=== PATIENT | female | born 1945 | race Caucasian/White ===

== ENCOUNTER 2023-02-21 14:56 | Inpatient (IN) | payer SELFPAY ==
--- NOTE | ~2023-02-21 | US_ITS ---
EXAMINATION: US RETROPERITONEAL LIMITED (RENAL ONLY) CLINICAL INFORMATION: TETO. Rule out obstruction/hydronephrosis. COMPARISON: CT abdomen and pelvis without contrast 02/21/2023. TECHNIQUE: Real-time imaging of the kidneys. FINDINGS: RIGHT KIDNEY: 12.1 x 5.8 x 5.6 cm (SAG x AP x TRV). The kidney is normal in size, contour and echogenicity. Renal cortical thickness is normal. No renal calculi or hydronephrosis. Small cyst in the mid pole measuring 5 mm. No imaging follow-up recommended. LEFT KIDNEY: Not seen. Left kidney appears atrophic on CT January 2023. US/US renal BI IMPRESSION: Normal-appearing right kidney. No hydronephrosis. Left kidney not seen. Left kidney appears atrophic on January [address]
--- NOTE | ~2023-02-21 | CT_ITS ---
EXAMINATION: CT ABDOMEN AND PELVIS WITHOUT CONTRAST CLINICAL INFORMATION: Vaginal bleeding with pelvic tumor COMPARISON: CT abdomen pelvis without contrast 02/21/2023 TECHNIQUE: Multidetector volumetric imaging was performed from the superior aspect of the liver through the pubic symphysis. Sagittal and coronal reformatted images were obtained on the technologist's workstation. This CT examination was performed using dose optimization techniques as appropriate, variously including the following: *Automated exposure control *Adjustment of mA and/or kV according to patient size (this includes techniques or standardized protocols for targeted exams where dose is matched to indication/reason for exam; i.e. extremities or head) *Use of iterative reconstruction technique DLP: 1325 mGy-cm FINDINGS: LUNG BASES: Enlarged right anterior and left anterior preparacardiac lymph nodes are seen which have increased in size since the prior study. There are bilateral new pleural effusions and basilar atelectasis. No suspicious lung masses are seen. LIVER, GALLBLADDER, AND BILIARY TREE: The liver is normal in size, shape, and attenuation. No focal hepatic lesion or biliary ductal dilatation is present. The gallbladder is unremarkable with no evidence of radiopaque gallstones, gallbladder wall thickening, or obvious pericholecystic inflammatory changes. PANCREAS: Unremarkable. SPLEEN: Unremarkable. ADRENAL GLANDS: Unremarkable. KIDNEYS AND URETERS: The kidneys are normal in size, shape, and attenuation. No hydronephrosis, hydroureter, or calculi seen. No perinephric stranding. BLADDER: Ferreira catheter is in the bladder which is GASTROINTESTINAL TRACT: No evidence of bowel obstruction. ABDOMINAL WALL: Periumbilical hernia seen. Fluid is present within this along with some soft tissue density which may represent omental carcinomatosis. Because of lack of IV contrast, it is difficult to ascertain if a loop of small bowel is within this hernia. There certainly no evidence of bowel obstruction. LYMPH NODES: See discussion above regarding paracardiac nodes. Retroperitoneal lymphadenopathy is seen which appears slightly worse than prior. For example, a para-aortic lymph node now measures 3.8 x 3.4 cm in maximal transverse dimension (2:49) whereas previously this measured 3.1 x 2.4 cm (8:51) VASCULAR: Unremarkable. PELVIC VISCERA: Large volume ascites is present which has increased when compared to the prior study. Again seen is a large lobular uterine pelvic mass with largest component measuring 17.6 x 16.7 cm in maximal transverse dimension (2:74) with equivalent measurements at the time of the prior study of 15.3 x 16.2 cm (8:78). OSSEOUS STRUCTURES: Unremarkable. CT/CT abdomen pelvis wo IV con IMPRESSION: 1. Large uterine pelvic mass has increased in size. 2. Retroperitoneal lymphadenopathy has increased in size. 3. Large volume ascites has increased. 4. New bilateral pleural effusions. 5. Other incidental findings as described above. Fleischner guidelines were followed.
--- NOTE | ~2023-02-21 | CT_ITS ---
EXAMINATION: CT HEAD WITHOUT CONTRAST CLINICAL INFORMATION: Headache status-post fall; question hemorrhage. COMPARISON: None available. TECHNIQUE: Contiguous axial imaging was performed from the skull base to vertex without intravenous administration of contrast. Multiplanar reformatted images are submitted. This CT examination was performed using dose optimization techniques as appropriate, variously including the following: *Automated exposure control *Adjustment of mA and/or kV according to patient size (this includes techniques or standardized protocols for targeted exams where dose is matched to indication/reason for exam; i.e. extremities or head) *Use of iterative reconstruction technique DLP: 2236 mGy-cm (head and cervical spine) FINDINGS: There is no acute intracranial hemorrhage or evidence of territorial infarction. No abnormal mass effect or midline shift is seen. Cardona to white matter differentiation is well preserved. There is mild patchy low attenuation change in the periventricular white matter spaces. The ventricles are normal in size. No extra-axial fluid collections are identified. The calvarium and scalp soft tissues are normal. The middle ear cavity and mastoid air cells are clear. The visualized paranasal sinuses are clear. CT/CT cervical spine wo IV con IMPRESSION: 1. No acute intracranial pathology. 2. There is mild patchy low attenuation change in the periventricular white matter spaces, commonly associated with chronic microangiopathy. EXAMINATION: CT CERVICAL SPINE WITHOUT CONTRAST CLINICAL INFORMATION: Neck pain status-post fall. COMPARISON: None available. TECHNIQUE: Contiguous axial imaging was performed through the cervical spine without intravenous administration of contrast. Multiplanar reformatted images are submitted. This CT examination was performed using dose optimization techniques as appropriate, variously including the following: *Automated exposure control *Adjustment of mA and/or kV according to patient size (this includes techniques or standardized protocols for targeted exams where dose is matched to indication/reason for exam; i.e. extremities or head) *Use of iterative reconstruction technique DLP: As above FINDINGS: Imaging is somewhat limited by motion artifact. Vertebral body heights are normal. There is reversal of the normal curvature. At C3-C4, there is a 2 mm retrolisthesis. At C7-T1, there is anterior disc space narrowing, with vacuum disc phenomenon. At T2-T3, there is moderate disc space narrowing. No acute fracture or spondylolisthesis is seen. There is multi-level cervical and upper thoracic spondylosis. The posterior elements are intact. There is multi-level cervical facet arthropathy. There is no prevertebral soft tissue swelling. The dens is intact. There is degenerative change of the atlantoaxial joint. The bilateral lung apices are clear. IMPRESSION: There is multi-level cervical and upper thoracic degenerative disc disease, spondylosis and facet arthropathy. No acute traumatic finding is noted. Fleischner guidelines were followed.
--- NOTE | ~2023-02-21 | US_ITS ---
EXAMINATION: US PELVIS CLINICAL INFORMATION: Uterine mass seen on CT. COMPARISON: CT scan of the abdomen and pelvis performed on 02/21/2023. TECHNIQUE: Ultrasound of the pelvis is performed using both transabdominal and transvaginal transducers along with Doppler. Transvaginal imaging is performed due to inadequate visualization transabdominally. Positive findings The uterus and ovaries are suboptimally visualized secondary to bowel gas and ascites. If clinically indicated, further evaluation with contrast-enhanced pelvic MRI is recommended.
--- NOTE | ~2023-02-21 | XR_ITS ---
EXAMINATION: XR CHEST CLINICAL INFORMATION: Hypoxia COMPARISON: 04/07/2023, 02/21/2023 TECHNIQUE: Frontal view of the chest was obtained. FINDINGS: Heart size within normal limits. The ascending aorta/right hilum is more dominant than on previous studies. Left base atelectasis, mild left hemidiaphragmatic elevation and costophrenic angle blunting again seen. Small opacity right base. Degenerative changes. XR/XR chest 1V IMPRESSION: Interval prominence region of the ascending aorta. If there is clinical concern for aortic pathology, CT would be advised. Possible developing right base pneumonia.
--- NOTE | ~2023-02-21 | US_ITS ---
Paracentesis INDICATIONS: Ascites After informed and written consent was obtained an official timeout was performed immediately prior to the procedure. PROCEDURE: Initial ultrasound surveillance demonstrates ascites throughout the abdomen. Under ultrasound guidance a micropuncture needle was placed in the left lower quadrant after the skin was prepped and draped in usual fashion. 1% Xylocaine was used for local anesthetic. 5 L a slightly cloudy fluid was drained. US/US paracentesis abd w/image IMPRESSION: Paracentesis with 5 L of fluid drained
--- NOTE | ~2023-02-21 | XR_ITS ---
EXAMINATION: XR CHEST CLINICAL INFORMATION: Chest pain. COMPARISON: None available. TECHNIQUE: Frontal view of the chest was obtained. FINDINGS: The lungs are clear. The heart and mediastinal structures are unremarkable. Mild to moderate degenerative changes are seen in the thoracic spine. Mild to moderate right shoulder degenerative changes as well. XR/XR chest 1V IMPRESSION: No acute cardiopulmonary process.
--- NOTE | ~2023-02-21 | US_ITS ---
EXAMINATION: US VENOUS ULTRASOUND WITH DOPPLER LOWER EXTREMITY, BILATERAL CLINICAL INFORMATION: Swelling. COMPARISON: None available. TECHNIQUE: Ultrasound of the deep veins is performed from the hip to the calf with compression sonography and color and pulse Doppler assessment. Spectral analysis with color-flow imaging is performed. FINDINGS: RIGHT: There is normal venous compression and respiratory variation and augmented flow. The visualized common femoral vein, superficial femoral vein, profunda femoral vein and popliteal vein shows no evidence of deep venous thrombosis. The calf veins were not well seen due to overlying subcutaneous thickening. There is no significant popliteal fossa cyst. LEFT: There is normal venous compression and respiratory variation and augmented flow. The visualized common femoral vein, superficial femoral vein, profunda femoral vein, and popliteal vein shows no evidence of deep venous thrombosis. The calf veins were not well seen due to overlying subcutaneous thickening. There is no significant popliteal fossa cyst. US/US venous duplex LE BI IMPRESSION: No DVT demonstrated in the bilateral lower extremities with the caveat of suboptimal evaluation of the calf veins as above. If the patient's symptoms persist, followup ultrasound in 5 days 7 days might be of value to exclude proximal propagation from a non-visualized calf vein
--- NOTE | ~2023-02-21 | US_ITS ---
EXAMINATION: US ABDOMEN LIMITED CLINICAL INFORMATION: Ascites check. COMPARISON: CT abdomen and pelvis without contrast 02/21/2023. TECHNIQUE: Real-time imaging of the 4 quadrants. FINDINGS: There is a large amount of ascites. US/US abdomen limited IMPRESSION: Large amount of ascites.
--- NOTE | ~2023-02-21 | XR_ITS ---
EXAMINATION: XR CHEST CLINICAL INFORMATION: Shortness of breath. COMPARISON: 02/21/2023 TECHNIQUE: Frontal view of the chest was obtained. FINDINGS: The lung volumes are low. The cardiomediastinal silhouette is stable. There is left lower lung field increased markings. There is no focal lung consolidation or pleural effusion. The bony structures and soft tissues are unremarkable. XR/XR chest 1V IMPRESSION: 1. Low lung volumes limits evaluation. 2. Left lower lung field increased markings possibly atelectasis/scarring. 3. No focal consolidation or pleural effusion.
--- NOTE | ~2023-02-21 | CT_ITS ---
EXAMINATION: CT CHEST WITHOUT CONTRAST CLINICAL INFORMATION: Pneumonia. COMPARISON: Chest x-ray 04/11/2023. TECHNIQUE: Multidetector volumetric CT imaging of the chest was done. Axial MIP volume rendering provided. Sagittal and coronal reformatted images were obtained. This CT examination was performed using dose optimization techniques as appropriate, variously including the following: *Automated exposure control *Adjustment of mA and/or kV according to patient size (this includes techniques or standardized protocols for targeted exams where dose is matched to indication/reason for exam; i.e. extremities or head) *Use of iterative reconstruction technique DLP: 378 mGy-cm FINDINGS: DIRECT MARKETING MANAGER: Patient is rotated to the left with mild cardiomegaly and air bronchogram left lower lobe. LUNGS: The lungs are well-expanded with 2 mm calcified nodule right lung apex image 75/6. No additional lung lung nodules seen. There is moderate left lower lobe consolidation with small left pleural effusion. There is minimal right pleural effusion. MEDIASTINUM: Heart size is enlarged. The abdominal aorta measures 4.5 x 4.0 cm. The pulmonary artery is normal caliber. No abnormal size mediastinal or hilar lymphadenopathy seen. There is no pericardial effusion. No abnormal size CORONARY ARTERY CALCIFICATION: None visualized on this study. PLEURA: There is small left and tiny right pleural effusion. AXILLA: No lymphadenopathy. UPPER ABDOMEN: There is a hypodense lesion versus a dilated intrahepatic IVC. Also visualized is a right hepatic lobe hypodensity segment 7 axial image 48/3. There is diffuse ascites. OSSEOUS STRUCTURES: No aggressive lytic or sclerotic process seen. There is mild ventral spondylosis mid dorsal spine. CT/CT chest wo IV con IMPRESSION: 1. Left lower lobe consolidation with small left pleural effusion. 2. There is tiny right pleural effusion. 3. There is a hypodense lesion versus a dilated intrahepatic IVC. Also visualized is a second lesion in the right hepatic lobe. Recommend CT correlation without and with contrast. Fleischner guidelines were followed.
--- NOTE | ~2023-02-21 | CT_ITS ---
EXAMINATION: CT ABDOMEN AND PELVIS WITHOUT CONTRAST CLINICAL INFORMATION: Lower abdominal pain; frequent falls. COMPARISON: None available. TECHNIQUE: Multidetector volumetric imaging was performed from the superior aspect of the liver through the pubic symphysis. Sagittal and coronal reformatted images were obtained on the technologist's workstation. This CT examination was performed using dose optimization techniques as appropriate, variously including the following: *Automated exposure control *Adjustment of mA and/or kV according to patient size (this includes techniques or standardized protocols for targeted exams where dose is matched to indication/reason for exam; i.e. extremities or head) *Use of iterative reconstruction technique DLP: 2236 mGy-cm FINDINGS: LUNG BASES: There is bibasilar linear scar/subsegmental atelectasis, left greater than right. There is cardiomegaly. LIVER, GALLBLADDER, AND BILIARY TREE: The liver is normal in size, shape, and attenuation. No focal hepatic lesion or biliary ductal dilatation is present. The gallbladder is unremarkable with no evidence of radiopaque gallstones, gallbladder wall thickening, or obvious pericholecystic inflammatory changes. PANCREAS: Unremarkable. SPLEEN: Unremarkable. ADRENAL GLANDS: Unremarkable. KIDNEYS AND URETERS: The right kidney is normal in size, shape, and attenuation. There is marked left renal atrophy. There are 3 low Hounsfield value left renal cortical cysts. There are small probable vascular calcifications within the atrophic left kidney. No hydronephrosis, hydroureter, or definite calculi seen. No perinephric stranding. BLADDER: Unremarkable. GASTROINTESTINAL TRACT: The small and large bowel are unremarkable. The appendix is poorly identified. ABDOMINAL WALL: There is a diastases rectus. There is a fat and fluid containing umbilical hernia defect. This contains small calcifications. The hernia neck measures 1.3 cm, and the hernia sac measures 6.2 x 3.7 x 6.4 cm (8:88 and 12:48). There is marked anasarca. LYMPH NODES: There are multiple enlarged abdominal and pelvic lymph nodes. In particular, 1.9 x 1.5 cm and 3.8 x 2.7 cm dominant gastrohepatic lymph nodes are seen (8:28 and 36). Within the rightward mesentery (8:49), a 2.4 x 1.7 cm lymph node is seen. In the left para-aortic region (8:51), a 3.1 x 2.4 cm lymph node is seen. Within the right common iliac chain (8:67 and 73), 2.4 x 1.8 cm and 1.6 x 1.3 cm lymph nodes are seen. In the right external iliac chain (8:85), a 1.2 x 1.2 cm lymph node is seen. In the left iliac chain (8:76), a 1.7 x 1.3 cm lymph node is seen. A 2.0 x 1.3 cm right pararectal lymph node is seen. VASCULAR: There is mild aortoiliac atherosclerotic calcification. No abdominal aortic aneurysm is seen. PELVIC VISCERA: The uterus is massively enlarged, measuring 16.5 x 19.0 x 18.6 cm (8:77 and 12:69). Uterine attenuation is heterogeneous. There are several peripheral eggshell calcifications noted within the uterus, possibly related to fibroid disease. The margins are relatively smooth. The ovaries are not identified with certainty. OSSEOUS STRUCTURES: There is multi-level marked thoracolumbar spondylosis. There is marked degenerative disc disease extending from L2-L3 through L5-S1, with vacuum disc phenomenon. There is multi-level lumbar facet arthropathy. There is severe degenerative change of the hips. No acute or aggressive osseous abnormality is seen. FREE FLUID: There is marked [address]/CT abdomen pelvis wo IV con IMPRESSION: 1. A significantly enlarged uterus is seen, with dimensions as above. There are peripheral eggshell calcifications within the uterus, raising the possibility of massive fibroid replacement. The possibility of uterine tumor, including leiomyosarcoma, is not excluded. Recommend further characterization with dedicated pelvic ultrasound. 2. There are numerous markedly enlarged abdominal and pelvic lymph nodes, as detailed above. These are nonspecific, and further work-up is indicated, together with continued attention on imaging follow-up. 3. There is marked ascites, and marked anasarca is noted. Consider diagnostic and therapeutic paracentesis, with cytology evaluation. 4. There is left renal atrophy. Benign-appearing left renal cysts are noted, which require no imaging follow-up. 5. There is a fat- and fluid-containing umbilical hernia defect. 6. There are multi-level marked degenerative changes of the thoracolumbar spine and hips. No aggressive osseous lesion is seen. 7. There is cardiomegaly. Fleischner guidelines were followed.
--- NOTE | ~2023-02-21 | US_ITS ---
EXAMINATION: Ultrasound-guided paracentesis CLINICAL INFORMATION: Ascites COMPARISON: Previous CT of the abdomen and pelvis 02/21/2023 TECHNIQUE: Procedure and risks and benefits including bleeding infection and low blood pressure were discussed with the patient and informed consent was obtained. The left lower quadrant was prepped and draped in usual sterile fashion. The skin and soft tissues were anesthetized with 1% lidocaine plain. Using ultrasound guidance and a 5 Danish one stick system, access to the ascitic fluid was obtained. 8.3 L of serosanguineous/slightly bloody fluid was removed. Diagnostic specimen was sent. FINDINGS: There is a large amount of ascites. This appears slightly complex with mobile internal echoes. US/US paracentesis abd w/image IMPRESSION: Ultrasound-guided paracentesis.
[2023-02-21 15:06] VITALS: BP 114/70; PULSE 82; O2SAT 97
[2023-02-21 15:11] VITALS: BP 101/47; PULSE 101; RESP 18; TEMP 36.7; O2SAT 97; BMI 31.7
--- NOTE | 2023-02-21 15:26 | ECG_ITS ---
Test Reason : SOB Blood Pressure : / mmHG Vent. Rate : 068 BPM Atrial Rate : 068 BPM P-R Int : 220 ms QRS Dur : 084 ms QT Int : 402 ms P-R-T Axes : -86 001 012 degrees QTc Int : 427 ms Normal sinus rhythm with Premature atrial complexes Abnormal ECG No previous ECGs available Referred By: Tuyet Nassar Electronically Signed By:CHRISTIE POTTS MD
--- NOTE | 2023-02-21 15:30 | ED.GENADULT ---
HPI - General Adult General Chief complaint: General Medical Stated complaint: SEC 12, FAILURE TO THRIVE PER EMS Time Seen by Provider: 02/21/23 15:06 History of Present Illness HPI narrative: Patient is a 77-year-old female she denies any significant past medical history. However she has been having frequent falls. Came to the hospital after being [place] [address] [employer]. Leads noted patient has been frequently falling multiple times a day in forgetful been self-administering oxycodone cannot ambulate and is covered in urine. Sent in for evaluation. Related Data Home Medications Medication Instructions Recorded Confirmed oxycodone 5 mg tablet 10 mg PO BID PRN pain 02/21/23 02/21/23 Allergies Allergy/AdvReac Type Severity Reaction Status Date / Time No Known Allergies Allergy Verified 02/21/23 15:25 Review of Systems Review of Systems: No fever no chills no chest pain. Positive contusions to head. No loss of consciousness. Patient has no complaints. Yes all other systems are reviewed and are negative PMFSH Past Medical History Attestation statement: The following information was validated with the patient. Social History Social History Alcohol intake: never Smoked in Last 30 Days: No Use of substances other than those prescribed or required for medical reasons: No Advance Directives: No Advance Directives Information Provided: Yes Physical Exam ED Vital Signs: Vital Signs - 24 hr 02/21/23 15:11 02/21/23 17:31 Temperature 98.1 F 97.6 F Pulse Rate 101 H 77 Respiratory Rate 18 20 Blood Pressure 101/47 L 94/62 Pulse Oximetry 97 96 Oxygen Delivery Method Room Air Room Air BMI result Body Mass Index 31.7 Appearance: Alert. Oriented X3. No acute distress. Significant contusion to the left frontal area appears to have different stages of healing. Eyes: Pupils equal, round and reactive to light. ENT: Pharynx normal. Neck: Normal inspection. Neck supple. No lymph nodes noted. No crepitus CVS: Normal heart rate and rhythm. Pulses normal. Normal S1 and S2 Respiratory: No respiratory distress. Breath sounds normal. No Wheezing. No rales Abdomen: Soft and nontender. No rigidity. No distention. good BS x4 Skin: Skin warm and dry. Normal skin color. Normal skin turgor. Extremities: No lower extremity edema. Neurovascular intact to all extremities. No Lacerations. No Rash Neuro: Oriented X 3. No motor deficit. No sensory deficit. Moving all extermities. No slurred speech Medications Administered Discontinued Medications Generic Name Dose Route Start Last Admin Trade Name Yousuf PRN Reason Stop Dose Admin Sodium Chloride 500 mls @ 999 mls/hr 02/21/23 15:30 02/21/23 17:33 Ns IV 02/21/23 16:00 Infused .Q31M NAYA Infusion Ceftriaxone Sodium 1 gm/ 50 mls @ 100 mls/hr 02/21/23 18:18 02/21/23 19:42 Sodium Chloride IV 02/21/23 18:47 Infused ONCE ONE Infusion Sodium Chloride 1,000 mls @ 999 mls/hr 02/21/23 18:30 02/21/23 18:56 Ns IV 02/21/23 19:30 999 mls/hr .Q1H1M NAYA Administration Medical Decision Making Medical Decision Making [facility] Narrative: Patient's urine came back positive for infection. Lactate was 1. Patient's white count was 20. Accounting for some of patient's weakness and may be forgetfulness. CT scan of the head was grossly negative for any evidence of bleeding. CT scan of the abdomen pelvis showed a mass. Will need further workup. U tox was negative. Patient's electrolytes shows an elevated BUN and creatinine 34 and 1.43. Will give hydration. Patient's alcohol is less than 10 no evidence for alcohol to be the cause of patient's change in mental status. Patient's case discussed with the hospitalist team. To be admitted. Differential Diagnosis Differential Diagnoses: The differential diagnosis associated with the presentation includes Urinary tract infection, electrolyte disturbance, hypoglycemia, intracranial bleed Consult Healthcare Provider Management of the patient was discussed with: Hospitalist Lab Data [facility] Lab Attestation statement: I reviewed the patient's lab results. 02/21/23 16:34 02/21/23 16:34 Labs: Lab Results 02/21/23 02/21/23 02/21/23 Range/Units 16:34 16:34 16:34 WBC 20.2 H (4.8-10.8) X10*3/uL RBC 3.77 L (4.20-5.50) X10*6/uL Hgb 10.0 L (12.0-16.0) g/dl Hct 32.8 L (37.0-47.0) % MCV 87.0 (80.0-98.0) fL MCH 26.5 L (27.0-33.0) pg MCHC 30.5 L (31.0-35.0) g/dl RDW 13.4 (11.0-16.0) % Plt Count 310 (160-400) X10*3/uL MPV 10.8 (9.4-12.3) fL Immature Gran % (Auto) 0.5 H (0.0-0.4) % Neut % (Auto) 92.2 H (45-73) % Lymph % (Auto) 3.4 L (20-40) % [place] % (Auto) 3.3 (2-11) % Eos % (Auto) 0.4 (0-4) % Baso % (Auto) 0.2 (0-2) % Lymph # (Auto) 0.7 L (1.2-4.9) X10*3/uL [place] # (Auto) 0.7 (0.1-1.2) X10*3/uL Eos # (Auto) 0.1 (0.0-0.4) X10*3/uL Baso # (Auto) 0.0 (0.0-0.2) X10*3/uL Abs Immat Gran (auto) 0.10 H (0.00-0.03) X10*3/uL Absolute Neuts (auto) 18.6 H (2.0-8.3) x10*3/uL Absolute Nucleated RBC 0.000 (0.0-0.012) X10*3/uL Nucleated RBC % (auto) 0.0 (0.0-0.2) /100WBC Smear Tech's Comments VERIFIED PT 13.9 H (11.1-13.3) SEC INR 1.1 (0.9-1.1) Sodium 139 (135-145) mmol/L Potassium 4.1 (3.3-5.1) mmol/L Chloride 107 (96-108) mmol/L Carbon Dioxide 20 L (22-29) mmol/L Anion Gap 16 (12-20) BUN 32 H (9-16) mg/dL Creatinine 1.42 H (0.5-1.4) mg/dL Estim Creat Clear Calc 45.8 Estimated GFR 36 Random Glucose 112 (60-115) mg/dL Lactic Acid (0.5-2.0) mmol/L Calcium 8.9 (8.4-10.2) mg/dL Total Bilirubin 0.4 (0.0-1.0) mg/dL Direct Bilirubin 0.2 (0.0-0.5) mg/dL AST 11 (5-31) U/L ALT 7 (0-31) U/L Alkaline Phosphatase 98 (39-117) U/L Total Creatine Kinase (26-140) U/L Total Protein 5.7 L (6.5-8.0) g/dL Albumin 2.6 L (3.5-5.0) g/dL Urine Color Urine Appearance Urine pH (5.0-9.0) Ur Specific [place] (1.005-1.025) Urine Protein (Neg-Trace) mg/dL Urine Glucose (UA) (Negative) mg/dL Urine Ketones (Negative) mg/dL Urine Blood (Negative) Urine Nitrite (Negative) Ur Leukocyte Esterase (Negative) Urine RBC (0-2) /HPF Urine WBC (0-5) /HPF Ur Squamous Epith Cells (0-2) /HPF Urine Bacteria (None Seen) Hyaline Casts (0-2) /LPF Urine Opiates Screen (Not Detect) Urine Fentanyl Screen (Not Detect) Ur Barbiturates Screen (Not Detect) Ur Phencyclidine Scrn (Not Detect) Ur Amphetamines Screen (Not Detect) U Benzodiazepines Scrn (Not Detect) Urine Cocaine Screen (Not Detect) U Marijuana (THC) Screen (Not Detect) Ethyl Alcohol < 10 mg/dL 02/21/23 02/21/23 02/21/23 Range/Units 16:34 16:34 16:34 WBC (4.8-10.8) X10*3/uL RBC (4.20-5.50) X10*6/uL Hgb (12.0-16.0) g/dl Hct (37.0-47.0) % MCV (80.0-98.0) fL MCH (27.0-33.0) pg MCHC (31.0-35.0) g/dl RDW (11.0-16.0) % Plt Count (160-400) X10*3/uL MPV (9.4-12.3) fL Immature Gran % (Auto) (0.0-0.4) % Neut % (Auto) (45-73) % Lymph % (Auto) (20-40) % [place] % (Auto) (2-11) % Eos % (Auto) (0-4) % Baso % (Auto) (0-2) % Lymph # (Auto) (1.2-4.9) X10*3/uL [place] # (Auto) (0.1-1.2) X10*3/uL Eos # (Auto) (0.0-0.4) X10*3/uL Baso # (Auto) (0.0-0.2) X10*3/uL Abs Immat Gran (auto) (0.00-0.03) X10*3/uL Absolute Neuts (auto) (2.0-8.3) x10*3/uL Absolute Nucleated RBC (0.0-0.012) X10*3/uL Nucleated RBC % (auto) (0.0-0.2) /100WBC Smear Tech's Comments PT (11.1-13.3) SEC INR (0.9-1.1) Sodium (135-145) mmol/L Potassium (3.3-5.1) mmol/L Chloride (96-108) mmol/L Carbon Dioxide (22-29) mmol/L Anion Gap (12-20) BUN (9-16) mg/dL Creatinine (0.5-1.4) mg/dL Estim Creat Clear Calc Estimated GFR Random Glucose (60-115) mg/dL Lactic Acid (0.5-2.0) mmol/L Calcium (8.4-10.2) mg/dL Total Bilirubin (0.0-1.0) mg/dL Direct Bilirubin (0.0-0.5) mg/dL AST (5-31) U/L ALT (0-31) U/L Alkaline Phosphatase (39-117) U/L Total Creatine Kinase 57 (26-140) U/L Total Protein (6.5-8.0) g/dL Albumin (3.5-5.0) g/dL Urine Color Dark Yellow Urine Appearance Cloudy Urine pH 5.5 (5.0-9.0) Ur Specific [place] 1.025 (1.005-1.025) Urine Protein 30 (1+) H (Neg-Trace) mg/dL Urine Glucose (UA) Negative (Negative) mg/dL Urine Ketones Trace (Negative) mg/dL Urine Blood Large (3+) H (Negative) Urine Nitrite Negative (Negative) Ur Leukocyte Esterase Moderate (2+) H (Negative) Urine RBC >20 H (0-2) /HPF Urine WBC >50 H (0-5) /HPF Ur Squamous Epith Cells 6-10 (0-2) /HPF Urine Bacteria 1+ (None Seen) Hyaline Casts 3-5 (0-2) /LPF Urine Opiates Screen POSITIVE H (Not Detect) Urine Fentanyl Screen Not Detected (Not Detect) Ur Barbiturates Screen Not Detected (Not Detect) Ur Phencyclidine Scrn Not Detected (Not Detect) Ur Amphetamines Screen Not Detected (Not Detect) U Benzodiazepines Scrn Not Detected (Not Detect) Urine Cocaine Screen Not Detected (Not Detect) U Marijuana (THC) Screen Not Detected (Not Detect) Ethyl Alcohol mg/dL 02/21/23 Range/Units 18:39 WBC (4.8-10.8) X10*3/uL RBC (4.20-5.50) X10*6/uL Hgb (12.0-16.0) g/dl Hct (37.0-47.0) % MCV (80.0-98.0) fL MCH (27.0-33.0) pg MCHC (31.0-35.0) g/dl RDW (11.0-16.0) % Plt Count (160-400) X10*3/uL MPV (9.4-12.3) fL Immature Gran % (Auto) (0.0-0.4) % Neut % (Auto) (45-73) % Lymph % (Auto) (20-40) % [place] % (Auto) (2-11) % Eos % (Auto) (0-4) % Baso % (Auto) (0-2) % Lymph # (Auto) (1.2-4.9) X10*3/uL [place] # (Auto) (0.1-1.2) X10*3/uL Eos # (Auto) (0.0-0.4) X10*3/uL Baso # (Auto) (0.0-0.2) X10*3/uL Abs Immat Gran (auto) (0.00-0.03) X10*3/uL Absolute Neuts (auto) (2.0-8.3) x10*3/uL Absolute Nucleated RBC (0.0-0.012) X10*3/uL Nucleated RBC % (auto) (0.0-0.2) /100WBC Smear Tech's Comments PT (11.1-13.3) SEC INR (0.9-1.1) Sodium (135-145) mmol/L Potassium (3.3-5.1) mmol/L Chloride (96-108) mmol/L Carbon Dioxide (22-29) mmol/L Anion Gap (12-20) BUN (9-16) mg/dL Creatinine (0.5-1.4) mg/dL Estim Creat Clear Calc Estimated GFR Random Glucose (60-115) mg/dL Lactic Acid 1.0 (0.5-2.0) mmol/L Calcium (8.4-10.2) mg/dL Total Bilirubin (0.0-1.0) mg/dL Direct Bilirubin (0.0-0.5) mg/dL AST (5-31) U/L ALT (0-31) U/L Alkaline Phosphatase (39-117) U/L Total Creatine Kinase (26-140) U/L Total Protein (6.5-8.0) g/dL Albumin (3.5-5.0) g/dL Urine Color Urine Appearance Urine pH (5.0-9.0) Ur Specific [place] (1.005-1.025) Urine Protein (Neg-Trace) mg/dL Urine Glucose (UA) (Negative) mg/dL Urine Ketones (Negative) mg/dL Urine Blood (Negative) Urine Nitrite (Negative) Ur Leukocyte Esterase (Negative) Urine RBC (0-2) /HPF Urine WBC (0-5) /HPF Ur Squamous Epith Cells (0-2) /HPF Urine Bacteria (None Seen) Hyaline Casts (0-2) /LPF Urine Opiates Screen (Not Detect) Urine Fentanyl Screen (Not Detect) Ur Barbiturates Screen (Not Detect) Ur Phencyclidine Scrn (Not Detect) Ur Amphetamines Screen (Not Detect) U Benzodiazepines Scrn (Not Detect) Urine Cocaine Screen (Not Detect) U Marijuana (THC) Screen (Not Detect) Ethyl Alcohol mg/dL Independent Interpretation I performed an independent interpretation of an: EKG and CT Scan Interpretation: Atrial arrhythmia heart rate is 70 MO QRS QTC normal CT head negative for any acute evidence of Radiology Impression Discussion of test interpretation with radiology: I have reviewed the radiologist's reading. Independent Historian Clinical information obtained from an independent historian. History obtained from or confirmed by: EMS Social Determinants Patient?s care significantly limited by Social Determinants of Health including: Inadequate housing Discharge Plan Discharge Clinical Impression: Urinary tract infection Patient Disposition: Admitted As Inpatient
--- OUTSIDE RECORDS SUMMARY | 2023-02-21 15:31 | XMS_ITS | Continuity of Care Document ---
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 Name Role Phone Marcia NATION, Nichole Primary Care Phys[id number] Date(s): 07/01/20 - 07/08/20 [facility] [address] [place] [phone] Encounter Diagnosis Mild nonproliferative diabetic retinopathy of both eyes(Discharge Diagnosis) - 07/01/20 Type 2 diabetes with nephropathy(Discharge Diagnosis) - 07/01/20 Microalbuminuria(Discharge Diagnosis) - 07/01/20 Morbid obesity(Discharge Diagnosis) - 07/01/20 Chronic kidney disease (CKD), stage III (moderate)(Discharge Diagnosis) - 07/01/20 HTN (hypertension)(Discharge Diagnosis) - 07/01/20 Low back pain(Discharge Diagnosis) - 07/01/20 Depression, major(Discharge Diagnosis) - 07/01/20 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(Discharge Diagnosis) - 07/01/20 Dyslipidemia(Discharge Diagnosis) - 07/01/20 Postmenopausal bleeding(Discharge Diagnosis) - 07/01/20 Attending Physician: Marcia NATION Nichole Allergies, Adverse Reactions, Alerts Substance Reaction Severity Status codeine Active aspirin nausea/vomitting Active Immunizations Given and Recorded Vaccine Date Status Refusal Reason tetanus/diphtheria/pertussis, acel(Tdap) 1 05/13/16 Given tetanus/diphtheria/pertussis, acel(Tdap) 05/13/16 Given influenza virus vaccine, inactivated 06/05/13 Give n influenza virus vaccine, inactivated 06/08/07 Give n Pneumococcal Poly (PPV23) (oldterm) 06/08/07 Given 1Result Comment: [email or web address] Medications Ascensia Microlet lancets Ascensia Microlet lancets, See Instructions, # 100 each, Refills 2, Tot. Refills 2, Maintenance, eat blood sugar daily, 10/11/10 16:40:55 Start Date: 10/11/10 Status: Ordered atorvastatin 40 mg oral tablet 1 tablet = 40 mg, By Mouth, Daily, # 90 tablet, 1 Refills, Soft Stop, 06/30/20 12:54:00 EST, [facility]/pharmacy #[id number], 181, cm, 03/11/19 15:15:00 EDT, Height Start Date: 06/30/20 Status: Ordered Giselle Ascensia Autodisc Test Strips See Instructions, # 50 each, Refills 5, Tot. Refills 5, Maintenance, Ascensia Breexe unique 10 testdisc testr blood sugars daily, 10/11/10 16:12:28 Start Date: 10/11/10 Status: Ordered felodipine 5 mg oral tablet, extended release 1 tablet, By Mouth, Daily, # 90 tablet, 2 Refills, Maintenance, 06/30/20 16:18:00 EST, [facility]/pharmacy#1972, 181, cm, 03/11/19 15:15:00 EDT, Height Start Date: 06/30/20 Status: Ordered glipiZIDE 5 mg oral tablet 2.5 mg, 0.5, tablet, By Mouth, Daily, # 45 tablet, Refills 0, Tot. Refills 0, Maintenance, 07/06/2011:14:00 EST, Route to Pharmacy Electronically, [facility]/pharmacy #[id number], 181, cm, 07/01/20 11:38:00 EST,Height Start Date: 07/06/20 Stop Date: 04/02/21 Status: Ordered lisinopril 40 mg oral tablet 1 tablet = 40 mg, By Mouth, Daily, # 30 tablet, 2 Refills, Maintenance, 06/27/20 9:42:00 EST, [facility]/pharmacy #1972, 181, cm, 03/11/19 15:15:00 EDT, Height Start Date: 06/27/20 Status: Ordered nystatin topical 407149 u/gm powder 1 application, Topically, 3 times a day, # 60 Gm, 11 Refills, Maintenance, 03/11/19 15:36:28 EDT, Powder, 1 application Topically 3 times a day Start Date: 03/11/19 Status: Ordered omeprazole 20 mg oral enteric coated capsule 1 capsule = 20 mg, By Mouth, Daily, before a meal, # 30 capsule, 1 Refills, Maintenance, 12/22/16 12:09:57, EC Capsule Start Date: 12/22/16 Status: Ordered oxyCODONE 10 mg oral tablet 1 tablet = 10 mg, By Mouth, Every 6 hours, PRN as needed for pain, TO BE FILLED 06/15/20 DX M19.09 M17.10 M54.5, # 112 tablet, 0 Refills, Maintenance, 06/12/20 13:28:00 EST, Tablet, [facility]pharmacy #[id number], TO BE FILLED 06/15/20; Partial fill upon patient... Start Date: 06/12/20 Status: Ordered ROLLATOR ROLLATOR, See Instructions, # 1 each, Refills 0, Tot. Refills 0, Maintenance, WIDE BODY HEAVY DUTY,SEATED, HAND BRAKES, DX-degenerative joint disease of shoulder, knee oa, low back pain length of need lifetime, 11/08/16 13:23:23, Compound Start Date: 11/08/16 Status: Ordered Senna Plus 50 mg-8.6 mg oral tablet 2 tablet, By Mouth, Daily at bedtime, # 180 tablet, 3 Refills, Maintenance, 10/07/19 9:37:00 EDT, Tablet, [facility], 2 tablet By Mouth Daily at bedtime, 181, cm, 03/11/19 15:15:00 EDT, Height Start Date: 10/07/19 Status: Ordered triamcinolone 0.5% topical cream 1 application, Topically, 2 times a day, apply a thin film to affected area, # 60 Gm, 0 Refills, Maintenance, 07/01/20 11:59:00 EST, Cream, [facility], 1 application Topically 2 times a day,Instr:apply a thin film; to affected area, 181, cm,... Start Date: 07/01/20 Status: Ordered venlafaxine 150 mg oral capsule, extended release 2 capsules, By Mouth, Daily, # 180 capsule, Refills 0, Tot. Refills 0, Soft Stop, 06/01/20 10:41:00EST, Route to Pharmacy Electronically, [id number], Easy open lid., 181, cm, 03/11/19 15:15:00 EDT, Height Start Date: 06/01/20 Status: Ordered Problem List Condition Effective Dates Status Health Status Inform ant Attention deficit disorder(Confirmed) 12/16/05 Active Chronic kidney disease (CKD) , stage III (moderate)(Confirmed) Active 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(Confirmed) Active Mild nonproliferative diabet ic retinopathy of both eyes(Confirmed) 2017 Active Dyslipidemia(Confirmed) Active HTN (hypertension)(Confirmed) Active Kidney stone(Confirmed) Active Knee joint pain(Confirmed) Active 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(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) Active Low back pain(Confirmed) Active Depression, major(Confirmed) Active Microalbuminuria(Confirmed) Active Morbid obesity(Confirmed) Active Non-toxic multinodular goiter(Confirmed) 12/16/08 Active OA - Osteoarthritis of knee(Confirmed) Active Type 2 diabetes with nephropathy(Confirmed) Active Diagnosis Diagnosis Type Effective Dates Health Status Clinical Service Informant Mild nonproliferative diabetic retinopathy of both eyes Discharge Diagnosis 07/01/20 Chronic kidney disease (CKD), stage III (moderate) Discharge Diagnosis 07/01/20 Microalbuminuria Discharge Diagnosis 07/01/20 Morbid obesity Discharge Diagnosis 07/01/20 Type 2 diabetes with nephropathy Discharge Diagnosis 07/01/20 HTN (hypertension) Discharge Diagnosis 07/01/20 Low back pain Discharge Diagnosis 07/01/20 Depression, major Discharge Diagnosis 07/01/20 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
--- OUTSIDE RECORDS SUMMARY | 2023-02-21 15:31 | XMS_ITS | Continuity of Care Document ---
Author Name Unknown Organization [facility] Adult Address [address] [place] [address]- Care Team Providers Care Hospice Plan Administrator Name Role Phone Nichole Kennedy MD Primary Care Physician [place] [facility] [id number] Date(s): 01/22/21 - 01/29/21 [facility] Adult [address] [place] [id number]- Encounter Diagnosis Well adult exam(Discharge Diagnosis) - 01/22/21 Type 2 diabetes with nephropathy(Discharge Diagnosis) - 01/22/21 Mild nonproliferative diabetic retinopathy of both eyes(Discharge Diagnosis) - 01/22/21 Microalbuminuria(Discharge Diagnosis) - 01/22/21 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(Discharge Diagnosis) - 01/22/21 OA - Osteoarthritis of knee(Discharge Diagnosis) - 01/22/21 HTN (hypertension)(Discharge Diagnosis) - 01/22/21 Dyslipidemia(Discharge Diagnosis) - 01/22/21 Depression, major(Discharge Diagnosis) - 01/22/21 Epigastric pain(Discharge Diagnosis) - 01/22/21 Attending Physician: Nichole Kennedy MD Allergies, Adverse Reactions, Alerts Substance Reaction Severity [...] 1 Refills, Soft Stop, 06/30/20 12:54:00 EST, [facility]/pharmacy #1972, 181, cm, 03/11/19 15:15:00 EDT, Height Start Date: 06/30/20 Status: Ordered Giselle BUX Autodisc Test Strips See Instructions, # 50 each, Refills 5, Tot. Refills 5, Maintenance, [facility] unique 10 testdisc testr blood sugars daily, 10/11/10 16:12:28 Start Date: 10/11/10 Status: Ordered felodipine 5 mg oral tablet, extended release 1 tablet, By Mouth, Daily, # 30 tablet, 0 Refills, Maintenance, 01/27/21 9:23:00 EDT, [facility]/pharmacy #1972, 181, cm, 01/22/21 16:27:00 EDT, Height Start Date: 01/27/21 Status: Ordered glipiZIDE 5 mg oral tablet 2.5 mg, 0.5, tablet, By Mouth, Daily, # 45 tablet, Refills 1, Tot. Refills 1, Maintenance, 12/16/2115:23:00 EDT, Route to Pharmacy Electronically, [facility]/pharmacy #1972, 181, cm, 11/30/20 9:02:00 EDT, Height Start Date: 12/15/20 Status: Ordered lisinopril 40 mg oral tablet 1 tablet = 40 mg, By Mouth, Daily, # 30 tablet, 0 Refills, Maintenance, 01/27/21 9:22:00 EDT, [facility]/pharmacy #1972, 181, cm, 01/22/21 16:27:00 EDT, Height Start Date: 01/27/21 Status: Ordered nystatin topical 724879 u/gm powder 1 application, Topically, 3 times a day, # 60 Gm, 11 Refills, Maintenance, 03/11/19 15:36:28 EDT, Powder, 1 application Topically 3 times a day Start Date: 03/11/19 Status: Ordered omeprazole 20 mg oral enteric coated capsule 1 capsule = 20 mg, By Mouth, Daily, # 30 capsule, 0 Refills, Maintenance, 01/22/21 16:35:00 EDT, ECCapsule, [facility], Partial fill upon patient request if the prescription is for a schedule II opioid drug., 181, cm, 01/22/21 16:27:00 EDT, H... Start Date: 01/22/21 Status: Ordered oxyCODONE 10 mg oral tablet 1 tablet = 10 mg, By Mouth, Every 6 hours, PRN as needed for pain, PT OVERDUE FOR URINE DRUG SCREENAND LAB WORK DX M19.09 M17.10 M54.5, # 112 tablet, 0 Refills, Maintenance, 01/29/21 14:49:00 EDT, Tablet, [facility], TO BE FILLED 11/02/20; Par... Start Date: 01/29/21 Stop Date: 02/26/21 Status: Ordered ROLLATOR ROLLATOR, See Instructions, # 1 each, Refills 0, Tot. Refills 0, Maintenance, WIDE BODY HEAVY DUTY,SEATED, HAND BRAKES, DX-degenerative joint disease of shoulder, knee oa, low back pain length of need lifetime, 11/08/16 13:23:23, Compound Start Date: 11/08/16 Status: Ordered Senna Plus 50 mg-8.6 mg oral tablet 2 tablet, By Mouth, Daily at bedtime, # 60 tablet, 0 Refills, Maintenance, 01/27/21 9:24:00 EDT, Tablet, [facility], 2 tablet By Mouth Daily at bedtime, 181, cm, 01/22/21 16:27:00 EDT, Height Start Date: 01/27/21 Status: Ordered triamcinolone 0.5% topical cream 1 application, Topically, 2 times a day, apply a thin film to affected area, # 60 Gm, 2 Refills, Maintenance, 07/29/20 8:44:00 EST, Cream, [facility], 1 application Topically 2 times a day,Instr:apply a thin film; to affected area, 181, cm, 1... Start Date: 07/29/20 Status: Ordered venlafaxine 150 mg oral capsule, extended release 2 capsule, By Mouth, Daily, # 180 capsule, 1 Refills, Maintenance, 01/26/21 12:45:00 EDT, [facility], 181, cm, 01/22/21 16:27:00 EDT, Height Start Date: 01/26/21 Status: Ordered Problem List Condition Effective Dates Status Health Status Inform ant Attention deficit disorder(Confirmed) 12/16/05 Active Chronic kidney disease (CKD) , stage III (moderate)(Confirmed) Active 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(Confirmed) Active Mild nonproliferative diabet ic retinopathy of both eyes(Confirmed) 2017 Active Dyslipidemia(Confirmed) Active HTN (hypertension)(Confirmed) Active Kidney stone(Confirmed) Active Knee joint pain(Confirmed) Active 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(Confirmed) Active Low back pain(Confirmed) Active Depression, major(Confirmed) Active Microalbuminuria(Confirmed) Active Morbid obesity(Confirmed) Active Non-toxic multinodular goiter(Confirmed) 12/16/08 Active OA - Osteoarthritis of knee(Confirmed) Active Type 2 diabetes with nephropathy(Confirmed) Active Diagnosis Diagnosis Type Effective Dates Health Status Clinical Service Informant Well adult exam Discharge Diagnosis 01/22/21 Type 2 diabetes with nephropathy Discharge Diagnosis 01/22/21 Mild nonproliferative diabetic retinopathy of both eyes Discharge Diagnosis 01/22/21 Microalbuminuria Discharge Diagnosis 01/22/21 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 Discharge Diagnosis 01/22/21 OA - Osteoarthritis of knee Discharge Diagnosis 01/22/21 HTN (hypertension) Discharge Diagnosis 01/22/21 Dyslipidemia Discharge Diagnosis 01/22/21 Depression, major Discharge Diagnosis 01/22/21 Epigastric pain Discharge Diagnosis 01/22/21 Vital Signs Most recent to oldest [Reference Range]: 1 2 Height 181.00 cm (01/22/21 4:27 PM) 181.00 cm (01/22/21 3:22 PM) Weight 135.45 kg (01/22/21 3:22 PM) Oxygen Saturation [94-100 %] 94 % (01/22/21 3:22 PM) Pulse Rate [55-90 bpm] 48 bpm *L* (01/22/21 3:22 PM) Body Mass Index [18.5-24.99] 41.34 *>HHI* (01/22/21 3:22 PM) Blood Pressure [90-138/55-84 mm Hg] 134/ 68mm Hg (01/22/21 4:27 PM) Weight Obtained Via Standing scale (01/22/21 3:22 PM) Social History Social History Type Response Smoking Status Former smoker entered on: 02/28/18 Sex
--- OUTSIDE RECORDS SUMMARY | 2023-02-21 15:31 | XMS_ITS | Continuity of Care Document ---
Author Name Unknown Organization [facility] Adult Address [address] [place] [address]- Care Team Providers Care Rod Puller And Coiler Name Role Phone Marcai NATION, Nichole Primary Care Physician Encounter [facility] [place] Date(s): 02/20/20 - 03/21/20 [facility] Adult [address] [place] [address]- [facility] Allergies, Adverse Reactions, Alerts Substance Reaction Severity [...] # 90 tablet, 1 Refills, Soft Stop, 11/27/19 10:42:00 EDT, [facility], 181, cm, 03/11/19 15:15:00 EDT, Height Start Date: 11/27/19 Status: Ordered Giselle [employer] Aut[employer] Test Strips See Instructions, # 50 each, Refills 5, Tot. Refills 5, Maintenance, [facility] unique 10 testdisc testr blood sugars daily, 10/11/10 16:12:28 Start Date: 10/11/10 Status: Ordered felodipine 5 mg oral tablet, extended release 1 tablet, By Mouth, Daily, # 90 tablet, 0 Refills, Maintenance, 12/24/19 10:49:00 EDT, [facility]/pharmacy#1972, 181, cm, 03/11/19 15:15:00 EDT, Height Start Date: 12/24/19 Status: Ordered glipiZIDE 5 mg oral tablet 2.5 mg, 0.5, tablet, By Mouth, Daily, # 45 tablet, Refills 2, Tot. Refills 2, Maintenance, 11/26/2009:59:00 EDT, Route to Pharmacy Electronically, [facility]/pharmacy #1972, 181, cm, 03/11/19 15:15:00 EDT,Height Start Date: 11/27/19 Stop Date: 08/23/20 Status: Ordered hydrochlorothiazide 12.5 mg oral capsule 1 capsule = 12.5 mg, By Mouth, Daily, # 30 capsule, 5 Refills, Maintenance, 06/19/15 11:30:19, 1 capsule By Mouth Daily,x30 days Start Date: 06/19/15 Stop Date: 12/16/15 Status: Ordered lisinopril 40 mg oral tablet 1 tablet = 40 mg, By Mouth, Daily, # 30 tablet, 1 Refills, Maintenance, 03/06/20 16:06:00 EDT, [facility]/pharmacy #1972, 181, cm, 03/11/19 15:15:00 EDT, Height Start Date: 03/06/20 Status: Ordered MiraLax oral powder for reconstitution = 17 Gm, By Mouth, Daily, dissolve in water before taking, # 255 Gm, 1 Refills, Maintenance, 09/29/15 16:15:36, REC Powder, 17 Gm By Mouth Daily,Instr:dissolve in water before taking Start Date: 09/29/15 Status: Ordered nystatin topical 276626 u/gm powder 1 application, Topically, 3 times [...] 6 hours, PRN as needed for pain, DX M19.09 M17.10 M54.5, # 112 tablet, 0 Refills, Maintenance, 11/29/19 9:06:00 EDT, Tablet, [facility], Partial fill upon patient request; DX M19.09 M17.10 M54.5, 11/29/19, 181... Start Date: 11/29/19 Status: Ordered oxyCODONE 10 mg oral tablet 1 tablet = 10 mg, By Mouth, Every 6 hours, PRN as needed for pain, DX M19.09 M17.10 M54.5, # 112 tablet, 0 Refills, Maintenance, 03/19/20 15:31:00 EDT, Tablet, [facility], Partial fill upon patient request; DX M19.09 M17.10 M54.5 DO, 181, cm,... Start Date: 03/19/20 Status: Ordered ROLLATOR ROLLATOR, See Instructions, # [...] area, # 60 Gm, 0 Refills, Maintenance, 12/24/19 13:17:00 EDT, Cream, [facility], 1 application Topically 2 times a day,Instr:apply a thin film; to affected area, 181, cm,... Start Date: 12/24/19 Status: Ordered venlafaxine 150 mg oral capsule, extended release 2 capsules, By Mouth, Daily, # 180 capsule, Refills 2, Tot. Refills 2, Soft Stop, 08/27/19 8:46:00 EST, Route to Pharmacy Electronically, [facility]/pharmacy #1972, Easy open lid., 181, cm, 03/11/19 15:15:00 EDT, Height Start Date: 08/27/19 Status: Ordered Problem List Condition Effective Dates Status Health Status Inform ant Attention deficit disorder(Confirmed) 12/16/05 Active Chronic kidney disease (CKD) , stage III (moderate)(Confirmed) Active 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(Confirmed) Active Mild nonproliferative diabet ic retinopathy of both eyes(Confirmed) 2017 Active Controlled diabetes mellitus type 2 with complications(Confirmed) Active Dyslipidemia(Confirmed) Active HTN (hypertension)(Confirmed) Active Kidney stone(Confirmed) Active Knee joint pain(Confirmed) Active shelter 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
--- OUTSIDE RECORDS SUMMARY | 2023-02-21 15:31 | XMS_ITS | Continuity of Care Document ---
Author Name Unknown Organization [facility] Adult Address [address] [place] [address]- Care Team Providers Care Milled Rice Broker Name Role Phone Marcia NATION, Nichole Primary Care Physician Encounter [facility] [place] Date(s): 07/09/20 - 08/08/20 [facility] Adult [address] [place] [address]- Allergies, Adverse Reactions, Alerts Substance Reaction Severity [...] 1 Refills, Soft Stop, 06/30/20 12:54:00 EST, [facility], 181, cm, 03/11/19 15:15:00 EDT, [...] tablet, 2 Refills, Maintenance, 06/30/20 16:18:00 EST, [facility]/pharmacy#1972, 181, cm, 03/11/19 15:15:00 EDT, Height Start Date: 06/30/20 Status: Ordered glipiZIDE 5 mg oral tablet 2.5 mg, 0.5, tablet, By Mouth, Daily, # 45 tablet, Refills 0, Tot. Refills 0, Maintenance, 07/06/2011:14:00 EST, Route to Pharmacy Electronically, [facility]/pharmacy #1972, 181, cm, 07/01/20 11:38:00 EST,Height Start Date: 07/06/20 Stop Date: 04/02/21 Status: Ordered lisinopril 40 mg oral tablet 1 tablet = 40 mg, By Mouth, Daily, # 30 tablet, 2 Refills, Maintenance, 06/27/20 9:42:00 EST, [facility]/pharmacy #1972, 181, cm, 03/11/19 15:15:00 EDT, Height Start Date: 06/27/20 Status: Ordered nystatin topical 127423 u/gm powder 1 application, Topically, 3 times [...] as needed for pain, TO BE FILLED 07/13/20 DX M19.09 M17.10 M54.5, # 112 tablet, 0 Refills, Maintenance, 07/10/20 11:59:00 EST, Tablet, [facility]/pharmacy #1972, TO BE FILLED 07/13/20; Partial fill upon patient... Start Date: 07/10/20 Status: Ordered ROLLATOR ROLLATOR, See Instructions, # [...] 3 Refills, Maintenance, 10/07/19 9:37:00 EDT, Tablet, [facility]/pharmacy #1972, 2 tablet By Mouth Daily at bedtime, 181, cm, 03/11/19 15:15:00 EDT, Height Start Date: 10/07/19 Status: Ordered triamcinolone 0.5% topical cream 1 application, Topically, 2 times a day, apply a thin film to affected area, # 60 Gm, 2 Refills, Maintenance, 07/29/20 8:44:00 EST, Cream, [facility]/pharmacy #1972, 1 application Topically 2 times a day,Instr:apply a thin film; to affected area, 181, cm, 1... Start Date: 07/29/20 Status: Ordered venlafaxine 150 mg oral capsule, extended release 2 capsules, By Mouth, Daily, # 180 capsule, Refills 0, Tot. Refills 0, Soft Stop, 06/01/20 10:41:00EST, Route to Pharmacy Electronically, [facility]/pharmacy #1972, Easy open lid., 181, cm, 03/11/19 15:15:00 EDT, Height Start Date: 06/01/20 Status: Ordered Problem List Condition Effective Dates Status Health Status Inform ant Attention deficit disorder(Confirmed) 12/16/05 Active Chronic kidney disease (CKD) , stage III (moderate)(Confirmed) Active 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(Confirmed) Active Mild nonproliferative diabet ic retinopathy of both eyes(Confirmed) 2018 Active Dyslipidemia(Confirmed) Active HTN (hypertension)(Confirmed) Active Kidney stone(Confirmed) Active Knee joint pain(Confirmed) Active 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
--- OUTSIDE RECORDS SUMMARY | 2023-02-21 15:32 | XMS_ITS | Continuity of Care Document ---
Author Name Unknown Organization [facility] Adult Address [address] [place] [address]- Care Team Providers Care Electronic Security Specialist Name Role Phone Kadie Kennedy MDlis Primary Care Phys[id number] Date[facility]s): 10/[facility]/20 - 10[facility]12/20 [facility] [address] [place] [address]- Encounter Diagnosis Chronic kidney disease (CKD), stage III (moderate)(Discharge Diagnosis) - 10/05/20 Mild nonproliferative diabetic retinopathy of both eyes(Discharge Diagnosis) - 10/05/20 Microalbuminuria(Discharge Diagnosis) - 10/05/20 Rash(Discharge Diagnosis) - 10/05/20 Urinary incontinence in female(Discharge Diagnosis) - 10/05/20 Low back pain(Discharge Diagnosis) - 10/05/20 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 Refills 5, Maintenance, [facility] unique 10 testdisc testr blood sugars daily, 10/11/10 16:12:28 Start Date: 10/11/10 Status: Ordered felodipine 5 mg oral tablet, extended release 1 tablet, By Mouth, Daily, # 90 tablet, 2 Refills, Maintenance, 06/30/20 16:18:00 EST, [facility], cm, 03/11/19 15:15:00 EDT, Height Start Date: 06/30/20 Status: Ordered glipiZIDE 5 mg oral tablet 2.5 mg, 0.5, tablet, By Mouth, Daily, # 45 tablet, Refills 0, Tot. Refills 0, Maintenance, 09/22/2111:42:00 EST, [facility]ically[facility], 181, cm, 07/01/20 11:38:00 EST,Height Start Date: 09/22/20 Status: Ordered lisinopril 40 mg oral tablet 1 tablet = 40 mg, By Mouth, Daily, # 30 tablet, 2 Refills, Maintenance, 09/28/20 14:53:00 EST, [facility], 181, cm, 07/01/20 11:38:00 EST, Height Start Date: 09/28/20 Status: Ordered nystatin topical 407879 u/gm powder 1 application, Topically, 3 times a day, # 60 Gm, 11 Refills, Maintenance, 03/11/19 15:36:28 EDT, Powder, 1 application Topically 3 times a day Start Date: 03/11/19 Status: Ordered oxyCODONE 10 mg oral tablet 1 tablet = 10 mg, By Mouth, Every 6 hours, PRN as needed for pain, DX M19.09 M17.10 M54.5, # 112 tablet, 0 Refills, Maintenance, 10/05/20 12:28:00 EST, Tablet, [facility], Partial fill upon patient request; DX M19.09 M17.10 M54.5 DO, 181, cm,... Start Date: 10/05/20 Status: Ordered ROLLATOR ROLLATOR, See Instructions, # [...] By Mouth, Daily, # 180 capsule, Refills 1, Tot. Refills 1, Soft Stop, 08/26/20 12:08:00EST, Route to Pharmacy Electronically, [facility], Easy open lid., 181, cm, 07/01/20 11:38:00 EST, Height Start Date: 08/26/20 Status: Ordered Problem List Condition Effective Dates Status Health Status Inform ant Attention deficit disorder(Confirmed) 12/16/05 Active Chronic kidney disease (CKD) , stage III (moderate)(Confirmed) Active 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(Confirmed) Active Mild nonproliferative diabet ic retinopathy of both eyes(Confirmed) 2018 Active Dyslipidemia(Confirmed) Active HTN (hypertension)(Confirmed) Active Kidney stone(Confirmed) Active Knee joint pain(Confirmed) Active 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) Active Low back pain(Confirmed) Active Depression, major(Confirmed) Active Microalbuminuria(Confirmed) Active Morbid obesity(Confirmed) Active Non-toxic multinodular goiter(Confirmed) 12/16/08 Active OA - Osteoarthritis of knee(Confirmed) Active Type 2 diabetes with nephropathy(Confirmed) Active Diagnosis Diagnosis Type Effective Dates Health Status Clinical Service Informant Chronic kidney disease (CKD), stage III (moderate) Discharge Diagnosis 10/05/20 Mild nonproliferative diabetic retinopathy of both eyes Discharge Diagnosis 10/05/20 Microalbuminuria Discharge Diagnosis 10/05/20 Rash Discharge Diagnosis 10/05/20 Urinary incontinence in female Discharge Diagnosis 10/05/20 Low back pain Discharge Diagnosis 10/05/20 halfway current use of opiate analgesic Discharge Diagnosis 10/05/20 Vital Signs Most recent to oldest [Reference Range]: 1 Height 181.00 cm (10/05/20 11:17 AM) Weight 140.9 kg (10/05/20 11:17 AM) Body Mass Index [18.5-24.99] 43.01 *>HHI* (10/05/20 11:17 AM) Weight Obtained Via Patient/family state d (10/05/20 11:17 AM) Social History Social History Type Response Smoking Status Former smoker entered on: 02/28/18 Sex
--- OUTSIDE RECORDS SUMMARY | 2023-02-21 15:32 | XMS_ITS | Continuity of Care Document ---
Author Name Unknown Organization [facility] Adult Address [address] [place] [address]- Care Team Providers Care Mine Engineer Name Role Phone Marcia NATION, Nichole Primary Care Physician [place] [facility] [place] 02[place]14/21 [facility] Adult [address] [place] [address]- Allergies, Adverse Reactions, Alerts Substance Reaction Severity [...] tablet, 0 Refills, Maintenance, 01/27/21 9:23:00 EDT, [facility]/pharmacy #1972, 181, cm, 01/22/21 16:27:00 EDT, Height Start Date: 01/27/21 Status: Ordered glipiZIDE 5 mg oral tablet 2.5 mg, 0.5, tablet, By Mouth, Daily, # 45 tablet, Refills 1, Tot. Refills 1, Maintenance, 12/16/2115:23:00 EDT, Route to Pharmacy Electronically, [facility]/pharmacy #1972, 181, cm, 11/30/20 9:02:00 EDT, Height Start Date: 12/15/20 Status: Ordered lisinopril 40 mg oral tablet 1 tablet = 40 mg, By Mouth, Daily, # 30 tablet, 0 Refills, Maintenance, 01/27/21 9:22:00 EDT, [facility]/pharmacy #1972, 181, cm, 01/22/21 16:27:00 EDT, Height Start Date: 01/27/21 Status: Ordered nystatin topical 934201 u/gm powder 1 application, Topically, 3 times a day, # 60 Gm, 11 Refills, Maintenance, 03/11/19 15:36:28 EDT, Powder, 1 application Topically 3 times a day Start Date: 03/11/19 Status: Ordered omeprazole 20 mg oral enteric coated capsule 1 capsule = 20 mg, By Mouth, Daily, # 30 capsule, 0 Refills, Maintenance, 01/22/21 16:35:00 EDT, ECCapsule, [facility]/pharmacy #1972, Partial fill upon patient request if [...] 0 Refills, Maintenance, 01/29/21 14:49:00 EDT, Tablet, [facility]/pharmacy #1972, TO BE FILLED 11/02/20; Par... 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
--- OUTSIDE RECORDS SUMMARY | 2023-02-21 15:32 | XMS_ITS | Continuity of Care Document ---
Author Name Unknown Organization [facility] Address [address] [place] [address]- Care Team Providers Care Cook Fish And Chips Name Role Phone Marcia NATION, Nichole Primary Care Physician Encounter [facility] [place] Date(s): 03/06/20 - 04/05/20 [facility] [address] [place] [address]- [facility] Allergies, Adverse Reactions, Alerts Substance Reaction Severity [...] tablet, 0 Refills, Maintenance, 12/24/19 10:49:00 EDT, [facility]/pharmacy#1972, 181, cm, 03/11/19 15:15:00 EDT, Height Start Date: 12/24/19 Status: Ordered glipiZIDE 5 mg oral tablet 2.5 mg, 0.5, tablet, By Mouth, Daily, # 45 tablet, Refills 2, Tot. Refills 2, Maintenance, 11/26/2009:59:00 EDT, Route to Pharmacy Electronically, [facility]/pharmacy #1972, 181, cm, 03/11/19 15:15:00 EDT,Height Start Date: 11/27/19 Stop Date: 08/23/20 Status: Ordered hydrochlorothiazide 12.5 mg oral capsule 1 capsule = 12.5 mg, By Mouth, Daily, # 30 capsule, 5 Refills, Maintenance, 06/19/15 11:30:19, 1 capsule By Mouth Daily,x30 days Start Date: 06/19/15 Stop Date: 12/16/15 Status: Ordered Keflex monohydrate 500 mg oral capsule 1 capsule = 500 mg, By Mouth, 4 times a day, for 7 days, # 28 capsule, 0 Refills, Acute 04/10/20 15:18:00 EDT, 04/03/20 15:18:00 EDT, Capsule, [facility]/pharmacy #1972, 181, cm, 03/11/19 15:15:00 EDT, Height Start Date: 04/03/20 Stop Date: 04/10/20 Status: Ordered lisinopril 40 mg oral tablet 1 tablet = 40 mg, By Mouth, Daily, # 30 tablet, 1 Refills, Maintenance, 03/06/20 16:06:00 EDT, [facility]/pharmacy #1972, 181, cm, 03/11/19 15:15:00 EDT, Height Start Date: 03/06/20 Status: Ordered MiraLax oral powder for reconstitution = 17 Gm, By Mouth, Daily, dissolve in water before taking, # 255 Gm, 1 Refills, Maintenance, 09/29/15 16:15:36, REC Powder, 17 Gm By Mouth Daily,Instr:dissolve in water before taking Start Date: 09/29/15 Status: Ordered nystatin topical 028113 u/gm powder 1 application, Topically, 3 times [...] 0 Refills, Maintenance, 12/24/19 13:17:00 EDT, Cream, [facility]/pharmacy #1972, 1 application Topically 2 times a day,Instr:apply a thin film; to affected area, 181, cm,... Start Date: 12/24/19 Status: Ordered venlafaxine 150 mg oral capsule, extended release 2 capsules, By Mouth, Daily, # 180 capsule, Refills 2, Tot. 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
--- OUTSIDE RECORDS SUMMARY | 2023-02-21 15:32 | XMS_ITS | Continuity of Care Document ---
Author Name Unknown Organization [facility] Adult Address [address] [place] [address]- Care Team Providers Care Architectural Inspector Name Role Phone Nichole Kennedy MD Primary Care Physician [id number] Date(s): 10/30/19 - 11/06/19 [facility] Adult [address] [place] [address]- [facility] Encounter Diagnosis Low back pain(Discharge Diagnosis) - 10/30/19 shelter current use of opiate analgesic(Discharge Diagnosis) - 10/30/19 OA - Osteoarthritis of knee(Discharge Diagnosis) - 10/30/19 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(Discharge Diagnosis) - 10/30/19 Attending Physician: Nichole Kennedy MD Allergies, Adverse [...] mg, By Mouth, Daily, # 90 tablet, 0 Refills, Soft Stop, 09/06/19 14:19:00 EST, [facility]1972, 181, cm, 03/11/19 15:15:00 EDT, Height Start Date: 09/06/19 Status: Ordered Giselle Asc[employer]Mix Autodisc Test Strips See Instructions, # 50 each, Refills 5, Tot. Refills 5, Maintenance, [facility] unique 10 testdisc testr blood sugars daily, 10/11/10 16:12:28 Start Date: 10/11/10 Status: Ordered felodipine 5 mg oral tablet, extended release 1 tablet, By Mouth, Daily, # 30 tablet, 5 Refills, Maintenance, 07/10/19 13:59:02 EST, 181, cm, 03/11/19 15:15:17 EDT, Height Start Date: 07/10/19 Status: Ordered glipiZIDE 5 mg oral tablet 2.5 mg, 0.5, tablet, By Mouth, Daily, # 45 tablet, Refills 1, Tot. Refills 1, Maintenance, 07/12/1915:30:05 EST, Route to Pharmacy Electronically, [facility]/pharmacy #1972, 181, cm, 03/11/19 15:15:17 EDT,Height Start Date: 07/12/19 Stop Date: 01/08/20 Status: Ordered hydrochlorothiazide 12.5 mg oral capsule 1 capsule = 12.5 mg, By Mouth, Daily, # 30 capsule, 5 Refills, Maintenance, 06/19/15 11:30:19, 1 capsule By Mouth Daily,x30 days Start Date: 06/19/15 Stop Date: 12/16/15 Status: Ordered lisinopril 40 mg oral tablet 1 tablet = 40 mg, By Mouth, Daily, # 90 tablet, 1 Refills, Maintenance, 09/10/19 8:53:00 EST, [facility]/pharmacy #1972, 181, cm, 03/11/19 15:15:00 EDT, Height Start Date: 09/10/19 Stop Date: 11/09/19 Status: Ordered MiraLax oral powder for reconstitution = 17 Gm, By Mouth, Daily, dissolve in water before taking, # 255 Gm, 1 Refills, Maintenance, 09/29/15 16:15:36, REC Powder, 17 Gm By Mouth Daily,Instr:dissolve in water before taking Start Date: 09/29/15 Status: Ordered nystatin topical 597559 u/gm powder 1 application, Topically, 3 times [...] 6 hours, PRN as needed for pain, # 112 tablet, 0 Refills, Maintenance, 11/01/19 9:34:00 EDT, Tablet, [facility]/pharmacy #1972, Partial fill upon patient request;, 181, cm,03/11/19 15:15:00 EDT, Height Start Date: 11/01/19 Status: Ordered ROLLATOR ROLLATOR, See Instructions, # [...] EDT, Height Start Date: 10/07/19 Status: Ordered venlafaxine 150 mg oral capsule, extended release 2 capsules, By Mouth, Daily, # 180 capsule, Refills 2, Tot. 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(Confirmed) Active Low back pain(Confirmed) Active Depression, major(Confirmed) Active Microalbuminuria(Confirmed) Active Morbid obesity(Confirmed) Active Non-toxic multinodular goiter(Confirmed) 12/16/08 Active OA - Osteoarthritis of knee(Confirmed) Active Diagnosis Diagnosis Type Effective Dates Health Status Clinical Service Informant Low back pain Discharge Diagnosis 10/30/19 shelter current use of opiate analgesic Discharge Diagnosis 10/30/19 OA - Osteoarthritis of knee Discharge Diagnosis 10/30/19 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 Discharge Diagnosis 10/30/19 Social History Social History Type Response Smoking Status Former smoker entered on: 02/28/18 Sex
--- OUTSIDE RECORDS SUMMARY | 2023-02-21 15:32 | XMS_ITS | Continuity of Care Document ---
Author Name Unknown Organization [facility] Adult Address [address] [place] [address]- Care Team Providers Care Colorer Machine Name Role Phone Marcia NATION, Nichole Primary Care Physician Encounter [facility] [place] Date(s): 01/26/21 - 02/25/21 [facility] [address] [place] [address]- Allergies, Adverse Reactions, Alerts Substance Reaction Severity [...] Ordered atorvastatin 40 mg oral tablet 1 tablet, By Mouth, Daily, # 90 tablet, 1 Refills, Maintenance, 02/22/21 19:46:00 EDT, [id number], 181, cm, 01/22/21 16:27:00 EDT, Height Start Date: 02/22/21 Status: Ordered Giselle [employer] Autodisc Test Strips See Instructions, # 50 each, Refills 5, Tot. Refills 5, Maintenance, [facility] unique 10 testdisc testr blood sugars daily, 10/11/10 16:12:28 Start Date: 10/11/10 Status: Ordered felodipine 5 mg oral tablet, extended release 1 tablet, By Mouth, Daily, # 30 tablet, 0 Refills, Maintenance, 01/27/21 9:23:00 EDT, [facility]/pharmacy #1972, 181, cm, 01/22/21 16:27:00 EDT, Height Start Date: 01/27/21 Status: Ordered glipiZIDE 5 mg oral tablet 2.5 mg, 0.5, tablet, By Mouth, Daily, # 45 tablet, Refills 1, Tot. Refills 1, Maintenance, 12/16/2115:23:00 EDT, Route to Pharmacy Electronically, [facility]/pharmacy #1972, 181, cm, 11/30/20 9:02:00 EDT, Height Start Date: 12/15/20 Status: Ordered lisinopril 40 mg oral tablet 1 tablet = 40 mg, By Mouth, Daily, # 30 tablet, 0 Refills, Maintenance, 01/27/21 9:22:00 EDT, [facility]/pharmacy #1972, 181, cm, 01/22/21 16:27:00 EDT, Height Start Date: 01/27/21 Status: Ordered nystatin topical 896911 u/gm powder 1 application, Topically, 3 times a day, # 60 Gm, 11 Refills, Maintenance, 03/11/19 15:36:28 EDT, Powder, 1 application Topically 3 times a day Start Date: 03/11/19 Status: Ordered omeprazole 20 mg oral enteric coated capsule 1 capsule, By Mouth, Daily, # 30 capsule, 2 Refills, Maintenance, 02/20/21 10:56:00 EDT, [id number], 181, cm, 01/22/21 16:27:00 EDT, Height Start Date: 02/20/21 Status: Ordered oxyCODONE 10 mg oral tablet 1 tablet = 10 mg, By Mouth, Every 6 hours, PRN as needed for pain, PT OVERDUE FOR URINE DRUG SCREENAND LAB WORK DX M19.09 M17.10 M54.5, # 112 tablet, 0 Refills, Maintenance, 01/29/21 14:49:00 EDT, Tablet, [facility]/pharmacy #1972, TO BE FILLED 11/02/20; Par... 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
--- OUTSIDE RECORDS SUMMARY | 2023-02-21 15:32 | XMS_ITS | Continuity of Care Document ---
Author Name Unknown Organization [facility] Adult Address [address] [place] [address]- Care Team Providers Care Hinging Machine Operator Name Role Phone Not on Staff, PCP Primary Care Physician Unavail able [place] [facility] [place] Date(s): 06/29/22 - 07/29/22 [facility] [address] [place], [place] [address] Allergies, Adverse Reactions, Alerts Substance Reaction Severity [...] Refills, Maintenance, 02/22/21 19:46:00 EDT, [id number], 181, cm, 01/22/21 16:27:00 EDT, Height Start [...] tablet, 0 Refills, Maintenance, 01/27/21 9:23:00 EDT, [facility]/pharmacy #1972, 181, cm, 01/22/21 16:27:00 EDT, Height Start Date: 01/27/21 Status: Ordered glipiZIDE 5 mg oral tablet 2.5 mg, 0.5, tablet, By Mouth, Daily, # 45 tablet, Refills 1, Tot. Refills 1, Maintenance, 12/16/2115:23:00 EDT, Route to Pharmacy Electronically, [facility]/pharmacy #1972, 181, cm, 11/30/20 9:02:00 EDT, Height Start Date: 12/15/20 Status: Ordered lisinopril 40 mg oral tablet 1 tablet = 40 mg, By Mouth, Daily, # 30 tablet, 0 Refills, Maintenance, 01/27/21 9:22:00 EDT, [facility]/pharmacy #1972, 181, cm, 01/22/21 16:27:00 EDT, Height Start Date: 01/27/21 Status: Ordered nystatin topical 570419 u/gm powder 1 application, Topically, 3 times a day, # 60 Gm, 11 Refills, Maintenance, 03/11/19 15:36:28 EDT, Powder, 1 application Topically 3 times a day Start Date: 03/11/19 Status: Ordered omeprazole 20 mg oral enteric coated capsule 1 capsule, By Mouth, Daily, # 30 capsule, 2 Refills, Maintenance, 02/20/21 10:56:00 EDT, [facility] ST[facility], 181, cm, 01/22/21 16:27:00 EDT, Height Start Date: 02/20/21 Status: Ordered oxyCODONE 10 mg oral tablet 1 tablet = 10 mg, By Mouth, Every 6 hours, PRN as needed for pain, PT OVERDUE FOR URINE DRUG SCREENAND LAB WORK DX M19.09 M17.10 M54.5, # 112 tablet, 0 Refills, Maintenance, 01/29/21 14:49:00 EDT, Tablet, [facility]/pharmacy #1972, TO BE FILLED 11/02/20; Par... [...] 0 Refills, Maintenance, 01/27/21 9:24:00 EDT, Tablet, [facility]/pharmacy #1972, 2 tablet By Mouth Daily at [...] Date: 01/26/21 Status: Ordered Problem List Condition Confirmation Course Effective Dates Status H ealth Status Informant Attention deficit disorder Confirmed 12/16/05 Active Chronic kidney disease (CKD), stage III (moderate) Confirmed Active 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 Confirmed Active Mild nonproliferative diabetic retinopathy of both eyes Confirmed 2018 Active Dyslipidemia Confirmed Active HTN (hypertension) Confirmed Active Kidney stone Confirmed Active Knee joint pain Confirmed Active skilled nursing current use of opiate analgesic Confirmed Active Low back pain Confirmed Active Depression, major Confirmed Active Microalbuminuria Confirmed Active Morbid obesity Confirmed Active Non-toxic multinodular goiter Confirmed 12/16/08 Active OA - Osteoarthritis of knee Confirmed Active Type 2 diabetes with nephropathy Confirmed Active Social History Social History Type Response Smoking Status Former smoker entered on: 02/28/18 Sex Patient Care team information Care Team Personnel Name: India Hancock RN Position: [facility] AMB Nurse Member Role: Primary Care Nurse Name: Renee Cabrera RN Position: [facility] SN RN Member Role: Primary Care Nurse Name: Not on Staff, PCP Position: [facility] Physician (General Medicine) Member Role: PCP Name: Clary Moore RN Position: [facility] RN Member Role: Primary Care Nurse Care Team Related Persons Name: KAMILLA VILLARREAL Address: [place] [address] Name: NONE, PT STATES
--- OUTSIDE RECORDS SUMMARY | 2023-02-21 15:32 | XMS_ITS | Continuity of Care Document ---
Author Name Unknown Organization [facility] Address [address] [place] [address]- Care Team Providers Care Institutional Custodian Name Role Phone Marcia NATION, Nichole Primary Care Physician [place] [facility] [place]19[place] 04/18/20 [facility] [address] [place] [address]- [facility] Allergies, Adverse Reactions, Alerts Substance Reaction Severity [...] Daily, # 90 tablet, 0 Refills, Maintenance, 04/10/20 12:03:00 EDT, [facility]/pharmacy#1972, 181, cm, 03/11/19 15:15:00 EDT, Height Start Date: 04/10/20 Status: Ordered glipiZIDE 5 mg oral tablet 2.5 mg, 0.5, tablet, By Mouth, Daily, # 45 tablet, Refills 2, Tot. Refills 2, Maintenance, 11/26/2009:59:00 EDT, Route to Pharmacy Electronically, [facility]/pharmacy #1972, 181, cm, 03/11/19 15:15:00 EDT,Height Start [...] tablet, 1 Refills, Maintenance, 03/06/20 16:06:00 EDT, [facility]/pharmacy #1972, 181, cm, 03/11/19 15:15:00 EDT, Height Start Date: 03/06/20 Status: Ordered MiraLax oral powder for reconstitution = 17 Gm, By Mouth, Daily, dissolve in water before taking, # 255 Gm, 1 Refills, Maintenance, 09/29/15 16:15:36, REC Powder, 17 Gm By Mouth Daily,Instr:dissolve in water before taking Start Date: 09/29/15 Status: Ordered nystatin topical 215323 u/gm powder 1 application, Topically, 3 times [...] M54.5, # 112 tablet, 0 Refills, Maintenance, 04/17/20 12:44:00 EDT, Tablet, [facility]/pharmacy #1972, Partial fill upon patient request; DX M19.09 M17.10 M54.5 DO, 181, cm,... 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
--- OUTSIDE RECORDS SUMMARY | 2023-02-21 15:32 | XMS_ITS | Continuity of Care Document ---
Author Name Unknown Organization [facility] Address [address] [place] [address]- Care Team Providers Care Salon/Spa Manager Name Role Phone Marcia NATION, Nichole Primary Care Physician Encounter [facility] [place] Date(s): 01/22/21 - 02/21/21 [facility] [address] [place] [address]- Attending Physician: Admtr, Ar8 Allergies, Adverse Reactions, Alerts Substance Reaction Severity [...] tablet, 0 Refills, Maintenance, 01/27/21 9:23:00 EDT, [facility]/pharmacy #1972, 181, cm, 01/22/21 16:27:00 EDT, Height Start Date: 01/27/21 Status: Ordered glipiZIDE 5 mg oral tablet 2.5 mg, 0.5, tablet, By Mouth, Daily, # 45 tablet, Refills 1, Tot. Refills 1, Maintenance, 12/16/2115:23:00 EDT, Route to Pharmacy Electronically, [facility]/pharmacy #1972, 181, cm, 11/30/20 9:02:00 EDT, Height Start Date: 12/15/20 Status: Ordered lisinopril 40 mg oral tablet 1 tablet = 40 mg, By Mouth, Daily, # 30 tablet, 0 Refills, Maintenance, 01/27/21 9:22:00 EDT, [facility]/pharmacy #1972, 181, cm, 01/22/21 16:27:00 EDT, Height Start Date: 01/27/21 Status: Ordered nystatin topical 487350 u/gm powder 1 application, Topically, 3 times a day, # 60 Gm, 11 Refills, Maintenance, 03/11/19 15:36:28 EDT, Powder, 1 application Topically 3 times a day Start Date: 03/11/19 Status: Ordered omeprazole 20 mg oral enteric coated capsule 1 capsule, By Mouth, Daily, # 30 capsule, 2 Refills, Maintenance, 02/20/21 10:56:00 EDT, [id number], 181, cm, 01/22/21 16:27:00 EDT, Height Start Date: 02/20/21 Status: Ordered oxyCODONE 10 mg oral tablet 1 tablet = 10 mg, By Mouth, Every 6 hours, PRN as needed for pain, PT OVERDUE FOR URINE DRUG SCREENAND LAB WORK DX M19.09 M17.10 M54.5, # 112 tablet, 0 Refills, Maintenance, 01/29/21 14:49:00 EDT, Tablet, [facility]/pharmacy #1972, TO BE FILLED 11/02/20; Par... 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
--- OUTSIDE RECORDS SUMMARY | 2023-02-21 15:32 | XMS_ITS | Continuity of Care Document ---
Author Name Unknown Organization [facility] Adult Address [address] [place] [address]- Care Team Providers Care Animal Caretaker Name Role Phone Marcia NATION, Nichole Primary Care Physician [place] [facility] [place](s): 01/20/21 - 02/19/21 [facility] [address] [place] [address]- Allergies, Adverse Reactions, Alerts Substance Reaction Severity [...] tablet, 0 Refills, Maintenance, 01/27/21 9:23:00 EDT, [facility]/pharmacy #1972, 181, cm, 01/22/21 16:27:00 EDT, Height Start Date: 01/27/21 Status: Ordered glipiZIDE 5 mg oral tablet 2.5 mg, 0.5, tablet, By Mouth, Daily, # 45 tablet, Refills 1, Tot. Refills 1, Maintenance, 12/16/2115:23:00 EDT, Route to Pharmacy Electronically, [facility]/pharmacy #1972, 181, cm, 11/30/20 9:02:00 EDT, Height Start Date: 12/15/20 Status: Ordered lisinopril 40 mg oral tablet 1 tablet = 40 mg, By Mouth, Daily, # 30 tablet, 0 Refills, Maintenance, 01/27/21 9:22:00 EDT, [facility]/pharmacy #1972, 181, cm, 01/22/21 16:27:00 EDT, Height Start Date: 01/27/21 Status: Ordered nystatin topical 037439 u/gm powder 1 application, Topically, 3 times a day, # 60 Gm, 11 Refills, Maintenance, 03/11/19 15:36:28 EDT, Powder, 1 application Topically 3 times a day Start Date: 03/11/19 Status: Ordered omeprazole 20 mg oral enteric coated capsule 1 capsule = 20 mg, By Mouth, Daily, # 30 capsule, 0 Refills, Maintenance, 01/22/21 16:35:00 EDT, ECCapsule, [facility]/pharmacy #1972, Partial fill upon patient request if [...] 0 Refills, Maintenance, 01/29/21 14:49:00 EDT, Tablet, [facility]/pharmacy #1972, TO BE FILLED 11/02/20; Par... 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
--- OUTSIDE RECORDS SUMMARY | 2023-02-21 15:32 | XMS_ITS | Continuity of Care Document ---
Author Name Unknown Organization [facility] Adult Address [address] [place] [address]- Care Team Providers Care Firer Watertender Name Role Phone Marcia NATION, Nichole Primary Care Physician Encounter [facility] Date(s): 03/05/20 - 04/04/20 [facility] Adult [address] [place] [address]- [facility] Allergies, Adverse Reactions, Alerts Substance Reaction [...] tablet, 0 Refills, Maintenance, 12/24/19 10:49:00 EDT, [facility]/pharmacy#1972, 181, cm, 03/11/19 15:15:00 EDT, Height Start Date: 12/24/19 Status: Ordered glipiZIDE 5 mg oral tablet 2.5 mg, 0.5, tablet, By Mouth, Daily, # 45 tablet, Refills 2, Tot. Refills 2, Maintenance, 11/26/2009:59:00 EDT, Route to Pharmacy Electronically, [facility]/pharmacy #1972, 181, cm, 03/11/19 15:15:00 [...] 04/10/20 15:18:00 EDT, 04/03/20 15:18:00 EDT, Capsule, [facility]/pharmacy #1972, 181, cm, 03/11/19 15:15:00 EDT, Height Start Date: 04/03/20 Stop Date: 04/10/20 Status: Ordered lisinopril 40 mg oral tablet 1 tablet = 40 mg, By Mouth, Daily, # 30 tablet, 1 Refills, Maintenance, 03/06/20 16:06:00 EDT, [facility]/pharmacy #1972, 181, cm, 03/11/19 15:15:00 EDT, Height Start Date: 03/06/20 Status: Ordered MiraLax oral powder for reconstitution = 17 Gm, By Mouth, Daily, dissolve in water before taking, # 255 Gm, 1 Refills, Maintenance, 09/29/15 16:15:36, REC Powder, 17 Gm By Mouth Daily,Instr:dissolve in water before taking Start Date: 09/29/15 Status: Ordered nystatin topical 877460 u/gm powder 1 application, Topically, 3 times [...] 0 Refills, Maintenance, 12/24/19 13:17:00 EDT, Cream, [facility]/pharmacy #1972, 1 application Topically 2 times a day,Instr:apply a thin film; to affected area, 181, cm,... Start Date: 12/24/19 Status: Ordered venlafaxine 150 mg oral capsule, extended release 2 capsules, By Mouth, Daily, # 180 capsule, Refills 2, Tot. Refills 2, Soft Stop, 08/27/19 8:46:00 EST, Route to Pharmacy Electronically, [facility]/pharmacy #1972, Easy open lid., 181, [...] Kidney stone(Confirmed) Active Knee joint pain(Confirmed) Active half-way 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
--- OUTSIDE RECORDS SUMMARY | 2023-02-21 15:32 | XMS_ITS | Continuity of Care Document ---
Author Name Unknown Organization [facility] Adult Address [address] [place] [address]- Care Team Providers Care Cna Hospice Name Role Phone Marcia NATION, Nichole Primary Care Physician Encounter [facility] [place] Date(s): 11/30/20 - 12/30/20 [facility] Adult [address] [place] [address]- Allergies, Adverse Reactions, Alerts Substance Reaction Severity [...] tablet, 2 Refills, Maintenance, 06/30/20 16:18:00 EST, [facility]/pharmacy#1972, 181, cm, 03/11/19 15:15:00 EDT, Height Start Date: 06/30/20 Status: Ordered glipiZIDE 5 mg oral tablet 2.5 mg, 0.5, tablet, By Mouth, Daily, # 45 tablet, Refills 1, Tot. Refills 1, Maintenance, 12/16/2115:23:00 EDT, Route to Pharmacy Electronically, [facility]/pharmacy #1972, 181, cm, 11/30/20 9:02:00 EDT, Height Start Date: 12/15/20 Status: Ordered lisinopril 40 mg oral tablet 1 tablet = 40 mg, By Mouth, Daily, # 30 tablet, 2 Refills, Maintenance, 09/28/20 14:53:00 EST, [facility]/pharmacy #1972, 181, cm, 07/01/20 11:38:00 EST, Height Start Date: 09/28/20 Status: Ordered nystatin topical 864677 u/gm powder 1 application, Topically, 3 times a day, # 60 Gm, 11 Refills, Maintenance, 03/11/19 15:36:28 EDT, Powder, 1 application Topically 3 times a day Start Date: 03/11/19 Status: Ordered ROLLATOR ROLLATOR, See Instructions, # [...] 3 Refills, Maintenance, 10/07/19 9:37:00 EDT, Tablet, [facility]/pharmacy #1972, 2 tablet By Mouth Daily at bedtime, 181, cm, 03/11/19 15:15:00 EDT, Height Start Date: 10/07/19 Status: Ordered triamcinolone 0.5% topical cream 1 application, Topically, 2 times a day, apply a thin film to affected area, # 60 Gm, 2 Refills, Maintenance, 07/29/20 8:44:00 EST, Cream, [facility]/pharmacy #1972, 1 application Topically 2 times a day,Instr:apply a thin film; to affected area, 181, cm, 1... Start Date: 07/29/20 Status: Ordered venlafaxine 150 mg oral capsule, extended release 2 capsules, By Mouth, Daily, # 180 capsule, Refills 1, Tot. 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
--- OUTSIDE RECORDS SUMMARY | 2023-02-21 15:32 | XMS_ITS | Continuity of Care Document ---
Author Name Unknown Organization [facility] Adult Address [address] [place] [address]- Care Team Providers Care Motor Grader Operator Name Role Phone Marcia NATION, Nichole Primary Care Physician Encounter [facility] Date(s): 07/06/20 - 08/05/20 [facility] Adult [address] [place] [address]- Allergies, Adverse Reactions, Alerts Substance Reaction Severity [...] tablet, 2 Refills, Maintenance, 06/30/20 16:18:00 EST, [facility]/pharmacy#1972, 181, cm, 03/11/19 15:15:00 EDT, Height Start Date: 06/30/20 Status: Ordered glipiZIDE 5 mg oral tablet 2.5 mg, 0.5, tablet, By Mouth, Daily, # 45 tablet, Refills 0, Tot. Refills 0, Maintenance, 07/06/2011:14:00 EST, Route to Pharmacy Electronically, [facility]/pharmacy #1972, 181, cm, 07/01/20 11:38:00 EST,Height Start Date: 07/06/20 Stop Date: 04/02/21 Status: Ordered lisinopril 40 mg oral tablet 1 tablet = 40 mg, By Mouth, Daily, # 30 tablet, 2 Refills, Maintenance, 06/27/20 9:42:00 EST, [facility]/pharmacy #1972, 181, cm, 03/11/19 15:15:00 EDT, Height Start Date: 06/27/20 Status: Ordered nystatin topical 265343 u/gm powder 1 application, Topically, 3 times [...] 0 Refills, Maintenance, 07/10/20 11:59:00 EST, Tablet, [facility]/pharmacy #1972, TO BE FILLED 07/13/20; Partial fill [...] 3 Refills, Maintenance, 10/07/19 9:37:00 EDT, Tablet, [facility]/pharmacy #1972, [...] Kidney stone(Confirmed) Active Knee joint pain(Confirmed) Active 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
--- OUTSIDE RECORDS SUMMARY | 2023-02-21 15:32 | XMS_ITS | Continuity of Care Document ---
Author Name Unknown Organization [facility] Adult Address [address] [place] [address]- Care Team Providers Care Manager Lean Name Role Phone Marcia NATION, Nichole Primary Care Physician Encounter [facility] Date(s): 11/30/20 - 12/30/20 [facility] Adult [address] [place] [address]- Attending Physician: Admtr, Ar8 Allergies, Adverse Reactions, [...] tablet, 2 Refills, Maintenance, 06/30/20 16:18:00 EST, [facility]/pharmacy#1972, 181, cm, 03/11/19 15:15:00 EDT, Height Start Date: 06/30/20 Status: Ordered glipiZIDE 5 mg oral tablet 2.5 mg, 0.5, tablet, By Mouth, Daily, # 45 tablet, Refills 1, Tot. Refills 1, Maintenance, 12/16/2115:23:00 EDT, Route to Pharmacy Electronically, [facility]/pharmacy #1972, 181, cm, 11/30/20 9:02:00 EDT, Height Start Date: 12/15/20 Status: Ordered lisinopril 40 mg oral tablet 1 tablet = 40 mg, By Mouth, Daily, # 30 tablet, 2 Refills, Maintenance, 09/28/20 14:53:00 EST, [facility]/pharmacy #1972, 181, cm, 07/01/20 11:38:00 EST, Height Start Date: 09/28/20 Status: Ordered nystatin topical 324334 u/gm powder 1 application, Topically, 3 times [...] 3 Refills, Maintenance, 10/07/19 9:37:00 EDT, Tablet, [facility]/pharmacy #1972, 2 tablet By Mouth Daily at bedtime, 181, cm, 03/11/19 15:15:00 EDT, Height Start Date: 10/07/19 Status: Ordered triamcinolone 0.5% topical cream 1 application, Topically, 2 times a day, apply a thin film to affected area, # 60 Gm, 2 Refills, Maintenance, 07/29/20 8:44:00 EST, Cream, [facility]/pharmacy #1972, 1 application Topically 2 times a day,Instr:apply a thin film; to affected area, 181, cm, 1... Start Date: 07/29/20 Status: Ordered venlafaxine 150 mg oral capsule, extended release 2 capsules, By Mouth, Daily, # 180 capsule, Refills 1, Tot. 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
--- OUTSIDE RECORDS SUMMARY | 2023-02-21 15:32 | XMS_ITS | Continuity of Care Document ---
Author Name Unknown Organization [facility] Adult Address [address] [place] [address]- Care Team Providers Care Aligner Barrel And Receiver Name Role Phone Marcia NATION, Nichole Primary Care Physician En[place] [facility] [place] Date(s): 10/30/19 - 11/09/19 [facility] Adult [address] [place] [address]- [facility] Attending Physician: Admtr, Ar8 Allergies, Adverse Reactions, [...] Height Start Date: 09/06/19 Status: Ordered Giselle [facility] Autodisc Test Strips [...] Maintenance, 07/12/1915:30:05 EST, Route to Pharmacy Electronically, [facility]/pharmacy #1972, 181, cm, 03/11/19 15:15:17 EDT,Height [...] tablet, 1 Refills, Maintenance, 09/10/19 8:53:00 EST, [facility]/pharmacy #1972, 181, cm, 03/11/19 15:15:00 EDT, Height Start Date: 09/10/19 Stop Date: 11/09/19 Status: Ordered MiraLax oral powder for reconstitution = 17 Gm, By Mouth, Daily, dissolve in water before taking, # 255 Gm, 1 Refills, Maintenance, 09/29/15 16:15:36, REC Powder, 17 Gm By Mouth Daily,Instr:dissolve in water before taking Start Date: 09/29/15 Status: Ordered nystatin topical 030679 u/gm powder 1 application, Topically, 3 times [...] 0 Refills, Maintenance, 11/01/19 9:34:00 EDT, Tablet, [facility]/pharmacy #1972, Partial fill upon patient request;, [...] 08/27/19 8:46:00 EST, Route to Pharmacy Electronically, [facility]/pharmacy #1972, Easy open lid., 181, cm, [...] Kidney stone(Confirmed) Active Knee joint pain(Confirmed) Active residential 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
--- OUTSIDE RECORDS SUMMARY | 2023-02-21 15:32 | XMS_ITS | Continuity of Care Document ---
Author Name Unknown Organization [facility] Adult Address [address] [place] [address]- Care Team Providers Care Field Director Name Role Phone Marcia NATION, Nichole Primary Care Physician En[place] [facility] Date(s): 04/10/20 - 05/10/[address] [facility] Adult [address] [place] [address]- [facility] Allergies, Adverse Reactions, Alerts Substance Reaction Severity [...] tablet, 0 Refills, Maintenance, 04/10/20 12:03:00 EDT, [facility]/pharmacy#1972, 181, cm, 03/11/19 15:15:00 EDT, Height Start Date: 04/10/20 Status: Ordered glipiZIDE 5 mg oral tablet 2.5 mg, 0.5, tablet, By Mouth, Daily, # 45 tablet, Refills 2, Tot. Refills 2, Maintenance, 11/26/2009:59:00 EDT, Route to Pharmacy Electronically, [facility]/pharmacy #1972, 181, cm, 03/11/19 15:15:00 EDT,Height [...] tablet, 1 Refills, Maintenance, 03/06/20 16:06:00 EDT, [facility]/pharmacy #1972, 181, cm, 03/11/19 15:15:00 EDT, Height Start Date: 03/06/20 Status: Ordered MiraLax oral powder for reconstitution = 17 Gm, By Mouth, Daily, dissolve in water before taking, # 255 Gm, 1 Refills, Maintenance, 09/29/15 16:15:36, REC Powder, 17 Gm By Mouth Daily,Instr:dissolve in water before taking Start Date: 09/29/15 Status: Ordered nystatin topical 532441 u/gm powder 1 application, Topically, 3 times [...] 0 Refills, Maintenance, 04/17/20 12:44:00 EDT, Tablet, [facility], Partial fill upon [...] area, # 60 Gm, 0 Refills, Maintenance, 05/04/20 14:10:00 EDT, Cream, [facility], 1 application Topically 2 times a day,Instr:apply a thin film; to affected area, 181, cm,... 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
--- OUTSIDE RECORDS SUMMARY | 2023-02-21 15:32 | XMS_ITS | Continuity of Care Document ---
Author Name Unknown Organization [facility] Adult Address [address] [place] [address]- Care Team Providers Care New Car Inspector Name Role Phone Marcia NATION, Nichole Primary Care Physician Encounter [facility] [place] Date(s): 11/18/20 - 12/18/20 [facility] Adult [address] [place] [address]- Allergies, Adverse Reactions, Alerts Substance Reaction Severity [...] tablet, 2 Refills, Maintenance, 06/30/20 16:18:00 EST, [facility]/pharmacy#1972, 181, cm, 03/11/19 15:15:00 EDT, Height Start Date: 06/30/20 Status: Ordered glipiZIDE 5 mg oral tablet 2.5 mg, 0.5, tablet, By Mouth, Daily, # 45 tablet, Refills 1, Tot. Refills 1, Maintenance, 12/16/2115:23:00 EDT, Route to Pharmacy Electronically, [facility]/pharmacy #1972, 181, cm, 11/30/20 9:02:00 EDT, Height Start Date: 12/15/20 Status: Ordered lisinopril 40 mg oral tablet 1 tablet = 40 mg, By Mouth, Daily, # 30 tablet, 2 Refills, Maintenance, 09/28/20 14:53:00 EST, [facility]/pharmacy #1972, 181, cm, 07/01/20 11:38:00 EST, Height Start Date: 09/28/20 Status: Ordered morphine 15 mg oral tablet, immediate release 1 tablet = 15 mg, By Mouth, Every 6 hours, PRN as needed for pain, for 4 week(s), Dx: M17.10, M19.09, M54.5, # 112 tablet, 0 Refills, Acute 12/28/20 13:56:00 EDT, 11/30/20 13:56:00 EDT, Tablet, [facility]/pharmacy #[id number], Partial fill upon patient request if... 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
--- OUTSIDE RECORDS SUMMARY | 2023-02-21 15:32 | XMS_ITS | Continuity of Care Document ---
Author Name Unknown Organization [facility] Adult Address [address] [place] [address]- Care Team Providers Care Hand Engraver Name Role Phone Marcia NATION, Nichole Primary Care Physician Encounter [facility] [place] Date(s): 05/04/20 - 06/03/20 [facility] Adult [address] [place] [address]- [facility] Allergies, Adverse Reactions, Alerts Substance Reaction Severity [...] # 90 tablet, 0 Refills, Soft Stop, 06/01/20 10:41:00 EST, [facility], 181, cm, 03/11/19 15:15:00 EDT, Height Start Date: 06/01/20 Status: Ordered Giselle [facility] Autodisc Test Strips See Instructions, # 50 each, Refills 5, Tot. Refills 5, Maintenance, [facility] unique 10 testdisc testr blood sugars daily, 10/11/10 16:12:28 Start Date: 10/11/10 Status: Ordered felodipine 5 mg oral tablet, extended release 1 tablet, By Mouth, Daily, # 90 tablet, 0 Refills, Maintenance, 04/10/20 12:03:00 EDT, [facility]/pharmacy#1972, 181, cm, 03/11/19 15:15:00 EDT, Height Start Date: 04/10/20 Status: Ordered glipiZIDE 5 mg oral tablet 2.5 mg, 0.5, tablet, By Mouth, Daily, # 45 tablet, Refills 2, Tot. Refills 2, Maintenance, 11/26/2009:59:00 EDT, Route to Pharmacy Electronically, [facility]/pharmacy #1972, 181, cm, 03/11/19 15:15:00 [...] Daily, # 30 tablet, 1 Refills, Maintenance, 05/27/20 10:44:00 EDT, [facility]/pharmacy #1972, 181, cm, 03/11/19 15:15:00 EDT, Height Start Date: 05/27/20 Status: Ordered MiraLax oral powder for reconstitution = 17 Gm, By Mouth, Daily, dissolve in water before taking, # 255 Gm, 1 Refills, Maintenance, 09/29/15 16:15:36, REC Powder, 17 Gm By Mouth Daily,Instr:dissolve in water before taking Start Date: 09/29/15 Status: Ordered nystatin topical 297684 u/gm powder 1 application, Topically, 3 times [...] M54.5, # 112 tablet, 0 Refills, Maintenance, 05/15/20 10:20:00 EDT, Tablet, [facility], Partial fill upon patient request; DX M19.09 M17.10 M54.5 DO, 05/15/20,... 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
--- OUTSIDE RECORDS SUMMARY | 2023-02-21 15:32 | XMS_ITS | Continuity of Care Document ---
Author Name Unknown Organization [facility] Adult Address [address] [place] [address]- Care Team Providers Care Radial Drill Press Set Up Operator Name Role Phone Marcia NATION, Nichole Primary Care Physician Encounter [facility] [place] Date(s): 06/11/20 - 07/11/20 [facility] Adult [address] [place] [address]- Allergies, Adverse Reactions, Alerts Substance Reaction Severity [...] tablet, 2 Refills, Maintenance, 06/30/20 16:18:00 EST, [facility]/pharmacy#1972, 181, cm, 03/11/19 15:15:00 EDT, Height Start Date: 06/30/20 Status: Ordered glipiZIDE 5 mg oral tablet 2.5 mg, 0.5, tablet, By Mouth, Daily, # 45 tablet, Refills 0, Tot. Refills 0, Maintenance, 07/06/2011:14:00 EST, Route to Pharmacy Electronically, [facility]/pharmacy #1972, 181, cm, 07/01/20 11:38:00 EST,Height Start Date: 07/06/20 Stop Date: 04/02/21 Status: Ordered lisinopril 40 mg oral tablet 1 tablet = 40 mg, By Mouth, Daily, # 30 tablet, 2 Refills, Maintenance, 06/27/20 9:42:00 EST, [facility]/pharmacy #1972, 181, cm, 03/11/19 15:15:00 EDT, Height Start Date: 06/27/20 Status: Ordered nystatin topical 076549 u/gm powder 1 application, Topically, 3 times [...] 0 Refills, Maintenance, 07/10/20 11:59:00 EST, Tablet, [facility]/pharmacy #1972, TO BE FILLED 07/13/20; Partial fill [...] 3 Refills, Maintenance, 10/07/19 9:37:00 EDT, Tablet, [facility]/pharmacy #1972, 2 tablet By Mouth Daily at bedtime, 181, cm, 03/11/19 15:15:00 EDT, Height Start Date: 10/07/19 Status: Ordered triamcinolone 0.5% topical cream 1 application, Topically, 2 times a day, apply a thin film to affected area, # 60 Gm, 0 Refills, Maintenance, 07/01/20 11:59:00 EST, Cream, [facility]/pharmacy #1972, 1 application Topically 2 times a [...] Kidney stone(Confirmed) Active Knee joint pain(Confirmed) Active 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
--- OUTSIDE RECORDS SUMMARY | 2023-02-21 15:32 | XMS_ITS | Continuity of Care Document ---
Author Name Unknown Organization [facility] Adult Address [address] [place] [address]- Care Team Providers Care Cyber Security Engineer Name Role Phone Marcia NATION, Nichole Primary Care Physician Encounter [facility] Date(s): 01/27/21 - 02/26/21 [facility] Adult [address] [place] [address]- Allergies, Adverse Reactions, Alerts Substance Reaction Severity [...] Refills, Maintenance, 02/22/21 19:46:00 EDT, [id number], 181, cm, 01/22/21 16:27:00 EDT, Height Start [...] Refills, Maintenance, 01/27/21 9:23:00 EDT, [facility]/pharmacy #1972, 181, cm, 01/22/21 16:27:00 EDT, Height Start Date: 01/27/21 Status: Ordered glipiZIDE 5 mg oral tablet 2.5 mg, 0.5, tablet, By Mouth, Daily, # 45 tablet, Refills 1, Tot. Refills 1, Maintenance, 12/16/2115:23:00 EDT, Route to Pharmacy Electronically, [facility]/pharmacy #1972, 181, cm, 11/30/20 9:02:00 EDT, Height Start Date: 12/15/20 Status: Ordered lisinopril 40 mg oral tablet 1 tablet = 40 mg, By Mouth, Daily, # 30 tablet, 0 Refills, Maintenance, 01/27/21 9:22:00 EDT, [facility]/pharmacy #1972, 181, cm, 01/22/21 16:27:00 EDT, Height Start Date: 01/27/21 Status: Ordered nystatin topical 258461 u/gm powder 1 application, Topically, 3 times a day, # 60 Gm, 11 Refills, Maintenance, 03/11/19 15:36:28 EDT, Powder, 1 application Topically 3 times a day Start Date: 03/11/19 Status: Ordered omeprazole 20 mg oral enteric coated capsule 1 capsule, By Mouth, Daily, # 30 capsule, 2 Refills, Maintenance, 02/20/21 10:56:00 EDT, [facility] 212[facility], 181, cm, 01/22/21 16:27:00 EDT, Height Start Date: 02/20/21 Status: Ordered oxyCODONE 10 mg oral tablet 1 tablet = 10 mg, By Mouth, Every 6 hours, PRN as needed for pain, PT OVERDUE FOR URINE DRUG SCREENAND LAB WORK DX M19.09 M17.10 M54.5, # 112 tablet, 0 Refills, Maintenance, 01/29/21 14:49:00 EDT, Tablet, [facility]/pharmacy #1972, TO BE FILLED 11/02/20; Par... 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
--- OUTSIDE RECORDS SUMMARY | 2023-02-21 15:32 | XMS_ITS | Continuity of Care Document ---
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 Refills 5, Maintenance, [employer] [facility] unique 10 testdisc testr blood sugars daily, 10/11/10 16:12:28 Start Date: 10/11/10 Status: Ordered felodipine 5 mg oral tablet, extended release 1 tablet, By Mouth, Daily, # 90 tablet, 2 Refills, Maintenance, 06/30/20 16:18:00 EST, [facility]/pharmacy#1972, 181, cm, 03/11/19 15:15:00 EDT, Height Start Date: 06/30/20 Status: Ordered glipiZIDE 5 mg oral tablet 2.5 mg, 0.5, tablet, By Mouth, Daily, NO FURTHER REFILLS. OVERDUE FOR LABWORK, # 15 tablet, Refills0, Tot. Refills 0, Maintenance, 11/18/20 10:43:00 EDT, [facility] to [facility], [facility], NO FURTHER REFILLS. OVERDUE FOR LABWORK, 1... Start Date: 11/18/20 Status: Ordered lisinopril 40 mg oral tablet [...] 12/28/20 13:56:00 EDT, 11/30/20 13:56:00 EDT, Tablet, [facility]/pharmacy #[id number], Partial fill upon patient request if... 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
--- OUTSIDE RECORDS SUMMARY | 2023-02-21 15:32 | XMS_ITS | Continuity of Care Document ---
Author Name Unknown Organization [facility] Adult Address [address] [place] [address]- Care Team Providers Care Betting Agency Manager Name Role Phone Marcia NATION, Nichole Primary Care Physician Encounter [facility] Date(s): 04/02/20 - 05/02/20 [facility] Adult [address] [place] [address]- [facility] Allergies, Adverse Reactions, Alerts Substance [...] tablet, 0 Refills, Maintenance, 04/10/20 12:03:00 EDT, [facility]/pharmacy#1972, 181, [...] Start Date: 09/29/15 Status: Ordered nystatin topical 115506 u/gm powder 1 application, Topically, 3 times [...] stone(Confirmed) Active Knee joint pain(Confirmed) Active 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
--- OUTSIDE RECORDS SUMMARY | 2023-02-21 15:32 | XMS_ITS | Continuity of Care Document ---
Author Name Unknown Organization [facility] Adult Address [address] [place] [address]- Care Team Providers Care Dock Clerk Name Role Phone Marcia NATION, Nichole Primary Care Physician Encounter [facility] Date(s): 01/26/21 - 02/25/21 [facility] Adult [address] [place] [address]- Allergies, Adverse Reactions, Alerts Substance Reaction Severity [...] Refills, Maintenance, 02/22/21 19:46:00 EDT, [facility], 181, cm, 01/22/21 16:27:00 EDT, Height Start [...] 0 Refills, Maintenance, 01/27/21 9:23:00 EDT, [facility]/pharmacy #1972, 181, cm, 01/22/21 16:27:00 EDT, Height Start Date: 01/27/21 Status: Ordered glipiZIDE 5 mg oral tablet 2.5 mg, 0.5, tablet, By Mouth, Daily, # 45 tablet, Refills 1, Tot. Refills 1, Maintenance, 12/16/2115:23:00 EDT, Route to Pharmacy Electronically, [facility]/pharmacy #1972, 181, cm, 11/30/20 9:02:00 EDT, Height Start Date: 12/15/20 Status: Ordered lisinopril 40 mg oral tablet 1 tablet = 40 mg, By Mouth, Daily, # 30 tablet, 0 Refills, Maintenance, 01/27/21 9:22:00 EDT, [facility]/pharmacy #1972, 181, cm, 01/22/21 16:27:00 EDT, Height Start Date: 01/27/21 Status: Ordered nystatin topical 874213 u/gm powder 1 application, Topically, 3 times a day, # 60 Gm, 11 Refills, Maintenance, 03/11/19 15:36:28 EDT, Powder, 1 application Topically 3 times a day Start Date: 03/11/19 Status: Ordered omeprazole 20 mg oral enteric coated capsule 1 capsule, By Mouth, Daily, # 30 capsule, 2 Refills, Maintenance, 02/20/21 10:56:00 EDT, [facility], 181, cm, 01/22/21 16:27:00 EDT, Height Start Date: 02/20/21 Status: Ordered oxyCODONE 10 mg oral tablet 1 tablet = 10 mg, By Mouth, Every 6 hours, PRN as needed for pain, PT OVERDUE FOR URINE DRUG SCREENAND LAB WORK DX M19.09 M17.10 M54.5, # 112 tablet, 0 Refills, Maintenance, 01/29/21 14:49:00 EDT, Tablet, [facility]/pharmacy #1972, TO BE FILLED 11/02/20; Par... 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
--- OUTSIDE RECORDS SUMMARY | 2023-02-21 15:32 | XMS_ITS | Continuity of Care Document ---
Author Name Unknown Organization [facility] Adult Address [address] [place] [address]- Care Team Providers Care Malt House Loader Name Role Phone Marcia NATION, Nichole Primary Care Physician Encounter [facility] Date(s): 12/31/20 - 01/30/21 [facility] Adult [address] [place] [address]- Allergies, Adverse Reactions, Alerts Substance Reaction Severity [...] 0 Refills, Maintenance, 01/27/21 9:23:00 EDT, [facility]/pharmacy #1972, 181, cm, 01/22/21 16:27:00 EDT, Height Start Date: 01/27/21 Status: Ordered glipiZIDE 5 mg oral tablet 2.5 mg, 0.5, tablet, By Mouth, Daily, # 45 tablet, Refills 1, Tot. Refills 1, Maintenance, 12/16/2115:23:00 EDT, Route to Pharmacy Electronically, [facility]/pharmacy #1972, 181, cm, 11/30/20 9:02:00 EDT, Height Start Date: 12/15/20 Status: Ordered lisinopril 40 mg oral tablet 1 tablet = 40 mg, By Mouth, Daily, # 30 tablet, 0 Refills, Maintenance, 01/27/21 9:22:00 EDT, [facility]/pharmacy #1972, 181, cm, 01/22/21 16:27:00 EDT, Height Start Date: 01/27/21 Status: Ordered nystatin topical 702021 u/gm powder 1 application, Topically, 3 times a day, # 60 Gm, 11 Refills, Maintenance, 03/11/19 15:36:28 EDT, Powder, 1 application Topically 3 times a day Start Date: 03/11/19 Status: Ordered omeprazole 20 mg oral enteric coated capsule 1 capsule = 20 mg, By Mouth, Daily, # 30 capsule, 0 Refills, Maintenance, 01/22/21 16:35:00 EDT, ECCapsule, [facility]/pharmacy #1972, Partial fill upon patient request if [...] Refills, Maintenance, 01/29/21 14:49:00 EDT, Tablet, [facility]/pharmacy #1972, TO BE FILLED 11/02/20; Par... Start [...]
--- OUTSIDE RECORDS SUMMARY | 2023-02-21 15:32 | XMS_ITS | Continuity of Care Document ---
Author Name Unknown Organization [facility] Adult Address [address] [place] [address]- Care Team Providers Care Power System Dispatcher Name Role Phone Marcia NATION, Nichole Primary Care Physician Encounter [facility] Date(s): 03/12/20 - 04/11/20 [facility] Adult [address] [place] [address]- [facility] Allergies, Adverse Reactions, Alerts Substance Reaction Severity [...] tablet, 0 Refills, Maintenance, 04/10/20 12:03:00 EDT, [facility]/pharmacy#1972, 181, cm, 03/11/19 15:15:00 EDT, Height Start Date: 04/10/20 Status: Ordered glipiZIDE 5 mg oral tablet 2.5 mg, 0.5, tablet, By Mouth, Daily, # 45 tablet, Refills 2, Tot. Refills 2, Maintenance, 11/26/2009:59:00 EDT, Route to Pharmacy Electronically, [facility]/pharmacy #1972, 181, cm, 03/11/19 15:15:00 EDT,Height Start [...] tablet, 1 Refills, Maintenance, 03/06/20 16:06:00 EDT, [facility]/pharmacy #1972, 181, cm, 03/11/19 15:15:00 EDT, Height Start Date: 03/06/20 Status: Ordered MiraLax oral powder for reconstitution = 17 Gm, By Mouth, Daily, dissolve in water before taking, # 255 Gm, 1 Refills, Maintenance, 09/29/15 16:15:36, REC Powder, 17 Gm By Mouth Daily,Instr:dissolve in water before taking Start Date: 09/29/15 Status: Ordered nystatin topical 376905 u/gm powder 1 application, Topically, 3 times [...] 08/27/19 8:46:00 EST, Route to Pharmacy Electronically, [facility]/pharmacy #1972, Easy open lid., 181, cm, 03/11/19 [...] stone(Confirmed) Active Knee joint pain(Confirmed) 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
--- OUTSIDE RECORDS SUMMARY | 2023-02-21 15:32 | XMS_ITS | Continuity of Care Document ---
Author Name Unknown Organization [facility] Adult Address [address] [place] [address]- Care Team Providers Care Builder Beam Name Role Phone Marcia NATION, Nichole Primary Care Physician Encounter [facility] Date(s): 12/10/20 - 01/09/21 [facility] Adult [address] [place] [address]- Allergies, Adverse Reactions, Alerts Substance Reaction Severity [...] 2 Refills, Maintenance, 06/30/20 16:18:00 EST, [facility]/pharmacy#1972, 181, cm, 03/11/19 15:15:00 EDT, Height Start Date: 06/30/20 Status: Ordered glipiZIDE 5 mg oral tablet 2.5 mg, 0.5, tablet, By Mouth, Daily, # 45 tablet, Refills 1, Tot. Refills 1, Maintenance, 12/16/2115:23:00 EDT, Route to Pharmacy Electronically, [facility]/pharmacy #1972, 181, cm, 11/30/20 9:02:00 EDT, Height Start Date: 12/15/20 Status: Ordered lisinopril 40 mg oral tablet 1 tablet = 40 mg, By Mouth, Daily, # 30 tablet, 2 Refills, Maintenance, 12/31/20 11:59:00 EDT, [facility]/pharmacy #1972, 181, cm, 11/30/20 9:02:00 EDT, Height Start Date: 12/31/20 Status: Ordered nystatin topical 754122 u/gm powder 1 application, Topically, 3 times [...] M54.5, # 112 tablet, 0 Refills, Maintenance, 01/01/21 13:28:00 EDT, Tablet, [facility], TO [facility] 11/02/20; Par... Start Date: 01/01/21 Stop Date: 01/29/21 Status: Ordered ROLLATOR ROLLATOR, See Instructions, # [...]
--- OUTSIDE RECORDS SUMMARY | 2023-02-21 15:32 | XMS_ITS | Continuity of Care Document ---
Author Name Unknown Organization [facility] Adult Address [address] [place] [address]- Care Team Providers Care Paper Bundler Name Role Phone Marcia NATION, Nichole Primary Care Physician Encounter [facility] Date(s): 12/15/20 - 01/14/21 [facility] Adult [address] [place] [address]- Allergies, Adverse Reactions, Alerts Substance Reaction Severity [...] tablet, 2 Refills, Maintenance, 06/30/20 16:18:00 EST, [facility]/pharmacy#1972, 181, cm, 03/11/19 15:15:00 EDT, Height Start Date: 06/30/20 Status: Ordered glipiZIDE 5 mg oral tablet 2.5 mg, 0.5, tablet, By Mouth, Daily, # 45 tablet, Refills 1, Tot. 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
--- OUTSIDE RECORDS SUMMARY | 2023-02-21 15:32 | XMS_ITS | Continuity of Care Document ---
Author Name Unknown Organization [facility] Adult Address [address] [place] [address]- Care Team Providers Care Brake Adjuster Name Role Phone Not on Staff, PCP Primary Care Physician Unavail able Encounter [facility] Date(s): 02/18/21 - 03/20/21 [facility] Adult [address] [place], [place] [address] Allergies, Adverse Reactions, Alerts Substance Reaction Severity [...] Refills, Maintenance, 02/22/21 19:46:00 EDT, [facility], 181, cm, 01/22/21 16:27:00 EDT, Height Start [...] tablet, 0 Refills, Maintenance, 01/27/21 9:23:00 EDT, [facility]/pharmacy #1972, 181, cm, 01/22/21 16:27:00 EDT, Height Start Date: 01/27/21 Status: Ordered glipiZIDE 5 mg oral tablet 2.5 mg, 0.5, tablet, By Mouth, Daily, # 45 tablet, Refills 1, Tot. Refills 1, Maintenance, 12/16/2115:23:00 EDT, Route to Pharmacy Electronically, [facility]/pharmacy #1972, 181, cm, 11/30/20 9:02:00 EDT, Height Start Date: 12/15/20 Status: Ordered lisinopril 40 mg oral tablet 1 tablet = 40 mg, By Mouth, Daily, # 30 tablet, 0 Refills, Maintenance, 01/27/21 9:22:00 EDT, [facility]/pharmacy #1972, 181, cm, 01/22/21 16:27:00 EDT, Height Start Date: 01/27/21 Status: Ordered nystatin topical 790794 u/gm powder 1 application, Topically, 3 times a day, # 60 Gm, 11 Refills, Maintenance, 03/11/19 15:36:28 EDT, Powder, 1 application Topically 3 times a day Start Date: 03/11/19 Status: Ordered omeprazole 20 mg oral enteric coated capsule 1 capsule, By Mouth, Daily, # 30 capsule, 2 Refills, Maintenance, 02/20/21 10:56:00 EDT, [facility] ST[facility] 537[facility], 181, cm, 01/22/21 16:27:00 EDT, Height Start Date: 02/20/21 Status: Ordered oxyCODONE 10 mg oral tablet 1 tablet = 10 mg, By Mouth, Every 6 hours, PRN as needed for pain, PT OVERDUE FOR URINE DRUG SCREENAND LAB WORK DX M19.09 M17.10 M54.5, # 112 tablet, 0 Refills, Maintenance, 01/29/21 14:49:00 EDT, Tablet, [facility]/pharmacy #1972, TO BE FILLED 11/02/20; [...] 0 Refills, Maintenance, 01/27/21 9:24:00 EDT, Tablet, [facility]/pharmacy #1972, 2 tablet By Mouth Daily at bedtime, 181, cm, 01/22/21 16:27:00 EDT, Height Start Date: 01/27/21 Status: Ordered triamcinolone 0.5% topical cream 1 application, Topically, 2 times a day, apply a thin film to affected area, # 60 Gm, 2 Refills, Maintenance, 07/29/20 8:44:00 EST, Cream, [facility]/pharmacy #1972, 1 application Topically 2 times a [...] Kidney stone(Confirmed) Active Knee joint pain(Confirmed) Active [facility] current use of opi ate analgesic(Confirmed) Active Low back pain(Confirmed) Active Depression, major(Confirmed) Active Microalbuminuria(Confirmed) Active Morbid obesity(Confirmed) Active Non-toxic multinodular goiter(Confirmed) 12/16/08 Active OA - Osteoarthritis of knee(Confirmed) Active Type 2 diabetes with nephropathy(Confirmed) Active Social History Social History Type Response Smoking Status Former smoker entered on: 02/28/18 Sex
--- OUTSIDE RECORDS SUMMARY | 2023-02-21 15:32 | XMS_ITS | Continuity of Care Document ---
Author Name Unknown Organization [facility] Adult Address [address] [place] [address]- Care Team Providers Care Sludge Mill Operator Name Role Phone Marcia NATION, Nichole Primary Care Physician Encounter [facility] Date(s): 04/15/20 - 05/15/20 [facility] Adult [address] [place] [address]- [facility] Allergies, Adverse Reactions, Alerts Substance [...] tablet, 0 Refills, Maintenance, 04/10/20 12:03:00 EDT, [facility]/pharmacy#1972, 181, cm, 03/11/19 15:15:00 EDT, Height Start Date: 04/10/20 Status: Ordered glipiZIDE 5 mg oral tablet 2.5 mg, 0.5, tablet, By Mouth, Daily, # 45 tablet, Refills 2, Tot. Refills 2, Maintenance, 11/26/2009:59:00 EDT, Route to Pharmacy Electronically, [facility]/pharmacy #1972, 181, cm, 03/11/19 15:15:00 [...] tablet, 1 Refills, Maintenance, 03/06/20 16:06:00 EDT, [facility]/pharmacy #1972, 181, cm, 03/11/19 15:15:00 EDT, Height Start Date: 03/06/20 Status: Ordered MiraLax oral powder for reconstitution = 17 Gm, By Mouth, Daily, dissolve in water before taking, # 255 Gm, 1 Refills, Maintenance, 09/29/15 16:15:36, REC Powder, 17 Gm By Mouth Daily,Instr:dissolve in water before taking Start Date: 09/29/15 Status: Ordered nystatin topical 518434 u/gm powder 1 application, Topically, 3 times [...] Kidney stone(Confirmed) Active Knee joint pain(Confirmed) 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
--- OUTSIDE RECORDS SUMMARY | 2023-02-21 15:32 | XMS_ITS | Continuity of Care Document ---
Author Name Unknown Organization [facility] Adult Address [address] [place] [address]- Care Team Providers Care Coil Placer Name Role Phone Marcia NATION, Nichole Primary Care Physician Encounter [facility] Date(s): 08/10/20 - 09/09/20 [facility] Adult [address] [place] [address]- Allergies, Adverse Reactions, Alerts Substance Reaction Severity [...] tablet, 2 Refills, Maintenance, 06/30/20 16:18:00 EST, [facility]/pharmacy#1972, 181, cm, 03/11/19 15:15:00 EDT, Height Start Date: 06/30/20 Status: Ordered glipiZIDE 5 mg oral tablet 2.5 mg, 0.5, tablet, By Mouth, Daily, # 45 tablet, Refills 0, Tot. Refills 0, Maintenance, 07/06/2011:14:00 EST, Route to Pharmacy Electronically, [facility]/pharmacy #1972, 181, cm, 07/01/20 11:38:00 EST,Height Start Date: 07/06/20 Stop Date: 04/02/21 Status: Ordered lisinopril 40 mg oral tablet 1 tablet = 40 mg, By Mouth, Daily, # 30 tablet, 2 Refills, Maintenance, 06/27/20 9:42:00 EST, [facility]/pharmacy #1972, 181, cm, 03/11/19 15:15:00 EDT, Height Start Date: 06/27/20 Status: Ordered nystatin topical 154418 u/gm powder 1 application, Topically, 3 times [...] M54.5, # 112 tablet, 0 Refills, Maintenance, 09/07/20 11:15:00 EST, Tablet, [facility]/pharmacy #1972, Partial fill upon patient request; DX M19.09 M17.10 M54.5 DO, 181, cm,... Start Date: 09/07/20 Status: Ordered ROLLATOR ROLLATOR, See Instructions, # [...] 3 Refills, Maintenance, 10/07/19 9:37:00 EDT, Tablet, [facility]/pharmacy #1972, 2 tablet By Mouth Daily at [...] Kidney stone(Confirmed) Active Knee joint pain(Confirmed) Active [facility] current use of opi ate analgesic(Confirmed) Active Low back pain(Confirmed) Active Depression, major(Confirmed) Active Microalbuminuria(Confirmed) Active Morbid obesity(Confirmed) Active Non-toxic multinodular goiter(Confirmed) 12/16/08 Active OA - Osteoarthritis of knee(Confirmed) Active Type 2 diabetes with nephropathy(Confirmed) Active Social History Social History Type Response Smoking Status Former smoker entered on: 02/28/18 Sex
--- OUTSIDE RECORDS SUMMARY | 2023-02-21 15:32 | XMS_ITS | Continuity of Care Document ---
Author Name Unknown Organization [facility] Adult Address [address] [place] [address]- Care Team Providers Care Branch Service Associate Name Role Phone Marcia NATION, Nichole Primary Care Physician [place] [facility] [place]21 [facility] Adult [address] [place] [address]- Allergies, Adverse Reactions, Alerts Substance Reaction Severity [...] tablet, 2 Refills, Maintenance, 06/30/20 16:18:00 EST, [facility]/pharmacy#1972, 181, cm, 03/11/19 15:15:00 EDT, Height Start Date: 06/30/20 Status: Ordered glipiZIDE 5 mg oral tablet 2.5 mg, 0.5, tablet, By Mouth, Daily, # 45 tablet, Refills 1, Tot. 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
--- OUTSIDE RECORDS SUMMARY | 2023-02-21 15:33 | XMS_ITS | Continuity of Care Document ---
Author Name Unknown Organization [facility] Adult Address [address] [place] [address]- Care Team Providers Care Pediatric Physician Assistant Name Role Phone Not on Staff, PCP Primary Care Physician Unavail able [place]counter [facility] [place](s): 06/22/21 - 07/22/21 [facility] Adult [address], [place] [address] Allergies, Adverse Reactions, Alerts Substance Reaction Severity [...] Refills, Maintenance, 02/22/21 19:46:00 EDT, [id number], 181, cm, 01/22/21 16:27:00 EDT, Height Start [...] tablet, 0 Refills, Maintenance, 01/27/21 9:23:00 EDT, [facility]/pharmacy #[id number], 181, cm, 01/22/21 16:27:00 EDT, Height Start Date: 01/27/21 Status: Ordered glipiZIDE 5 mg oral tablet 2.5 mg, 0.5, tablet, By Mouth, Daily, # 45 tablet, Refills 1, Tot. Refills 1, Maintenance, 12/16/2115:23:00 EDT, Route to Pharmacy Electronically, [facility]/pharmacy #1972, 181, cm, 11/30/20 9:02:00 EDT, Height Start Date: 12/15/20 Status: Ordered lisinopril 40 mg oral tablet 1 tablet = 40 mg, By Mouth, Daily, # 30 tablet, 0 Refills, Maintenance, 01/27/21 9:22:00 EDT, [facility]/pharmacy #1972, 181, cm, 01/22/21 16:27:00 EDT, Height Start Date: 01/27/21 Status: Ordered nystatin topical [id number] u/gm powder 1 application, Topically, 3 times a day, # 60 Gm, 11 Refills, Maintenance, 03/11/19 15:36:28 EDT, Powder, 1 application Topically 3 times a day Start Date: 03/11/19 Status: Ordered omeprazole 20 mg oral enteric coated capsule 1 capsule, By Mouth, Daily, # 30 capsule, 2 Refills, Maintenance, 02/20/21 10:56:00 EDT, [id number], 181, cm, 01/22/21 16:27:00 EDT, Height Start Date: 02/20/21 Status: Ordered oxyCODONE 10 mg oral tablet 1 tablet = 10 mg, By Mouth, Every 6 hours, PRN as needed for pain, PT OVERDUE FOR URINE DRUG SCREENAND LAB WORK DX M19.09 M17.10 M54.5, # 112 tablet, 0 Refills, Maintenance, 01/29/21 14:49:00 EDT, Tablet, [facility]/pharmacy #1972, TO BE FILLED 11/02/20; Par... 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
--- NOTE | 2023-02-21 15:46 | PC.NURSE ---
Pt adamently refuses IV placement, lab draw, and CT scan. Dr Nassar made aware.
--- NOTE | 2023-02-21 15:52 | MHC.EDTECH ---
Patient refusing labs and EKG. RN/MD aware.
[2023-02-21] MEDS: 0.9 % Sodium Chloride 500 ML 999 ML IV (16:37)
[2023-02-21 17:13] LABS: Basophils Percent Auto 0.2 % (0-2); Eosinophils Absolute Auto 0.1 X10*3/uL (0.0-0.4); Eosinophils Percent Auto 0.4 % (0-4); Hematocrit 32.8 % (37.0-47.0); Imm Gran Pct Auto 0.5 % (0.0-0.4); Lymphocytes Absolute Auto 0.7 X10*3/uL (1.2-4.9); Lymphocytes Percent Auto 3.4 % (20-40); MANUAL DIFF FLAG SCAN; Mean Corpuscular HGB Conc 30.5 g/dl (31.0-35.0); Mean Corpuscular Hemoglobin 26.5 pg (27.0-33.0); Mean Platelet Volume 10.8 fL (9.4-12.3); Monocytes Absolute Auto 0.7 X10*3/uL (0.1-1.2); Monocytes Percent Auto 3.3 % (2-11); Neutrophils Absolute Auto 18.6 x10*3/uL (2.0-8.3); Neutrophils Percent Auto 92.2 % (45-73); Platelet Count 310 X10*3/uL (160-400); Red Blood Count 3.77 X10*6/uL (4.20-5.50); Red Cell Distribution Width 13.4 % (11.0-16.0); SCAN SMEAR FLAG 1; White Blood Count 20.2 X10*3/uL (4.8-10.8)
[2023-02-21 17:14] LABS: Appearance Urine Cloudy; Color Urine Dark Yellow; Glucose Urine UA Negative (Negative); Leukocyte Esterase Urine Moderate (2+) (Negative); Nitrite Urine Negative (Negative); PH 5.5 (5.0-9.0); Specific Gravity - Urine 1.025 (1.005-1.025); UMIC TRIGGER UACC YES; Urine Blood Large (3+) (Negative); Urine Ketones Trace mg/dL (Negative); Urine Protein 30 (1+) mg/dL (Neg-Trace)
[2023-02-21 17:19] LABS: INTERNATIONAL NORM RATIO 1.1 (0.9-1.1); Prothrombin Time 13.9 SEC (11.1-13.3)
[2023-02-21 17:20] LABS: Alanine Aminotransferase 7 U/L (0-31); Albumin Level 2.6 g/dL (3.5-5.0); Alkaline Phosphatase 98 U/L (39-117); Anion Gap 16 (12-20); Aspartate Amino Transferase 11 U/L (5-31); Bacteria Urine 1+ (None Seen); Bilirubin Direct 0.2 mg/dL (0.0-0.5); Bilirubin Total 0.4 mg/dL (0.0-1.0); Blood Urea Nitrogen 32 mg/dL (9-16); Calcium 8.9 mg/dL (8.4-10.2); Carbon Dioxide 20 mmol/L (22-29); Chloride 107 mmol/L (96-108); Creatinine Clr Calc Pharmacy 45.8; Estimated Glomerular Filt Rate 36; Ethanol < 10 mg/dL; Glucose Random 112 mg/dL (60-115); Potassium 4.1 mmol/L (3.3-5.1); RBC Urine >20 /HPF (0-2); Sodium 139 mmol/L (135-145); Total Protein 5.7 g/dL (6.5-8.0); UACC Culture Trigger YES; WBC Urine >50 /HPF (0-5)
[2023-02-21 17:31] VITALS: BP 94/62; PULSE 77; RESP 20; TEMP 36.4; O2SAT 96
[2023-02-21 17:35] LABS: Amphetamine Screen Urine Not Detected (Not Detect); Barbiturates, Urine Not Detected (Not Detect); Benzodiazepines Screen Urine Not Detected (Not Detect); Cannabinoid Screen Urine Not Detected (Not Detect); Cocaine Screen Urine Not Detected (Not Detect); Fentanyl, urine Not Detected (Not Detect); Opiate Screen Urine POSITIVE (Not Detect); Phencyclidine Screen Urine Not Detected (Not Detect)
[2023-02-21 18:06] LABS: SLIDE REVIEW VERIFIED
[2023-02-21] MEDS: cefTRIAXone sodium 1 GM in 0.9 % Sodium Chloride 50 ML IV (18:52)
[2023-02-21] MEDS: 0.9 % Sodium Chloride 1,000 ML 999 ML IV ×2 (18:56→21:14)
--- NOTE | 2023-02-21 20:50 | PHA.MEDREC ---
Pharmacy Consult ? Medication Reconciliation Pharmacy has completed the medication reconciliation. Patient would not wake up. Patient has not picked up any medications from [facility] since September,. Per PDMP, patient was picking up oxycodone regular until September. Script is for 5 mg prn therefore I left on clai, history. Patient filled metoprolol succ ER 50 mg on 10/28 x 30 and mag oxide 400 mg x 5day on 10/27. Call [facility] to confirm. Darling García, RishiD
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
--- NOTE | 2023-02-21 22:26 | MHC.EDTECH ---
Assisted patient on to bed alvarez, upon cleaning patient I noticed a few bed sores on her buttocks area. Blaze Barrera is aware SG
--- NOTE | 2023-02-21 22:50 | PM.IMHP ---
History of Present Illness Date of Service: 02/21/23 Chief Complaint: Confusion This is a 77-year-old female who is fairly well and healthy other than having chronic back pain comes into the hospital with complaints of confusion. Patient is now alert oriented x3, she is able to give full history with significant detail. Patient apparently had called Fire Department more than 10 times for assistance, finally the fire department told her that she is confused, and will need to come into the hospital for evaluation they brought her against her will. She is agreeable to stay and receive medical care. She also stated that her neighbor told her that she had called her about 8 times at night the night prior. Patient is also had increased urgency, frequency, as well as incontinence which is new for her. Patient states that for the past 1 month she has lost 30 lb unintentionally. She has also had vaginal spotting for 6 months where she has used tempons for protection but did not want it evaluated. Patient has also noticed lower extremity edema that has been going on for the past 2 weeks. But chronically in her right ankle. She reports low oral intake for the past few days and has not been eating or drinking enough. She denies any chest pain, no shortness of breath, no abdominal pain nausea or vomiting, no diarrhea or constipation, no numbness weakness or tingling. on arrival to the ED patient hemodynamically stable with no significant abnormal vitals except for heart rate of 101, Labs are significant for WBC count of 20.2, hemoglobin of 10, hematocrit 32.8 with no previous for comparison, creatinine of 1.42, BUN of 32, BNP of 90, troponin of 62, UA positive for leukocyte Estrace, WBC, bacteria, urine drug screen negative Head and neck CT show mild level cervical and upper thoracic degenerative disc disease, no other acute traumatic findings, while head CT showed no acute intracranial pathology, and chronic microangiopathy Chest x-ray shows no acute cardiopulmonary process, abdominal pelvic CT shows Abdomen pelvic CT showed a significantly enlarged uterus, raising possibility of massive fibroid replacement with a possibility of urine tumor cannot be excluded, numerous markedly enlarged abdominal pelvic lymph nodes, ascites with anasarca, renal atrophy, Patient will be admitted for further management Review of Systems Review of Systems: Yes all other systems are reviewed and are negative [facility] Medical History (Updated 02/22/23 @ 06:42 by Sheila Shirley MD) Chronic back pain Surgical History (Updated 02/22/23 @ 06:42 by Sheila Shirley MD) History of bilateral knee replacement Social History Alcohol intake: never Smoked in Last 30 Days: No Use of substances other than those prescribed or required for medical reasons: No Advance Directives: No Advance Directives Information Provided: Yes Meds Allergies Allergy/AdvReac Type Severity Reaction Status Date / Time No Known Allergies Allergy Verified 02/21/23 15:25 Active Medications: Current Medications Furosemide (Furosemide 40 Mg/4 Ml Vial) 40 mg IVPUSH DAILY NAYA; Protocol Heparin Sodium (Porcine) (Heparin Sodium,Porcine 5,000 Unit/Ml Vial) 5,000 unit SUBCUT Q12H NAYA Ceftriaxone Sodium 1 gm/ (Sodium Chloride) 50 mls @ 100 mls/hr IV Q24H NAYA Lactated Ringer's (Lr) 1,000 mls @ 100 mls/hr IVCONT .Q10H NAYA Sodium Chloride (0.9 % Sodium Chloride Flush 3 Ml Syringe) 3 ml IVFLUSH QSHIFT NAYA Home Medications Medication Instructions Recorded Confirmed Last Taken Type oxycodone 5 mg tablet 10 mg PO BID PRN pain 02/21/23 02/21/23 Unknown History Physical Exam Vital Signs and Narrative: Vital Signs: Last Vital Signs Temp 97.6 F 02/21/23 17:31 Pulse 77 02/21/23 17:31 Resp 20 02/21/23 17:31 BP 94/62 02/21/23 17:31 Pulse Ox 96 02/21/23 17:31 O2 Del Method Room Air 02/21/23 17:31 BMI result Body Mass Index 31.7 Const: General: cooperative and no acute distress Orientation/consciousness: patient oriented x3 Eyes: General: appearance normal, both eyes and all related structures Pupils: Equal, round and reactive pupils present Resp: Effort & Inspection: normal respiratory effort Auscultation: clear to auscultation bilaterally Cardio: Rate: regular rate Rhythm: regular rhythm GI: Other: Obese abdomen, 3+ distended, Palpation (GI): Soft to palpation Auscultation: normal bowel sounds Skin: General skin exam: no rashes or lesions noted Neuro: General: patient oriented x3 Cranial nerves: Yes Equal, round and reactive pupils present Cognition (Neuro): normal cognition Extrem: Other: 3+ pedal edema Results Labs 02/21/23 16:34 02/21/23 16:34 Labs: Laboratory Results - last 24 hr 02/21/23 02/21/23 02/21/23 16:34 16:34 16:34 MCV 87.0 MCH 26.5 L MCHC 30.5 L RDW 13.4 Plt Count 310 MPV 10.8 Immature Gran % (Auto) 0.5 H Neut % (Auto) 92.2 H Lymph % (Auto) 3.4 L Flagler % (Auto) 3.3 Eos % (Auto) 0.4 Baso % (Auto) 0.2 Lymph # (Auto) 0.7 L [place] # (Auto) 0.7 Eos # (Auto) 0.1 Baso # (Auto) 0.0 Abs Immat Gran (auto) 0.10 H Absolute Neuts (auto) 18.6 H Absolute Nucleated RBC 0.000 Nucleated RBC % (auto) 0.0 Smear Tech's Comments VERIFIED PT 13.9 H INR 1.1 Anion Gap 16 Estim Creat Clear Calc 45.8 Estimated GFR 36 Random Glucose 112 Lactic Acid Calcium 8.9 Total Bilirubin 0.4 Direct Bilirubin 0.2 AST 11 ALT 7 Alkaline Phosphatase 98 Total Creatine Kinase Total Protein 5.7 L Albumin 2.6 L Urine Color Urine Appearance Urine pH Ur Specific [place] Urine Protein Urine Glucose (UA) Urine Ketones Urine Blood Urine Nitrite Ur Leukocyte Esterase Urine RBC Urine WBC Ur Squamous Epith Cells Urine Bacteria Hyaline Casts Urine Opiates Screen Urine Fentanyl Screen Ur Barbiturates Screen Ur Phencyclidine Scrn Ur Amphetamines Screen U Benzodiazepines Scrn Urine Cocaine Screen U Marijuana (THC) Screen Ethyl Alcohol < 10 02/21/23 02/21/23 02/21/23 16:34 16:34 16:34 MCV MCH MCHC RDW Plt Count MPV Immature Gran % (Auto) Neut % (Auto) Lymph % (Auto) [place] % (Auto) Eos % (Auto) Baso % (Auto) Lymph # (Auto) [place] # (Auto) Eos # (Auto) Baso # (Auto) Abs Immat Gran (auto) Absolute Neuts (auto) Absolute Nucleated RBC Nucleated RBC % (auto) Smear Tech's Comments PT INR Anion Gap Estim Creat Clear Calc Estimated GFR Random Glucose Lactic Acid Calcium Total Bilirubin Direct Bilirubin AST ALT Alkaline Phosphatase Total Creatine Kinase 57 Total Protein Albumin Urine Color Dark Yellow Urine Appearance Cloudy Urine pH 5.5 Ur Specific [place] 1.025 Urine Protein 30 (1+) H Urine Glucose (UA) Negative Urine Ketones Trace Urine Blood Large (3+) H Urine Nitrite Negative Ur Leukocyte Esterase Moderate (2+) H Urine RBC >20 H Urine WBC >50 H Ur Squamous Epith Cells 6-10 Urine Bacteria 1+ Hyaline Casts 3-5 Urine Opiates Screen POSITIVE H Urine Fentanyl Screen Not Detected Ur Barbiturates Screen Not Detected Ur Phencyclidine Scrn Not Detected Ur Amphetamines Screen Not Detected U Benzodiazepines Scrn Not Detected Urine Cocaine Screen Not Detected U Marijuana (THC) Screen Not Detected Ethyl Alcohol 02/21/23 18:39 MCV MCH MCHC RDW Plt Count MPV Immature Gran % (Auto) Neut % (Auto) Lymph % (Auto) [place] % (Auto) Eos % (Auto) Baso % (Auto) Lymph # (Auto) [place] # (Auto) Eos # (Auto) Baso # (Auto) Abs Immat Gran (auto) Absolute Neuts (auto) Absolute Nucleated RBC Nucleated RBC % (auto) Smear Tech's Comments PT INR Anion Gap Estim Creat Clear Calc Estimated GFR Random Glucose Lactic Acid 1.0 Calcium Total Bilirubin Direct Bilirubin AST ALT Alkaline Phosphatase Total Creatine Kinase Total Protein Albumin Urine Color Urine Appearance Urine pH Ur Specific [place] Urine Protein Urine Glucose (UA) Urine Ketones Urine Blood Urine Nitrite Ur Leukocyte Esterase Urine RBC Urine WBC Ur Squamous Epith Cells Urine Bacteria Hyaline Casts Urine Opiates Screen Urine Fentanyl Screen Ur Barbiturates Screen Ur Phencyclidine Scrn Ur Amphetamines Screen U Benzodiazepines Scrn Urine Cocaine Screen U Marijuana (THC) Screen Ethyl Alcohol Imaging Radiologist's Impressions: Impressions Chest X-Ray 02/21/23 15:43 IMPRESSION: No acute cardiopulmonary process. Abdomen/Pelvis CT 02/21/23 19:19 IMPRESSION: 1. A significantly enlarged uterus is seen, with dimensions as above. There are peripheral eggshell calcifications within the uterus, raising the possibility of massive fibroid replacement. The possibility of uterine tumor, including leiomyosarcoma, is not excluded. Recommend further characterization with dedicated pelvic ultrasound. 2. There are numerous markedly enlarged abdominal and pelvic lymph nodes, as detailed above. These are nonspecific, and further work-up is indicated, together with continued attention on imaging follow-up. 3. There is marked ascites, and marked anasarca is noted. Consider diagnostic and therapeutic paracentesis, with cytology evaluation. 4. There is left renal atrophy. Benign-appearing left renal cysts are noted, which require no imaging follow-up. 5. There is a fat- and fluid-containing umbilical hernia defect. 6. There are multi-level marked degenerative changes of the thoracolumbar spine and hips. No aggressive osseous lesion is seen. 7. There is cardiomegaly. Fleischner guidelines were followed. Cervical Spine CT 02/21/23 19:19 IMPRESSION: 1. No acute intracranial pathology. 2. There is mild patchy low attenuation change in the periventricular white matter spaces, commonly associated with chronic microangiopathy. EXAMINATION: CT CERVICAL SPINE WITHOUT CONTRAST CLINICAL INFORMATION: Neck pain status-post fall. COMPARISON: None available. TECHNIQUE: Contiguous axial imaging was performed through the cervical spine without intravenous administration of contrast. Multiplanar reformatted images are submitted. This CT examination was performed using dose optimization techniques as appropriate, variously including the following: *Automated exposure control *Adjustment of mA and/or kV according to patient size (this includes techniques or standardized protocols for targeted exams where dose is matched to indication/reason for exam; i.e. extremities or head) *Use of iterative reconstruction technique DLP: As above FINDINGS: Imaging is somewhat limited by motion artifact. Vertebral body heights are normal. There is reversal of the normal curvature. At C3-C4, there is a 2 mm retrolisthesis. At C7-T1, there is anterior disc space narrowing, with vacuum disc phenomenon. At T2-T3, there is moderate disc space narrowing. No acute fracture or spondylolisthesis is seen. There is multi-level cervical and upper thoracic spondylosis. The posterior elements are intact. There is multi-level cervical facet arthropathy. There is no prevertebral soft tissue swelling. The dens is intact. There is degenerative change of the atlantoaxial joint. The bilateral lung apices are clear. IMPRESSION: There is multi-level cervical and upper thoracic degenerative disc disease, spondylosis and facet arthropathy. No acute traumatic finding is noted. Fleischner guidelines were followed. Head CT 02/21/23 19:19 IMPRESSION: 1. No acute intracranial pathology. 2. There is mild patchy low attenuation change in the periventricular white matter spaces, commonly associated with chronic microangiopathy. EXAMINATION: CT CERVICAL SPINE WITHOUT CONTRAST CLINICAL INFORMATION: Neck pain status-post fall. COMPARISON: None available. TECHNIQUE: Contiguous axial imaging was performed through the cervical spine without intravenous administration of contrast. Multiplanar reformatted images are submitted. This CT examination was performed using dose optimization techniques as appropriate, variously including the following: *Automated exposure control *Adjustment of mA and/or kV according to patient size (this includes techniques or standardized protocols for targeted exams where dose is matched to indication/reason for exam; i.e. extremities or head) *Use of iterative reconstruction technique DLP: As above FINDINGS: Imaging is somewhat limited by motion artifact. Vertebral body heights are normal. There is reversal of the normal curvature. At C3-C4, there is a 2 mm retrolisthesis. At C7-T1, there is anterior disc space narrowing, with vacuum disc phenomenon. At T2-T3, there is moderate disc space narrowing. No acute fracture or spondylolisthesis is seen. There is multi-level cervical and upper thoracic spondylosis. The posterior elements are intact. There is multi-level cervical facet arthropathy. There is no prevertebral soft tissue swelling. The dens is intact. There is degenerative change of the atlantoaxial joint. The bilateral lung apices are clear. IMPRESSION: There is multi-level cervical and upper thoracic degenerative disc disease, spondylosis and facet arthropathy. No acute traumatic finding is noted. Fleischner guidelines were followed. Assessment and Plan (1) Weight loss: Status: Acute (2) Lower extremity edema: Status: Acute (3) Hypoalbuminemia: Status: Acute (4) Ascites: Status: Acute (5) Uterine mass: Status: Acute (6) TETO (acute kidney injury): Status: Acute (7) Urinary tract infection: Status: Acute Plan This is a 77-year-old female with past medical history of chronic back pain comes into the hospital with reported confusion found to have multiple complications # acute UTI - with encephalopathy that has now resolved - will treat with IV antibiotics - follow cultures # TETO - secondary to dehydration - IV fluid - follow BMP # ascites/lower extremity edema, hypoalbuminemia - unclear etiology, with no history of liver cirrhosis - BNP negative - x-ray of the lungs negative for any ascites in the lungs, making cardiac etiology less likely - possibly malignant - will obtain therapeutic as well as diagnostic paracentesis # uterine mass - with history of vaginal bleed - concerning for malignancy - will obtain transvaginal and pelvic ultrasound, consult Ob Gyne based on results - H&H stable # chronic pain - continue oxycodone DVT prophylaxis: Heparin subQ Given patient's need for further evaluation of the above-mentioned reasons, as well as need for IV fluids and IV antibiotics patient require minimum 2 night inpatient hospital stay for further management and monitoring Time Spent With Patient Time: Total time managing care of this patient today ____ minutes. Quality Stroke Does the patient have a stroke diagnosis?: No VTE Prior VTE?: No VTE Risk Level:: Medical - moderate - high VTE Device Contraindication: Treatment Not Indicated VTE Drug Contraindication: N/A - Med Ordered
[2023-02-21 23:13] LABS: Troponin-I High Sensitivity 62.6 ng/L (<3.5-17.0)
[2023-02-22] VITALS (7 sets, daily range): BP systolic 95–111; BP diastolic 49–62; PULSE 63–88; RESP 15–20; TEMP 35.8–36.6; O2SAT 93–98
[2023-02-22] MEDS: Heparin Sodium,Porcine 5,000 UNIT/ML VIAL 5000 UNIT SUBCUT ×3 (00:29→23:05)
[2023-02-22] MEDS: 0.9 % Sodium Chloride Flush 3 ML SYRINGE IVFLUSH ×4 (00:30→23:05)
[2023-02-22] MEDS: Furosemide 40 MG/4 ML VIAL IVPUSH (00:30)
[2023-02-22] MEDS: Lactated Ringers 1,000 ML 100 ML IVCONT (00:30)
[2023-02-22 00:42] LABS: B Type Natriuretic Peptide 90 pg/mL (<100)
--- NOTE | 2023-02-22 03:42 | PC.NURSE ---
patient in bed with eyes closed patient showing no distress at this time patient vitals are stable patient was placed on a purwick patient will continue to be monitored for safety
--- NOTE | 2023-02-22 04:51 | PC.NURSE ---
patient in bed with eyes open patient showing no distress at this time patient vitals are stable patient will continue to be monitored for safety
[2023-02-22 04:52] LABS: Basophils Percent Auto 0.2 % (0-2); Eosinophils Absolute Auto 0.2 X10*3/uL (0.0-0.4); Eosinophils Percent Auto 0.8 % (0-4); Hematocrit 30.7 % (37.0-47.0); Hemoglobin 9.4 g/dl (12.0-16.0); Imm Gran Abs Auto 0.09 X10*3/uL (0.00-0.03); Imm Gran Pct Auto 0.5 % (0.0-0.4); Lymphocytes Absolute Auto 0.7 X10*3/uL (1.2-4.9); Lymphocytes Percent Auto 3.7 % (20-40); MANUAL DIFF FLAG SCAN; Mean Corpuscular HGB Conc 30.6 g/dl (31.0-35.0); Mean Corpuscular Hemoglobin 26.6 pg (27.0-33.0); Mean Corpuscular Volume 86.7 fL (80.0-98.0); Mean Platelet Volume 10.4 fL (9.4-12.3); Monocytes Absolute Auto 0.6 X10*3/uL (0.1-1.2); Monocytes Percent Auto 3.2 % (2-11); Neutrophils Absolute Auto 17.4 x10*3/uL (2.0-8.3); Neutrophils Percent Auto 91.6 % (45-73); Platelet Count 269 X10*3/uL (160-400); Red Blood Count 3.54 X10*6/uL (4.20-5.50); Red Cell Distribution Width 13.5 % (11.0-16.0); SCAN SMEAR FLAG 1; White Blood Count 18.9 X10*3/uL (4.8-10.8)
[2023-02-22 04:58] LABS: SLIDE REVIEW VERIFIED
[2023-02-22 05:18] LABS: Anion Gap 12 (12-20); Blood Urea Nitrogen 30 mg/dL (9-16); Calcium 8.3 mg/dL (8.4-10.2); Carbon Dioxide 21 mmol/L (22-29); Chloride 111 mmol/L (96-108); Creatinine Clr Calc Pharmacy 45.2; Estimated Glomerular Filt Rate 35; Glucose Random 144 mg/dL (60-115); Potassium 3.8 mmol/L (3.3-5.1); Sodium 140 mmol/L (135-145)
--- NOTE | 2023-02-22 07:56 | PC.NURSE ---
rn to rn report given to fiorella. pt aware of plan of care for tranfer to [facility].
--- NOTE | 2023-02-22 08:12 | PC.NURSE ---
pt threw out her clothing because it was very soiled and states that she did not want to carry it with her upstairs to her room.
[2023-02-22 10:23] LABS: Troponin-I High Sensitivity 46.8 ng/L (<3.5-17.0)
--- NOTE | 2023-02-22 10:39 | HO.PM.IMPN ---
Subjective Subjective Date of Service: 02/22/23 Physical Exam Vital Signs: Vital Signs: Last Vital Signs Temp 97.1 F 02/22/23 08:00 Pulse 88 02/22/23 08:00 Resp 20 02/22/23 08:00 BP 95/49 L 02/22/23 08:00 Pulse Ox 93 02/22/23 08:00 O2 Del Method Room Air 02/22/23 08:00 BMI result Body Mass Index 31.7 Objective Data Active Medications Acetaminophen (Acetaminophen 325 Mg Tablet) 650 mg PO Q6H PRN PRN Reason: Pain, Mild (Pain Scale 1-3) Docusate Sodium (Docusate Sodium 100 Mg Capsule) 100 mg PO DAILY PRN PRN Reason: Constipation Furosemide (Furosemide 40 Mg/4 Ml Vial) 40 mg IVPUSH DAILY [facility]; Protocol Last Admin: 02/22/23 09:31 Dose: Not Given Documented By: MECHELLE Non-Admin Reason: LOW BLOOD PRESSURE; OK TO HOLD PER PRIMARY CARE PEDIATRICIAN Heparin Sodium (Porcine) (Heparin Sodium,Porcine 5,000 Unit/Ml Vial) 5,000 unit SUBCUT Q12H [facility] Last Admin: 02/22/23 10:18 Dose: 5,000 unit Documented By: MECHELLE Ceftriaxone Sodium 1 gm/ (Sodium Chloride) 50 mls @ 100 mls/hr IV Q24H [facility] Lactated Ringer's (Lr) 1,000 mls @ 100 mls/hr IVCONT .Q10H [facility] Last Infusion: 02/22/23 10:23 Dose: 0 mls/hr Documented By: MECHELLE Ondansetron HCl (Ondansetron Hcl 4 Mg/2 Ml Vial) 4 mg IVPUSH Q8H PRN PRN Reason: Nausea and Vomiting Oxycodone HCl (Oxycodone Hcl Immed Release 5 Mg Tablet) 10 mg PO BID PRN PRN Reason: Pain, Severe (Pain Scale 7-10) Sodium Chloride (0.9 % Sodium Chloride Flush 3 Ml Syringe) 3 ml IVFLUSH QSHIFT [facility] Last Admin: 02/22/23 10:17 Dose: 3 ml Documented By: MECHELLE Labs 02/22/23 04:43 02/22/23 04:43 Labs: Laboratory Results - last 24 hr 02/21/23 02/21/23 02/21/23 16:34 16:34 16:34 MCV 87.0 MCH 26.5 L MCHC 30.5 L RDW 13.4 Plt Count 310 MPV 10.8 Immature Gran % (Auto) 0.5 H Neut % (Auto) 92.2 H Lymph % (Auto) 3.4 L [place] % (Auto) 3.3 Eos % (Auto) 0.4 Baso % (Auto) 0.2 Lymph # (Auto) 0.7 L [place] # (Auto) 0.7 Eos # (Auto) 0.1 Baso # (Auto) 0.0 Abs Immat Gran (auto) 0.10 H Absolute Neuts (auto) 18.6 H Absolute Nucleated RBC 0.000 Nucleated RBC % (auto) 0.0 Smear Tech's Comments VERIFIED PT 13.9 H INR 1.1 Anion Gap 16 Estim Creat Clear Calc 45.8 Estimated GFR 36 Random Glucose 112 Lactic Acid Calcium 8.9 Total Bilirubin 0.4 Direct Bilirubin 0.2 AST 11 ALT 7 Alkaline Phosphatase 98 Total Creatine Kinase B-Natriuretic Peptide Total Protein 5.7 L Albumin 2.6 L Urine Color Urine Appearance Urine pH Ur Specific Mercedes Urine Protein Urine Glucose (UA) Urine Ketones Urine Blood Urine Nitrite Ur Leukocyte Esterase Urine RBC Urine WBC Ur Squamous Epith Cells Urine Bacteria Hyaline Casts Urine Opiates Screen Urine Fentanyl Screen Ur Barbiturates Screen Ur Phencyclidine Scrn Ur Amphetamines Screen U Benzodiazepines Scrn Urine Cocaine Screen U Marijuana (THC) Screen Ethyl Alcohol < 10 02/21/23 02/21/23 02/21/23 16:34 16:34 16:34 MCV MCH MCHC RDW Plt Count MPV Immature Gran % (Auto) Neut % (Auto) Lymph % (Auto) [place] % (Auto) Eos % (Auto) Baso % (Auto) Lymph # (Auto) [place] # (Auto) Eos # (Auto) Baso # (Auto) Abs Immat Gran (auto) Absolute Neuts (auto) Absolute Nucleated RBC Nucleated RBC % (auto) Smear Tech's Comments PT INR Anion Gap Estim Creat Clear Calc Estimated GFR Random Glucose Lactic Acid Calcium Total Bilirubin Direct Bilirubin AST ALT Alkaline Phosphatase Total Creatine Kinase 57 B-Natriuretic Peptide Total Protein Albumin Urine Color Dark Yellow Urine Appearance Cloudy Urine pH 5.5 Ur Specific Mercedes 1.025 Urine Protein 30 (1+) H Urine Glucose (UA) Negative Urine Ketones Trace Urine Blood Large (3+) H Urine Nitrite Negative Ur Leukocyte Esterase Moderate (2+) H Urine RBC >20 H Urine WBC >50 H Ur Squamous Epith Cells 6-10 Urine Bacteria 1+ Hyaline Casts 3-5 Urine Opiates Screen POSITIVE H Urine Fentanyl Screen Not Detected Ur Barbiturates Screen Not Detected Ur Phencyclidine Scrn Not Detected Ur Amphetamines Screen Not Detected U Benzodiazepines Scrn Not Detected Urine Cocaine Screen Not Detected U Marijuana (THC) Screen Not Detected Ethyl Alcohol 02/21/23 02/21/23 02/22/23 18:39 22:37 00:10 MCV MCH MCHC RDW Plt Count MPV Immature Gran % (Auto) Neut % (Auto) Lymph % (Auto) [place] % (Auto) Eos % (Auto) Baso % (Auto) Lymph # (Auto) [place] # (Auto) Eos # (Auto) Baso # (Auto) Abs Immat Gran (auto) Absolute Neuts (auto) Absolute Nucleated RBC Nucleated RBC % (auto) Smear Tech's Comments PT INR Anion Gap Estim Creat Clear Calc Estimated GFR Random Glucose Lactic Acid 1.0 Calcium Total Bilirubin Direct Bilirubin AST ALT Alkaline Phosphatase Total Creatine Kinase B-Natriuretic Peptide Cancelled 90 Total Protein Albumin Urine Color Urine Appearance Urine pH Ur Specific Mercedes Urine Protein Urine Glucose (UA) Urine Ketones Urine Blood Urine Nitrite Ur Leukocyte Esterase Urine RBC Urine WBC Ur Squamous Epith Cells Urine Bacteria Hyaline Casts Urine Opiates Screen Urine Fentanyl Screen Ur Barbiturates Screen Ur Phencyclidine Scrn Ur Amphetamines Screen U Benzodiazepines Scrn Urine Cocaine Screen U Marijuana (THC) Screen Ethyl Alcohol 02/22/23 02/22/23 04:43 04:43 MCV 86.7 MCH 26.6 L MCHC 30.6 L RDW 13.5 Plt Count 269 MPV 10.4 Immature Gran % (Auto) 0.5 H Neut % (Auto) 91.6 H Lymph % (Auto) 3.7 L [place] % (Auto) 3.2 Eos % (Auto) 0.8 Baso % (Auto) 0.2 Lymph # (Auto) 0.7 L [place] # (Auto) 0.6 Eos # (Auto) 0.2 Baso # (Auto) 0.0 Abs Immat Gran (auto) 0.09 H Absolute Neuts (auto) 17.4 H Absolute Nucleated RBC 0.000 Nucleated RBC % (auto) 0.0 Smear Tech's Comments VERIFIED PT INR Anion Gap 12 Estim Creat Clear Calc 45.2 Estimated GFR 35 Random Glucose 144 H Lactic Acid Calcium 8.3 L D Total Bilirubin Direct Bilirubin AST ALT Alkaline Phosphatase Total Creatine Kinase B-Natriuretic Peptide Total Protein Albumin Urine Color Urine Appearance Urine pH Ur Specific Mercedes Urine Protein Urine Glucose (UA) Urine Ketones Urine Blood Urine Nitrite Ur Leukocyte Esterase Urine RBC Urine WBC Ur Squamous Epith Cells Urine Bacteria Hyaline Casts Urine Opiates Screen Urine Fentanyl Screen Ur Barbiturates Screen Ur Phencyclidine Scrn Ur Amphetamines Screen U Benzodiazepines Scrn Urine Cocaine Screen U Marijuana (THC) Screen Ethyl Alcohol Microbiology Microbiology Results: Microbiology 02/21/23 16:34 Urine Culture - Preliminary Urine clean catch - Urine cheung top Culture too young to evaluate. Assessment and Plan (1) Lower extremity edema: Status: Acute Plan This is a 77-year-old female with past medical history of chronic back pain comes into the hospital with reported confusion found to have multiple complications Acute metabolic encephalopathy secondary to UTI Continue Rocephin Follow final urine cultures Still with some degree of encephalopathic the although alert and oriented to person and place Somewhat argumentative and suspicious Psychiatric consultation for capacity TETO secondary to dehydration IV fluid follow BMP Ascites/lower extremity edema unclear etiology, with no history of liver cirrhosis BNP negative x-ray of the lungs negative for any ascites in the lungs, making cardiac etiology less likely will obtain therapeutic as well as diagnostic paracentesis concerning for uterine vs ovarian malignancy Will need full gynecological evaluation and likely biopsy patient agrees, will wait for psychiatric evaluation for capacity before consult 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 Heparin subQ Attending Dr. Alvarez Continue hospitalization for treatment of urinary tract infection requiring IV antibiotics and further workup as per cake decorator for uterine mass Time Spent With Patient Time: Total time managing care of this patient today ____ minutes. Quality Stroke Does the patient have a stroke diagnosis?: No VTE Prior VTE?: No VTE Risk Level:: Medical - moderate - high VTE Device Contraindication: Treatment Not Indicated VTE Drug Contraindication: N/A - Med Ordered
--- NOTE | 2023-02-22 11:50 | MHC.CM.PN ---
EMR reviewed and per MD rounds, pt is not medically cleared for D/C and is awaiting a psych consult to determine capacity. This CM received a phone call from Erik from [facility] ([phone]: [phone]), update provided to Erik. CM will continue to follow.
--- NOTE | 2023-02-22 15:23 | HO.RADPN ---
RADIOLOGY Narrative Narrative: LLQ paracentesis using 5 fr catheter. Serosanguinous/slightly bloody fluid removed. Diagnostic specimen sent.
[2023-02-22] MEDS: Lidocaine HCl 1 % MPF 5 ML VIAL SUBCUT (16:11)
[2023-02-22 16:38] LABS: MN% 63.6 %; PMN% 36.4 %; RBC Peritoneal Fluid 0.043 X10*6/uL; WBC Peritoneal Fluid 1.004 X10*3/uL
[2023-02-22] MEDS: cefTRIAXone sodium 1 GM in 0.9 % Sodium Chloride 50 ML IV (16:59)
--- NOTE | 2023-02-22 17:08 | P.CNPS_ITS ---
History of Present Illness Date of Service: 02/22/2023 Chief Complaint: TETO, UTI Reason for Consult: capacity Requesting physician: Ijeoma Bishop Sources of Information: patient interviewed, chart reviewed and crisis/core team assessment reviewed HPI Narrative: Mrs. Reed is a 77 year-old woman who was brought via EMS section by police after pt found covered in urine and confused. It appears neighbors called police but pt also reported she had called fire department. In the ED, pt found to have elevated WBC, UTI (started on antibiotic), and ascites, uterus mass concerning for malignancy. Pt reported vaginal spotting for several weeks but not following up with providers. Pt noted to be irritable this morning, suspicious and capacity to understand medical condition was questionable. Therefore, capacity assessment ordered. Pt seen in her room. Pt reports she was not well. She reports she was confused and feels she is more clear today. She reports she is aware she has multiple infections and is aware that she was started on antibiotic. She reports she was told uterus was enlarge and that she is undergoing further medical work up. She reports she knows she is in [facility]. She is oriented to month stating she knows is January,. She knows she was transferred to the medical floor last night but not sure how long she was waiting in the ED (she came evening before). She reports she has a HCP. She is not sure where the paper is but knows friend she would assigned as HCP. Pt reports that if she has life threatening condition she would not like to prolong life is quality of life is not better. She reports she would like assistance with making decision whether or not she is safe to live along in the community. Pt with insight into steps necessary to move into [facility] including selling her house. [facility] Medical History (Updated 02/22/23 @ 19:21 by Colette Junior) Chronic back pain Surgical History History of bilateral knee replacement Diagnostics Vital Signs (24Hr): Vital Signs - 24 hr 02/21/23 17:31 02/22/23 00:18 02/22/23 06:18 Temperature 97.6 F 97.9 F 98 F Pulse Rate 77 74 63 Respiratory Rate 20 15 15 Blood Pressure 94/62 106/58 L 111/54 L Pulse Oximetry 96 93 96 Oxygen Delivery Method Room Air Room Air Room Air 02/22/23 08:00 02/22/23 10:57 02/22/23 16:21 Temperature 97.1 F 96.9 F 96.4 F L Pulse Rate 88 63 71 Respiratory Rate 20 20 20 Blood Pressure 95/49 L 108/61 103/55 L Pulse Oximetry 93 95 98 Oxygen Delivery Method Room Air Room Air Room Air BMI result Body Mass Index 31.7 Labs 02/22/23 04:43 02/22/23 04:43 Labs: Laboratory Results - last 48 hr 02/21/23 02/21/23 02/21/23 16:34 16:34 16:34 WBC 20.2 H RBC 3.77 L Hgb 10.0 L Hct 32.8 L MCV 87.0 MCH 26.5 L MCHC 30.5 L RDW 13.4 Plt Count 310 MPV 10.8 Immature Gran % (Auto) 0.5 H Neut % (Auto) 92.2 H Lymph % (Auto) 3.4 L [place] % (Auto) 3.3 Eos % (Auto) 0.4 Baso % (Auto) 0.2 Lymph # (Auto) 0.7 L [place] # (Auto) 0.7 Eos # (Auto) 0.1 Baso # (Auto) 0.0 Abs Immat Gran (auto) 0.10 H Absolute Neuts (auto) 18.6 H Absolute Nucleated RBC 0.000 Nucleated RBC % (auto) 0.0 Smear Tech's Comments VERIFIED PT 13.9 H INR 1.1 Sodium 139 Potassium 4.1 Chloride 107 Carbon Dioxide 20 L Anion Gap 16 BUN 32 H Creatinine 1.42 H Estim Creat Clear Calc 45.8 Estimated GFR 36 Random Glucose 112 Lactic Acid Calcium 8.9 Total Bilirubin 0.4 Direct Bilirubin 0.2 AST 11 ALT 7 Alkaline Phosphatase 98 Total Creatine Kinase Troponin I High Sens B-Natriuretic Peptide Total Protein 5.7 L Albumin 2.6 L Urine Color Urine Appearance Urine pH Ur Specific [place] Urine Protein Urine Glucose (UA) Urine Ketones Urine Blood Urine Nitrite Ur Leukocyte Esterase Urine RBC Urine WBC Ur Squamous Epith Cells Urine Bacteria Hyaline Casts Urine Opiates Screen Urine Fentanyl Screen Ur Barbiturates Screen Ur Phencyclidine Scrn Ur Amphetamines Screen U Benzodiazepines Scrn Urine Cocaine Screen U Marijuana (THC) Screen Ethyl Alcohol < 10 02/21/23 02/21/23 02/21/23 16:34 16:34 16:34 WBC RBC Hgb Hct MCV MCH MCHC RDW Plt Count MPV Immature Gran % (Auto) Neut % (Auto) Lymph % (Auto) [place] % (Auto) Eos % (Auto) Baso % (Auto) Lymph # (Auto) [place] # (Auto) Eos # (Auto) Baso # (Auto) Abs Immat Gran (auto) Absolute Neuts (auto) Absolute Nucleated RBC Nucleated RBC % (auto) Smear Tech's Comments PT INR Sodium Potassium Chloride Carbon Dioxide Anion Gap BUN Creatinine Estim Creat Clear Calc Estimated GFR Random Glucose Lactic Acid Calcium Total Bilirubin Direct Bilirubin AST ALT Alkaline Phosphatase Total Creatine Kinase 57 Troponin I High Sens B-Natriuretic Peptide Total Protein Albumin Urine Color Dark Yellow Urine Appearance Cloudy Urine pH 5.5 Ur Specific [place] 1.025 Urine Protein 30 (1+) H Urine Glucose (UA) Negative Urine Ketones Trace Urine Blood Large (3+) H Urine Nitrite Negative Ur Leukocyte Esterase Moderate (2+) H Urine RBC >20 H Urine WBC >50 H Ur Squamous Epith Cells 6-10 Urine Bacteria 1+ Hyaline Casts 3-5 Urine Opiates Screen POSITIVE H Urine Fentanyl Screen Not Detected Ur Barbiturates Screen Not Detected Ur Phencyclidine Scrn Not Detected Ur Amphetamines Screen Not Detected U Benzodiazepines Scrn Not Detected Urine Cocaine Screen Not Detected U Marijuana (THC) Screen Not Detected Ethyl Alcohol 02/21/23 02/21/23 02/21/23 18:39 22:37 22:37 WBC RBC Hgb Hct MCV MCH MCHC RDW Plt Count MPV Immature Gran % (Auto) Neut % (Auto) Lymph % (Auto) [place] % (Auto) Eos % (Auto) Baso % (Auto) Lymph # (Auto) [place] # (Auto) Eos # (Auto) Baso # (Auto) Abs Immat Gran (auto) Absolute Neuts (auto) Absolute Nucleated RBC Nucleated RBC % (auto) Smear Tech's Comments PT INR Sodium Potassium Chloride Carbon Dioxide Anion Gap BUN Creatinine Estim Creat Clear Calc Estimated GFR Random Glucose Lactic Acid 1.0 Calcium Total Bilirubin Direct Bilirubin AST ALT Alkaline Phosphatase Total Creatine Kinase Troponin I High Sens 62.6 H* B-Natriuretic Peptide Cancelled Total Protein Albumin Urine Color Urine Appearance Urine pH Ur Specific [place] Urine Protein Urine Glucose (UA) Urine Ketones Urine Blood Urine Nitrite Ur Leukocyte Esterase Urine RBC Urine WBC Ur Squamous Epith Cells Urine Bacteria Hyaline Casts Urine Opiates Screen Urine Fentanyl Screen Ur Barbiturates Screen Ur Phencyclidine Scrn Ur Amphetamines Screen U Benzodiazepines Scrn Urine Cocaine Screen U Marijuana (THC) Screen Ethyl Alcohol 02/22/23 02/22/23 02/22/23 00:10 04:43 04:43 WBC 18.9 H RBC 3.54 L Hgb 9.4 L Hct 30.7 L MCV 86.7 MCH 26.6 L MCHC 30.6 L RDW 13.5 Plt Count 269 MPV 10.4 Immature Gran % (Auto) 0.5 H Neut % (Auto) 91.6 H Lymph % (Auto) 3.7 L [place] % (Auto) 3.2 Eos % (Auto) 0.8 Baso % (Auto) 0.2 Lymph # (Auto) 0.7 L [place] # (Auto) 0.6 Eos # (Auto) 0.2 Baso # (Auto) 0.0 Abs Immat Gran (auto) 0.09 H Absolute Neuts (auto) 17.4 H Absolute Nucleated RBC 0.000 Nucleated RBC % (auto) 0.0 Smear Tech's Comments VERIFIED PT INR Sodium 140 Potassium 3.8 Chloride 111 H Carbon Dioxide 21 L Anion Gap 12 BUN 30 H Creatinine 1.44 H Estim Creat Clear Calc 45.2 Estimated GFR 35 Random Glucose 144 H Lactic Acid Calcium 8.3 L D Total Bilirubin Direct Bilirubin AST ALT Alkaline Phosphatase Total Creatine Kinase Troponin I High Sens B-Natriuretic Peptide 90 Total Protein Albumin Urine Color Urine Appearance Urine pH Ur Specific [place] Urine Protein Urine Glucose (UA) Urine Ketones Urine Blood Urine Nitrite Ur Leukocyte Esterase Urine RBC Urine WBC Ur Squamous Epith Cells Urine Bacteria Hyaline Casts Urine Opiates Screen Urine Fentanyl Screen Ur Barbiturates Screen Ur Phencyclidine Scrn Ur Amphetamines Screen U Benzodiazepines Scrn Urine Cocaine Screen U Marijuana (THC) Screen Ethyl Alcohol 02/22/23 09:19 WBC RBC Hgb Hct MCV MCH MCHC RDW Plt Count MPV Immature Gran % (Auto) Neut % (Auto) Lymph % (Auto) [place] % (Auto) Eos % (Auto) Baso % (Auto) Lymph # (Auto) [place] # (Auto) Eos # (Auto) Baso # (Auto) Abs Immat Gran (auto) Absolute Neuts (auto) Absolute Nucleated RBC Nucleated RBC % (auto) Smear Tech's Comments PT INR Sodium Potassium Chloride Carbon Dioxide Anion Gap BUN Creatinine Estim Creat Clear Calc Estimated GFR Random Glucose Lactic Acid Calcium Total Bilirubin Direct Bilirubin AST ALT Alkaline Phosphatase Total Creatine Kinase Troponin I High Sens 46.8 H B-Natriuretic Peptide Total Protein Albumin Urine Color Urine Appearance Urine pH Ur Specific [place] Urine Protein Urine Glucose (UA) Urine Ketones Urine Blood Urine Nitrite Ur Leukocyte Esterase Urine RBC Urine WBC Ur Squamous Epith Cells Urine Bacteria Hyaline Casts Urine Opiates Screen Urine Fentanyl Screen Ur Barbiturates Screen Ur Phencyclidine Scrn Ur Amphetamines Screen U Benzodiazepines Scrn Urine Cocaine Screen U Marijuana (THC) Screen Ethyl Alcohol Imaging Radiology Impressions: ITS Impressions Chest X-Ray 02/21/23 15:43 IMPRESSION: No acute cardiopulmonary process. Abdomen/Pelvis CT 02/21/23 19:19 IMPRESSION: 1. A significantly enlarged uterus is seen, with dimensions as above. There are peripheral eggshell calcifications within the uterus, raising the possibility of massive fibroid replacement. The possibility of uterine tumor, including leiomyosarcoma, is not excluded. Recommend further characterization with dedicated pelvic ultrasound. 2. There are numerous markedly enlarged abdominal and pelvic lymph nodes, as detailed above. These are nonspecific, and further work-up is indicated, together with continued attention on imaging follow-up. 3. There is marked ascites, and marked anasarca is noted. Consider diagnostic and therapeutic paracentesis, with cytology evaluation. 4. There is left renal atrophy. Benign-appearing left renal cysts are noted, which require no imaging follow-up. 5. There is a fat- and fluid-containing umbilical hernia defect. 6. There are multi-level marked degenerative changes of the thoracolumbar spine and hips. No aggressive osseous lesion is seen. 7. There is cardiomegaly. Fleischner guidelines were followed. Cervical Spine CT 02/21/23 19:19 IMPRESSION: 1. No acute intracranial pathology. 2. There is mild patchy low attenuation change in the periventricular white matter spaces, commonly associated with chronic microangiopathy. EXAMINATION: CT CERVICAL SPINE WITHOUT CONTRAST CLINICAL INFORMATION: Neck pain status-post fall. COMPARISON: None available. TECHNIQUE: Contiguous axial imaging was performed through the cervical spine without intravenous administration of contrast. Multiplanar reformatted images are submitted. This CT examination was performed using dose optimization techniques as appropriate, variously including the following: *Automated exposure control *Adjustment of mA and/or kV according to patient size (this includes techniques or standardized protocols for targeted exams where dose is matched to indication/reason for exam; i.e. extremities or head) *Use of iterative reconstruction technique DLP: As above FINDINGS: Imaging is somewhat limited by motion artifact. Vertebral body heights are normal. There is reversal of the normal curvature. At C3-C4, there is a 2 mm retrolisthesis. At C7-T1, there is anterior disc space narrowing, with vacuum disc phenomenon. At T2-T3, there is moderate disc space narrowing. No acute fracture or spondylolisthesis is seen. There is multi-level cervical and upper thoracic spondylosis. The posterior elements are intact. There is multi-level cervical facet arthropathy. There is no prevertebral soft tissue swelling. The dens is intact. There is degenerative change of the atlantoaxial joint. The bilateral lung apices are clear. IMPRESSION: There is multi-level cervical and upper thoracic degenerative disc disease, spondylosis and facet arthropathy. No acute traumatic finding is noted. Fleischner guidelines were followed. Head CT 02/21/23 19:19 IMPRESSION: 1. No acute intracranial pathology. 2. There is mild patchy low attenuation change in the periventricular white matter spaces, commonly associated with chronic microangiopathy. EXAMINATION: CT CERVICAL SPINE WITHOUT CONTRAST CLINICAL INFORMATION: Neck pain status-post fall. COMPARISON: None available. TECHNIQUE: Contiguous axial imaging was performed through the cervical spine without intravenous administration of contrast. Multiplanar reformatted images are submitted. This CT examination was performed using dose optimization techniques as appropriate, variously including the following: *Automated exposure control *Adjustment of mA and/or kV according to patient size (this includes techniques or standardized protocols for targeted exams where dose is matched to indication/reason for exam; i.e. extremities or head) *Use of iterative reconstruction technique DLP: As above FINDINGS: Imaging is somewhat limited by motion artifact. Vertebral body heights are normal. There is reversal of the normal curvature. At C3-C4, there is a 2 mm retrolisthesis. At C7-T1, there is anterior disc space narrowing, with vacuum disc phenomenon. At T2-T3, there is moderate disc space narrowing. No acute fracture or spondylolisthesis is seen. There is multi-level cervical and upper thoracic spondylosis. The posterior elements are intact. There is multi-level cervical facet arthropathy. There is no prevertebral soft tissue swelling. The dens is intact. There is degenerative change of the atlantoaxial joint. The bilateral lung apices are clear. IMPRESSION: There is multi-level cervical and upper thoracic degenerative disc disease, spondylosis and facet arthropathy. No acute traumatic finding is noted. Fleischner guidelines were followed. Paracentesis Ultrasound 02/22/23 16:00 IMPRESSION: Ultrasound-guided paracentesis. Mental Status Exam Mental Status Exam Narrative: Appearance:wearing hospital gown, fair hygiene, in NAD behavior:cooperative Psychomotor: no agitation or retardation noted Speech:clear, normal rate/rhythm/volume, spontaneous TP: linear TC: no signs of psychosis, awaiting for work up results but states she would rather have quality of life than prolonged life unnecessary. Mood: better, much clear Affect: congruent SI: denies HI: denies VH/AH: none Delusions: no overt delusional content noted or reported Insight/judgment: improving x 2. Memory/cog: alert, oriented x 3. Medications Medications Current Medications Acetaminophen (Acetaminophen 325 Mg Tablet) 650 mg PO Q6H PRN PRN Reason: Pain, Mild (Pain Scale 1-3) Docusate Sodium (Docusate Sodium 100 Mg Capsule) 100 mg PO DAILY PRN PRN Reason: Constipation Furosemide (Furosemide 40 Mg/4 Ml Vial) 40 mg IVPUSH DAILY [facility], [facility]; Protocol Last Admin: 02/22/23 09:31 Dose: Not Given Heparin Sodium (Porcine) (Heparin Sodium,Porcine 5,000 Unit/Ml Vial) 5,000 unit SUBCUT Q12H [facility]1983 Last Admin: 02/22/23 10:18 Dose: 5,000 unit Ceftriaxone Sodium 1 gm/ (Sodium Chloride) 50 mls @ 100 mls/hr IV Q24H NAYA Last Admin: 02/22/23 16:59 Dose: 100 mls/hr Lactated Ringer's (Lr) 1,000 mls @ 100 mls/hr IVCONT .Q10H [facility] Last Admin: 02/22/23 12:06 Dose: Not Given Nystatin (Nystatin Powder 15 Gm Bottle) 1 appl TOPICAL BID [facility], [facility]; Protocol Ondansetron HCl (Ondansetron Hcl 4 Mg/2 Ml Vial) 4 mg IVPUSH Q8H PRN PRN Reason: Nausea and Vomiting Oxycodone HCl (Oxycodone Hcl Immed Release 5 Mg Tablet) 10 mg PO BID PRN PRN Reason: Pain, Severe (Pain Scale 7-10) Sodium Chloride (0.9 % Sodium Chloride Flush 3 Ml Syringe) 3 ml IVFLUSH QSHIFT NAYA Last Admin: 02/22/23 17:00 Dose: 3 ml Allergies Allergies Allergy/AdvReac Type Severity Reaction Status Date / Time No Known Allergies Allergy Verified 02/21/23 15:25 Assessment & Plan Assessment & Plan (1) Delirium due to another medical condition: Status: Acute Code(s): F05 - Delirium due to known physiological condition Plan Ms. Reed is a 77 year-old woman brought on sect 12 due to presenting confused, poor hygiene and frequent falls. Pt found to have UTI, ascites, uterine enlargement- concern for malignancy. Pt presented as confused this morning and irritable and suspicious. Pt seen later in the day and appear more oriented and with fair understanding of what is going on. It does seem that her mentation is improving and most likely delirium clearing. She has some confusion as to how long she has been in the ED, thinks she had been there for 4 days, when she came night before. She has capacity to sign a HCP- shows understanding as to what f orm is and what person assigned will do on her behalf. She has capacity to make medical decisions at this point- improving from day before and even earlier this morning. PLAN 1. Please have case management complete HCP with pt 2. At this point, pt shows capacity to make medical decisions but has been fluctuation as she is more clear. If primary treatment team notes decline in mentation, capacity can be reasessed. Total time managing care of this patient today ____ minutes.
[2023-02-22 17:27] LABS: BF Shift QC OK YES
[2023-02-22 17:33] LABS: Lymphocyte Peritoneal Fl 40 %; Neutrophils Peritoneal Fluid 33 %
[2023-02-22 17:34] LABS: Monocytes Peritoneal Fl 27 %
[2023-02-22 18:07] LABS: LDH Peritoneal Fluid 271 U/L; Total Protein Peritoneal Fluid 3.5 GM/DL
[2023-02-22] MEDS: Nystatin Powder 15 GM BOTTLE 1 APPL TOPICAL (20:29)
[2023-02-22 20:58] LABS: Glucose Random 145 mg/dL (60-115); Lactate Dehydrogenase 196 U/L (122-220); Total Protein 4.8 g/dL (6.5-8.0)
[2023-02-23 04:00] VITALS: BP 111/55; PULSE 61; RESP 16; TEMP 36.4; O2SAT 96
[2023-02-23 06:00] VITALS: BMI 29.8
[2023-02-23 07:15] VITALS: BP 113/67; PULSE 83; RESP 20; TEMP 36.1; O2SAT 95
[2023-02-23 08:47] LABS: Anion Gap 14 (12-20); Blood Urea Nitrogen 24 mg/dL (9-16); Carbon Dioxide 21 mmol/L (22-29); Chloride 108 mmol/L (96-108); Creatinine Clr Calc Pharmacy 63.8; Estimated Glomerular Filt Rate 55; Glucose Random 118 mg/dL (60-115); Potassium 3.6 mmol/L (3.3-5.1); Sodium 139 mmol/L (135-145)
[2023-02-23] MEDS: Furosemide 40 MG/4 ML VIAL IVPUSH (08:48)
[2023-02-23] MEDS: 0.9 % Sodium Chloride Flush 3 ML SYRINGE IVFLUSH ×3 (08:51→23:38)
[2023-02-23] MEDS: Nystatin Powder 15 GM BOTTLE 1 APPL TOPICAL ×2 (08:51→19:24)
[2023-02-23] MEDS: Docusate Sodium 100 MG CAPSULE PO (09:07)
--- NOTE | 2023-02-23 11:02 | MHC.CM.PN ---
CM MET W/PT TO ATTEMPT TO HAVE PT COMPLETE A HCP, PT DOES HAVE A NEIGHBOR MARCIA WHO IT APPEARS MAY ASSIST PT HOWEVER PT WILL NOT GIVE CM MARCIA'S LAST NAME AND DOESS NOT WANT CM TO CONTACT HER. PT DENIES KNOWING IF SHE HAS ANY INSURANCE. PT DENIES HAVING AN ID OR PURSE TO BE BROUGHT IN FROM HOME. WHEN QUESTIONED ABOUT [facility] PT STATES, THAT SOUNDS FAMILIAR AND GAVE CM THE NAME OLGA RUBIO WHO MAY BE INVOLVED W/[facility].
[2023-02-23 11:19] VITALS: BP 117/66; PULSE 77; RESP 20; TEMP 36.3; O2SAT 95
[2023-02-23] MEDS: Heparin Sodium,Porcine 5,000 UNIT/ML VIAL 5000 UNIT SUBCUT ×2 (11:40→23:34)
--- NOTE | 2023-02-23 13:00 | HO.PM.IMPN ---
Subjective Subjective Date of Service: 02/23/23 Interval History: seen and examined this morning follow up for ascites, encephalopathy, uterine mass awake, alert oriented but requires frequent repetition regarding medical issues and plan no specific complaints Review of Systems Review of Systems: Yes all other systems are reviewed and are negative Constitutional Constitutional: Denies chills and Denies fever(s) ENT Ears, Nose, Mouth, and Throat: Denies dizziness Cardiovascular Cardiovascular: Denies chest pain, Denies palpitations and Denies dyspnea Respiratory Respiratory: Denies cough and Denies dyspnea Gastrointestinal Gastrointestinal: Denies abdominal pain, Denies nausea and Denies vomiting Neurologic Neurologic: Reports confusion and Denies dizziness Psychiatric Psychiatric: Reports confusion Endocrine Endocrine: Denies palpitations Physical Exam Vital Signs: Vital Signs: Last Vital Signs Temp 97.4 F 02/23/23 11:19 Pulse 77 02/23/23 11:19 Resp 20 02/23/23 11:19 BP 117/66 02/23/23 11:19 Pulse Ox 95 02/23/23 11:19 O2 Del Method Room Air 02/23/23 11:19 BMI result Body Mass Index 29.8 Const: General: comfortable, no acute distress, alert, awake and confusion Nutritional Appearance: overweight Orientation/consciousness: patient oriented x3 and confusion Resp: Effort & Inspection: normal respiratory effort, able to speak in complete sentences, no respiratory distress and no use of accessory muscles Cardio: Rate: regular rate Heart sounds: S1 normal heart sound present and S2 normal heart sound present GI: Inspection: No distended Palpation (GI): Soft to palpation and nontender Neuro: General: patient oriented x3, moves all extremities, CN's II-XI intact bilaterally and confusion Objective Data Active Medications Acetaminophen (Acetaminophen 325 Mg Tablet) 650 mg PO Q6H PRN PRN Reason: Pain, Mild (Pain Scale 1-3) Docusate Sodium (Docusate Sodium 100 Mg Capsule) 100 mg PO DAILY PRN PRN Reason: Constipation Last Admin: 02/23/23 09:07 Dose: 100 mg Documented By: JAVIER Furosemide (Furosemide 40 Mg/4 Ml Vial) 40 mg IVPUSH DAILY [facility]; Protocol Last Admin: 02/23/23 08:48 Dose: 40 mg Documented By: JAVIER Heparin Sodium (Porcine) (Heparin Sodium,Porcine 5,000 Unit/Ml Vial) 5,000 unit SUBCUT Q12H [facility] Last Admin: 02/23/23 11:40 Dose: 5,000 unit Documented By: JAVIER Ceftriaxone Sodium 1 gm/ (Sodium Chloride) 50 mls @ 100 mls/hr IV Q24H [facility] Last Infusion: 02/22/23 17:34 Dose: 0 mls/hr Documented By: MECHELLE Nystatin (Nystatin Powder 15 Gm Bottle) 1 appl TOPICAL BID [facility]; Protocol Last Admin: 02/23/23 08:51 Dose: 1 appl Documented By: JAVIER Ondansetron HCl (Ondansetron Hcl 4 Mg/2 Ml Vial) 4 mg IVPUSH Q8H PRN PRN Reason: Nausea and Vomiting Oxycodone HCl (Oxycodone Hcl Immed Release 5 Mg Tablet) 10 mg PO BID PRN PRN Reason: Pain, Severe (Pain Scale 7-10) Sodium Chloride (0.9 % Sodium Chloride Flush 3 Ml Syringe) 3 ml IVFLUSH QSHIFT [facility] Last Admin: 02/23/23 08:51 Dose: 3 ml Documented By: JAVIER Labs 02/22/23 04:43 02/23/23 08:12 Labs: Laboratory Results - last 24 hr 02/22/23 02/22/23 02/22/23 15:03 15:03 20:11 Anion Gap Estim Creat Clear Calc Estimated GFR Random Glucose 145 H Calcium Lactate Dehydrogenase 196 Total Protein 4.8 L Peritoneal WBC 1.004 Peritoneal RBC 0.043 Periton Neutrophils 33 Periton Lymphocytes 40 Peritoneal Monocytes 27 Peritoneal Tot Protein 3.5 Peritoneal LDH 271 02/23/23 08:12 Anion Gap 14 Estim Creat Clear Calc 63.8 Estimated GFR 55 Random Glucose 118 H Calcium 8.0 L Lactate Dehydrogenase Total Protein Peritoneal WBC Peritoneal RBC Periton Neutrophils Periton Lymphocytes Peritoneal Monocytes Peritoneal Tot Protein Peritoneal LDH Microbiology Microbiology Results: Microbiology 02/21/23 18:39 Blood Culture - Preliminary Blood - Venous No growth after 24 hours. 02/21/23 16:34 Urine Culture - Final Urine clean catch - Urine cheung top 02/22/23 15:03 Gram Stain - Final Ascites Fluid Routine Culture - Preliminary No growth to date. 02/21/23 18:39 Blood Culture - Preliminary Blood - Venous No growth after 24 hours. Assessment and Plan (1) Uterine mass: Status: Acute (2) Ascites: Status: Acute (3) Urinary tract infection: Status: Acute (4) TETO (acute kidney injury): Status: Acute Plan This is a 77-year-old female with past medical history of chronic back pain comes into the hospital with reported confusion found to have multiple complications encephalopathy unclear etiology, unclear baseline mental status possibly secondary to UTI seen by psych - DOES have capacity to make medical decisions at the time of their evaluation brain CT negative - no acute focal deficits OT consult pending for cognitive eval neurology consult pending Possible UTI urine culture growing 50-100 cfu characteristic of urogential contamination reported urinary symptoms on admission therefore will complete course of antibiotics - continue IV ceftriaxone started 02/22 Blood cultures negative to date TETO on CKD3 resolved with IVF. SCR down from 1.44 to 0.99 secondary to dehydration Ascites no history of liver cirrhosis BNP negative s/p therapeutic and diagnostic paracentesis- + Lights criteria for exudative effusion concerning for uterine vs ovarian malignancy [employer] consult pending uterine mass unintentional 30 lb weight loss concerning for malignancy transvaginal and pelvic ultrasound -subobtimal due to bowel gas and ascites [employer] consult pending as above Low blood pressure readings BP improved hold lasix follow bp closely chronic pain seems to be r/t arthritis based on prescriber oxycodone DVT prophylaxis:? Heparin subQ Attending Dr. Alvarez will attempt to get records from dr. delcid who prescribes her pain medication, doesn't appear to have PCP for insurance at this time. reports all friends and family are . Continue hospitalization for treatment of urinary tract infection requiring IV antibiotics and further workup as per transit vehicle inspector for uterine mass Time Spent With Patient Time: Total time managing care of this patient today ____ minutes. Quality Stroke Does the patient have a stroke diagnosis?: No VTE Prior VTE?: No VTE Risk Level:: Medical - moderate - high VTE Device Contraindication: Treatment Not Indicated VTE Drug Contraindication: N/A - Med Ordered
--- NOTE | 2023-02-23 13:01 | PM.GYNCN ---
[employer] C[employer] - CN: HPI Data of Consult Consult date: 02/23/23 Requesting Physician: NHAN Frias Primary Care Provider: Unknown Physician Consult Narrative Narrative: I was consulted on Trice Reed who is a 77 year old female admitted present the emergency room with confusion.?Patient apparently had called Fire Department more than 10 times for assistance, finally the fire department told her that she is confused, and will need to come into the hospital for evaluation they brought her against her will.? The Patient states that for the past 1 month she has lost 30 lb unintentionally.? She has also had vaginal spotting for 6 months where she has used tempons for protection but did not want it evaluated.? Patient has also noticed lower extremity edema that has been going on for the past 2 weeks.? The patient was diagnosed acute kidney injury, evaluated by psychiatry and thought to be within normal limits. CT scan showed enlarged uterine mass, ascites and multiple lymph nodes. Pelvic ultrasound was done but there was inadequate visualization cc:: CC: NHAN Frias [facility] Past Medical History Medical History Chronic back pain Surgical History Surgical History History of bilateral knee replacement Social History Social History Household Members: None Housing: House Do you presently have visiting nurse or other home services: No Alcohol intake: never Patient Tobacco Use Status: Never used Tobacco Second Hand Smoke Exposure: No Meds Allergies Allergy/AdvReac Type Severity Reaction Status Date / Time No Known Allergies Allergy Verified 02/21/23 15:25 Active Medications: Current Medications Acetaminophen (Acetaminophen 325 Mg Tablet) 650 mg PO Q6H PRN PRN Reason: Pain, Mild (Pain Scale 1-3) Docusate Sodium (Docusate Sodium 100 Mg Capsule) 100 mg PO DAILY PRN PRN Reason: Constipation Last Admin: 02/23/23 09:07 Dose: 100 mg Furosemide (Furosemide 40 Mg/4 Ml Vial) 40 mg IVPUSH DAILY [facility]; Protocol Last Admin: 02/23/23 08:48 Dose: 40 mg Heparin Sodium (Porcine) (Heparin Sodium,Porcine 5,000 Unit/Ml Vial) 5,000 unit SUBCUT Q12H [facility] Last Admin: 02/23/23 11:40 Dose: 5,000 unit Ceftriaxone Sodium 1 gm/ (Sodium Chloride) 50 mls @ 100 mls/hr IV Q24H [facility] Last Infusion: 02/22/23 17:34 Dose: Infused Nystatin (Nystatin Powder 15 Gm Bottle) 1 appl TOPICAL BID [facility]; Protocol Last Admin: 02/23/23 08:51 Dose: 1 appl Ondansetron HCl (Ondansetron Hcl 4 Mg/2 Ml Vial) 4 mg IVPUSH Q8H PRN PRN Reason: Nausea and Vomiting Oxycodone HCl (Oxycodone Hcl Immed Release 5 Mg Tablet) 10 mg PO BID PRN PRN Reason: Pain, Severe (Pain Scale 7-10) Sodium Chloride (0.9 % Sodium Chloride Flush 3 Ml Syringe) 3 ml IVFLUSH QSHIFT [facility] Last Admin: 02/23/23 08:51 Dose: 3 ml Home Medications Medication Instructions Recorded Confirmed Last Taken Type oxycodone 5 mg tablet 10 mg PO BID PRN pain 02/21/23 02/21/23 Unknown History [employer] Physical Exam Vitals Vital signs: Temp Pulse Resp BP Pulse Ox O2 Del Method 97.4 F 77 20 117/66 95 Room Air 02/23/23 11:19 02/23/23 11:19 02/23/23 11:19 02/23/23 11:19 02/23/23 11:19 02/23/23 11:19 BMI result Body Mass Index 29.8 Female Genitalia (Pelvic) Exam: Declined by Patient [employer] C[employer] - Results Labs 02/22/23 04:43 02/23/23 08:12 Labs: BMP 02/23/23 08:12 Sodium 139 Potassium 3.6 Chloride 108 Carbon Dioxide 21 L BUN 24 H Creatinine 0.99 Calcium 8.0 L Urine 02/21/23 Range/Units 16:34 Urine Color Dark Yellow Urine Appearance Cloudy Urine pH 5.5 (5.0-9.0) Ur Specific [place] 1.025 (1.005-1.025) Urine Protein 30 (1+) H (Neg-Trace) mg/dL Urine Glucose (UA) Negative (Negative) mg/dL Imaging CT scan - abdomen: Radiologist's impression: ITS Impressions Chest X-Ray 02/21/23 15:43 IMPRESSION: No acute cardiopulmonary process. Abdomen/Pelvis CT 02/21/23 19:19 IMPRESSION: 1. A significantly enlarged uterus is seen, with dimensions as above. There are peripheral eggshell calcifications within the uterus, raising the possibility of massive fibroid replacement. The possibility of uterine tumor, including leiomyosarcoma, is not excluded. Recommend further characterization with dedicated pelvic ultrasound. 2. There are numerous markedly enlarged abdominal and pelvic lymph nodes, as detailed above. These are nonspecific, and further work-up is indicated, together with continued attention on imaging follow-up. 3. There is marked ascites, and marked anasarca is noted. Consider diagnostic and therapeutic paracentesis, with cytology evaluation. 4. There is left renal atrophy. Benign-appearing left renal cysts are noted, which require no imaging follow-up. 5. There is a fat- and fluid-containing umbilical hernia defect. 6. There are multi-level marked degenerative changes of the thoracolumbar spine and hips. No aggressive osseous lesion is seen. 7. There is cardiomegaly. Fleischner guidelines were followed. Cervical Spine CT 02/21/23 19:19 IMPRESSION: 1. No acute intracranial pathology. 2. There is mild patchy low attenuation change in the periventricular white matter spaces, commonly associated with chronic microangiopathy. EXAMINATION: CT CERVICAL SPINE WITHOUT CONTRAST CLINICAL INFORMATION: Neck pain status-post fall. COMPARISON: None available. TECHNIQUE: Contiguous axial imaging was performed through the cervical spine without intravenous administration of contrast. Multiplanar reformatted images are submitted. This CT examination was performed using dose optimization techniques as appropriate, variously including the following: *Automated exposure control *Adjustment of mA and/or kV according to patient size (this includes techniques or standardized protocols for targeted exams where dose is matched to indication/reason for exam; i.e. extremities or head) *Use of iterative reconstruction technique DLP: As above FINDINGS: Imaging is somewhat limited by motion artifact. Vertebral body heights are normal. There is reversal of the normal curvature. At C3-C4, there is a 2 mm retrolisthesis. At C7-T1, there is anterior disc space narrowing, with vacuum disc phenomenon. At T2-T3, there is moderate disc space narrowing. No acute fracture or spondylolisthesis is seen. There is multi-level cervical and upper thoracic spondylosis. The posterior elements are intact. There is multi-level cervical facet arthropathy. There is no prevertebral soft tissue swelling. The dens is intact. There is degenerative change of the atlantoaxial joint. The bilateral lung apices are clear. IMPRESSION: There is multi-level cervical and upper thoracic degenerative disc disease, spondylosis and facet arthropathy. No acute traumatic finding is noted. Fleischner guidelines were followed. Head CT 02/21/23 19:19 IMPRESSION: 1. No acute intracranial pathology. 2. There is mild patchy low attenuation change in the periventricular white matter spaces, commonly associated with chronic microangiopathy. EXAMINATION: CT CERVICAL SPINE WITHOUT CONTRAST CLINICAL INFORMATION: Neck pain status-post fall. COMPARISON: None available. TECHNIQUE: Contiguous axial imaging was performed through the cervical spine without intravenous administration of contrast. Multiplanar reformatted images are submitted. This CT examination was performed using dose optimization techniques as appropriate, variously including the following: *Automated exposure control *Adjustment of mA and/or kV according to patient size (this includes techniques or standardized protocols for targeted exams where dose is matched to indication/reason for exam; i.e. extremities or head) *Use of iterative reconstruction technique DLP: As above FINDINGS: Imaging is somewhat limited by motion artifact. Vertebral body heights are normal. There is reversal of the normal curvature. At C3-C4, there is a 2 mm retrolisthesis. At C7-T1, there is anterior disc space narrowing, with vacuum disc phenomenon. At T2-T3, there is moderate disc space narrowing. No acute fracture or spondylolisthesis is seen. There is multi-level cervical and upper thoracic spondylosis. The posterior elements are intact. There is multi-level cervical facet arthropathy. There is no prevertebral soft tissue swelling. The dens is intact. There is degenerative change of the atlantoaxial joint. The bilateral lung apices are clear. IMPRESSION: There is multi-level cervical and upper thoracic degenerative disc disease, spondylosis and facet arthropathy. No acute traumatic finding is noted. Fleischner guidelines were followed. Paracentesis Ultrasound 02/22/23 16:00 IMPRESSION: Ultrasound-guided paracentesis. Assessment and Plan (1) Postmenopausal bleeding: Status: Acute Enlarged uterine mass possible leiomyosarcoma Ascites Multiple lymph nodes enlargement Plan Discussed with the patient the differential diagnosis of post menopausal bleeding with enlarged uterine mass and ascites including but not limited to ovarian cancer, leiomyosarcoma, endometrial hyperplasia, cancer, and other causes; co testing done, recommended pelvic exam, co testing and endometrial biopsy as an initial workup. I spent 30 minutes explaining to the patient the possible causes of her clinical scenario and workup needed but the patient declined a pelvic exam Pap smear and an endometrial biopsy. Recommend close outpatient follow-up for an evaluation with a pelvic exam, endometrial biopsy and Pap smear and treat accordingly. Discussed the case with Mitali Orellana NP. Time Spent With Patient Time: Total time managing care of this patient today ____ minutes.
[2023-02-23 14:33] LABS: Estimated Average Glucose 126 mg/dL
[2023-02-23] MEDS: polyethylene glycoL 3350 17 GM POWD.PACK PO (15:14)
[2023-02-23 16:00] VITALS: BP 127/89; PULSE 89; RESP 18; TEMP 37; O2SAT 98
[2023-02-23 16:31] LABS: Glucose, Whole Blood 127 mg/dL (60-115)
--- NOTE | 2023-02-23 16:37 | P.CNNE_ITS ---
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 She apparently called Fire Department multiple times for some reason and then she was told that she was confused bringing her to hospital. She also complained of difficulty urination or urgency of urination and was found to have a uterine mass. When I saw her, she was somewhat anxious and restless and wanted to leave but at the same time did not have full understanding of what was going on. Review of Systems Review of Systems: No seizure-like phenomena or focal weakness. [facility] Past Medical History Medical History Chronic back pain Surgical History Surgical History History of bilateral knee replacement Social History Social History Household Members: None Housing: House Do you presently have visiting nurse or other home services: No Alcohol intake: never Patient Tobacco Use Status: Never used Tobacco Second Hand Smoke Exposure: No Meds Allergies Allergy/AdvReac Type Severity Reaction Status Date / Time No Known Allergies Allergy Verified 02/21/23 15:25 Active Medications: Current Medications Acetaminophen (Acetaminophen 325 Mg Tablet) 650 mg PO Q6H PRN PRN Reason: Pain, Mild (Pain Scale 1-3) Dextrose (Dextrose 50 % 25 Gm/50 Ml Syringe) 25 gm IVPUSH Q15M PRN; Protocol PRN Reason: per Hypoglycemia Standing Ord. Docusate Sodium (Docusate Sodium 100 Mg Capsule) 100 mg PO DAILY [facility] Furosemide (Furosemide 40 Mg/4 Ml Vial) 40 mg IVPUSH DAILY [facility]; Protocol Last Admin: 02/23/23 08:48 Dose: 40 mg Glucose (Glucose Gel 15 Gm Gel..Gram.) 15 gm PO Q15M PRN; Protocol PRN Reason: per Hypoglycemia Standing Ord. Heparin Sodium (Porcine) (Heparin Sodium,Porcine 5,000 Unit/Ml Vial) 5,000 unit SUBCUT Q12H [facility] Last Admin: 02/23/23 11:40 Dose: 5,000 unit Ceftriaxone Sodium 1 gm/ (Sodium Chloride) 50 mls @ 100 mls/hr IV Q24H [facility] Last Infusion: 02/22/23 17:34 Dose: Infused Nystatin (Nystatin Powder 15 Gm Bottle) 1 appl TOPICAL BID [facility]; Protocol Last Admin: 02/23/23 08:51 Dose: 1 appl Ondansetron HCl (Ondansetron Hcl 4 Mg/2 Ml Vial) 4 mg IVPUSH Q8H PRN PRN Reason: Nausea and Vomiting Oxycodone HCl (Oxycodone Hcl Immed Release 5 Mg Tablet) 10 mg PO BID PRN PRN Reason: Pain, Severe (Pain Scale 7-10) Polyethylene Glycol (Polyethylene Glycol 3350 17 Gm Powd.Pack) 17 gm PO DAILY [facility] Last Admin: 02/23/23 15:14 Dose: 17 gm Sodium Chloride (0.9 % Sodium Chloride Flush 3 Ml Syringe) 3 ml IVFLUSH QSHIFT [facility] Last Admin: 02/23/23 08:51 Dose: 3 ml Home Medications Medication Instructions Recorded Confirmed Last Taken Type oxycodone 5 mg tablet 10 mg PO BID PRN pain 02/21/23 02/21/23 Unknown History Physical Exam Vital Signs: Vital Signs: Last Vital Signs Temp 98.6 F 02/23/23 16:00 Pulse 89 02/23/23 16:00 Resp 18 02/23/23 16:00 BP 127/89 02/23/23 16:00 Pulse Ox 98 02/23/23 16:00 O2 Del Method Room Air 02/23/23 16:00 BMI result Body Mass Index 29.8 Neuro: Other: She is alert and awake with normal spontaneity of speech fluency comprehension and affect were comprehension is intact. She is able to risk side along Swapnil Montiel poem for me but was not sure where she was. Face was symmetrical. Visual stoddard are full. There was no obvious abnormal movement. Deep tendon reflexes were trace to absent with flexor plantars. Results Labs 02/22/23 04:43 02/23/23 08:12 Labs: BMP 02/23/23 08:12 Sodium 139 Potassium 3.6 Chloride 108 Carbon Dioxide 21 L BUN 24 H Creatinine 0.99 [address]cium [address] revealed moderately severe cortical frontoparietal atrophy with couple of small calcified meningiomas. Microbiology Microbiology Results: Microbiology 02/21/23 18:39 Blood - Venous Blood Culture - Preliminary No growth after 24 hours. 02/21/23 16:34 Urine clean catch - Urine cheung top Urine Culture - Final 02/22/23 15:03 Ascites Fluid Gram Stain - Final 02/22/23 15:03 Ascites Fluid Routine Culture - Preliminary No growth to date. 02/21/23 18:39 Blood - Venous Blood Culture - Preliminary No growth after 24 hours. 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 She might have developed some infection such as UTI worsening her situation. On top of that, she has a uterine mass with possible metastasis. She is quite uncomfortable staying away from her home. I would recommend social service consultation to see if enough support was available at home, such as a friend or neighbor, in which case she might be able to go back home. It is not clear if she has a defined health proxy. I am not sure if she would fully understand risks and repercussions of her diagnosis including cancer. Please check her vitamin B12 and folate levels. If no other treatable issue was found, I recommend starting her on sertraline 25 mg in the morning and memantine 5 mg twice a day. Time Spent With Patient Time: Total time managing care of this patient today ____ minutes. Procedures Date of Service Date of Service: 02/23/23
[2023-02-23] MEDS: cefTRIAXone sodium 1 GM in 0.9 % Sodium Chloride 50 ML IV (17:47)
[2023-02-23 20:00] VITALS: BP 112/76; PULSE 91; RESP 18; TEMP 36.7; O2SAT 98
[2023-02-23 20:42] LABS: Glucose, Whole Blood 134 mg/dL (60-115)
[2023-02-23 23:26] VITALS: BP 112/52; PULSE 57; RESP 17; TEMP 37; O2SAT 98
[2023-02-23] MEDS: Acetaminophen 325 MG TABLET 650 MG PO (23:38)
[2023-02-23] MEDS: oxyCODONE HCl Immed Release 5 MG TABLET 10 MG PO (23:38)
[2023-02-24 02:50] VITALS: BP 114/59; PULSE 110; RESP 17; TEMP 37.1; O2SAT 94
[2023-02-24 06:00] VITALS: BMI 28.3
[2023-02-24 08:00] VITALS: BP 107/55; PULSE 73; RESP 20; TEMP 36.3; O2SAT 96
[2023-02-24 08:19] LABS: Hematocrit 32.6 % (37.0-47.0); Mean Corpuscular HGB Conc 30.7 g/dl (31.0-35.0); Mean Corpuscular Hemoglobin 26.7 pg (27.0-33.0); Mean Corpuscular Volume 86.9 fL (80.0-98.0); Mean Platelet Volume 10.8 fL (9.4-12.3); Platelet Count 243 X10*3/uL (160-400); Red Blood Count 3.75 X10*6/uL (4.20-5.50); Red Cell Distribution Width 13.4 % (11.0-16.0); White Blood Count 19.8 X10*3/uL (4.8-10.8)
[2023-02-24 08:31] LABS: Glucose, Whole Blood 111 mg/dL (60-115)
[2023-02-24 09:08] LABS: Folate 2.2 ng/mL (> or = 4.0); Vitamin B12 741 pg/mL (200-900)
[2023-02-24 09:15] VITALS: BP 107/55; PULSE 73; O2SAT 96
[2023-02-24] MEDS: 0.9 % Sodium Chloride Flush 3 ML SYRINGE IVFLUSH ×3 (09:23→20:38)
[2023-02-24] MEDS: oxyCODONE HCl Immed Release 5 MG TABLET 10 MG PO (09:23)
[2023-02-24] MEDS: Heparin Sodium,Porcine 5,000 UNIT/ML VIAL 5000 UNIT SUBCUT ×2 (09:24→23:23)
[2023-02-24] MEDS: Docusate Sodium 100 MG CAPSULE PO (09:24)
[2023-02-24] MEDS: Nystatin Powder 15 GM BOTTLE 1 APPL TOPICAL ×2 (09:24→20:38)
[2023-02-24 11:15] LABS: Glucose, Whole Blood 188 mg/dL (60-115)
[2023-02-24 12:01] VITALS: BP 110/66; PULSE 74; RESP 20; TEMP 36.2; O2SAT 95
--- NOTE | 2023-02-24 13:31 | MHC.CLN ---
NUTRITION CONSULT FOR MULTIPLE PRESSURE SORES . SKIN DESCRIBED PEELING SKIN TO BUTTOCK, STAGE II. ARIEL=14. INTAKE APPEARS VERY GOOD, 75-100% DIET=2 GRAM SODIUM WITH ENSURE BID. SUPPLEMENT PROVIDES 700 KCALS, 40 G PROTEIN. SUPPLEMENT APPROPRIATE TO PROMOTE SKIN INTEGRITY. MONITOR FOR SKIN INTEGRITY.
--- NOTE | 2023-02-24 13:38 | PM.PSYCN ---
History of Present Illness Date of Service: 02/24/2023 Chief Complaint: TETO, UTI Requesting physician: Mitali Orellana Discussed with referring provider: Yes Sources of Information: patient interviewed, chart reviewed and crisis/core team assessment reviewed HPI Narrative: Interim Hx: Pt has been assessed by MILIEU MANAGER/OB- pt showed difficulty understanding information given including differential dx and necessary medical work up to reach a dx (including pelvic exam and biopsy), which pt declined without showing understanding of information given. Psychiatry asked to re-evaluate. Pt in bed. She is in NAD. She reports she is confused and would like to go home, if possible. When asked about understanding of findings of medical work up that has been completed, pt unable to provide much information stating she did not know. This automotive service writer reviewed with her presenting symptoms (spotting), CT showing enlarged uterus concerning for malignancy. This automotive service writer discussed with patient information given by MILIEU MANAGER including consent for pelvic exam and biopsy. When asked pt to repeat this information, pt continued to asked that she did not understand why doctors where concern about her uterus, asking this automotive service writer, I came because I felt, right, how do they know there is something wrong with my uterus? Pt becomes someone frustrated which is related to her inability to one retain information and process this information. When asked if she wants to know the diagnosis, pt also unable to answer this questions and again asks, how do they know there is something wrong with me? This automotive service writer repeated the same information for the 3 times, but again pt unable to verbalize understanding of information given. [facility] Medical History Chronic back pain Surgical History History of bilateral knee replacement Diagnostics Vital Signs (24Hr): Vital Signs - 24 hr 02/23/23 16:00 02/23/23 20:00 02/23/23 23:26 Temperature 98.6 F 98.0 F 98.6 F Pulse Rate 89 91 57 Respiratory Rate 18 18 17 Blood Pressure 127/89 112/76 112/52 L Pulse Oximetry 98 98 98 Oxygen Delivery Method Room Air Room Air Room Air 02/24/23 02:50 02/24/23 08:00 02/24/23 09:15 Temperature 98.8 F 97.3 F Pulse Rate 110 H 73 73 Respiratory Rate 17 20 Blood Pressure 114/59 L 107/55 L 107/55 L Pulse Oximetry 94 96 96 Oxygen Delivery Method Room Air Room Air 02/24/23 12:01 Temperature 97.2 F Pulse Rate 74 Respiratory Rate 20 Blood Pressure 110/66 Pulse Oximetry 95 Oxygen Delivery Method Room Air BMI result Body Mass Index 28.3 Labs 02/24/23 08:03 02/23/23 08:12 Labs: Laboratory Results - last 48 hr 02/22/23 02/22/23 02/22/23 15:03 15:03 20:11 WBC RBC Hgb Hct MCV MCH MCHC RDW Plt Count MPV Absolute Nucleated RBC Nucleated RBC % (auto) Sodium Potassium Chloride Carbon Dioxide Anion Gap BUN Creatinine Estim Creat Clear Calc Estimated GFR POC Glucose Random Glucose 145 H Estimat Average Glucose Hemoglobin A1c % Calcium Lactate Dehydrogenase 196 Total Protein 4.8 L Vitamin B12 Folate Peritoneal WBC 1.004 Peritoneal RBC 0.043 Periton Neutrophils 33 Periton Lymphocytes 40 Peritoneal Monocytes 27 Peritoneal Tot Protein 3.5 Peritoneal LDH 271 02/23/23 02/23/23 02/23/23 04:43 08:12 16:25 WBC RBC Hgb Hct MCV MCH MCHC RDW Plt Count MPV Absolute Nucleated RBC Nucleated RBC % (auto) Sodium 139 Potassium 3.6 Chloride 108 Carbon Dioxide 21 L Anion Gap 14 BUN 24 H Creatinine 0.99 Estim Creat Clear Calc 63.8 Estimated GFR 55 POC Glucose 127 H Random Glucose 118 H Estimat Average Glucose 126 Hemoglobin A1c % 6.0 Calcium 8.0 L Lactate Dehydrogenase Total Protein Vitamin B12 Folate Peritoneal WBC Peritoneal RBC Periton Neutrophils Periton Lymphocytes Peritoneal Monocytes Peritoneal Tot Protein Peritoneal LDH 02/23/23 02/24/23 02/24/23 20:36 08:03 08:03 WBC 19.8 H RBC 3.75 L Hgb 10.0 L Hct 32.6 L MCV 86.9 MCH 26.7 L MCHC 30.7 L RDW 13.4 Plt Count 243 MPV 10.8 Absolute Nucleated RBC 0.000 Nucleated RBC % (auto) 0.0 Sodium Potassium Chloride Carbon Dioxide Anion Gap BUN Creatinine Estim Creat Clear Calc Estimated GFR POC Glucose 134 H Random Glucose Estimat Average Glucose Hemoglobin A1c % Calcium Lactate Dehydrogenase Total Protein Vitamin B12 741 Folate 2.2 L Peritoneal WBC Peritoneal RBC Periton Neutrophils Periton Lymphocytes Peritoneal Monocytes Peritoneal Tot Protein Peritoneal LDH 02/24/23 02/24/23 08:16 10:50 WBC RBC Hgb Hct MCV MCH MCHC RDW Plt Count MPV Absolute Nucleated RBC Nucleated RBC % (auto) Sodium Potassium Chloride Carbon Dioxide Anion Gap BUN Creatinine Estim Creat Clear Calc Estimated GFR POC Glucose 111 188 H Random Glucose Estimat Average Glucose Hemoglobin A1c % Calcium Lactate Dehydrogenase Total Protein Vitamin B12 Folate Peritoneal WBC Peritoneal RBC Periton Neutrophils Periton Lymphocytes Peritoneal Monocytes Peritoneal Tot Protein Peritoneal LDH Imaging Radiology Impressions: ITS Impressions Chest X-Ray 02/21/23 15:43 IMPRESSION: No acute cardiopulmonary process. Abdomen/Pelvis CT 02/21/23 19:19 IMPRESSION: 1. A significantly enlarged uterus is seen, with dimensions as above. There are peripheral eggshell calcifications within the uterus, raising the possibility of massive fibroid replacement. The possibility of uterine tumor, including leiomyosarcoma, is not excluded. Recommend further characterization with dedicated pelvic ultrasound. 2. There are numerous markedly enlarged abdominal and pelvic lymph nodes, as detailed above. These are nonspecific, and further work-up is indicated, together with continued attention on imaging follow-up. 3. There is marked ascites, and marked anasarca is noted. Consider diagnostic and therapeutic paracentesis, with cytology evaluation. 4. There is left renal atrophy. Benign-appearing left renal cysts are noted, which require no imaging follow-up. 5. There is a fat- and fluid-containing umbilical hernia defect. 6. There are multi-level marked degenerative changes of the thoracolumbar spine and hips. No aggressive osseous lesion is seen. 7. There is cardiomegaly. Fleischner guidelines were followed. Cervical Spine CT 02/21/23 19:19 IMPRESSION: 1. No acute intracranial pathology. 2. There is mild patchy low attenuation change in the periventricular white matter spaces, commonly associated with chronic microangiopathy. EXAMINATION: CT CERVICAL SPINE WITHOUT CONTRAST CLINICAL INFORMATION: Neck pain status-post fall. COMPARISON: None available. TECHNIQUE: Contiguous axial imaging was performed through the cervical spine without intravenous administration of contrast. Multiplanar reformatted images are submitted. This CT examination was performed using dose optimization techniques as appropriate, variously including the following: *Automated exposure control *Adjustment of mA and/or kV according to patient size (this includes techniques or standardized protocols for targeted exams where dose is matched to indication/reason for exam; i.e. extremities or head) *Use of iterative reconstruction technique DLP: As above FINDINGS: Imaging is somewhat limited by motion artifact. Vertebral body heights are normal. There is reversal of the normal curvature. At C3-C4, there is a 2 mm retrolisthesis. At C7-T1, there is anterior disc space narrowing, with vacuum disc phenomenon. At T2-T3, there is moderate disc space narrowing. No acute fracture or spondylolisthesis is seen. There is multi-level cervical and upper thoracic spondylosis. The posterior elements are intact. There is multi-level cervical facet arthropathy. There is no prevertebral soft tissue swelling. The dens is intact. There is degenerative change of the atlantoaxial joint. The bilateral lung apices are clear. IMPRESSION: There is multi-level cervical and upper thoracic degenerative disc disease, spondylosis and facet arthropathy. No acute traumatic finding is noted. Fleischner guidelines were followed. Head CT 02/21/23 19:19 IMPRESSION: 1. No acute intracranial pathology. 2. There is mild patchy low attenuation change in the periventricular white matter spaces, commonly associated with chronic microangiopathy. EXAMINATION: CT CERVICAL SPINE WITHOUT CONTRAST CLINICAL INFORMATION: Neck pain status-post fall. COMPARISON: None available. TECHNIQUE: Contiguous axial imaging was performed through the cervical spine without intravenous administration of contrast. Multiplanar reformatted images are submitted. This CT examination was performed using dose optimization techniques as appropriate, variously including the following: *Automated exposure control *Adjustment of mA and/or kV according to patient size (this includes techniques or standardized protocols for targeted exams where dose is matched to indication/reason for exam; i.e. extremities or head) *Use of iterative reconstruction technique DLP: As above FINDINGS: Imaging is somewhat limited by motion artifact. Vertebral body heights are normal. There is reversal of the normal curvature. At C3-C4, there is a 2 mm retrolisthesis. At C7-T1, there is anterior disc space narrowing, with vacuum disc phenomenon. At T2-T3, there is moderate disc space narrowing. No acute fracture or spondylolisthesis is seen. There is multi-level cervical and upper thoracic spondylosis. The posterior elements are intact. There is multi-level cervical facet arthropathy. There is no prevertebral soft tissue swelling. The dens is intact. There is degenerative change of the atlantoaxial joint. The bilateral lung apices are clear. IMPRESSION: There is multi-level cervical and upper thoracic degenerative disc disease, spondylosis and facet arthropathy. No acute traumatic finding is noted. Fleischner guidelines were followed. Paracentesis Ultrasound 02/22/23 16:00 IMPRESSION: Ultrasound-guided paracentesis. Mental Status Exam Mental Status Exam Narrative: Appearance:wearing hospital gown, fair hygiene, in NAD behavior:cooperative Psychomotor: no agitation or retardation noted Speech:clear, normal rate/rhythm/volume, spontaneous TP: linear TC: no signs of psychosis, confused as to why she can't go home Mood: confused Affect: congruent SI: denies HI: denies VH/AH: none Delusions: no overt delusional content noted or reported Insight/judgment: impaired x 2. Memory/cog: alert, oriented x 3. Medications Medications Current Medications Acetaminophen (Acetaminophen 325 Mg Tablet) 650 mg PO Q6H PRN PRN Reason: Pain, Mild (Pain Scale 1-3) Last Admin: 02/23/23 23:38 Dose: 650 mg Dextrose (Dextrose 50 % 25 Gm/50 Ml Syringe) 25 gm IVPUSH Q15M PRN; Protocol PRN Reason: per Hypoglycemia Standing Ord. Docusate Sodium (Docusate Sodium 100 Mg Capsule) 100 mg PO DAILY NAYA Last Admin: 02/24/23 09:24 Dose: 100 mg Folic Acid (Folic Acid 1 Mg/0.2 Ml Syringe) 1 mg IM DAILY [facility]AYA Stop: 02/26/23 09:01 Last Admin: 02/24/23 11:48 Dose: 1 mg Furosemide (Furosemide 40 Mg/4 Ml Vial) 40 mg IVPUSH DAILY NAYA; Protocol Last Admin: 02/23/23 08:48 Dose: 40 mg Glucose (Glucose Gel 15 Gm Gel..Gram.) 15 gm PO Q15M PRN; Protocol PRN Reason: per Hypoglycemia Standing Ord. Heparin Sodium (Porcine) (Heparin Sodium,Porcine 5,000 Unit/Ml Vial) 5,000 unit SUBCUT Q12H NAYA Last Admin: 02/24/23 09:24 Dose: 5,000 unit Ceftriaxone Sodium 1 gm/ (Sodium Chloride) 50 mls @ 100 mls/hr IV Q24H NAYA Last Infusion: 02/23/23 18:18 Dose: Infused Nystatin (Nystatin Powder 15 Gm Bottle) 1 appl TOPICAL BID NAYA; Protocol Last Admin: 02/24/23 09:24 Dose: 1 appl Ondansetron HCl (Ondansetron Hcl 4 Mg/2 Ml Vial) 4 mg IVPUSH Q8H PRN PRN Reason: Nausea and Vomiting Oxycodone HCl (Oxycodone Hcl Immed Release 5 Mg Tablet) 10 mg PO BID PRN PRN Reason: Pain, Severe (Pain Scale 7-10) Last Admin: 02/24/23 09:23 Dose: 10 mg Polyethylene Glycol (Polyethylene Glycol 3350 17 Gm Powd.Pack) 17 gm PO DAILY [facility] Last Admin: 02/24/23 09:41 Dose: Not Given Sodium Chloride (0.9 % Sodium Chloride Flush 3 Ml Syringe) 3 ml IVFLUSH QSHIFT [facility] Last Admin: 02/24/23 09:23 Dose: 3 ml Allergies Allergies Allergy/AdvReac Type Severity Reaction Status Date / Time No Known Allergies Allergy Verified 02/21/23 15:25 Assessment & Plan Assessment & Plan (1) Cognitive impairment: Status: Acute Code(s): R41.89 - Other symptoms and signs involving cognitive functions and awareness Plan Ms. Reed is a 77 year-old woman brought via EMS due to weight loss, vaginal bleeding and falls. Pt found to have enlarged uterus, ascites concerning for malignancy. Few days ago this automotive service writer met with pt to complete capacity assessment, at which point with the information she had been given, she show some understanding of reasons for being in the hospital including that she was being treated for infection with antibiotic and that work up was ongoing to reach a diagnosis. Today, and yesterday when seen by MILIEU MANAGER/OB and by attending, pt does not appear to fully understand information given, and has declined further evaluation including pelvic exam and biopsy without clear rational. Today when this automotive service writer met with pt, pt unable to retain information related to concerning findings suggestive of malignancy and further medical work up to reach a more definitive dx. PLAN 1. With more complex information given to patient, pt does NOT show capacity to make medical decisions. It has also been observe that such impairments are not related to a transient delirium but appears to be related to underlying neurocognitive disorder, mostly as her orientation is fairly intact but not her ability to retain new information,and process more complex information and show understanding of information given. Along with showing appreciation for risks versus benefits of accepting or refusing treatment. Total time managing care of this patient today ____ minutes.
[2023-02-24 13:42] VITALS: BMI 28.3
--- NOTE | 2023-02-24 15:22 | HO.PM.IMPN ---
Subjective Subjective Date of Service: 02/24/23 Interval History: Seen and examined this morning Follow-up for ascites, confusion, possible uterine mass Patient continues to have difficulty understanding current medical issues Review of Systems Review of Systems: Yes all other systems are reviewed and are negative Constitutional Constitutional: Denies chills and Denies fever(s) ENT Ears, Nose, Mouth, and Throat: Denies dizziness Cardiovascular Cardiovascular: Denies chest pain and Denies dyspnea Respiratory Respiratory: Denies dyspnea Gastrointestinal Gastrointestinal: Denies abdominal pain Neurologic Neurologic: Denies dizziness Physical Exam Vital Signs: Vital Signs: Last Vital Signs Temp 97.2 F 02/24/23 12:01 Pulse 74 02/24/23 12:01 Resp 20 02/24/23 12:01 BP 110/66 02/24/23 12:01 Pulse Ox 95 02/24/23 12:01 O2 Del Method Room Air 02/24/23 12:01 BMI result Body Mass Index 28.3 Const: General: cooperative, comfortable, no acute distress, alert and awake Nutritional Appearance: overweight Orientation/consciousness: patient oriented x3 Resp: Effort & Inspection: normal respiratory effort, able to speak in complete sentences, no respiratory distress and no use of accessory muscles Cardio: Rate: regular rate Heart sounds: S1 normal heart sound present and S2 normal heart sound present GI: Inspection: No distended Palpation (GI): Soft to palpation and nontender Neuro: General: patient oriented x3, moves all extremities and CN's II-XI intact bilaterally Objective Data Active Medications Acetaminophen (Acetaminophen 325 Mg Tablet) 650 mg PO Q6H PRN PRN Reason: Pain, Mild (Pain Scale 1-3) Last Admin: 02/23/23 23:38 Dose: 650 mg Documented By: JENNIFER Dextrose (Dextrose 50 % 25 Gm/50 Ml Syringe) 25 gm IVPUSH Q15M PRN; Protocol PRN Reason: per Hypoglycemia Standing Ord. Docusate Sodium (Docusate Sodium 100 Mg Capsule) 100 mg PO DAILY [facility] Last Admin: 02/24/23 09:24 Dose: 100 mg Documented By: JAVIER Folic Acid (Folic Acid 1 Mg/0.2 Ml Syringe) 1 mg IM DAILY [facility] Stop: 02/26/23 09:01 Last Admin: 02/24/23 11:48 Dose: 1 mg Documented By: JAVIER Furosemide (Furosemide 40 Mg/4 Ml Vial) 40 mg IVPUSH DAILY [facility]; Protocol Last Admin: 02/23/23 08:48 Dose: 40 mg Documented By: JAVIER Glucose (Glucose Gel 15 Gm Gel..Gram.) 15 gm PO Q15M PRN; Protocol PRN Reason: per Hypoglycemia Standing Ord. Heparin Sodium (Porcine) (Heparin Sodium,Porcine 5,000 Unit/Ml Vial) 5,000 unit SUBCUT Q12H [facility] Last Admin: 02/24/23 09:24 Dose: 5,000 unit Documented By: JAVIER Ceftriaxone Sodium 1 gm/ (Sodium Chloride) 50 mls @ 100 mls/hr IV Q24H [facility] Last Infusion: 02/23/23 18:18 Dose: 0 mls/hr Documented By: JAVIER Nystatin (Nystatin Powder 15 Gm Bottle) 1 appl TOPICAL BID [facility]; Protocol Last Admin: 02/24/23 09:24 Dose: 1 appl Documented By: JAVIER Ondansetron HCl (Ondansetron Hcl 4 Mg/2 Ml Vial) 4 mg IVPUSH Q8H PRN PRN Reason: Nausea and Vomiting Oxycodone HCl (Oxycodone Hcl Immed Release 5 Mg Tablet) 10 mg PO BID PRN PRN Reason: Pain, Severe (Pain Scale 7-10) Last Admin: 02/24/23 09:23 Dose: 10 mg Documented By: JAVIER Polyethylene Glycol (Polyethylene Glycol 3350 17 Gm Powd.Pack) 17 gm PO DAILY [facility] Last Admin: 02/24/23 09:41 Dose: Not Given Documented By: JAVIER Non-Admin Reason: Patient Refused Sodium Chloride (0.9 % Sodium Chloride Flush 3 Ml Syringe) 3 ml IVFLUSH QSHIFT [facility] Last Admin: 02/24/23 09:23 Dose: 3 ml Documented By: JAVIER Labs 02/24/23 08:03 02/23/23 08:12 Labs: Laboratory Results - last 24 hr 02/23/23 02/23/23 02/24/23 16:25 20:36 08:03 MCV MCH MCHC RDW Plt Count MPV Absolute Nucleated RBC Nucleated RBC % (auto) POC Glucose 127 H 134 H Vitamin B12 741 Folate 2.2 L 02/24/23 02/24/23 02/24/23 08:03 08:16 10:50 MCV 86.9 MCH 26.7 L MCHC 30.7 L RDW 13.4 Plt Count 243 MPV 10.8 Absolute Nucleated RBC 0.000 Nucleated RBC % (auto) 0.0 POC Glucose 111 188 H Vitamin B12 Folate Microbiology Microbiology Results: Microbiology 02/21/23 18:39 Blood Culture - Preliminary Blood - Venous No growth after 48 hours. 02/22/23 15:03 Gram Stain - Final Ascites Fluid Routine Culture - Preliminary No growth to date. Anaerobic Culture - Preliminary No growth to date. 02/21/23 18:39 Blood Culture - Preliminary Blood - Venous No growth after 48 hours. Assessment and Plan (1) Cognitive impairment: Status: Acute (2) Enlarged uterus: Status: Acute (3) Ascites: Status: Acute Plan This is a 77-year-old female with past medical history of chronic back pain comes into the hospital with reported confusion found to have multiple complications probable dementia Confusion initially thought to be encephalopathy but now appears to be likely dementia attempting to obtain co-lateral information but so far all contact info is out of order, doesn't appear to have any family seen by Neurology - probable moderate to severe degenerative dementia, likely Alzheimer's Cognitive eval by OT, scored 14 on [place] Re-evaluation by psych - DOES NOT have capacity to make medical decisions will like require guardianship/placement low thiamine not likely cause of dementia will replace IM, then transition to po Possible UTI urine culture growing 50-100 cfu characteristic of urogential contamination reported urinary symptoms on admission therefore will complete course of antibiotics - continue IV ceftriaxone started 02/22 Blood cultures negative to date TETO on CKD3 (per notes from [facility]) resolved with IVF. SCR down from 1.44 to 0.99 secondary to dehydration Ascites no history of liver cirrhosis BNP negative s/p therapeutic and diagnostic paracentesis- + Lights criteria for exudative effusion - cytology pending concerning for uterine vs ovarian malignancy uterine mass unintentional 30 lb weight loss concerning for malignancy transvaginal and pelvic ultrasound -subobtimal due to bowel gas and ascites cytology from paracentesis pending pending seen by TEXTILE CONVERSION MANAGER, declined exam/endometrial biopsy Low blood pressure readings BP improved hold lasix follow bp closely chronic pain seems to be r/t arthritis based on prescriber oxycodone only picked up once this year, will wean h/o diabetes based on [place] [facility] [place]ba1[place] 6 follow POCs chronic wounds multiple wounds - stage 2/3/unstageable to buttock present on admission local wound care DVT prophylaxis:? Heparin subQ Attending Dr. Alvarez will attempt to get records from dr. delcid who prescribes her pain medication, doesn't appear to have PCP for insurance at this time. reports all friends and family are . Continue hospitalization for treatment of urinary tract infection requiring IV antibiotics and further workup as per hand buffing wheel former for uterine mass, safe dispo Time Spent With Patient Time: Total time managing care of this patient today ____ minutes. Quality Stroke Does the patient have a stroke diagnosis?: No VTE Prior VTE?: No VTE Risk Level:: Medical - moderate - high VTE Device Contraindication: Treatment Not Indicated VTE Drug Contraindication: N/A - Med Ordered
--- NOTE | 2023-02-24 15:24 | MHC.CM.PN ---
LATE ENTRY NOTE FOR 02/23/23, CM RECEIVED MESSAGE FROM HOSPITALIST REGARDING PT'S MOST RECENT PCP AND ARTHRITIS DOCTORS VISITS WHO SHE HAS BEEN RECEIVING OXYCODONE SCRIPTS FOR. PER HOSPITALIST PT WENT FROM MEDICARE TO SELF PAY FOR PRESCRIPTIONS IN SEPTEMBER, CM ATTEMPTED TO ASK PT ABOUT INSURANCE AGAIN AND PT REPORTS SHE THINKS SHE SHOULD HAVE INSURANCE HOWEVER IS UNABLE TO TELL CM WHAT TYPE OF INSURANCE, WHEN OR WHY HER INSURANCE LAPSED. PT ALSO KEPT ASKING CM WHY SHE WAS HERE AND WAS RE-EXPLAINED AT LEAST 4 TIMES. [place] HOSPITAL[place] [facility] [place] SHEYLA MCKEON PT'S PCP AND MIGUELINA ZACARIAS PT'S ARTHRITIS DOCTOR HAS BEEN PRESCRIBING HER THE OXYCODONE. CM CONTACTED [facility] TO SEE IF THEY HAD AN HCP ON FILE AND THEY DID WHICH LISTED KAMILLA VILLARREAL PT'S HCA AND GISELL MCMILLAN PT'S ALTERNATE. CM ATTEMPTED ALL 4 PHONE NUMBERS ON HCP AND FOUND ADDITIONAL NUMBERS HOWEVER CM UNABLE TO GET THROUGH ALL NUMBERS FOR GISELL MCMILLAN ARE NO LONGER IN WORKING ORDER AND THE 3 NUMBERS LISTED FOR KAMILLA VILLARREAL ARE NOT WORKING OR UNAVAILABLE W/NO OPTION FOR VOICEMAIL. PT CONT'S TO DECLINE TO LET CM CALL NEIGHBOR MARCIA.
--- NOTE | 2023-02-24 15:38 | MHC.CM.PN ---
CM MET W/HOSPITALIST TO DISCUSS DISPO AFTER HOSPITALIST MET W/PT AND PT GAVE HOSPITALIST A NUMBER FOR KAMILLA VILLARREAL WHICH WAS THE CORRECT NUMBER (AND HAS BEEN CHANGED IN EXPANSE). CM ATTEMPTED TO REACH KAMILLA THIS AM HOWEVER NO ANSWER AND DETAILED MESSAGE LEFT, CM DID RECEIVE CALL BACK FROM KAMILLA WHO REPORTS SHE WAS PT'S PAID THERAPIST UNTIL SEPTEMBER OF 2022 WHEN PT LOST HER INSURANCE AND KEPT SEEING HER AND HAS BEEN TRYING TO HELP PT HOWEVER PT HAS BEEN UNACCEPTING OF HELP, BELLIGERENT, DOES NOT SEEM TO BE AWARE OF BADLY SHE'S DOING, FALLS REGULARLY AND THEN DOES NOT REMEMBER, HAS BEEN HAVING MEMORY AND WORSENING MEMORY ISSUES. KAMILLA REPORTS PT'S HOME IS BEYOND HOARDING AND EXTREMELY DIRTY, HAS ALIENATED EVERYONE IN HER LIFE AND ABOUT 5-6 MOS AGO [facility] AND WAS GOING TO PLAN TO MOVE THERE HOWEVER CHANGED HER MIND AND REFUSED TO EVER GO THERE. KAMILLA REPORTS SHE DOES OWN HER HOME AND BELIEVE SHE STILL HAS A MORTGAGE THAT IS AUTOMATICALLY DEDUCTED FROM HER ACCOUNT. KAMILLA REPORTS SHE IS HAPPY TO BE A CONSULT HOWEVER SHE IS UNABLE TO ACT PT'S LEGAL HCP. WHEN CM HAD A CLOSER LOOK AT PT'S HCP, HCP IS NOT DATED, ALTERNATE HCP SIGNED A WITNESS AND IT IS A CONFLICT OF INTEREST FOR KAMILLA PT'S THERAPIST TO ACTUALLY BE HER HCP, HCP IS NOT VALID. HANDLE MACHINE OPERATOR DID SEE PT AGAIN TO RE-EVAL TODAY AND PT HAS BEEN DEEMED INCOMPETENT, CM DIRECTOR AWARE AND WILL START GUARDIANSHIP/CONSERVATORSHIP PROCESS ON TUESDAY 02/27.
[2023-02-24 15:50] VITALS: BP 120/54; PULSE 76; RESP 18; TEMP 36.2; O2SAT 95
[2023-02-24 16:07] LABS: Glucose, Whole Blood 117 mg/dL (60-115)
[2023-02-24] MEDS: cefTRIAXone sodium 1 GM in 0.9 % Sodium Chloride 50 ML IV (17:27)
[2023-02-24 19:14] VITALS: BP 116/56; PULSE 88; RESP 18; TEMP 36.2; O2SAT 97
[2023-02-24 20:04] LABS: Glucose, Whole Blood 158 mg/dL (60-115)
--- NOTE | 2023-02-24 23:31 | PC.NURSE ---
Assumed care at 1900. Pt is in bed,sleeping but easily arousable. Denies any pain. NSR on tele monitor. Requested 4 siderails up.
[2023-02-25] MEDS: oxyCODONE HCl Immed Release 5 MG TABLET PO ×2 (01:22→20:51)
[2023-02-25] MEDS: Acetaminophen 325 MG TABLET 650 MG PO ×2 (01:51→20:50)
[2023-02-25] MEDS: Calcium Carbonate 750 MG TAB.CHEW PO (02:25)
[2023-02-25 03:59] VITALS: BP 116/59; PULSE 90; RESP 20; TEMP 36.6; O2SAT 95
[2023-02-25 07:25] VITALS: BP 113/63; PULSE 77; RESP 16; TEMP 36.7; O2SAT 95
[2023-02-25 07:25] LABS: Glucose, Whole Blood 105 mg/dL (60-115)
[2023-02-25 08:00] LABS: TSH reflex Free T4 1.03 uIU/mL (0.32-4.0)
[2023-02-25] MEDS: Heparin Sodium,Porcine 5,000 UNIT/ML VIAL 5000 UNIT SUBCUT ×2 (10:29→23:02)
[2023-02-25] MEDS: polyethylene glycoL 3350 17 GM POWD.PACK PO (10:30)
[2023-02-25] MEDS: Docusate Sodium 100 MG CAPSULE PO (10:30)
[2023-02-25] MEDS: 0.9 % Sodium Chloride Flush 3 ML SYRINGE IVFLUSH ×2 (10:30→16:45)
[2023-02-25] MEDS: Folic Acid 1 MG TABLET PO (10:30)
[2023-02-25] MEDS: Nystatin Powder 15 GM BOTTLE 1 APPL TOPICAL ×2 (10:30→20:52)
[2023-02-25 11:25] LABS: Glucose, Whole Blood 163 mg/dL (60-115)
[2023-02-25 11:32] VITALS: BP 109/76; PULSE 105; RESP 16; TEMP 36.8; O2SAT 93
--- NOTE | 2023-02-25 12:29 | P.PNIM_ITS ---
Subjective Subjective Date of Service: 02/25/23 Interval History: seen and examined this morning Follow-up for dementia, UTI, uterine masses frequently need to repeat reason for presence, plan and questions. frustrated. Review of Systems Review of Systems: Yes all other systems are reviewed and are negative Constitutional Constitutional: Denies chills and Denies fever(s) Cardiovascular Cardiovascular: Denies chest pain, Denies palpitations and Denies dyspnea Respiratory Respiratory: Denies cough and Denies dyspnea Gastrointestinal Gastrointestinal: Denies abdominal pain Endocrine Endocrine: Denies palpitations Physical Exam Vital Signs: Vital Signs: Last Vital Signs Temp 98.3 F 02/25/23 11:32 Pulse 105 H 02/25/23 11:32 Resp 16 02/25/23 11:32 BP 109/76 02/25/23 11:32 Pulse Ox 93 02/25/23 11:32 O2 Del Method Room Air 02/25/23 11:32 BMI result Body Mass Index 30.0 Const: General: cooperative, comfortable, no acute distress, alert and awake Nutritional Appearance: overweight Orientation/consciousness: patient oriented x3 Eyes: Pupils: Equal, round and reactive pupils present Resp: Effort & Inspection: normal respiratory effort, able to speak in complete sentences, no respiratory distress and no use of accessory muscles Cardio: Rate: regular rate Heart sounds: S1 normal heart sound present and S2 normal heart sound present GI: Inspection: No distended Palpation (GI): Soft to palpation and nontender Neuro: General: patient oriented x3, moves all extremities and CN's II-XI intact bilaterally Cranial nerves: Yes Equal, round and reactive pupils present Extrem: Other: lower extremity edema Objective Data Active Medications Acetaminophen (Acetaminophen 325 Mg Tablet) 650 mg PO Q6H PRN PRN Reason: Pain, Mild (Pain Scale 1-3) Last Admin: 02/25/23 01:51 Dose: 650 mg Documented By: JOHN Calcium Carbonate (Calcium Carbonate 750 Mg Tab.Chew) 750 mg PO Q6H PRN PRN Reason: Pain, Severe (Pain Scale 7-10) Last Admin: 02/25/23 02:25 Dose: 750 mg Documented By: JOHN Dextrose (Dextrose 50 % 25 Gm/50 Ml Syringe) 25 gm IVPUSH Q15M PRN; Protocol PRN Reason: per Hypoglycemia Standing Ord. Docusate Sodium (Docusate Sodium 100 Mg Capsule) 100 mg PO DAILY [facility] Last Admin: 02/25/23 10:30 Dose: 100 mg Documented By: MECHELLE Folic Acid (Folic Acid 1 Mg Tablet) 1 mg PO DAILY [facility] Last Admin: 02/25/23 10:30 Dose: 1 mg Documented By: MECHELLE Furosemide (Furosemide 40 Mg/4 Ml Vial) 40 mg IVPUSH DAILY [facility]; Protocol Last Admin: 02/23/23 08:48 Dose: 40 mg Documented By: JAVIER Glucose (Glucose Gel 15 Gm Gel..Gram.) 15 gm PO Q15M PRN; Protocol PRN Reason: per Hypoglycemia Standing Ord. Heparin Sodium (Porcine) (Heparin Sodium,Porcine 5,000 Unit/Ml Vial) 5,000 unit SUBCUT Q12H [facility] Last Admin: 02/25/23 10:29 Dose: 5,000 unit Documented By: MECHELLE Ceftriaxone Sodium 1 gm/ (Sodium Chloride) 50 mls @ 100 mls/hr IV Q24H [facility] Stop: 02/27/23 17:59 Last Infusion: 02/24/23 18:06 Dose: 0 mls/hr Documented By: JAVIER Nystatin (Nystatin Powder 15 Gm Bottle) 1 appl TOPICAL BID [facility]; Protocol Last Admin: 02/25/23 10:30 Dose: 1 appl Documented By: MECHELLE Ondansetron HCl (Ondansetron Hcl 4 Mg/2 Ml Vial) 4 mg IVPUSH Q8H PRN PRN Reason: Nausea and Vomiting Oxycodone HCl (Oxycodone Hcl Immed Release 5 Mg Tablet) 5 mg PO BID PRN PRN Reason: Pain, Severe (Pain Scale 7-10) Last Admin: 02/25/23 01:22 Dose: 5 mg Documented By: JOHN Polyethylene Glycol (Polyethylene Glycol 3350 17 Gm Powd.Pack) 17 gm PO DAILY [facility] Last Admin: 02/25/23 10:30 Dose: 17 gm Documented By: MECHELLE Sodium Chloride (0.9 % Sodium Chloride Flush 3 Ml Syringe) 3 ml IVFLUSH QSHIFT [facility] Last Admin: 02/25/23 10:30 Dose: 3 ml Documented By: MECHELLE Labs 02/24/23 08:03 02/23/23 08:12 Labs: Laboratory Results - last 24 hr 02/24/23 02/24/23 02/25/23 16:02 19:58 06:51 POC Glucose 117 H 158 H TSH 1.03 02/25/23 02/25/23 07:22 11:22 POC Glucose 105 163 H TSH Microbiology Microbiology Results: Microbiology 02/22/23 15:03 Gram Stain - Final Ascites Fluid Routine Culture - Final No growth after 2 days Anaerobic Culture - Preliminary No growth to date. 02/21/23 18:39 Blood Culture - Preliminary Blood - Venous No growth after 48 hours. Assessment and Plan (1) Cognitive impairment: Status: Acute Plan This is a 77-year-old female with past medical history of chronic back pain comes into the hospital with reported confusion found to have multiple complications probable dementia Confusion initially thought to be encephalopathy but now appears to be likely dementia, memory seems to have been declining over the past several months seen by Neurology - probable moderate to severe degenerative dementia, likely Alzheimer's Cognitive eval by OT, scored 14 on [place] Re-evaluation by psych - DOES NOT have capacity to make medical decisions will like require guardianship/placement low thiamine not likely cause of dementia declines IM thiamine, will give po Possible UTI urine culture growing 50-100 cfu characteristic of urogential contamination reported urinary symptoms on admission therefore will complete course of antibiotics - continue IV ceftriaxone started 02/22 Blood cultures negative to date TETO on CKD3 (per notes from [facility]) resolved with IVF. SCR down from 1.44 to 0.99 secondary to dehydration Ascites no history of liver cirrhosis BNP negative s/p therapeutic and diagnostic paracentesis- + Lights criteria for exudative effusion - cytology pending concerning for uterine vs ovarian malignancy uterine mass unintentional 30 lb weight loss concerning for malignancy transvaginal and pelvic ultrasound -subobtimal due to bowel gas and ascites cytology from paracentesis pending pending seen by TRUCKLOAD CHECKER, declined exam/endometrial biopsy - consider readdressing when guardian established chronic pain seems to be r/t arthritis based on prescriber/outpatient notes oxycodone only picked up once this year in September, will start to wean h/o diabetes based [place] [facility] [place] P[place]s, no SSI unless sugar becomes uncontrolled chronic wounds multiple wounds - stage 2/3/unstageable to buttock present on admission. discussed with wound care nurse - feels they are likely related to moisture rather then pressure given location and distribution so far declinging purewick - may need to consider siegel for skin integrity continue triad cream, repositioning as able and supplements DVT prophylaxis:? Heparin subQ Attending Dr. Keene Continue hospitalization: guardianship, safe disposition Time Spent With Patient Time: Total time managing care of this patient today ____ minutes. Quality Stroke Does the patient have a stroke diagnosis?: No VTE Prior VTE?: No VTE Risk Level:: Medical - moderate - high VTE Device Contraindication: Treatment Not Indicated VTE Drug Contraindication: N/A - Med Ordered
[2023-02-25 15:58] VITALS: BP 117/55; PULSE 70; RESP 18; TEMP 36.8; O2SAT 92
[2023-02-25 16:20] LABS: Glucose, Whole Blood 144 mg/dL (60-115)
[2023-02-25] MEDS: cefTRIAXone sodium 1 GM in 0.9 % Sodium Chloride 50 ML IV (16:44)
[2023-02-25 20:00] VITALS: BP 115/72; PULSE 67; RESP 18; TEMP 36.8; O2SAT 94
[2023-02-25 20:30] LABS: Glucose, Whole Blood 120 mg/dL (60-115)
[2023-02-26] VITALS (7 sets, daily range): BP systolic 107–139; BP diastolic 56–85; PULSE 67–81; RESP 16–19; TEMP 36.1–36.9; O2SAT 92–98
[2023-02-26] MEDS: 0.9 % Sodium Chloride Flush 3 ML SYRINGE IVFLUSH ×4 (00:17→22:26)
[2023-02-26] MEDS: Acetaminophen 325 MG TABLET 650 MG PO (02:07)
[2023-02-26] MEDS: Morphine Sulfate 4 MG/ML CARTRIDGE IVPUSH (03:22)
--- NOTE | 2023-02-26 03:48 | PC.NURSE ---
Dr. Alexandra contacted at 0300 for patient inability to sleep and pain. Tylenol ineffective. Pt c/o neck pain from arthritis along with buttock pain from multiple stage 2 ulcers. Patient ringing very frequently for repositioning due to this. Very restless and sleepless. Anxious that she will not return home and will lose her independence. MD placed orders for Morphine and Trazadone. Pt refused Trazadone. Morphine given with good effect. Patient verbalizes she is more comfortable.
[2023-02-26 07:33] LABS: Glucose, Whole Blood 95 mg/dL (60-115)
--- NOTE | 2023-02-26 08:29 | HO.PM.IMPN ---
Subjective Subjective Date of Service: 02/26/23 Interval History: seen and examined this morning Follow-up for dementia, UTI, uterine masses No significant nursing events overnight. Review of Systems No seizure-like phenomena or focal weakness. Constitutional Constitutional: Denies chills and Denies fever(s) ENT Ears, Nose, Mouth, and Throat: Denies dizziness Cardiovascular Cardiovascular: Denies chest pain, Denies palpitations and Denies dyspnea Respiratory Respiratory: Denies cough and Denies dyspnea Gastrointestinal Gastrointestinal: Denies abdominal pain, Denies nausea and Denies vomiting Neurologic Neurologic: Reports confusion and Denies dizziness Psychiatric Psychiatric: Reports confusion Endocrine Endocrine: Denies palpitations Physical Exam Vital Signs: Vital Signs: Last Vital Signs Temp 97.6 F 02/26/23 07:08 Pulse 74 02/26/23 07:08 Resp 16 02/26/23 07:08 BP 139/66 02/26/23 07:08 Pulse Ox 95 02/26/23 07:08 O2 Del Method Room Air 02/26/23 07:08 BMI result Body Mass Index 30.0 Const: General: cooperative, comfortable, no acute distress, alert, awake and confusion Nutritional Appearance: overweight Orientation/consciousness: patient oriented x3 and confusion Eyes: General: appearance normal, both eyes and all related structures Pupils: Equal, round and reactive pupils present Resp: Effort & Inspection: normal respiratory effort, able to speak in complete sentences, no respiratory distress and no use of accessory muscles Auscultation: clear to auscultation bilaterally Cardio: Rate: regular rate Rhythm: regular rhythm Heart sounds: S1 normal heart sound present and S2 normal heart sound present GI: Other: Obese abdomen, 3+ distended, Inspection: No distended Palpation (GI): Soft to palpation and nontender Auscultation: normal bowel sounds Skin: General skin exam: no rashes or lesions noted Neuro: Other: She is alert and awake with normal spontaneity of speech fluency comprehension and affect were comprehension is intact. She is able to risk side along Swapnil Montiel poem for me but was not sure where she was. Face was symmetrical. Visual stoddard are full. There was no obvious abnormal movement. Deep tendon reflexes were trace to absent with flexor plantars. General: patient oriented x3, moves all extremities, CN's II-XI intact bilaterally and confusion Cranial nerves: Yes Equal, round and reactive pupils present Cognition (Neuro): normal cognition Extrem: Other: lower extremity edema Objective Data Active Medications Acetaminophen (Acetaminophen 325 Mg Tablet) 650 mg PO Q6H PRN PRN Reason: Pain, Mild (Pain Scale 1-3) Last Admin: 02/26/23 02:07 Dose: 650 mg Documented By: LESLIE Calcium Carbonate (Calcium Carbonate 750 Mg Tab.Chew) 750 mg PO Q6H PRN PRN Reason: Pain, Severe (Pain Scale 7-10) Last Admin: 02/25/23 02:25 Dose: 750 mg Documented By: JOHN Dextrose (Dextrose 50 % 25 Gm/50 Ml Syringe) 25 gm IVPUSH Q15M PRN; Protocol PRN Reason: per Hypoglycemia Standing Ord. Docusate Sodium (Docusate Sodium 100 Mg Capsule) 100 mg PO DAILY [facility] Last Admin: 02/25/23 10:30 Dose: 100 mg Documented By: MECHELLE Folic Acid (Folic Acid 1 Mg Tablet) 1 mg PO DAILY [facility] Last Admin: 02/25/23 10:30 Dose: 1 mg Documented By: MECHELLE Furosemide (Furosemide 40 Mg/4 Ml Vial) 40 mg IVPUSH DAILY [facility]; Protocol Last Admin: 02/23/23 08:48 Dose: 40 mg Documented By: FOGARTB Glucose (Glucose Gel 15 Gm Gel..Gram.) 15 gm PO Q15M PRN; Protocol PRN Reason: per Hypoglycemia Standing Ord. Heparin Sodium (Porcine) (Heparin Sodium,Porcine 5,000 Unit/Ml Vial) 5,000 unit SUBCUT Q12H [facility] Last Admin: 02/25/23 23:02 Dose: 5,000 unit Documented By: IAM Ceftriaxone Sodium 1 gm/ (Sodium Chloride) 50 mls @ 100 mls/hr IV Q24H [facility] Stop: 02/27/23 17:59 Last Infusion: 02/25/23 17:26 Dose: 0 mls/hr Documented By: MECHELLE Nystatin (Nystatin Powder 15 Gm Bottle) 1 appl TOPICAL BID [facility]; Protocol Last Admin: 02/25/23 20:52 Dose: 1 appl Documented By: CONG Ondansetron HCl (Ondansetron Hcl 4 Mg/2 Ml Vial) 4 mg IVPUSH Q8H PRN PRN Reason: Nausea and Vomiting Oxycodone HCl (Oxycodone Hcl Immed Release 5 Mg Tablet) 5 mg PO BID PRN PRN Reason: Pain, Severe (Pain Scale 7-10) Last Admin: 02/25/23 20:51 Dose: 5 mg Documented By: CONG Polyethylene Glycol (Polyethylene Glycol 3350 17 Gm Powd.Pack) 17 gm PO DAILY [facility] Last Admin: 02/25/23 10:30 Dose: 17 gm Documented By: RIOSCEL Sodium Chloride (0.9 % Sodium Chloride Flush 3 Ml Syringe) 3 ml IVFLUSH QSHIFT [facility] Last Admin: 02/26/23 00:17 Dose: 3 ml Documented By: LESLIE Labs 02/24/23 08:03 02/23/23 08:12 Labs: Laboratory Results - last 24 hr 02/25/23 02/25/23 02/25/23 11:22 15:55 20:25 POC Glucose 163 H 144 H 120 H 02/26/23 07:30 POC Glucose 95 Microbiology Microbiology Results: Microbiology 02/22/23 15:03 Gram Stain - Final Ascites Fluid Routine Culture - Final No growth after 2 days Anaerobic Culture - Preliminary No growth to date. Assessment and Plan (1) Cognitive impairment: Status: Acute Plan This is a 77-year-old female with past medical history of chronic back pain comes into the hospital with reported confusion found to have multiple complications Dementia Confusion initially thought to be encephalopathy but now appears to be likely dementia, memory seems to have been declining over the past several months seen by Neurology - probable moderate to severe degenerative dementia, likely Alzheimer's Cognitive eval by OT, scored 14 on [place] Re-evaluation by psych - DOES NOT have capacity to make medical decisions will require guardianship/placement low thiamine not likely cause of dementia declines IM thiamine, will give po Possible UTI urine culture growing 50-100 cfu characteristic of urogential contamination reported urinary symptoms on admission therefore completed antibiotic course Blood cultures negative to date TETO on CKD3 (per notes from [facility]) resolved with IVF. SCR down from 1.44 to 0.99 secondary to dehydration Ascites no history of liver cirrhosis BNP negative s/p therapeutic and diagnostic paracentesis- + Lights criteria for exudative effusion - cytology pending concerning for uterine vs ovarian malignancy uterine mass unintentional 30 lb weight loss concerning for malignancy transvaginal and pelvic ultrasound -subobtimal due to bowel gas and ascites cytology from paracentesis pending seen by TRIM MACHINE ADJUSTER, declined exam/endometrial biopsy - consider readdressing when guardian established chronic pain seems to be r/t arthritis based on prescriber/outpatient notes oxycodone only picked up once this year in September, will start to wean h/o diabetes based [place] [facility] [place] follow POCs, no SSI unless sugar becomes uncontrolled chronic wounds multiple wounds - stage 2/3/unstageable to buttock present on admission. discussed with wound care nurse - feels they are likely related to moisture rather then pressure given location and distribution so far declinging purewick - may need to consider siegel for skin integrity continue triad cream, repositioning as able and supplements DVT prophylaxis:? Heparin subQ Continue hospitalization: guardianship, safe disposition Time Spent With Patient Time: Total time managing care of this patient today ____ minutes. Quality Stroke Does the patient have a stroke diagnosis?: No VTE Prior VTE?: No VTE Risk Level:: Medical - moderate - high VTE Device Contraindication: Treatment Not Indicated VTE Drug Contraindication: N/A - Med Ordered
[2023-02-26] MEDS: Folic Acid 1 MG TABLET PO (08:47)
[2023-02-26] MEDS: polyethylene glycoL 3350 17 GM POWD.PACK PO (08:48)
[2023-02-26] MEDS: Docusate Sodium 100 MG CAPSULE PO (08:48)
[2023-02-26] MEDS: Nystatin Powder 15 GM BOTTLE 1 APPL TOPICAL ×2 (08:53→20:45)
[2023-02-26] MEDS: Heparin Sodium,Porcine 5,000 UNIT/ML VIAL 5000 UNIT SUBCUT ×2 (10:19→22:25)
[2023-02-26 11:11] LABS: Glucose, Whole Blood 195 mg/dL (60-115)
[2023-02-26 16:19] LABS: Glucose, Whole Blood 133 mg/dL (60-115)
--- NOTE | 2023-02-26 17:21 | PC.NURSE ---
At approximately 1630, patient reported 8/10 pain to her buttocks and requested PRN medication. Patient was offered PRN oxycodone. Patient requested 20mg and reported this is the normal dose she uses at home. T/w informed patient the ordered dose was 5mg PO and suggested trying this before further intervention. Patient became agitated and refused PRN medication stating I'm used to taking 20mg at home just fine, that won't even touch the pain. Just forget it . T/w also offered to assist with patient with changing position for comfort which patient refused.
[2023-02-26] MEDS: oxyCODONE HCl Immed Release 5 MG TABLET PO (18:42)
[2023-02-26 21:16] LABS: Glucose, Whole Blood 144 mg/dL (60-115)
[2023-02-27 02:48] VITALS: BP 125/76; PULSE 85; RESP 16; TEMP 36.7; O2SAT 94
[2023-02-27] MEDS: oxyCODONE HCl Immed Release 5 MG TABLET PO ×2 (03:46→21:16)
[2023-02-27 07:30] LABS: Glucose, Whole Blood 99 mg/dL (60-115)
[2023-02-27 07:50] VITALS: BP 130/62; PULSE 70; TEMP 36.3; O2SAT 95
[2023-02-27] MEDS: polyethylene glycoL 3350 17 GM POWD.PACK PO (09:00)
[2023-02-27] MEDS: 0.9 % Sodium Chloride Flush 3 ML SYRINGE IVFLUSH ×2 (09:01→20:39)
[2023-02-27] MEDS: Folic Acid 1 MG TABLET PO (09:01)
[2023-02-27] MEDS: Docusate Sodium 100 MG CAPSULE PO (09:01)
[2023-02-27] MEDS: Heparin Sodium,Porcine 5,000 UNIT/ML VIAL 5000 UNIT SUBCUT ×2 (11:19→23:04)
[2023-02-27 11:25] LABS: Glucose, Whole Blood 195 mg/dL (60-115)
--- NOTE | 2023-02-27 12:29 | P.CONWO_ITS ---
History of Present Illness Data of Consult Service Date: 02/27/23 Requesting physician: Mitali Orellana Primary Care Provider: Unknown Physician HPI Reason for consult: stage 2 bilateral buttocks [id number]: Seeing the patient in follow-up to nurse assessment by wound clinic last week. Tried utilized appropriately. Patient is a poor historian. I am told by the nurse here the guardianship is being pursued because patient is having cognitive challenges. She is known to have urinary incontinence. Review of Systems Review of Systems: Yes Unobtainable due to mental condition [facility] Medical History Chronic back pain Surgical History History of bilateral knee replacement Social History Household Members: None Housing: House Do you presently have visiting nurse or other home services: No Alcohol intake: never Patient Tobacco Use Status: Never used Tobacco Second Hand Smoke Exposure: No Meds Allergies Allergy/AdvReac Type Severity Reaction Status Date / Time No Known Allergies Allergy Verified 02/21/23 15:25 Active Medications: Current Medications Acetaminophen (Acetaminophen 325 Mg Tablet) 650 mg PO Q6H PRN PRN Reason: Pain, Mild (Pain Scale 1-3) Last Admin: 02/26/23 02:07 Dose: 650 mg Calcium Carbonate (Calcium Carbonate 750 Mg Tab.Chew) 750 mg PO Q6H PRN PRN Reason: Pain, Severe (Pain Scale 7-10) Last Admin: 02/25/23 02:25 Dose: 750 mg Dextrose (Dextrose 50 % 25 Gm/50 Ml Syringe) 25 gm IVPUSH Q15M PRN; Protocol PRN Reason: per Hypoglycemia Standing Ord. Docusate Sodium (Docusate Sodium 100 Mg Capsule) 100 mg PO DAILY [facility] Last Admin: 02/27/23 09:01 Dose: 100 mg Folic Acid (Folic Acid 1 Mg Tablet) 1 mg PO DAILY [facility] Last Admin: 02/27/23 09:01 Dose: 1 mg Glucose (Glucose Gel 15 Gm Gel..Gram.) 15 gm PO Q15M PRN; Protocol PRN Reason: per Hypoglycemia Standing Ord. Heparin Sodium (Porcine) (Heparin Sodium,Porcine 5,000 Unit/Ml Vial) 5,000 unit SUBCUT Q12H [facility] Last Admin: 02/27/23 11:19 Dose: 5,000 unit Nystatin (Nystatin Powder 15 Gm Bottle) 1 appl TOPICAL BID [facility]; Protocol Last Admin: 02/27/23 10:07 Dose: Not Given Ondansetron HCl (Ondansetron Hcl 4 Mg/2 Ml Vial) 4 mg IVPUSH Q8H PRN PRN Reason: Nausea and Vomiting Oxycodone HCl (Oxycodone Hcl Immed Release 5 Mg Tablet) 5 mg PO BID PRN PRN Reason: Pain, Severe (Pain Scale 7-10) Last Admin: 02/27/23 03:46 Dose: 5 mg Polyethylene Glycol (Polyethylene Glycol 3350 17 Gm Powd.Pack) 17 gm PO DAILY [facility] Last Admin: 02/27/23 09:00 Dose: 17 gm Sodium Chloride (0.9 % Sodium Chloride Flush 3 Ml Syringe) 3 ml IVFLUSH QSHIFT [facility] Last Admin: 02/27/23 09:01 Dose: 3 ml Home Medications Medication Instructions Recorded Confirmed Last Taken Type oxycodone 5 mg tablet 10 mg PO BID PRN pain 02/21/23 02/21/23 Unknown History Physical Exam Vital Signs and Narrative: Vital Signs: Last Vital Signs Temp 97.3 F 02/27/23 07:50 Pulse 70 02/27/23 07:50 Resp 16 02/27/23 02:48 BP 130/62 02/27/23 07:50 Pulse Ox 95 02/27/23 07:50 O2 Del Method Room Air 02/27/23 07:50 BMI result Body Mass Index 30.0 Transitions to left lateral position with assistance. Requires cues and repeti tion to achieve this skill. Examination of the bilateral buttocks yields mostly skin breakdown, friction and shear. There is no evidence of direct pressure injury by way of impaired blanching. There is an open area on the right buttock which is laden with slough. Imaging of the medial thigh also shows ulceration of unclear etiology but not over a bony prominence so less likely pressure. No Ferreira catheter to suggest device associated skin breakdown. Results Labs 02/24/23 08:03 02/23/23 08:12 Labs: Laboratory Results - last 24 hr 02/26/23 02/26/23 02/27/23 16:13 20:47 07:07 POC Glucose 133 H 144 H 99 02/27/23 11:00 POC Glucose 195 H Assessment and Plan (1) Dermatitis: Status: Acute Plan 77-year-old female with dermatitis from urinary continence of the bilateral but tocks, no convincing evidence of pressure injury. Continue with triad. Ensure that no device associated skin issue occurring in the thigh. Call us again if the triad seems to be causing an unusual amount of drainage. This is sometimes possible and may require change of topical approach if it contributes to maceration and skin break down. Time Spent With Patient Time: Total time managing care of this patient today ____ minutes.
--- NOTE | 2023-02-27 12:55 | MHC.CM.PN ---
EMR REVIEWED AND PER MD ROUNDS, PT IS AWAITING GUARDIANSHIP PROCESS AND LTC PLACEMENT, CM WILL CONTINUE TO FOLLOW FOR DC NEEDS.
[2023-02-27 14:00] VITALS: BP 121/65; PULSE 86; RESP 18; TEMP 36.1; O2SAT 95
--- NOTE | 2023-02-27 16:10 | MHC.CLN ---
F/U CONSULT 02/26 FOR PRESSURE INJURIES. 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 INTAKE VARIABLE, 50-100%. DIET=2 GRAM SODIUM WITH ENSURE BID. SUPPLEMENT PROVIDES 700 KCALS, 40 G PROTEIN. SUPPLEMENT APPROPRIATE TO PROMOTE SKIN INTEGRITY. FOLLOW FOR INTAKE AND WOUND HEALING.
--- NOTE | 2023-02-27 16:17 | HO.WOUND ---
Wound Care Consult Reason for consult: Multiple pressure sores Patient was in bed at the time of consult. Wounds were open to air. She has multiple open areas on left and right buttocks close to the perianal area, as well as her left inner thigh. Patient is said to be incontinent of urine and stool. Wound areas range from partial thickness to full thickness. Wound bed appearances also varied from all pink to some pink and slough to having all slough covered. Scant amount of drainage on the chux bed. No undermining or tunneling to any of the wounds. No odor. Surrounding skin was intact. No reddness or blanching. Area cleansed with sea clense wound cleanser. Triad cream applied to the whole area. Recommendations: Due to the area of the wounds and the difficulty of keeping dressings on in this area, the best treatment for now would be the triad cream. Given its protective properties as well as its autolytic debridement properties, this would help this area. Would apply this cream daily and PRN. This cream has the potential to increase drainage. If this becomes a concern or there are any other changes with the wounds, please feel free and reconsult wound care.
[2023-02-27 16:22] LABS: Glucose, Whole Blood 99 mg/dL (60-115)
--- NOTE | 2023-02-27 16:37 | HO.PM.IMPN ---
Subjective Subjective Date of Service: 02/27/23 Interval History: Follow-up for patient with UTI, uterine mass, dementia Patient seen and examined this morning at bedside No acute issues overnight per nursing Patient denies any acute medical complaints Review of Systems Limited due to patient's mentation Patient denies any acute medical complaints Physical Exam Vital Signs: Vital Signs: Last Vital Signs Temp 97.0 F 02/27/23 14:00 Pulse 86 02/27/23 14:00 Resp 18 02/27/23 14:00 BP 121/65 02/27/23 14:00 Pulse Ox 95 02/27/23 14:00 O2 Del Method Room Air 02/27/23 14:00 BMI result Body Mass Index 30.0 General: Pleasantly confused, no acute distress Resp: CTA bilaterally CVS: S1, S2, RRR GI: +BS, NT, mild distension Skin: Patient with diffuse bruising on upper extremities bilaterally, bruising around left eye Neuro: Cranial nerves II-XII grossly intact bilaterally. Motor grossly intact bilaterally Extremities: 1+ pitting edema in right lower extremity, 2+ pitting edema in left lower extremity Psych: Pleasantly confused Objective Data Active Medications Acetaminophen (Acetaminophen 325 Mg Tablet) 650 mg PO Q6H PRN PRN Reason: Pain, Mild (Pain Scale 1-3) Last Admin: 02/26/23 02:07 Dose: 650 mg Documented By: LESLIE Calcium Carbonate (Calcium Carbonate 750 Mg Tab.Chew) 750 mg PO Q6H PRN PRN Reason: Pain, Severe (Pain Scale 7-10) Last Admin: 02/25/23 02:25 Dose: 750 mg Documented By: JOHN Dextrose (Dextrose 50 % 25 Gm/50 Ml Syringe) 25 gm IVPUSH Q15M PRN; Protocol PRN Reason: per Hypoglycemia Standing Ord. Docusate Sodium (Docusate Sodium 100 Mg Capsule) 100 mg PO DAILY [facility] Last Admin: 02/27/23 09:01 Dose: 100 mg Documented By: TANESHA Folic Acid (Folic Acid 1 Mg Tablet) 1 mg PO DAILY [facility] Last Admin: 02/27/23 09:01 Dose: 1 mg Documented By: TANESHA Glucose (Glucose Gel 15 Gm Gel..Gram.) 15 gm PO Q15M PRN; Protocol PRN Reason: per Hypoglycemia Standing Ord. Heparin Sodium (Porcine) (Heparin Sodium,Porcine 5,000 Unit/Ml Vial) 5,000 unit SUBCUT Q12H [facility] Last Admin: 02/27/23 11:19 Dose: 5,000 unit Documented By: TANESHA Nystatin (Nystatin Powder 15 Gm Bottle) 1 appl TOPICAL BID [facility]; Protocol Last Admin: 02/27/23 10:07 Dose: Not Given Documented By: TANESHA Non-Admin Reason: Patient Refused Ondansetron HCl (Ondansetron Hcl 4 Mg/2 Ml Vial) 4 mg IVPUSH Q8H PRN PRN Reason: Nausea and Vomiting Oxycodone HCl (Oxycodone Hcl Immed Release 5 Mg Tablet) 5 mg PO BID PRN PRN Reason: Pain, Severe (Pain Scale 7-10) Last Admin: 02/27/23 03:46 Dose: 5 mg Documented By: DAVE Polyethylene Glycol (Polyethylene Glycol 3350 17 Gm Powd.Pack) 17 gm PO DAILY [facility] Last Admin: 02/27/23 09:00 Dose: 17 gm Documented By: TANESHA Sodium Chloride (0.9 % Sodium Chloride Flush 3 Ml Syringe) 3 ml IVFLUSH QSHIFT [facility] Last Admin: 02/27/23 09:01 Dose: 3 ml Documented By: TANESHA Labs 02/24/23 08:03 02/23/23 08:12 Labs: Laboratory Results - last 24 hr 02/26/23 02/27/23 02/27/23 20:47 07:07 11:00 POC Glucose 144 H 99 195 H 02/27/23 16:13 POC Glucose 99 Microbiology Microbiology Results: Microbiology 02/22/23 15:03 Gram Stain - Final Ascites Fluid Routine Culture - Final No growth after 2 days Anaerobic Culture - Final NO GROWTH AFTER 5 DAYS 02/21/23 18:39 Blood Culture - Final Blood - Venous No growth after 5 days. 02/21/23 18:39 Blood Culture - Final Blood - Venous No growth after 5 days. Assessment and Plan (1) Cognitive impairment: Status: Acute (2) Lower extremity edema: Status: Acute (3) Ascites: Status: Acute (4) Urinary tract infection: Status: Acute (5) Uterine mass: Status: Acute Plan This is a 77-year-old female with past medical history of chronic back pain comes into the hospital with reported confusion found to have multiple complications Dementia, unspecified Confusion initially thought to be encephalopathy but now appears to be likely dementia, memory seems to have been declining over the past several months Seen by Neurology - probable moderate to severe degenerative dementia, likely Alzheimer's Cognitive eval by OT, scored 14 on [place] Re-evaluation by psych - DOES NOT have capacity to make medical decisions Will require guardianship/placement Low thiamine Not likely cause of dementia Declines IM thiamine, will give po Possible UTI Urine culture growing 50-100 cfu characteristic of urogential contamination Reported urinary symptoms on admission therefore completed antibiotic course Blood cultures negative to date TETO on CKD3 (per notes from [facility]) Resolved with IVF. 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 discussed with wound care nurse - feels they are likely related to moisture rather then pressure given location and distribution So far declinging purewick - may need to consider siegel for skin integrity Continue triad cream, repositioning as able and supplements DVT prophylaxis:? Heparin subQ ? Continue hospitalization:? guardianship, safe disposition Time Spent With Patient Time: Total time managing care of this patient today ____ minutes. Quality Stroke Does the patient have a stroke diagnosis?: No VTE Prior VTE?: No VTE Risk Level:: Medical - moderate - high VTE Device Contraindication: Treatment Not Indicated VTE Drug Contraindication: N/A - Med Ordered
[2023-02-27 19:30] VITALS: BP 139/85; PULSE 79; RESP 16; TEMP 36.7; O2SAT 96
[2023-02-27] MEDS: Nystatin Powder 15 GM BOTTLE 1 APPL TOPICAL (20:39)
[2023-02-27 21:09] LABS: Glucose, Whole Blood 134 mg/dL (60-115)
[2023-02-27] MEDS: Acetaminophen 325 MG TABLET 650 MG PO (21:15)
[2023-02-27 22:32] VITALS: RESP 18
[2023-02-28 05:31] VITALS: BP 120/68; PULSE 70; RESP 16; TEMP 36; O2SAT 96
[2023-02-28 06:00] VITALS: BMI 31.0
[2023-02-28 07:32] VITALS: BP 125/65; PULSE 78; RESP 18; TEMP 36.1; O2SAT 96
[2023-02-28 07:44] LABS: Glucose, Whole Blood 100 mg/dL (60-115)
[2023-02-28] MEDS: polyethylene glycoL 3350 17 GM POWD.PACK PO (09:00)
[2023-02-28] MEDS: Multivitamin TABLET 1 TAB PO (09:00)
[2023-02-28] MEDS: Docusate Sodium 100 MG CAPSULE PO (09:00)
[2023-02-28] MEDS: Folic Acid 1 MG TABLET PO (09:00)
[2023-02-28] MEDS: Memantine HCl 5 MG TABLET PO ×2 (09:00→21:22)
[2023-02-28] MEDS: Thiamine HCL 100 MG TABLET PO (09:00)
[2023-02-28] MEDS: Sertraline HCL 25 MG TABLET PO (09:00)
[2023-02-28] MEDS: 0.9 % Sodium Chloride Flush 3 ML SYRINGE IVFLUSH ×2 (09:01→17:05)
[2023-02-28] MEDS: Nystatin Powder 15 GM BOTTLE 1 APPL TOPICAL ×2 (09:05→21:22)
[2023-02-28 09:18] LABS: Hematocrit 33.9 % (37.0-47.0); Hemoglobin 10.4 g/dl (12.0-16.0); Mean Corpuscular HGB Conc 30.7 g/dl (31.0-35.0); Mean Corpuscular Hemoglobin 26.6 pg (27.0-33.0); Mean Corpuscular Volume 86.7 fL (80.0-98.0); Mean Platelet Volume 10.3 fL (9.4-12.3); Platelet Count 225 X10*3/uL (160-400); Red Blood Count 3.91 X10*6/uL (4.20-5.50); Red Cell Distribution Width 13.6 % (11.0-16.0); White Blood Count 14.9 X10*3/uL (4.8-10.8)
[2023-02-28 09:32] LABS: Anion Gap 16 (12-20); Blood Urea Nitrogen 21 mg/dL (9-16); Calcium 8.5 mg/dL (8.4-10.2); Carbon Dioxide 22 mmol/L (22-29); Chloride 105 mmol/L (96-108); Creatinine Clr Calc Pharmacy 82.2; Estimated Glomerular Filt Rate > 60; Glucose Random 123 mg/dL (60-115); Potassium 4.5 mmol/L (3.3-5.1); Sodium 138 mmol/L (135-145)
[2023-02-28 09:55] LABS: HIV AB/AG Nonreactive (Nonreactive); HIV Num 1 0.06 S/CO (0.00-0.99)
[2023-02-28 11:01] VITALS: BP 125/65; PULSE 78; O2SAT 96
[2023-02-28] MEDS: Heparin Sodium,Porcine 5,000 UNIT/ML VIAL 5000 UNIT SUBCUT (11:32)
[2023-02-28] MEDS: oxyCODONE HCl Immed Release 5 MG TABLET PO ×2 (11:36→21:26)
--- NOTE | 2023-02-28 14:52 | P.PNIM_ITS ---
Subjective Subjective Date of Service: 02/28/23 Interval History: inconsistent historian- denies and endorses abd discomfort declines further workup of suspected pelvic malignancy Review of Systems Review of Systems: Yes Unobtainable due to mental status Physical Exam Vital Signs: Vital Signs: Last Vital Signs Temp 96.9 F 02/28/23 07:32 Pulse 78 02/28/23 11:01 Resp 18 02/28/23 07:32 BP 125/65 02/28/23 11:01 Pulse Ox 96 02/28/23 11:01 O2 Del Method Room Air 02/28/23 07:32 BMI result Body Mass Index 31.0 Gen: in no acute distress HEENT: sclera anicteric, moist mucus membranes Neck: supple Lungs: clear to auscultation bilaterally Heart: regular rate and rhythm, no murmurs Abd: soft, non-tender, non-distended Ext: BLE 1+ pitting edema Skin: warm/well-perfused Neuro: alert and oriented to self, no motor deficit Psych: impaired insight Objective Data Active Medications Acetaminophen (Acetaminophen 325 Mg Tablet) 650 mg PO Q6H PRN PRN Reason: Pain, Mild (Pain Scale 1-3) Last Admin: 02/27/23 21:15 Dose: 650 mg Documented By: LUIS Calcium Carbonate (Calcium Carbonate 750 Mg Tab.Chew) 750 mg PO Q6H PRN PRN Reason: Pain, Severe (Pain Scale 7-10) Last Admin: 02/25/23 02:25 Dose: 750 mg Documented By: JOHN Docusate Sodium (Docusate Sodium 100 Mg Capsule) 100 mg PO DAILY [facility] Last Admin: 02/28/23 09:00 Dose: 100 mg Documented By: KRISSY Folic Acid (Folic Acid 1 Mg Tablet) 1 mg PO DAILY [facility] Last Admin: 02/28/23 09:00 Dose: 1 mg Documented By: KRISSY Heparin Sodium (Porcine) (Heparin Sodium,Porcine 5,000 Unit/Ml Vial) 5,000 unit SUBCUT Q12H [facility] Last Admin: 02/28/23 11:32 Dose: 5,000 unit Documented By: KRISSY Memantine (Memantine Hcl 5 Mg Tablet) 5 mg PO BID [facility] Last Admin: 02/28/23 09:00 Dose: 5 mg Documented By: KRISSY Multivitamins/Vitamin C (Multivitamin Tablet) 1 tab PO DAILY [facility] Last Admin: 02/28/23 09:00 Dose: 1 tab Documented By: KRISSY Nystatin (Nystatin Powder 15 Gm Bottle) 1 appl TOPICAL BID [facility]; Protocol Last Admin: 02/28/23 09:05 Dose: 1 appl Documented By: KRISSY Ondansetron HCl (Ondansetron Hcl 4 Mg/2 Ml Vial) 4 mg IVPUSH Q8H PRN PRN Reason: Nausea and Vomiting Oxycodone HCl (Oxycodone Hcl Immed Release 5 Mg Tablet) 5 mg PO BID PRN PRN Reason: Pain, Severe (Pain Scale 7-10) Last Admin: 02/28/23 11:36 Dose: 5 mg Documented By: KRISSY Polyethylene Glycol (Polyethylene Glycol 3350 17 Gm Powd.Pack) 17 gm PO DAILY [facility] Last Admin: 02/28/23 09:00 Dose: 17 gm Documented By: KRISSY Sertraline HCl (Sertraline Hcl 25 Mg Tablet) 25 mg PO DAILY [facility] Last Admin: 02/28/23 09:00 Dose: 25 mg Documented By: KRISSY Sodium Chloride (0.9 % Sodium Chloride Flush 3 Ml Syringe) [address] [facility] [facility] Last Admin: 02/28/23 09:01 Dose: 3 ml Documented By: KRISSY Thiamine HCl (Thiamine Hcl 100 Mg Tablet) 100 mg PO DAILY [facility] Last Admin: 02/28/23 09:00 Dose: 100 mg Documented By: KRISSY Labs 02/28/23 09:03 02/28/23 09:03 Labs: Laboratory Results - last 24 hr 02/27/23 02/27/23 02/28/23 16:13 19:44 07:35 MCV MCH MCHC RDW Plt Count MPV Absolute Nucleated RBC Nucleated RBC % (auto) Anion Gap Estim Creat Clear Calc Estimated GFR POC Glucose 99 134 H 100 Random Glucose Calcium HIV 1&2 Ab/P24 Ag 4thGn 02/28/23 02/28/23 02/28/23 09:03 09:03 09:03 MCV 86.7 MCH 26.6 L MCHC 30.7 L RDW 13.6 Plt Count 225 MPV 10.3 Absolute Nucleated RBC 0.000 Nucleated RBC % (auto) 0.0 Anion Gap 16 Estim Creat Clear Calc 82.2 Estimated GFR > 60 POC Glucose Random Glucose 123 H Calcium 8.5 D HIV 1&2 Ab/P24 Ag 4thGn Nonreactive Assessment and Plan (1) Cognitive impairment: Status: Acute (2) Lower extremity edema: Status: Acute (3) Ascites: Status: Acute (4) Urinary tract infection: Status: Acute (5) Uterine mass: Status: Acute Plan d8 77yo F with chronic back pain, presenting with confusion, likely Alzheimer's dementia dementia, unspecified - confusion initially thought to be encephalopathy, but now appears to be likely dementia; memory seems to have been declining over the past several months - seen by Neurology: probable moderate to severe degenerative dementia, likely Alzheimer's; start sertraline + memantine - MOCA per OT: scored 14 - seen by Psychiatry: does not have capacity to make medical decisions - will require guardianship/placement folate deficiency [not thiamine defiency as per prior progress notes though will send level and treat empirically PO] - PO replacement possible UTI - completed antibiotic course, UCx contaminated, BCx negative TETO/CKD3 - resolved with IV fluid hydration ascites - s/p paracentesis 02/22/23 - 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 Quality Stroke Does the patient have a stroke diagnosis?: No VTE Prior VTE?: No VTE Risk Level:: Medical - moderate - high VTE Device Contraindication: Treatment Not Indicated VTE Drug Contraindication: N/A - Med Ordered
[2023-02-28 15:26] VITALS: BP 125/70; PULSE 95; RESP 18; TEMP 36.7; O2SAT 96
[2023-02-28 19:35] VITALS: BP 118/57; PULSE 87; RESP 17; TEMP 36.7; O2SAT 95
[2023-02-28 23:32] VITALS: BP 130/63; PULSE 96; RESP 18; TEMP 36.6; O2SAT 95
[2023-03-01] MEDS: 0.9 % Sodium Chloride Flush 3 ML SYRINGE IVFLUSH ×4 (00:22→21:46)
[2023-03-01] MEDS: Heparin Sodium,Porcine 5,000 UNIT/ML VIAL 5000 UNIT SUBCUT (00:22)
[2023-03-01 05:31] VITALS: BMI 30.3
[2023-03-01 07:32] VITALS: BP 127/62; PULSE 78; RESP 18; TEMP 36.2; O2SAT 94
[2023-03-01] MEDS: Docusate Sodium 100 MG CAPSULE PO (09:04)
[2023-03-01] MEDS: Sertraline HCL 25 MG TABLET PO (09:04)
[2023-03-01] MEDS: Multivitamin TABLET 1 TAB PO (09:04)
[2023-03-01] MEDS: Thiamine HCL 100 MG TABLET PO (09:05)
[2023-03-01] MEDS: Folic Acid 1 MG TABLET PO (09:05)
[2023-03-01] MEDS: Memantine HCl 5 MG TABLET PO ×2 (09:05→21:45)
[2023-03-01] MEDS: Nystatin Powder 15 GM BOTTLE 1 APPL TOPICAL (09:05)
--- NOTE | 2023-03-01 10:11 | MHC.CLN ---
F/U DIET=2 GRAM SODIUM. ENSURE BID PROVIDES 700 KCALS, 40 G PROTEIN. STAGE II TO COCCYX, STAGE II TO BUTTOCK. DIET ORDER AND SUPPLEMENT APPROPRIATE. SUPPLEMENT TO PROMOTE WOUND HEALING. INTAKE USUALLY 50-100%. WEIGHT FLUCTUATION ANTICIPATED WITH ASCITES/PARACENTESIS. FOLLOW FOR INTAKE AND WOUND HEALING.
--- NOTE | 2023-03-01 11:44 | HO.PM.IMPN ---
Subjective Subjective Date of Service: 03/01/23 Interval History: no new complaints denies pain Review of Systems Review of Systems: Yes all other systems are reviewed and are negative Physical Exam Vital Signs: Vital Signs: Last Vital Signs Temp 97.1 F 03/01/23 07:32 Pulse 78 03/01/23 07:32 Resp 18 03/01/23 07:32 BP 127/62 03/01/23 07:32 Pulse Ox 94 03/01/23 07:32 O2 Del Method Room Air 03/01/23 07:32 BMI result Body Mass Index 30.3 Gen: in no acute distress HEENT: sclera anicteric, moist mucus membranes Neck: supple Lungs: clear to auscultation bilaterally Heart: regular rate and rhythm, no murmurs Abd: soft, non-tender, non-distended Ext: BLE 1+ pitting edema Skin: warm/well-perfused Neuro: alert and oriented to self, no motor deficit Psych: impaired insight Objective Data Active Medications Acetaminophen (Acetaminophen 325 Mg Tablet) 650 mg PO Q6H PRN PRN Reason: Pain, Mild (Pain Scale 1-3) Last Admin: 02/27/23 21:15 Dose: 650 mg Documented By: LUIS Calcium Carbonate (Calcium Carbonate 750 Mg Tab.Chew) 750 mg PO Q6H PRN PRN Reason: Pain, Severe (Pain Scale 7-10) Last Admin: 02/25/23 02:25 Dose: 750 mg Documented By: JOHN Docusate Sodium (Docusate Sodium 100 Mg Capsule) 100 mg PO DAILY [facility] Last Admin: 03/01/23 09:04 Dose: 100 mg Documented By: AUDREY Folic Acid (Folic Acid 1 Mg Tablet) 1 mg PO DAILY [facility] Last Admin: 03/01/23 09:05 Dose: 1 mg Documented By: AUDREY Heparin Sodium (Porcine) (Heparin Sodium,Porcine 5,000 Unit/Ml Vial) 5,000 unit SUBCUT Q12H [facility] Last Admin: 03/01/23 00:22 Dose: 5,000 unit Documented By: ANTOIC Memantine (Memantine Hcl 5 Mg Tablet) 5 mg PO BID [facility] Last Admin: 03/01/23 09:05 Dose: 5 mg Documented By: AUDREY Multivitamins/Vitamin C (Multivitamin Tablet) 1 tab PO DAILY [facility] Last Admin: 03/01/23 09:04 Dose: 1 tab Documented By: AUDREY Nystatin (Nystatin Powder 15 Gm Bottle) 1 appl TOPICAL BID [facility]; Protocol Last Admin: 03/01/23 09:05 Dose: 1 appl Documented By: AUDREY Ondansetron HCl (Ondansetron Hcl 4 Mg/2 Ml Vial) 4 mg IVPUSH Q8H PRN PRN Reason: Nausea and Vomiting Oxycodone HCl (Oxycodone Hcl Immed Release 5 Mg Tablet) 5 mg PO BID PRN PRN Reason: Pain, Severe (Pain Scale 7-10) Last Admin: 02/28/23 21:26 Dose: 5 mg Documented By: SANDRA Polyethylene Glycol (Polyethylene Glycol 3350 17 Gm Powd.Pack) 17 gm PO DAILY [facility] Last Admin: 03/01/23 09:09 Dose: Not Given Documented By: AUDREY Non-Admin Reason: Patient Refused Sertraline HCl (Sertraline Hcl 25 Mg Tablet) 25 mg PO DAILY [facility] Last Admin: 03/01/23 09:04 Dose: 25 mg Documented By: AUDREY Sodium Chloride (0.9 % Sodium Chloride Flush 3 Ml Syringe) 3 ml IVFLUSH QSHIFT [facility] Last Admin: 03/01/23 09:05 Dose: 3 ml Documented By: AUDREY Thiamine HCl (Thiamine Hcl 100 Mg Tablet) 100 mg PO DAILY [facility] Last Admin: 03/01/23 09:05 Dose: 100 mg Documented By: AUDREY Labs 02/28/23 09:03 02/28/23 09:03 Microbiology Microbiology Results: Microbiology 02/22/23 15:03 Direct Acid Fast Bacilli Smear - Final Ascites Fluid Assessment and Plan (1) Cognitive impairment: Status: Acute (2) Lower extremity edema: Status: Acute (3) Ascites: Status: Acute (4) Urinary tract infection: Status: Acute (5) Uterine mass: Status: Acute Plan d9 77yo F with chronic back pain, presenting with confusion, likely Alzheimer's dementia dementia, unspecified - confusion initially thought to be encephalopathy, but now appears to be likely dementia; memory seems to have been declining over the past several months - MOCA per OT: scored 14 - seen by Neurology: probable moderate to severe degenerative dementia, likely Alzheimer's; started sertraline + memantine - seen by Psychiatry: does not have capacity to make medical decisions, will require guardianship/placement folate deficiency [not thiamine defiency as per prior progress notes though will send thiamine level and treat empirically PO] - PO replacement possible UTI - completed antibiotic course, UCx contaminated, BCx negative TETO/CKD3 - resolved with IV fluid hydration malignant ascites uterine mass unintentional 30-lb weight loss - s/p paracentesis 02/22/23 - adenocarcinoma, immunostains pending - CA-125 pending - seen by Tier In; declined pelvic exam + endometrial biopsy; readdress after guardianship lower extremity edema - suspect due to uterine mass but will r/o DVT with doppler US chronic pain - prn oxycodone hx DM2 - A1c only 6, no SSI dermatitis from urinary incontinence - Triad cream, repositioning VTE ppx - LMWH dispo - pending guardianship Time Spent With Patient Time: Total time managing care of this patient today __35__ minutes. Quality Stroke Does the patient have a stroke diagnosis?: No VTE Prior VTE?: No VTE Risk Level:: Medical - moderate - high VTE Device Contraindication: Treatment Not Indicated VTE Drug Contraindication: N/A - Med Ordered
[2023-03-01 12:04] LABS: CA-125 299 U/mL (<35)
[2023-03-01] MEDS: Enoxaparin Sodium 40 MG/0.4 ML SYRINGE SUBCUT (13:12)
--- NOTE | 2023-03-01 15:23 | MHC.CM.PN ---
EMR REVIEWED, PT IS AWAITING GUARDIANSHIP/CAST ORDER IN ORDER TO PLACE FOR LTC. CM WILL CONTINUE TO FOLLOW FOR DC PLAN/NEEDS.
[2023-03-01 16:13] VITALS: BP 113/71; PULSE 79; RESP 18; TEMP 36.2; O2SAT 95
[2023-03-01 21:30] VITALS: BP 142/75; PULSE 71; RESP 16; TEMP 36.1; O2SAT 94
[2023-03-01] MEDS: risperiDONE 0.5 MG TABLET PO (21:46)
[2023-03-01] MEDS: Acetaminophen 325 MG TABLET 650 MG PO (21:46)
[2023-03-02] VITALS: BP 119/62; PULSE 87; RESP 18; TEMP 36.1; O2SAT 95
[2023-03-02] MEDS: oxyCODONE HCl Immed Release 5 MG TABLET PO ×2 (02:50→16:30)
[2023-03-02 07:35] VITALS: BP 126/67; PULSE 79; RESP 16; TEMP 36.7; O2SAT 93
[2023-03-02 08:00] VITALS: BP 126/76; PULSE 79; RESP 16; TEMP 36.7; O2SAT 93
[2023-03-02] MEDS: Folic Acid 1 MG TABLET PO (08:56)
[2023-03-02] MEDS: Sertraline HCL 25 MG TABLET PO (08:56)
[2023-03-02] MEDS: Nystatin Powder 15 GM BOTTLE 1 APPL TOPICAL ×2 (08:56→20:50)
[2023-03-02] MEDS: Thiamine HCL 100 MG TABLET PO (08:56)
[2023-03-02] MEDS: Multivitamin TABLET 1 TAB PO (08:56)
[2023-03-02] MEDS: Docusate Sodium 100 MG CAPSULE PO (08:56)
[2023-03-02] MEDS: risperiDONE 0.5 MG TABLET PO ×2 (08:56→20:49)
[2023-03-02] MEDS: Memantine HCl 5 MG TABLET PO ×2 (08:56→20:49)
[2023-03-02] MEDS: polyethylene glycoL 3350 17 GM POWD.PACK PO (08:57)
[2023-03-02] MEDS: 0.9 % Sodium Chloride Flush 3 ML SYRINGE IVFLUSH ×2 (08:57→16:31)
--- NOTE | 2023-03-02 12:05 | HO.PM.IMPN ---
Subjective Subjective Date of Service: 03/02/23 Interval History: denies abd or pelvic pain denies edema though it is clearly present does not want pelvic exam or any kind of invasive workup Review of Systems Review of Systems: Yes all other systems are reviewed and are negative Physical Exam Vital Signs: Vital Signs: Last Vital Signs Temp 98.1 F 03/02/23 08:00 Pulse 79 03/02/23 08:00 Resp 16 03/02/23 08:00 BP 126/76 03/02/23 08:00 Pulse Ox 93 03/02/23 08:00 O2 Del Method Room Air 03/02/23 08:00 BMI result Body Mass Index 30.0 Gen: in no acute distress HEENT: sclera anicteric, moist mucus membranes Neck: supple Lungs: clear to auscultation bilaterally Heart: regular rate and rhythm, no murmurs Abd: soft, non-tender, non-distended Ext: BLE 1+ pitting edema Skin: warm/well-perfused Neuro: alert and oriented to self, no motor deficit Psych: impaired insight Objective Data Active Medications Acetaminophen (Acetaminophen 325 Mg Tablet) 650 mg PO Q6H PRN PRN Reason: Pain, Mild (Pain Scale 1-3) Last Admin: 03/01/23 21:46 Dose: 650 mg Documented By: NATHANIEL Calcium Carbonate (Calcium Carbonate 750 Mg Tab.Chew) 750 mg PO Q6H PRN PRN Reason: Pain, Severe (Pain Scale 7-10) Last Admin: 02/25/23 02:25 Dose: 750 mg Documented By: JOHN Docusate Sodium (Docusate Sodium 100 Mg Capsule) 100 mg PO DAILY [facility] Last Admin: 03/02/23 08:56 Dose: 100 mg Documented By: AUDREY Enoxaparin Sodium (Enoxaparin Sodium 40 Mg/0.4 Ml Syringe) 40 mg SUBCUT Q24H [facility] Last Admin: 03/01/23 13:12 Dose: 40 mg Documented By: AUDREY Folic Acid (Folic Acid 1 Mg Tablet) 1 mg PO DAILY [facility] Last Admin: 03/02/23 08:56 Dose: 1 mg Documented By: AUDREY Memantine (Memantine Hcl 5 Mg Tablet) 5 mg PO BID [facility] Last Admin: 03/02/23 08:56 Dose: 5 mg Documented By: AUDREY Multivitamins/Vitamin C (Multivitamin Tablet) 1 tab PO DAILY [facility] Last Admin: 03/02/23 08:56 Dose: 1 tab Documented By: AUDREY Nystatin (Nystatin Powder 15 Gm Bottle) 1 appl TOPICAL BID [facility]; Protocol Last Admin: 03/02/23 08:56 Dose: 1 appl Documented By: AUDREY Ondansetron HCl (Ondansetron Hcl 4 Mg/2 Ml Vial) 4 mg IVPUSH Q8H PRN PRN Reason: Nausea and Vomiting Oxycodone HCl (Oxycodone Hcl Immed Release 5 Mg Tablet) 5 mg PO BID PRN PRN Reason: Pain, Severe (Pain Scale 7-10) Last Admin: 03/02/23 02:50 Dose: 5 mg Documented By: NATHANIEL Polyethylene Glycol (Polyethylene Glycol 3350 17 Gm Powd.Pack) 17 gm PO DAILY [facility] Last Admin: 03/02/23 08:57 Dose: 17 gm Documented By: AUDREY Risperidone (Risperidone 0.5 Mg Tablet) 0.5 mg PO BID [facility] Last Admin: 03/02/23 08:56 Dose: 0.5 mg Documented By: AUDREY Sertraline HCl (Sertraline Hcl 25 Mg Tablet) 25 mg PO DAILY [facility] Last Admin: 03/02/23 08:56 Dose: 25 mg Documented By: AUDREY Sodium Chloride (0.9 % Sodium Chloride Flush 3 Ml Syringe) 3 ml IVFLUSH QSHIFT [facility] Last Admin: 03/02/23 08:57 Dose: 3 ml Documented By: AUDREY Thiamine HCl (Thiamine Hcl 100 Mg Tablet) 100 mg PO DAILY [facility] Last Admin: 03/02/23 08:56 Dose: 100 mg Documented By: AUDREY Labs 02/28/23 09:03 02/28/23 09:03 Assessment and Plan (1) Cognitive impairment: Status: Acute (2) Lower extremity edema: Status: Acute (3) Ascites: Status: Acute (4) Urinary tract infection: Status: Acute (5) Uterine mass: Status: Acute Plan d10 77yo F with chronic back pain, presenting with confusion, likely Alzheimer's dementia dementia, unspecified - confusion initially thought to be encephalopathy, but now appears to be likely dementia; memory seems to have been declining over the past several months - MOCA per OT: scored 14 - seen by Neurology: probable moderate to severe degenerative dementia, likely Alzheimer's; started sertraline + memantine - seen by Psychiatry: does not have capacity to make medical decisions, will require guardianship/placement folate deficiency [not thiamine defiency as per prior progress notes though will send thiamine level and treat empirically PO] - PO replacement possible UTI - completed antibiotic course, UCx contaminated, BCx negative TETO/CKD3 - resolved with IV fluid hydration malignant ascites uterine mass unintentional 30-lb weight loss - s/p paracentesis 02/22/23 - adenocarcinoma, immunostains pending - CA-125 elevated to 299 - seen by Mountain Bike Guide; declined pelvic exam + endometrial biopsy; readdress after guardianship lower extremity edema - suspect due to uterine mass but will r/o DVT with doppler US chronic pain - prn oxycodone hx DM2 - A1c only 6, no SSI dermatitis from urinary incontinence - Triad cream, repositioning VTE ppx - LMWH dispo - pending guardianship Time Spent With Patient Time: Total time managing care of this patient today ___35_ minutes. Quality Stroke Does the patient have a stroke diagnosis?: No VTE Prior VTE?: No VTE Risk Level:: Medical - moderate - high VTE Device Contraindication: Treatment Not Indicated VTE Drug Contraindication: N/A - Med Ordered
[2023-03-02] MEDS: Enoxaparin Sodium 40 MG/0.4 ML SYRINGE SUBCUT (13:11)
--- NOTE | 2023-03-02 13:26 | MHC.CM.PN ---
PT AWAITING LTC PLACEMENT CM RECEIVED A CALL FROM MINDY AT [facility] UPDATE PROVIDED
[2023-03-02 15:02] VITALS: BP 110/64; PULSE 85; RESP 18; TEMP 36.5; O2SAT 95
[2023-03-02 19:54] VITALS: BP 103/55; PULSE 92; RESP 16; TEMP 36.3; O2SAT 97
[2023-03-02] MEDS: Acetaminophen 325 MG TABLET 650 MG PO ×2 (20:44→20:48)
[2023-03-03] VITALS: BP 127/76; PULSE 76; RESP 18; TEMP 36.6; O2SAT 99
[2023-03-03 06:00] VITALS: BMI 30.2
[2023-03-03 07:19] VITALS: BP 120/60; PULSE 86; RESP 20; TEMP 36.4; O2SAT 94
[2023-03-03] MEDS: risperiDONE 0.5 MG TABLET PO ×2 (08:51→22:45)
[2023-03-03] MEDS: Folic Acid 1 MG TABLET PO (08:51)
[2023-03-03] MEDS: Sertraline HCL 25 MG TABLET PO (08:51)
[2023-03-03] MEDS: 0.9 % Sodium Chloride Flush 3 ML SYRINGE IVFLUSH ×3 (08:51→22:45)
[2023-03-03] MEDS: Memantine HCl 5 MG TABLET PO ×2 (08:51→22:45)
[2023-03-03] MEDS: Multivitamin TABLET 1 TAB PO (08:51)
[2023-03-03] MEDS: Docusate Sodium 100 MG CAPSULE PO (08:51)
[2023-03-03] MEDS: polyethylene glycoL 3350 17 GM POWD.PACK PO (08:51)
[2023-03-03] MEDS: Thiamine HCL 100 MG TABLET PO (08:52)
[2023-03-03] MEDS: Nystatin Powder 15 GM BOTTLE 1 APPL TOPICAL ×2 (08:55→22:45)
--- NOTE | 2023-03-03 10:38 | MHC.CLN ---
F/U DIET=2 GRAM SODIUM. ENSURE BID PROVIDES 700 KCALS, 40 G PROTEIN. STAGE II TO COCCYX, STAGE II TO BUTTOCK. DIET ORDER AND SUPPLEMENT APPROPRIATE. SUPPLEMENT TO PROMOTE WOUND HEALING. VARIABLE INTAKE, 25-100%. WEIGHT FLUCTUATION ANTICIPATED WITH ASCITES/PARACENTESIS. SIGNIFICANT WEIGHT LOSS SINCE 02/21=-7.3%. FOLLOW FOR INTAKE AND WOUND HEALING.
--- NOTE | 2023-03-03 10:59 | HO.PM.IMPN ---
Subjective Subjective Date of Service: 03/03/23 Interval History: does not appear to remember our prior conversations regarding her diagnosis of cancer denies any abdominal or pelvic pain no fever declines any kind of invasive workup Review of Systems Review of Systems: Yes all other systems are reviewed and are negative Physical Exam Vital Signs: Vital Signs: Last Vital Signs Temp 97.6 F 03/03/23 07:19 Pulse 86 03/03/23 07:19 Resp 20 03/03/23 07:19 BP 120/60 03/03/23 07:19 Pulse Ox 94 03/03/23 07:19 O2 Del Method Room Air 03/03/23 07:19 BMI result Body Mass Index 30.2 Gen: in no acute distress HEENT: sclera anicteric, moist mucus membranes Neck: supple Lungs: clear to auscultation bilaterally Heart: regular rate and rhythm, no murmurs Abd: soft, non-tender, non-distended Ext: BLE 1+ pitting edema Skin: warm/well-perfused Neuro: alert and oriented to self, no motor deficit Psych: impaired insight Objective Data Active Medications Acetaminophen (Acetaminophen 325 Mg Tablet) 650 mg PO Q6H PRN PRN Reason: Pain, Mild (Pain Scale 1-3) Last Admin: 03/02/23 20:48 Dose: 650 mg Documented By: NATHANIEL Calcium Carbonate (Calcium Carbonate 750 Mg Tab.Chew) 750 mg PO Q6H PRN PRN Reason: Pain, Severe (Pain Scale 7-10) Last Admin: 02/25/23 02:25 Dose: 750 mg Documented By: JOHN Docusate Sodium (Docusate Sodium 100 Mg Capsule) 100 mg PO DAILY [facility] Last Admin: 03/03/23 08:51 Dose: 100 mg Documented By: PRADEEP Enoxaparin Sodium (Enoxaparin Sodium 40 Mg/0.4 Ml Syringe) 40 mg SUBCUT Q24H [facility] Last Admin: 03/02/23 13:11 Dose: 40 mg Documented By: AUDREY Folic Acid (Folic Acid 1 Mg Tablet) 1 mg PO DAILY [facility] Last Admin: 03/03/23 08:51 Dose: 1 mg Documented By: PRADEEP Memantine (Memantine Hcl 5 Mg Tablet) 5 mg PO BID [facility] Last Admin: 03/03/23 08:51 Dose: 5 mg Documented By: PRADEEP Multivitamins/Vitamin C (Multivitamin Tablet) 1 tab PO DAILY [facility] Last Admin: 03/03/23 08:51 Dose: 1 tab Documented By: PRADEEP Nystatin (Nystatin Powder 15 Gm Bottle) 1 appl TOPICAL BID [facility]; Protocol Last Admin: 03/03/23 08:55 Dose: 1 appl Documented By: PRADEEP Ondansetron HCl (Ondansetron Hcl 4 Mg/2 Ml Vial) 4 mg IVPUSH Q8H PRN PRN Reason: Nausea and Vomiting Oxycodone HCl (Oxycodone Hcl Immed Release 5 Mg Tablet) 5 mg PO BID PRN PRN Reason: Pain, Severe (Pain Scale 7-10) Last Admin: 03/02/23 16:30 Dose: 5 mg Documented By: AUDREY Polyethylene Glycol (Polyethylene Glycol 3350 17 Gm Powd.Pack) 17 gm PO DAILY [facility] Last Admin: 03/03/23 08:51 Dose: 17 gm Documented By: PRADEEP Risperidone (Risperidone 0.5 Mg Tablet) 0.5 mg PO BID [facility] Last Admin: 03/03/23 08:51 Dose: 0.5 mg Documented By: PRADEEP Sertraline HCl (Sertraline Hcl 25 Mg Tablet) 25 mg PO DAILY [facility] Last Admin: 03/03/23 08:51 Dose: 25 mg Documented By: PRADEEP Sodium Chloride (0.9 % Sodium Chloride Flush 3 Ml Syringe) 3 ml IVFLUSH QSHIFT [facility] Last Admin: 03/03/23 08:51 Dose: 3 ml Documented By: PRADEEP Thiamine HCl (Thiamine Hcl 100 Mg Tablet) 100 mg PO DAILY [facility] Last Admin: 03/03/23 08:52 Dose: 100 mg Documented By: PRADEEP Labs 02/28/23 09:03 02/28/23 09:03 Labs: Impressions Venous Duplex 03/02/23 15:44 IMPRESSION: No DVT demonstrated in the bilateral lower extremities with the caveat of suboptimal evaluation of the calf veins as above. If the patient's symptoms persist, followup ultrasound in 5 days 7 days might be of value to exclude proximal propagation from a non-visualized calf vein Assessment and Plan (1) Cognitive impairment: Status: Acute (2) Lower extremity edema: Status: Acute (3) Ascites: Status: Acute (4) Urinary tract infection: Status: Acute (5) Uterine mass: Status: Acute Plan d11 77yo F with chronic back pain, presenting with confusion, likely Alzheimer's dementia dementia, unspecified - confusion initially thought to be encephalopathy, but now appears to be likely dementia; memory seems to have been declining over the past several months - MOCA per OT: scored 14 - seen by Neurology: probable moderate to severe degenerative dementia, likely Alzheimer's; started sertraline + memantine - seen by Psychiatry: does not have capacity to make medical decisions, will require guardianship/placement folate deficiency [not thiamine defiency as per prior progress notes though will send thiamine level and treat empirically PO] - PO replacement possible UTI - completed antibiotic course, UCx contaminated, BCx negative TETO/CKD3 - resolved with IV fluid hydration malignant ascites uterine mass unintentional 30-lb weight loss - s/p paracentesis 02/22/23 - adenocarcinoma, immunostains pending - CA-125 elevated to 299 - seen by Car Rental Service Attendant; declined pelvic exam + endometrial biopsy; re-assess after guardianship lower extremity edema - suspect due to uterine mass, US negative for DVT chronic pain - prn oxycodone hx DM2 - A1c only 6, no SSI dermatitis from urinary incontinence - Triad cream, repositioning VTE ppx - LMWH dispo - pending guardianship Time Spent With Patient Time: Total time managing care of this patient today __35__ minutes. Quality Stroke Does the patient have a stroke diagnosis?: No VTE Prior VTE?: No VTE Risk Level:: Medical - moderate - high VTE Device Contraindication: Treatment Not Indicated VTE Drug Contraindication: N/A - Med Ordered
[2023-03-03] MEDS: Enoxaparin Sodium 40 MG/0.4 ML SYRINGE SUBCUT (12:30)
--- NOTE | 2023-03-03 13:01 | MHC.CM.PN ---
Addendum entered by Pretty Ellis RN 03/03/23 13:02: CORRECTION: NO FACILITY REFERRALS PLACED OF THIS NOTE. WILL CONTINUE TO FOLLOW FOR GUARDIAN[facility]IP PREFERENCES Original Note: STILL AWAITING GUARDIANSHIP FOR LTC PLACEMENT. FACILITIES UPDATED IN [facility]
[2023-03-03 15:19] VITALS: BP 109/65; PULSE 98; RESP 20; TEMP 36.6; O2SAT 94
[2023-03-03 23:58] VITALS: BP 130/62; PULSE 72; RESP 17; TEMP 36.4; O2SAT 96
[2023-03-04 06:00] VITALS: BMI 29.6
[2023-03-04] MEDS: 0.9 % Sodium Chloride Flush 3 ML SYRINGE IVFLUSH ×3 (07:59→21:54)
[2023-03-04] MEDS: polyethylene glycoL 3350 17 GM POWD.PACK PO (07:59)
[2023-03-04 08:00] VITALS: BP 108/64; PULSE 95; RESP 20; TEMP 36.8; O2SAT 97
[2023-03-04] MEDS: Folic Acid 1 MG TABLET PO (08:00)
[2023-03-04] MEDS: Memantine HCl 5 MG TABLET PO ×2 (08:00→21:53)
[2023-03-04] MEDS: risperiDONE 0.5 MG TABLET PO ×2 (08:00→21:53)
[2023-03-04] MEDS: Sertraline HCL 25 MG TABLET PO (08:00)
[2023-03-04] MEDS: oxyCODONE HCl Immed Release 5 MG TABLET PO (08:00)
[2023-03-04] MEDS: Multivitamin TABLET 1 TAB PO (08:00)
[2023-03-04] MEDS: Nystatin Powder 15 GM BOTTLE 1 APPL TOPICAL ×2 (08:01→21:56)
[2023-03-04] MEDS: Docusate Sodium 100 MG CAPSULE PO (08:01)
[2023-03-04] MEDS: Thiamine HCL 100 MG TABLET PO (08:01)
--- NOTE | 2023-03-04 10:38 | P.PNIM_ITS ---
Subjective Subjective Date of Service: 03/04/23 Interval History: repetitive questioning, does not appear to remember our prior conversations regarding her cancer, but adamant that she does not want further workup denies pain Review of Systems Review of Systems: Yes all other systems are reviewed and are negative Physical Exam Vital Signs: Vital Signs: Last Vital Signs Temp 98.3 F 03/04/23 08:00 Pulse 95 03/04/23 08:00 Resp 20 03/04/23 08:00 BP 108/64 03/04/23 08:00 Pulse Ox 97 03/04/23 08:00 O2 Del Method Room Air 03/04/23 08:00 BMI result Body Mass Index 29.6 Gen: in no acute distress HEENT: sclera anicteric, moist mucus membranes Neck: supple Lungs: clear to auscultation bilaterally Heart: regular rate and rhythm, no murmurs Abd: soft, non-tender, non-distended Ext: BLE 1+ pitting edema Skin: warm/well-perfused Neuro: alert and oriented to self, no motor deficit Psych: impaired insight Objective Data Active Medications Acetaminophen (Acetaminophen 325 Mg Tablet) 650 mg PO Q6H PRN PRN Reason: Pain, Mild (Pain Scale 1-3) Last Admin: 03/02/23 20:48 Dose: 650 mg Documented By: NATHANIEL Calcium Carbonate (Calcium Carbonate 750 Mg Tab.Chew) 750 mg PO Q6H PRN PRN Reason: Pain, Severe (Pain Scale 7-10) Last Admin: 02/25/23 02:25 Dose: 750 mg Documented By: JOHN Docusate Sodium (Docusate Sodium 100 Mg Capsule) 100 mg PO DAILY [facility] Last Admin: 03/04/23 08:01 Dose: 100 mg Documented By: GURDEEP Enoxaparin Sodium (Enoxaparin Sodium 40 Mg/0.4 Ml Syringe) 40 mg SUBCUT Q24H [facility] Last Admin: 03/03/23 12:30 Dose: 40 mg Documented By: PRADEEP Folic Acid (Folic Acid 1 Mg Tablet) 1 mg PO DAILY [facility] Last Admin: 03/04/23 08:00 Dose: 1 mg Documented By: GURDEEP Memantine (Memantine Hcl 5 Mg Tablet) 5 mg PO BID [facility] Last Admin: 03/04/23 08:00 Dose: 5 mg Documented By: GURDEEP Multivitamins/Vitamin C (Multivitamin Tablet) 1 tab PO DAILY [facility] Last Admin: 03/04/23 08:00 Dose: 1 tab Documented By: GURDEEP Nystatin (Nystatin Powder 15 Gm Bottle) 1 appl TOPICAL BID [facility]; Protocol Last Admin: 03/04/23 08:01 Dose: 1 appl Documented By: GURDEEP Ondansetron HCl (Ondansetron Hcl 4 Mg/2 Ml Vial) 4 mg IVPUSH Q8H PRN PRN Reason: Nausea and Vomiting Oxycodone HCl (Oxycodone Hcl Immed Release 5 Mg Tablet) 5 mg PO BID PRN PRN Reason: Pain, Severe (Pain Scale 7-10) Last Admin: 03/04/23 08:00 Dose: 5 mg Documented By: GURDEEP Polyethylene Glycol (Polyethylene Glycol 3350 17 Gm Powd.Pack) 17 gm PO DAILY [facility] Last Admin: 03/04/23 07:59 Dose: 17 gm Documented By: GURDEEP Risperidone (Risperidone 0.5 Mg Tablet) 0.5 mg PO BID [facility] Last Admin: 03/04/23 08:00 Dose: 0.5 mg Documented By: GURDEEP Sertraline HCl (Sertraline Hcl 25 Mg Tablet) 25 mg PO DAILY [facility] Last Admin: 03/04/23 08:00 Dose: 25 mg Documented By: GURDEEP Sodium Chloride (0.9 % Sodium Chloride Flush 3 Ml Syringe) 3 ml IVFLUSH QSHIFT [facility] Last Admin: 03/04/23 07:59 Dose: 3 ml Documented By: GURDEEP Thiamine HCl (Thiamine Hcl 100 Mg Tablet) 100 mg PO DAILY [facility] Last Admin: 03/04/23 08:01 Dose: 100 mg Documented By: GURDEEP Labs 02/28/23 09:03 02/28/23 09:03 Assessment and Plan (1) Cognitive impairment: Status: Acute (2) Lower extremity edema: Status: Acute (3) Ascites: Status: Acute (4) Urinary tract infection: Status: Acute (5) Uterine mass: Status: Acute Plan d12 77yo F with chronic back pain, presenting with confusion, likely Alzheimer's dementia dementia, unspecified - confusion initially thought to be encephalopathy, but now appears to be likely dementia; memory seems to have been declining over the past several months - MOCA per OT: scored 14 - seen by Neurology: probable moderate to severe degenerative dementia, likely Alzheimer's; started sertraline + memantine - seen by Psychiatry: does not have capacity to make medical decisions, will require guardianship/placement folate deficiency [not thiamine defiency as per prior progress notes though will send thiamine level and treat empirically PO] - PO replacement possible UTI - completed antibiotic course, UCx contaminated, BCx negative TETO/CKD3 - resolved with IV fluid hydration malignant ascites uterine mass unintentional 30-lb weight loss - s/p paracentesis 02/22/23 - 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 with immunostains pending - CA-125 elevated to 299 - seen by Chainstitch Binder; declined pelvic exam + endometrial biopsy; re-assess after guardianship but patient is consistently declining further workup lower extremity edema - suspect due to uterine mass, US negative for DVT chronic pain - prn oxycodone hx DM2 - A1c only 6, no SSI dermatitis from urinary incontinence - Triad cream, repositioning VTE ppx - LMWH dispo - pending guardianship Time Spent With Patient Time: Total time managing care of this patient today __25__ minutes. Quality Stroke Does the patient have a stroke diagnosis?: No VTE Prior VTE?: No VTE Risk Level:: Medical - moderate - high VTE Device Contraindication: Treatment Not Indicated VTE Drug Contraindication: N/A - Med Ordered
[2023-03-04] MEDS: Enoxaparin Sodium 40 MG/0.4 ML SYRINGE SUBCUT (13:02)
[2023-03-04 15:41] VITALS: BP 130/63; PULSE 80; RESP 16; TEMP 36.3; O2SAT 96
[2023-03-04 19:20] VITALS: BP 117/58; PULSE 82; RESP 20; TEMP 36.3; O2SAT 97
[2023-03-05 06:00] VITALS: BMI 30.4
[2023-03-05] MEDS: Multivitamin TABLET 1 TAB PO (08:26)
[2023-03-05] MEDS: Memantine HCl 5 MG TABLET PO ×2 (08:26→19:33)
[2023-03-05] MEDS: oxyCODONE HCl Immed Release 5 MG TABLET PO (08:26)
[2023-03-05] MEDS: Thiamine HCL 100 MG TABLET PO (08:26)
[2023-03-05] MEDS: Sertraline HCL 25 MG TABLET PO (08:27)
[2023-03-05] MEDS: risperiDONE 0.5 MG TABLET PO ×2 (08:27→19:33)
[2023-03-05] MEDS: Folic Acid 1 MG TABLET PO (08:27)
[2023-03-05] MEDS: 0.9 % Sodium Chloride Flush 3 ML SYRINGE IVFLUSH ×3 (08:28→19:34)
[2023-03-05] MEDS: Nystatin Powder 15 GM BOTTLE 1 APPL TOPICAL ×2 (10:36→19:34)
--- NOTE | 2023-03-05 11:40 | HO.PM.IMPN ---
Subjective Subjective Date of Service: 03/05/23 Interval History: repetivie/circular conversations regarding her diagnosis consistently does not want invasive workup denies any abd/pelvic pain Review of Systems Review of Systems: Yes all other systems are reviewed and are negative Physical Exam Vital Signs: Vital Signs: Last Vital Signs Temp 97.3 F 03/04/23 19:20 Pulse 82 03/04/23 19:20 Resp 20 03/04/23 19:20 BP 117/58 L 03/04/23 19:20 Pulse Ox 97 03/04/23 19:20 O2 Del Method Room Air 03/04/23 19:20 BMI result Body Mass Index 30.4 Gen: in no acute distress HEENT: sclera anicteric, moist mucus membranes Neck: supple Lungs: clear to auscultation bilaterally Heart: regular rate and rhythm, no murmurs Abd: soft, non-tender, non-distended Ext: BLE 1+ pitting edema Skin: warm/well-perfused Neuro: alert and oriented to self, no motor deficit Psych: impaired insight Objective Data Active Medications Acetaminophen (Acetaminophen 325 Mg Tablet) 650 mg PO Q6H PRN PRN Reason: Pain, Mild (Pain Scale 1-3) Last Admin: 03/02/23 20:48 Dose: 650 mg Documented By: NATHANIEL Calcium Carbonate (Calcium Carbonate 750 Mg Tab.Chew) 750 mg PO Q6H PRN PRN Reason: Pain, Severe (Pain Scale 7-10) Last Admin: 02/25/23 02:25 Dose: 750 mg Documented By: JOHN Docusate Sodium (Docusate Sodium 100 Mg Capsule) 100 mg PO DAILY [facility] Last Admin: 03/05/23 08:29 Dose: Not Given Documented By: GURDEEP Non-Admin Reason: Loose stool last night Enoxaparin Sodium (Enoxaparin Sodium 40 Mg/0.4 Ml Syringe) 40 mg SUBCUT Q24H [facility] Last Admin: 03/04/23 13:02 Dose: 40 mg Documented By: GURDEEP Folic Acid (Folic Acid 1 Mg Tablet) 1 mg PO DAILY [facility] Last Admin: 03/05/23 08:27 Dose: 1 mg Documented By: GURDEEP Memantine (Memantine Hcl 5 Mg Tablet) 5 mg PO BID [facility] Last Admin: 03/05/23 08:26 Dose: 5 mg Documented By: GURDEEP Multivitamins/Vitamin C (Multivitamin Tablet) 1 tab PO DAILY [facility] Last Admin: 03/05/23 08:26 Dose: 1 tab Documented By: GURDEEP Nystatin (Nystatin Powder 15 Gm Bottle) 1 appl TOPICAL BID [facility]; Protocol Last Admin: 03/05/23 10:36 Dose: 1 appl Documented By: GURDEEP Ondansetron HCl (Ondansetron Hcl 4 Mg/2 Ml Vial) 4 mg IVPUSH Q8H PRN PRN Reason: Nausea and Vomiting Oxycodone HCl (Oxycodone Hcl Immed Release 5 Mg Tablet) 5 mg PO BID PRN PRN Reason: Pain, Severe (Pain Scale 7-10) Last Admin: 03/05/23 08:26 Dose: 5 mg Documented By: GURDEEP Polyethylene Glycol (Polyethylene Glycol 3350 17 Gm Powd.Pack) 17 gm PO DAILY [facility] Last Admin: 03/05/23 08:30 Dose: Not Given Documented By: GURDEEP Non-Admin Reason: loose stool last night Risperidone (Risperidone 0.5 Mg Tablet) 0.5 mg PO BID [facility] Last Admin: 03/05/23 08:27 Dose: 0.5 mg Documented By: GURDEEP Sertraline HCl (Sertraline Hcl 25 Mg Tablet) 25 mg PO DAILY [facility] Last Admin: 03/05/23 08:27 Dose: 25 mg Documented By: GURDEEP Sodium Chloride (0.9 % Sodium Chloride Flush 3 Ml Syringe) 3 ml IVFLUSH QSHIFT [facility] Last Admin: 03/05/23 08:28 Dose: 3 ml Documented By: GURDEEP Thiamine HCl (Thiamine Hcl 100 Mg Tablet) 100 mg PO DAILY [facility] Last Admin: 03/05/23 08:26 Dose: 100 mg Documented By: GURDEEP Labs 02/28/23 09:03 02/28/23 09:03 Assessment and Plan (1) Cognitive impairment: Status: Acute (2) Lower extremity edema: Status: Acute (3) Ascites: Status: Acute (4) Urinary tract infection: Status: Acute (5) Uterine mass: Status: Acute Plan d13 77yo F with chronic back pain, presenting with confusion, likely Alzheimer's dementia dementia, unspecified - confusion initially thought to be encephalopathy, but now appears to be likely dementia; memory seems to have been declining over the past several months - MOCA per OT: scored 14 - seen by Neurology: probable moderate to severe degenerative dementia, likely Alzheimer's; started sertraline + memantine - seen by Psychiatry: does not have capacity to make medical decisions, will require guardianship/placement folate deficiency anemia [not thiamine defiency as per prior progress notes 02/24-02/27 though sent thiamine level and treating empirically PO] - PO replacement of folate; also likely has anemia of chronic disease due to malignancy possible UTI - completed antibiotic course, UCx contaminated, BCx negative TETO/CKD3 - resolved with IV fluid hydration malignant ascites uterine mass - unintentional 30-lb weight loss - s/p paracentesis 02/22/23: 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 with immunostains still pending - CA-125 elevated to 299 - seen by Canal Boat Captain; declined pelvic exam + endometrial biopsy; re-assess after guardianship but patient is consistently declining further workup lower extremity edema - suspect due to uterine mass, US negative for DVT chronic pain - prn oxycodone hx DM2 - A1c only 6, no SSI dermatitis from urinary incontinence - Triad cream, repositioning VTE ppx - enoxaparin dispo - pending guardianship Time Spent With Patient Time: Total time managing care of this patient today ____35 minutes. Quality Stroke Does the patient have a stroke diagnosis?: No VTE Prior VTE?: No VTE Risk Level:: Medical - moderate - high VTE Device Contraindication: Treatment Not Indicated VTE Drug Contraindication: N/A - Med Ordered
[2023-03-05] MEDS: Acetaminophen 325 MG TABLET 650 MG PO (12:33)
[2023-03-05] MEDS: Enoxaparin Sodium 40 MG/0.4 ML SYRINGE SUBCUT (12:33)
[2023-03-05 15:58] LABS: Vitamin B1 <6 nmol/L (8-30)
[2023-03-05 16:00] VITALS: BP 145/65; PULSE 89; RESP 20; TEMP 36.8; O2SAT 99
--- NOTE | 2023-03-05 18:22 | PC.NURSE ---
SURVEILLANCE OBSERVER notified nursing pt has new open are, left upper thigh, medial, 2cm x 2cm. Granulation tissue, no drainage, no oder, surrounding skin intact, dcd applied, MD notified.
[2023-03-05 20:07] VITALS: BP 145/65; PULSE 96; RESP 20; TEMP 36.4; O2SAT 99
[2023-03-06] VITALS: RESP 14
[2023-03-06 02:39] VITALS: BP 109/59; PULSE 97; RESP 16; TEMP 36.6; O2SAT 95
[2023-03-06] MEDS: oxyCODONE HCl Immed Release 5 MG TABLET PO (06:35)
[2023-03-06 07:35] VITALS: BP 116/58; PULSE 77; RESP 20; TEMP 36.3; O2SAT 96
[2023-03-06] MEDS: Docusate Sodium 100 MG CAPSULE PO (09:30)
[2023-03-06] MEDS: Sertraline HCL 25 MG TABLET PO (09:30)
[2023-03-06] MEDS: Multivitamin TABLET 1 TAB PO (09:30)
[2023-03-06] MEDS: Memantine HCl 5 MG TABLET PO ×2 (09:30→21:52)
[2023-03-06] MEDS: polyethylene glycoL 3350 17 GM POWD.PACK PO (09:30)
[2023-03-06] MEDS: risperiDONE 0.5 MG TABLET PO ×2 (09:30→21:52)
[2023-03-06] MEDS: 0.9 % Sodium Chloride Flush 3 ML SYRINGE IVFLUSH (09:30)
[2023-03-06] MEDS: Folic Acid 1 MG TABLET PO (09:30)
[2023-03-06] MEDS: Thiamine HCL 100 MG TABLET PO (09:30)
[2023-03-06] MEDS: Nystatin Powder 15 GM BOTTLE 1 APPL TOPICAL ×2 (09:30→21:54)
[2023-03-06] MEDS: Enoxaparin Sodium 40 MG/0.4 ML SYRINGE SUBCUT (09:30)
--- NOTE | 2023-03-06 10:35 | MHC.CLN ---
F/U DIET=2 GRAM SODIUM. ENSURE BID PROVIDES 700 KCALS, 40 G PROTEIN. COCCYX AND BUTTOCKS LIKELY INCONTINENCE DERMATITIS. 8/6 OPEN AREA TO LEFT THIGH NOTED. DIET ORDER AND SUPPLEMENT APPROPRIATE. SUPPLEMENT TO PROMOTE WOUND HEALING. VARIABLE INTAKE, 50-100%. DOES NOT CONSISTENTLY ACCEPT SUPPLEMENT BUT OK TO CONTINUE. FOLLOW FOR INTAKE AND WOUND HEALING.
--- NOTE | 2023-03-06 12:20 | HO.PM.IMPN ---
Subjective Subjective Date of Service: 03/06/23 Interval History: keep repeating herself that she lives alone , lives alone has no family, is not fearful of dying but does not want to go through any aggressive intervention and in pain, tolerating diet no acute complaints, no issues overnight. Review of Systems All other system reviewed and negative Physical Exam Vital Signs: Vital Signs: Last Vital Signs Temp 97.4 F 03/06/23 07:35 Pulse 77 03/06/23 07:35 Resp 20 03/06/23 07:35 BP 116/58 L 03/06/23 07:35 Pulse Ox 96 03/06/23 07:35 O2 Del Method Room Air 03/06/23 07:35 BMI result Body Mass Index 30.4 Const: Other: Gen: awake alert, in no acute distress HEENT: sclera anicteric, moist mucus membranes Neck: supple Lungs: clear to auscultation bilaterally Heart: regular rate and rhythm, no murmurs Abd: soft, non-tender, non-distended Ext: left lower extremity pitting edema Skin: warm/well-perfused Neuro: alert and oriented to self, no motor deficit Psych: impaired insight Objective Data Active Medications Acetaminophen (Acetaminophen 325 Mg Tablet) 650 mg PO Q6H PRN PRN Reason: Pain, Mild (Pain Scale 1-3) Last Admin: 03/05/23 12:33 Dose: 650 mg Documented By: GURDEEP Calcium Carbonate (Calcium Carbonate 750 Mg Tab.Chew) 750 mg PO Q6H PRN PRN Reason: Pain, Severe (Pain Scale 7-10) Last Admin: 02/25/23 02:25 Dose: 750 mg Documented By: JOHN Docusate Sodium (Docusate Sodium 100 Mg Capsule) 100 mg PO DAILY [facility] Last Admin: 03/05/23 08:29 Dose: Not Given Documented By: GURDEEP Non-Admin Reason: Loose stool last night Enoxaparin Sodium (Enoxaparin Sodium 40 Mg/0.4 Ml Syringe) 40 mg SUBCUT Q24H [facility] Last Admin: 03/05/23 12:33 Dose: 40 mg Documented By: GURDEEP Folic Acid (Folic Acid 1 Mg Tablet) 1 mg PO DAILY [facility] Last Admin: 03/05/23 08:27 Dose: 1 mg Documented By: GURDEEP Memantine (Memantine Hcl 5 Mg Tablet) 5 mg PO BID [facility] Last Admin: 03/05/23 19:33 Dose: 5 mg Documented By: CONG Multivitamins/Vitamin C (Multivitamin Tablet) 1 tab PO DAILY [facility] Last Admin: 03/05/23 08:26 Dose: 1 tab Documented By: GURDEEP Nystatin (Nystatin Powder 15 Gm Bottle) 1 appl TOPICAL BID [facility]; Protocol Last Admin: 03/05/23 19:34 Dose: 1 appl Documented By: CONG Ondansetron HCl (Ondansetron Hcl 4 Mg/2 Ml Vial) 4 mg IVPUSH Q8H PRN PRN Reason: Nausea and Vomiting Oxycodone HCl (Oxycodone Hcl Immed Release 5 Mg Tablet) 5 mg PO BID PRN PRN Reason: Pain, Severe (Pain Scale 7-10) Last Admin: 03/06/23 06:35 Dose: 5 mg Documented By: OZORALB Polyethylene Glycol (Polyethylene Glycol 3350 17 Gm Powd.Pack) 17 gm PO DAILY [facility] Last Admin: 03/05/23 08:30 Dose: Not Given Documented By: GURDEEP Non-Admin Reason: loose stool last night Risperidone (Risperidone 0.5 Mg Tablet) 0.5 mg PO BID [facility] Last Admin: 03/05/23 19:33 Dose: 0.5 mg Documented By: CONG Sertraline HCl (Sertraline Hcl 25 Mg Tablet) 25 mg PO DAILY [facility] Last Admin: 03/05/23 08:27 Dose: 25 mg Documented By: GURDEEP Sodium Chloride (0.9 % Sodium Chloride Flush 3 Ml Syringe) 3 ml IVFLUSH QSHIFT [facility] Last Admin: 03/05/23 19:34 Dose: 3 ml Documented By: CONG Thiamine HCl (Thiamine Hcl 100 Mg Tablet) 100 mg PO DAILY [facility] Last Admin: 03/05/23 08:26 Dose: 100 mg Documented By: GURDEEP Labs 02/28/23 09:03 02/28/23 09:03 Labs: Laboratory Results - last 24 hr 02/28/23 09:03 Vitamin B1 <6 L Assessment and Plan (1) Cognitive impairment: Status: Acute (2) Lower extremity edema: Status: Acute (3) Ascites: Status: Acute (4) Urinary tract infection: Status: Acute (5) Uterine mass: Status: Acute Plan d13 77yo F with chronic back pain, presenting with confusion, likely Alzheimer's dementia dementia, unspecified - confusion initially thought to be encephalopathy, but now appears to be likely dementia; memory seems to have been declining over the past several months - MOCA per OT: scored 14 - seen by Neurology: probable moderate to severe degenerative dementia, likely Alzheimer's; started sertraline + memantine - seen by Psychiatry: does not have capacity to make medical decisions, will require guardianship/placement folate and thiamine deficiency anemia thiamine level less than 6 continue thiamine replacement and folic acid replacement; also likely has anemia of chronic disease due to malignancy possible UTI - completed antibiotic course, UCx contaminated, BCx negative TETO/CKD3 - resolved with IV fluid hydration malignant ascites/uterine mass - unintentional 30-lb weight loss - s/p paracentesis 02/22/23: 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 with immunostains still pending - CA-125 elevated to 299 - seen by Track Laying Equipment Operator; declined pelvic exam + endometrial biopsy; re-assess after guardianship but patient is consistently declining further workup and intervention lower extremity edema - suspect due to uterine mass, US negative for DVT chronic pain - prn oxycodone hx DM2 - A1c only 6, no SSI dermatitis from urinary incontinence - Triad cream, repositioning VTE ppx - enoxaparin dispo - pending guardianship Time Spent With Patient Time: Total time managing care of this patient today ____ minutes. Quality Stroke Does the patient have a stroke diagnosis?: No VTE Prior VTE?: No VTE Risk Level:: Medical - moderate - high VTE Device Contraindication: Treatment Not Indicated VTE Drug Contraindication: N/A - Med Ordered
[2023-03-06 15:29] VITALS: BP 124/84; PULSE 97; RESP 20; TEMP 36.2; O2SAT 94
--- NOTE | 2023-03-06 15:45 | MHC.CM.PN ---
PT AWAITING GUARDIANSHIP, CONSERVATOR, [facility] AND LTC PLACEMENT, DETERMINED TO BE UNSAFE AT HOME
[2023-03-06 19:50] VITALS: BP 115/59; PULSE 91; RESP 17; TEMP 36.4; O2SAT 96
[2023-03-07 05:48] VITALS: BMI 30.2
[2023-03-07 07:20] VITALS: BP 129/59; PULSE 73; RESP 17; TEMP 36.1; O2SAT 93
[2023-03-07] MEDS: Multivitamin TABLET 1 TAB PO (09:55)
[2023-03-07] MEDS: Folic Acid 1 MG TABLET PO (09:55)
[2023-03-07] MEDS: Memantine HCl 5 MG TABLET PO ×2 (09:55→21:45)
[2023-03-07] MEDS: 0.9 % Sodium Chloride Flush 3 ML SYRINGE IVFLUSH ×2 (09:55→16:27)
[2023-03-07] MEDS: polyethylene glycoL 3350 17 GM POWD.PACK PO (09:55)
[2023-03-07] MEDS: Thiamine HCL 100 MG TABLET PO (09:55)
[2023-03-07] MEDS: Sertraline HCL 25 MG TABLET PO (09:55)
[2023-03-07] MEDS: Docusate Sodium 100 MG CAPSULE PO (09:55)
[2023-03-07] MEDS: risperiDONE 0.5 MG TABLET PO ×2 (09:55→21:46)
[2023-03-07] MEDS: Nystatin Powder 15 GM BOTTLE 1 APPL TOPICAL ×2 (09:56→21:46)
--- NOTE | 2023-03-07 14:15 | P.PNIM_ITS ---
Subjective Subjective Date of Service: 03/07/23 Interval History: denies abdominal or pelvic pain, no overnight events, tolerating diet. Review of Systems all other system reviewed and negative. Physical Exam Vital Signs: Vital Signs: Last Vital Signs Temp 97.0 F 03/07/23 07:20 Pulse 73 03/07/23 07:20 Resp 17 03/07/23 07:20 BP 129/59 L 03/07/23 07:20 Pulse Ox 93 03/07/23 07:20 O2 Del Method Room Air 03/07/23 07:20 BMI result Body Mass Index 30.2 Const: Other: Gen: awake alert, in no acute distre ss HEENT: sclera a nicteric, moist mu cus membranes Neck : supple Lungs: cl ear to auscultatio n bilaterally Hear t: regular rate an d rhythm, no murmu rs Abd: soft, non- tender, non-disten ded Ext:? left low er extremity pitti ng edema Skin: war m/well-perfused Ne uro: alert and mercy ented to self, no motor deficit Psyc h: impaired insigh t Objective Data Active Medications Acetaminophen (Acetaminophen 325 Mg Tablet) 650 mg PO Q6H PRN PRN Reason: Pain, Mild (Pain Scale 1-3) Last Admin: 03/05/23 12:33 Dose: 650 mg Documented By: GURDEEP Calcium Carbonate (Calcium Carbonate 750 Mg Tab.Chew) 750 mg PO Q6H PRN PRN Reason: Pain, Severe (Pain Scale 7-10) Last Admin: 02/25/23 02:25 Dose: 750 mg Documented By: JOHN Docusate Sodium (Docusate Sodium 100 Mg Capsule) 100 mg PO DAILY [facility] Last Admin: 03/07/23 09:55 Dose: 100 mg Documented By: MAXIMILIANO Enoxaparin Sodium (Enoxaparin Sodium 40 Mg/0.4 Ml Syringe) 40 mg SUBCUT Q24H [facility] Last Admin: 03/06/23 09:30 Dose: 40 mg Documented By: PRADEEP Folic Acid (Folic Acid 1 Mg Tablet) 1 mg PO DAILY [facility] Last Admin: 03/07/23 09:55 Dose: 1 mg Documented By: MAXIMILIANO Memantine (Memantine Hcl 5 Mg Tablet) 5 mg PO BID [facility] Last Admin: 03/07/23 09:55 Dose: 5 mg Documented By: MAXIMILIANO Multivitamins/Vitamin C (Multivitamin Tablet) 1 tab PO DAILY [facility] Last Admin: 03/07/23 09:55 Dose: 1 tab Documented By: MAXIMILIANO Nystatin (Nystatin Powder 15 Gm Bottle) 1 appl TOPICAL BID [facility]; Protocol Last Admin: 03/07/23 09:56 Dose: 1 appl Documented By: MAXIMILIANO Ondansetron HCl (Ondansetron Hcl 4 Mg/2 Ml Vial) 4 mg IVPUSH Q8H PRN PRN Reason: Nausea and Vomiting Oxycodone HCl (Oxycodone Hcl Immed Release 5 Mg Tablet) 5 mg PO BID PRN PRN Reason: Pain, Severe (Pain Scale 7-10) Last Admin: 03/06/23 06:35 Dose: 5 mg Documented By: LUIS Polyethylene Glycol (Polyethylene Glycol 3350 17 Gm Powd.Pack) 17 gm PO DAILY [facility] Last Admin: 03/07/23 09:55 Dose: 17 gm Documented By: MAXIMILIANO Risperidone (Risperidone 0.5 Mg Tablet) 0.5 mg PO BID [facility] Last Admin: 03/07/23 09:55 Dose: 0.5 mg Documented By: MAXIMILIANO Sertraline HCl (Sertraline Hcl 25 Mg Tablet) 25 mg PO DAILY [facility] Last Admin: 03/07/23 09:55 Dose: 25 mg Documented By: MAXIMILIANO Sodium Chloride (0.9 % Sodium Chloride Flush 3 Ml Syringe) 3 ml IVFLUSH QSHIFT [facility] Last Admin: 03/07/23 09:55 Dose: 3 ml Documented By: MAXIMILIANO Thiamine HCl (Thiamine Hcl 100 Mg Tablet) 100 mg PO DAILY [facility] Last Admin: 03/07/23 09:55 Dose: 100 mg Documented By: MAXIMILIANO Labs 02/28/23 09:03 02/28/23 09:03 Assessment and Plan (1) Cognitive impairment: Status: Acute (2) Lower extremity edema: Status: Acute (3) Ascites: Status: Acute (4) Urinary tract infection: Status: Acute (5) Uterine mass: Status: Acute Plan 77yo F with chronic back pain, presenting with confusion, likely Alzheimer's dementia dementia, unspecified - initially thought to be encephalopathy, but now appears to be likely dementia; memory seems to have been declining over the past several months - MOCA per OT: scored 14 - seen by Neurology: probable moderate to severe degenerative dementia, likely Alzheimer's; started sertraline + memantine - seen by Psychiatry: does not have capacity to make medical decisions, will require guardianship/placement folate and thiamine deficiency anemia thiamine level less than 6 continue thiamine replacement and folic acid replacement; also likely has anemia of chronic disease due to malignancy possible UTI completed antibiotic course, UCx contaminated, BCx negative TETO/CKD3 - resolved with IV fluid hydration malignant ascites/uterine mass - unintentional 30-lb weight loss - s/p paracentesis 02/22/23: 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 lower extremity edema - suspect due to uterine mass, US negative for DVT chronic pain - prn oxycodone hx DM2 - A1c only 6, no SSI dermatitis from urinary incontinence - Triad cream, repositioning VTE ppx - enoxaparin dispo - pending guardianship Time Spent With Patient Time: Total time managing care of this patient today ____ minutes. Quality Stroke Does the patient have a stroke diagnosis?: No VTE Prior VTE?: No VTE Risk Level:: Medical - moderate - high VTE Device Contraindication: Treatment Not Indicated VTE Drug Contraindication: N/A - Med Ordered
[2023-03-07] MEDS: Enoxaparin Sodium 40 MG/0.4 ML SYRINGE SUBCUT (14:16)
[2023-03-07 16:00] VITALS: BP 123/56; PULSE 68; RESP 18; TEMP 36.7; O2SAT 94
[2023-03-07 23:42] VITALS: BP 134/63; PULSE 86; RESP 19; TEMP 36.8; O2SAT 94
[2023-03-08 07:15] VITALS: BP 108/87; PULSE 95; RESP 18; TEMP 36.4; O2SAT 95
[2023-03-08] MEDS: polyethylene glycoL 3350 17 GM POWD.PACK PO (08:05)
[2023-03-08] MEDS: risperiDONE 0.5 MG TABLET PO ×2 (08:06→21:03)
[2023-03-08] MEDS: Docusate Sodium 100 MG CAPSULE PO (08:06)
[2023-03-08] MEDS: 0.9 % Sodium Chloride Flush 3 ML SYRINGE IVFLUSH ×3 (08:06→21:03)
[2023-03-08] MEDS: Sertraline HCL 25 MG TABLET PO (08:06)
[2023-03-08] MEDS: Thiamine HCL 100 MG TABLET PO (08:06)
[2023-03-08] MEDS: Folic Acid 1 MG TABLET PO (08:06)
[2023-03-08] MEDS: Multivitamin TABLET 1 TAB PO (08:06)
[2023-03-08] MEDS: Memantine HCl 5 MG TABLET PO ×2 (08:06→21:03)
[2023-03-08] MEDS: Nystatin Powder 15 GM BOTTLE 1 APPL TOPICAL ×2 (08:28→21:03)
--- NOTE | 2023-03-08 10:59 | MHC.CM.PN ---
CALL FROM [employer] WORKER, MINDY, WHO IS NOW UPDATED WITH [employer]. MINDY CAN BE REACHED AT [phone]
[2023-03-08] MEDS: Enoxaparin Sodium 40 MG/0.4 ML SYRINGE SUBCUT (11:23)
--- NOTE | 2023-03-08 14:04 | MHC.CLN ---
F/U DIET=2 GRAM SODIUM. ENSURE BID PROVIDES 700 KCALS, 40 G PROTEIN. COCCYX AND BUTTOCKS LIKELY INCONTINENCE DERMATITIS. DIET ORDER AND SUPPLEMENT APPROPRIATE. SUPPLEMENT TO PROMOTE SKIN INTEGRITY. DOES NOT CONSISTENTLY ACCEPT SUPPLEMENT BUT OK TO CONTINUE. INTAKE VARIABLE, 50-100%. FOLLOW FOR INTAKE AND SKIN INTEGRITY. RD TO FOLLOW WEEKLY.
[2023-03-08 16:00] VITALS: BP 108/69; PULSE 67; RESP 16; TEMP 36.9; O2SAT 95
--- NOTE | 2023-03-08 16:29 | P.PNIM_ITS ---
Subjective Subjective Date of Service: 03/08/23 Interval History: Offers no acute complaints of pain , wants to be discharged home, refusing interventions does not want to suffer with pain, since has no family and no support. Has poor understanding of her diagnosis. Review of Systems All other system reviewed and negative Physical Exam Vital Signs: Vital Signs: Last Vital Signs Temp 98.4 F 03/08/23 16:00 Pulse 67 03/08/23 16:00 Resp 16 03/08/23 16:00 BP 108/69 03/08/23 16:00 Pulse Ox 95 03/08/23 16:00 O2 Del Method Room Air 03/08/23 16:00 BMI result Body Mass Index 30.2 Const: Other: Gen: awake alert, in no acute distress HEENT: sclera anicteric, moist mucus membranes Neck: supple Lungs: clear to auscultation bilaterally Heart: regular rate and rhythm, no murmurs Abd: soft, non-tender, non-distended Ext:? left lower extremity pitting edema Skin: warm/well-perfused Neuro: alert and oriented to self, no motor deficit Psych: impaired insight Objective Data Active Medications Acetaminophen (Acetaminophen 325 Mg Tablet) 650 mg PO Q6H PRN PRN Reason: Pain, Mild (Pain Scale 1-3) Last Admin: 03/05/23 12:33 Dose: 650 mg Documented By: GURDEEP Calcium Carbonate (Calcium Carbonate 750 Mg Tab.Chew) 750 mg PO Q6H PRN PRN Reason: Pain, Severe (Pain Scale 7-10) Last Admin: 02/25/23 02:25 Dose: 750 mg Documented By: JOHN Docusate Sodium (Docusate Sodium 100 Mg Capsule) 100 mg PO DAILY [facility] Last Admin: 03/08/23 08:06 Dose: 100 mg Documented By: WILLIAM Enoxaparin Sodium (Enoxaparin Sodium 40 Mg/0.4 Ml Syringe) 40 mg SUBCUT Q24H [facility] Last Admin: 03/08/23 11:23 Dose: 40 mg Documented By: WILLIAM Folic Acid (Folic Acid 1 Mg Tablet) 1 mg PO DAILY [facility] Last Admin: 03/08/23 08:06 Dose: 1 mg Documented By: WILLIAM Memantine (Memantine Hcl 5 Mg Tablet) 5 mg PO BID [facility] Last Admin: 03/08/23 08:06 Dose: 5 mg Documented By: WILLIAM Multivitamins/Vitamin C (Multivitamin Tablet) 1 tab PO DAILY [facility] Last Admin: 03/08/23 08:06 Dose: 1 tab Documented By: WILLIAM Nystatin (Nystatin Powder 15 Gm Bottle) 1 appl TOPICAL BID [facility]; Protocol Last Admin: 03/08/23 08:28 Dose: 1 appl Documented By: WILLIAM Ondansetron HCl (Ondansetron Hcl 4 Mg/2 Ml Vial) 4 mg IVPUSH Q8H PRN PRN Reason: Nausea and Vomiting Oxycodone HCl (Oxycodone Hcl Immed Release 5 Mg Tablet) 5 mg PO BID PRN PRN Reason: Pain, Severe (Pain Scale 7-10) Last Admin: 03/06/23 06:35 Dose: 5 mg Documented By: LUIS Polyethylene Glycol (Polyethylene Glycol 3350 17 Gm Powd.Pack) 17 gm PO DAILY [facility] Last Admin: 03/08/23 08:05 Dose: 17 gm Documented By: WILLIAM Risperidone (Risperidone 0.5 Mg Tablet) 0.5 mg PO BID [facility] Last Admin: 03/08/23 08:06 Dose: 0.5 mg Documented By: WILLIAM Sertraline HCl (Sertraline Hcl 25 Mg Tablet) 25 mg PO DAILY [facility] Last Admin: 03/08/23 08:06 Dose: 25 mg Documented By: WILLIAM Sodium Chloride (0.9 % Sodium Chloride Flush 3 Ml Syringe) 3 ml IVFLUSH QSHIFT [facility] Last Admin: 03/08/23 08:06 Dose: 3 ml Documented By: WILLIAM Thiamine HCl (Thiamine Hcl 100 Mg Tablet) 100 mg PO DAILY [facility] Last Admin: 03/08/23 08:06 Dose: 100 mg Documented By: WILLIAM Labs 02/28/23 09:03 02/28/23 09:03 Assessment and Plan (1) Cognitive impairment: Status: Acute (2) Lower extremity edema: Status: Acute (3) Ascites: Status: Acute (4) Urinary tract infection: Status: Acute (5) Uterine mass: Status: Acute Plan 77yo F with chronic back pain, presenting with confusion, likely Alzheimer's dementia dementia, unspecified - initially thought to be encephalopathy, but now appears to be likely dementia; memory seems to have been declining over the past several months - MOCA per OT: scored 14 - seen by Neurology: probable moderate to severe degenerative dementia, likely Alzheimer's; started sertraline + memantine - seen by Psychiatry: does not have capacity to make medical decisions, waiting for guardianship/placement folate and thiamine deficiency anemia thiamine level less than 6 continue thiamine replacement and folic acid replacement; also likely has anemia of chronic disease due to malignancy possible UTI completed antibiotic course, UCx contaminated, BCx negative TETO/CKD3 - resolved with IV fluid hydration malignant ascites/uterine mass - unintentional 30-lb weight loss - s/p paracentesis 02/22/23: 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 with immunostains are not consistent with a gynecological origin and are more suggestive of an upper GI primary including pancreatico biliary - CA-125 elevated to 299 - seen by Claims Service Adjustor; declined pelvic exam + endometrial biopsy; - inform patient about immunostains result, she is not showing much understanding and keeps repeating that she does not want any intervention that will prolong her suffering, since it seems to be a metastatic cancer with patient's current clinical condition with lack of support likely she will not be a candidate for aggressive treatment, re-assess after guardianship. lower extremity edema - suspect due to uterine mass, US negative for DVT chronic pain - prn oxycodone hx DM2 - A1c only 6, no SSI dermatitis from urinary incontinence - Triad cream, repositioning VTE ppx - enoxaparin dispo - pending guardianship Time Spent With Patient Time: Total time managing care of this patient today ____ minutes. Quality Stroke Does the patient have a stroke diagnosis?: No VTE Prior VTE?: No VTE Risk Level:: Medical - moderate - high VTE Device Contraindication: Treatment Not Indicated VTE Drug Contraindication: N/A - Med Ordered
[2023-03-08] MEDS: oxyCODONE HCl Immed Release 5 MG TABLET PO (21:09)
[2023-03-08 23:38] VITALS: BP 114/50; PULSE 103; RESP 16; TEMP 36.6; O2SAT 96
[2023-03-09 06:00] VITALS: BMI 30.5
[2023-03-09 07:32] VITALS: BP 121/60; PULSE 83; RESP 16; TEMP 36.2; O2SAT 95
[2023-03-09] MEDS: Folic Acid 1 MG TABLET PO (09:29)
[2023-03-09] MEDS: Docusate Sodium 100 MG CAPSULE PO (09:29)
[2023-03-09] MEDS: risperiDONE 0.5 MG TABLET PO ×2 (09:29→20:56)
[2023-03-09] MEDS: Sertraline HCL 25 MG TABLET PO (09:29)
[2023-03-09] MEDS: 0.9 % Sodium Chloride Flush 3 ML SYRINGE IVFLUSH ×2 (09:29→16:00)
[2023-03-09] MEDS: Thiamine HCL 100 MG TABLET PO (09:30)
[2023-03-09] MEDS: polyethylene glycoL 3350 17 GM POWD.PACK PO (09:30)
[2023-03-09] MEDS: Memantine HCl 5 MG TABLET PO ×2 (09:30→20:56)
[2023-03-09] MEDS: Multivitamin TABLET 1 TAB PO (09:30)
[2023-03-09] MEDS: Enoxaparin Sodium 40 MG/0.4 ML SYRINGE SUBCUT (12:19)
[2023-03-09] MEDS: Nystatin Powder 15 GM BOTTLE 1 APPL TOPICAL ×2 (12:19→20:53)
--- NOTE | 2023-03-09 13:36 | P.PNIM_ITS ---
Subjective Subjective Date of Service: 03/09/23 Interval History: Resting comfortably, asking for breakfast and requesting to be washed, denies pain, no acute events overnight tolerating diet, continue to repeat herself regarding the diagnosis of metastatic GI cancer that she does not want to suffer with any treatment since she has no family and keep forgetting discussion after some time. Review of Systems All other system reviewed and negative Physical Exam Vital Signs: Vital Signs: Last Vital Signs Temp 97.1 F 03/09/23 07:32 Pulse 83 03/09/23 07:32 Resp 16 03/09/23 07:32 BP 121/60 03/09/23 07:32 Pulse Ox 95 03/09/23 07:32 O2 Del Method Room Air 03/09/23 07:32 BMI result Body Mass Index 30.5 Const: Other: Gen: awake alert, in no acute distress HEENT: sclera anicteric, moist mucus membranes Neck: supple Lungs: clear to auscultation bilaterally Heart: regular rate and rhythm, no murmurs Abd: soft, non-tender, non-distended Ext:? left lower extremity pitting edema Skin: warm/well-perfused Neuro: alert and oriented to self, no motor deficit Psych: impaired insight Objective Data Active Medications Acetaminophen (Acetaminophen 325 Mg Tablet) 650 mg PO Q6H PRN PRN Reason: Pain, Mild (Pain Scale 1-3) Last Admin: 03/05/23 12:33 Dose: 650 mg Documented By: GURDEEP Calcium Carbonate (Calcium Carbonate 750 Mg Tab.Chew) 750 mg PO Q6H PRN PRN Reason: Pain, Severe (Pain Scale 7-10) Last Admin: 02/25/23 02:25 Dose: 750 mg Documented By: JOHN Docusate Sodium (Docusate Sodium 100 Mg Capsule) 100 mg PO DAILY [facility] Last Admin: 03/09/23 09:29 Dose: 100 mg Documented By: WILLIAM Enoxaparin Sodium (Enoxaparin Sodium 40 Mg/0.4 Ml Syringe) 40 mg SUBCUT Q24H [facility] Last Admin: 03/09/23 12:19 Dose: 40 mg Documented By: WILLIAM Folic Acid (Folic Acid 1 Mg Tablet) 1 mg PO DAILY [facility] Last Admin: 03/09/23 09:29 Dose: 1 mg Documented By: WILLIAM Memantine (Memantine Hcl 5 Mg Tablet) 5 mg PO BID [facility] Last Admin: 03/09/23 09:30 Dose: 5 mg Documented By: WILLIAM Multivitamins/Vitamin C (Multivitamin Tablet) 1 tab PO DAILY [facility] Last Admin: 03/09/23 09:30 Dose: 1 tab Documented By: WILLIAM Nystatin (Nystatin Powder 15 Gm Bottle) 1 appl TOPICAL BID [facility]; Protocol Last Admin: 03/09/23 12:19 Dose: 1 appl Documented By: WILLIAM Ondansetron HCl (Ondansetron Hcl 4 Mg/2 Ml Vial) 4 mg IVPUSH Q8H PRN PRN Reason: Nausea and Vomiting Oxycodone HCl (Oxycodone Hcl Immed Release 5 Mg Tablet) 5 mg PO BID PRN PRN Reason: Pain, Severe (Pain Scale 7-10) Last Admin: 03/08/23 21:09 Dose: 5 mg Documented By: HONEY Polyethylene Glycol (Polyethylene Glycol 3350 17 Gm Powd.Pack) 17 gm PO DAILY [facility] Last Admin: 03/09/23 09:30 Dose: 17 gm Documented By: WILLIAM Risperidone (Risperidone 0.5 Mg Tablet) 0.5 mg PO BID [facility] Last Admin: 03/09/23 09:29 Dose: 0.5 mg Documented By: WILLIAM Sertraline HCl (Sertraline Hcl 25 Mg Tablet) 25 mg PO DAILY [facility] Last Admin: 03/09/23 09:29 Dose: 25 mg Documented By: WILLAIM Sodium Chloride (0.9 % Sodium Chloride Flush 3 Ml Syringe) 3 ml IVFLUSH QSHIFT [facility] Last Admin: 03/09/23 09:29 Dose: 3 ml Documented By: WILLIAM Thiamine HCl (Thiamine Hcl 100 Mg Tablet) 100 mg PO DAILY [facility] Last Admin: 03/09/23 09:30 Dose: 100 mg Documented By: WILLIAM Labs 02/28/23 09:03 02/28/23 09:03 Assessment and Plan (1) Cognitive impairment: Status: Acute (2) Lower extremity edema: Status: Acute (3) Ascites: Status: Acute (4) Urinary tract infection: Status: Acute (5) Uterine mass: Status: Acute Plan 77yo F with chronic back pain, presenting with confusion, likely Alzheimer's dementia dementia, unspecified - initially thought to have encephalopathy, but now appears to be likely de mentia; memory seems to have been declining over the past several months - MOCA per OT: scored 14 - seen by Neurology: probable moderate to severe degenerative dementia, likely Alzheimer's; started sertraline + memantine - seen by Psychiatry: does not have capacity to make medical decisions, waiting for guardianship/placement folate and thiamine deficiency anemia thiamine level less than 6 continue thiamine replacement and folic acid replacement; also likely has anemia of chronic disease due to malignancy possible UTI completed antibiotic course, UCx contaminated, BCx negative TETO/CKD3 - resolved with IV fluid hydration malignant ascites/uterine mass - unintentional 30-lb weight loss - s/p paracentesis 02/22/23: 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 with immunostains are not consistent with a gynecological origin and are more suggestive of an upper GI primary including pancreatico biliary - CA-125 elevated to 299 - seen by Core Rescuer; declined pelvic exam + endometrial biopsy; - inform patient about immunostains result, she is not showing much understanding and keeps repeating that she does not want any intervention that will prolong her suffering, since it seems to be a metastatic cancer with patient's current clinical condition with lack of support likely she will not be a candidate for aggressive treatment, re-assess after guardianship. lower extremity edema - suspect due to uterine mass, US negative for DVT chronic pain - prn oxycodone hx DM2 - A1c only 6, no SSI dermatitis from urinary incontinence - Triad cream, repositioning VTE ppx - enoxaparin dispo - pending guardianship Time Spent With Patient Time: Total time managing care of this patient today ____ minutes. Quality Stroke Does the patient have a stroke diagnosis?: No VTE Prior VTE?: No VTE Risk Level:: Medical - moderate - high VTE Device Contraindication: Treatment Not Indicated VTE Drug Contraindication: N/A - Med Ordered
[2023-03-09 15:11] VITALS: BP 120/63; PULSE 72; RESP 18; TEMP 36.9; O2SAT 94
[2023-03-09] MEDS: oxyCODONE HCl Immed Release 5 MG TABLET PO (21:14)
[2023-03-10 04:00] VITALS: BP 115/55; PULSE 84; RESP 16; TEMP 36.2; O2SAT 95
[2023-03-10 06:00] VITALS: BMI 30.1
[2023-03-10 07:40] VITALS: BP 119/70; PULSE 92; RESP 17; TEMP 36.2; O2SAT 93
[2023-03-10] MEDS: Folic Acid 1 MG TABLET PO (08:02)
[2023-03-10] MEDS: risperiDONE 0.5 MG TABLET PO ×2 (08:02→21:10)
[2023-03-10] MEDS: Thiamine HCL 100 MG TABLET PO (08:02)
[2023-03-10] MEDS: Memantine HCl 5 MG TABLET PO ×2 (08:02→21:10)
[2023-03-10] MEDS: Docusate Sodium 100 MG CAPSULE PO (08:02)
[2023-03-10] MEDS: Multivitamin TABLET 1 TAB PO (08:03)
[2023-03-10] MEDS: Sertraline HCL 25 MG TABLET PO (08:03)
[2023-03-10] MEDS: polyethylene glycoL 3350 17 GM POWD.PACK PO (08:03)
[2023-03-10] MEDS: 0.9 % Sodium Chloride Flush 3 ML SYRINGE IVFLUSH ×3 (08:07→17:00)
[2023-03-10] MEDS: Nystatin Powder 15 GM BOTTLE 1 APPL TOPICAL ×2 (08:10→21:10)
--- NOTE | 2023-03-10 08:54 | MHC.CM.PN ---
PT CONTINUES TO WAIT FOR GUARDIAN, CONSERVATOR AND LTC PLACEMENT. DOCUMENTS SUBMITTED, AWAITING COURT DATE
[2023-03-10] MEDS: Enoxaparin Sodium 40 MG/0.4 ML SYRINGE SUBCUT (13:14)
--- NOTE | 2023-03-10 14:38 | P.PNIM_ITS ---
Subjective Subjective Date of Service: 03/10/23 Interval History: Remains pleasantly confused but easily redirected Review of Systems Denies chest pain Denies shortness of breath Denies nausea vomiting diarrhea Denies fever chills Physical Exam Vital Signs: Vital Signs: Last Vital Signs Temp 97.2 F 03/10/23 07:40 Pulse 92 03/10/23 07:40 Resp 17 03/10/23 07:40 BP 119/70 03/10/23 07:40 Pulse Ox 93 03/10/23 07:40 O2 Del Method Room Air 03/10/23 07:40 BMI result Body Mass Index 30.1 Const: Other: No acute distress Resp: Other: Clear to auscultation bilaterally rales rhonchi or wheezes Cardio: Other: No S4; positive S1-S2; no S3 murmurs rubs or gallops Extrem: Other: Soft nontender nondistended normoactive bowel sounds Objective Data Active Medications Acetaminophen (Acetaminophen 325 Mg Tablet) 650 mg PO Q6H PRN PRN Reason: Pain, Mild (Pain Scale 1-3) Last Admin: 03/05/23 12:33 Dose: 650 mg Documented By: GURDEEP Calcium Carbonate (Calcium Carbonate 750 Mg Tab.Chew) 750 mg PO Q6H PRN PRN Reason: Pain, Severe (Pain Scale 7-10) Last Admin: 02/25/23 02:25 Dose: 750 mg Documented By: JOHN Docusate Sodium (Docusate Sodium 100 Mg Capsule) 100 mg PO DAILY [facility] Last Admin: 03/10/23 08:02 Dose: 100 mg Documented By: CHARLIE Enoxaparin Sodium (Enoxaparin Sodium 40 Mg/0.4 Ml Syringe) 40 mg SUBCUT Q24H [facility] Last Admin: 03/10/23 13:14 Dose: 40 mg Documented By: CHARLIE Folic Acid (Folic Acid 1 Mg Tablet) 1 mg PO DAILY [facility] Last Admin: 03/10/23 08:02 Dose: 1 mg Documented By: CHARLIE Memantine (Memantine Hcl 5 Mg Tablet) 5 mg PO BID [facility] Last Admin: 03/10/23 08:02 Dose: 5 mg Documented By: CHARLIE Multivitamins/Vitamin C (Multivitamin Tablet) 1 tab PO DAILY [facility] Last Admin: 03/10/23 08:03 Dose: 1 tab Documented By: CHARLIE Nystatin (Nystatin Powder 15 Gm Bottle) 1 appl TOPICAL BID [facility]; Protocol Last Admin: 03/10/23 08:10 Dose: 1 appl Documented By: CHARLIE Ondansetron HCl (Ondansetron Hcl 4 Mg/2 Ml Vial) 4 mg IVPUSH Q8H PRN PRN Reason: Nausea and Vomiting Oxycodone HCl (Oxycodone Hcl Immed Release 5 Mg Tablet) 5 mg PO BID PRN PRN Reason: Pain, Severe (Pain Scale 7-10) Last Admin: 03/09/23 21:14 Dose: 5 mg Documented By: HONEY Polyethylene Glycol (Polyethylene Glycol 3350 17 Gm Powd.Pack) 17 gm PO DAILY [facility] Last Admin: 03/10/23 08:03 Dose: 17 gm Documented By: CHARLIE Risperidone (Risperidone 0.5 Mg Tablet) 0.5 mg PO BID [facility] Last Admin: 03/10/23 08:02 Dose: 0.5 mg Documented By: CHARLIE Sertraline HCl (Sertraline Hcl 25 Mg Tablet) 25 mg PO DAILY [facility] Last Admin: 03/10/23 08:03 Dose: 25 mg Documented By: CHARLIE Sodium Chloride (0.9 % Sodium Chloride Flush 3 Ml Syringe) 3 ml IVFLUSH QSHIFT [facility] Last Admin: 03/10/23 08:07 Dose: 3 ml Documented By: CHARLIE Thiamine HCl (Thiamine Hcl 100 Mg Tablet) 100 mg PO DAILY [facility] Last Admin: 03/10/23 08:02 Dose: 100 mg Documented By: CHARLIE Labs 02/28/23 09:03 02/28/23 09:03 Assessment and Plan (1) Dementia: Status: Acute (2) TETO (acute kidney injury): Status: Acute Plan 77yo F with chronic back pain, presenting with confusion, likely Alzheimer's dementia 1.Dementia, unspecified - initially thought to have encephalopathy, but now appears to be likely dementia; memory seems to have been declining over the past several months - MOCA per OT: scored 14 - seen by Neurology: probable moderate to severe degenerative dementia, likely Alzheimer's; started sertraline + memantine - seen by Psychiatry: does not have capacity to make medical decisions, waiting for guardianship/placement 2.Malignant ascites/uterine mass - unintentional 30-lb weight loss - s/p paracentesis 02/22/23: 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 with immunostains are not consistent with a gynecological origin and are more suggestive of an upper GI primary including pancreatico biliary - CA-125 elevated to 299 - seen by Server Assistant; declined pelvic exam + endometrial biopsy; - inform patient about immunostains result, she is not showing much understanding and keeps repeating that she does not want any intervention that will prolong her suffering, since it seems to be a metastatic cancer with patient's current clinical condition with lack of support likely she will not be a candidate for aggressive treatment, re-assess after guardianship. l VTE ppx - enoxaparin dispo - pending guardianship Time Spent With Patient Time: Total time managing care of this patient today ____ minutes. Quality Stroke Does the patient have a stroke diagnosis?: No VTE Prior VTE?: No VTE Risk Level:: Medical - moderate - high VTE Device Contraindication: Treatment Not Indicated VTE Drug Contraindication: N/A - Med Ordered
[2023-03-10 15:17] VITALS: BP 102/54; PULSE 68; RESP 18; TEMP 36.7; O2SAT 93
[2023-03-10 20:00] VITALS: BP 136/56; PULSE 76; RESP 18; TEMP 36.4
[2023-03-10] MEDS: oxyCODONE HCl Immed Release 5 MG TABLET PO (22:45)
[2023-03-10] MEDS: Acetaminophen 325 MG TABLET 650 MG PO (22:45)
[2023-03-11 04:00] VITALS: BP 114/68; PULSE 83; RESP 18; TEMP 36; O2SAT 93
[2023-03-11 06:00] VITALS: BMI 29.8
[2023-03-11 07:46] VITALS: BP 109/57; PULSE 87; RESP 18; TEMP 36.1; O2SAT 90
[2023-03-11] MEDS: Sertraline HCL 25 MG TABLET PO (09:18)
[2023-03-11] MEDS: Folic Acid 1 MG TABLET PO (09:18)
[2023-03-11] MEDS: Multivitamin TABLET 1 TAB PO (09:18)
[2023-03-11] MEDS: Thiamine HCL 100 MG TABLET PO (09:18)
[2023-03-11] MEDS: polyethylene glycoL 3350 17 GM POWD.PACK PO (09:18)
[2023-03-11] MEDS: Docusate Sodium 100 MG CAPSULE PO (09:18)
[2023-03-11] MEDS: 0.9 % Sodium Chloride Flush 3 ML SYRINGE IVFLUSH ×2 (09:18→15:58)
[2023-03-11] MEDS: Memantine HCl 5 MG TABLET PO ×2 (09:18→21:15)
[2023-03-11] MEDS: risperiDONE 0.5 MG TABLET PO ×2 (09:18→21:15)
[2023-03-11] MEDS: Nystatin Powder 15 GM BOTTLE 1 APPL TOPICAL ×2 (09:25→21:16)
[2023-03-11] MEDS: Enoxaparin Sodium 40 MG/0.4 ML SYRINGE SUBCUT (13:39)
--- NOTE | 2023-03-11 14:33 | P.PNIM_ITS ---
Subjective Subjective Date of Service: 03/11/23 Interval History: No acute issues overnight remains pleasantly confused Review of Systems Denies chest pain Denies shortness of breath Denies nausea vomiting diarrhea Denies fever chills Physical Exam Vital Signs: Vital Signs: Last Vital Signs Temp 97.0 F 03/11/23 07:46 Pulse 87 03/11/23 07:46 Resp 18 03/11/23 07:46 BP 109/57 L 03/11/23 07:46 Pulse Ox 90 L 03/11/23 07:46 O2 Del Method Room Air 03/11/23 07:46 BMI result Body Mass Index 29.8 Const: Other: No acute distress Resp: Other: Clear to auscultation bilaterally rales rhonchi or wheezes Cardio: Other: No S4; positive S1-S2; no S3 murmurs rubs or gallops Extrem: Other: Soft nontender nondistended normoactive bowel sounds Objective Data Active Medications Acetaminophen (Acetaminophen 325 Mg Tablet) 650 mg PO Q6H PRN PRN Reason: Pain, Mild (Pain Scale 1-3) Last Admin: 03/10/23 22:45 Dose: 650 mg Documented By: CHI Calcium Carbonate (Calcium Carbonate 750 Mg Tab.Chew) 750 mg PO Q6H PRN PRN Reason: Pain, Severe (Pain Scale 7-10) Last Admin: 02/25/23 02:25 Dose: 750 mg Documented By: JOHN Docusate Sodium (Docusate Sodium 100 Mg Capsule) 100 mg PO DAILY [facility] Last Admin: 03/11/23 09:18 Dose: 100 mg Documented By: KRISSY Enoxaparin Sodium (Enoxaparin Sodium 40 Mg/0.4 Ml Syringe) 40 mg SUBCUT Q24H [facility] Last Admin: 03/11/23 13:39 Dose: 40 mg Documented By: KRISSY Folic Acid (Folic Acid 1 Mg Tablet) 1 mg PO DAILY [facility] Last Admin: 03/11/23 09:18 Dose: 1 mg Documented By: KRISSY Memantine (Memantine Hcl 5 Mg Tablet) 5 mg PO BID [facility] Last Admin: 03/11/23 09:18 Dose: 5 mg Documented By: KRISSY Multivitamins/Vitamin C (Multivitamin Tablet) 1 tab PO DAILY [facility] Last Admin: 03/11/23 09:18 Dose: 1 tab Documented By: KRISSY Nystatin (Nystatin Powder 15 Gm Bottle) 1 appl TOPICAL BID [facility]; Protocol Last Admin: 03/11/23 09:25 Dose: 1 appl Documented By: KRISSY Ondansetron HCl (Ondansetron Hcl 4 Mg/2 Ml Vial) 4 mg IVPUSH Q8H PRN PRN Reason: Nausea and Vomiting Oxycodone HCl (Oxycodone Hcl Immed Release 5 Mg Tablet) 5 mg PO BID PRN PRN Reason: Pain, Severe (Pain Scale 7-10) Last Admin: 03/10/23 22:45 Dose: 5 mg Documented By: CHI Polyethylene Glycol (Polyethylene Glycol 3350 17 Gm Powd.Pack) 17 gm PO DAILY [facility] Last Admin: 03/11/23 09:18 Dose: 17 gm Documented By: KRISSY Risperidone (Risperidone 0.5 Mg Tablet) 0.5 mg PO BID [facility] Last Admin: 03/11/23 09:18 Dose: 0.5 mg Documented By: KRISSY Sertraline HCl (Sertraline Hcl 25 Mg Tablet) 25 mg PO DAILY [facility] Last Admin: 03/11/23 09:18 Dose: 25 mg Documented By: KRISSY Sodium Chloride (0.9 % Sodium Chloride Flush 3 Ml Syringe) 3 ml IVFLUSH QSHIFT [facility] Last Admin: 03/11/23 09:18 Dose: 3 ml Documented By: KRISSY Thiamine HCl (Thiamine Hcl 100 Mg Tablet) 100 mg PO DAILY [facility] Last Admin: 03/11/23 09:18 Dose: 100 mg Documented By: KRISSY Labs 02/28/23 09:03 02/28/23 09:03 Assessment and Plan (1) Dementia: Status: Acute Plan 77yo F with chronic back pain, presenting with confusion, likely Alzheimer's dementia 1.Dementia, unspecified - initially thought to have encephalopathy, but now appears to be likely dementia; memory seems to have been declining over the past several months - MOCA per OT: scored 14 - seen by Neurology: probable moderate to severe degenerative dementia, likely Alzheimer's; started sertraline + memantine - seen by Psychiatry: does not have capacity to make medical decisions, waiting for guardianship/placement 2.Malignant ascites/uterine mass - unintentional 30-lb weight loss - s/p paracentesis 02/22/23: 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 with immunostains are not consistent with a gynecological origin and are more suggestive of an upper GI primary including pancreatico biliary - CA-125 elevated to 299 - seen by Wood Finisher Apprentice; declined pelvic exam + endometrial biopsy; - inform patient about immunostains result, she is not showing much understand ing and keeps repeating that she does not want any intervention that will prolong her suffering, since it seems to be a metastatic cancer with patient's current clinical condition with lack of support likely she will not be a candidate for aggressive treatment, re-assess after guardianship. l VTE ppx - enoxaparin dispo - pending guardianship Time Spent With Patient Time: Total time managing care of this patient today ____ minutes. Quality Stroke Does the patient have a stroke diagnosis?: No VTE Prior VTE?: No VTE Risk Level:: Medical - moderate - high VTE Device Contraindication: Treatment Not Indicated VTE Drug Contraindication: N/A - Med Ordered
[2023-03-11 15:17] VITALS: BP 117/61; PULSE 80; RESP 20; TEMP 36; O2SAT 95
[2023-03-11 20:00] VITALS: BP 123/64; PULSE 85; RESP 17; TEMP 36.8; O2SAT 93
[2023-03-12] MEDS: 0.9 % Sodium Chloride Flush 3 ML SYRINGE IVFLUSH (00:47)
[2023-03-12] MEDS: oxyCODONE HCl Immed Release 5 MG TABLET PO (00:53)
[2023-03-12 04:00] VITALS: BP 112/54; PULSE 74; RESP 16; TEMP 36.2; O2SAT 92
[2023-03-12 06:00] VITALS: BMI 30.1
[2023-03-12 07:17] VITALS: BP 127/66; PULSE 76; RESP 18; TEMP 36.3; O2SAT 93
[2023-03-12 08:00] VITALS: BP 127/66; PULSE 83; RESP 18; TEMP 36.3; O2SAT 93
[2023-03-12] MEDS: Docusate Sodium 100 MG CAPSULE PO (08:44)
[2023-03-12] MEDS: Multivitamin TABLET 1 TAB PO (08:44)
[2023-03-12] MEDS: Sertraline HCL 25 MG TABLET PO (08:44)
[2023-03-12] MEDS: Thiamine HCL 100 MG TABLET PO (08:44)
[2023-03-12] MEDS: Nystatin Powder 15 GM BOTTLE 1 APPL TOPICAL ×2 (08:45→20:29)
[2023-03-12] MEDS: polyethylene glycoL 3350 17 GM POWD.PACK PO (08:45)
[2023-03-12] MEDS: Folic Acid 1 MG TABLET PO (08:45)
[2023-03-12] MEDS: risperiDONE 0.5 MG TABLET PO ×2 (08:45→20:29)
[2023-03-12] MEDS: Memantine HCl 5 MG TABLET PO ×2 (08:49→20:29)
[2023-03-12] MEDS: Enoxaparin Sodium 40 MG/0.4 ML SYRINGE SUBCUT (12:06)
--- NOTE | 2023-03-12 14:48 | P.PNIM_ITS ---
Subjective Subjective Date of Service: 03/12/23 Interval History: Remains pleasantly confused. No new issues Review of Systems Denies chest pain Denies shortness of breath Denies nausea vomiting diarrhea Denies fever chills Physical Exam Vital Signs: Vital Signs: Last Vital Signs Temp 97.3 F 03/12/23 08:00 Pulse 83 03/12/23 08:00 Resp 18 03/12/23 08:00 BP 127/66 03/12/23 08:00 Pulse Ox 93 03/12/23 08:00 O2 Del Method Room Air 03/12/23 08:00 BMI result Body Mass Index 30.1 Const: Other: No acute distress Resp: Other: Clear to auscultation bilaterally rales rhonchi or wheezes Cardio: Other: No S4; positive S1-S2; no S3 murmurs rubs or gallops Extrem: Other: Soft nontender nondistended normoactive bowel sounds Objective Data Active Medications Acetaminophen (Acetaminophen 325 Mg Tablet) 650 mg PO Q6H PRN PRN Reason: Pain, Mild (Pain Scale 1-3) Last Admin: 03/10/23 22:45 Dose: 650 mg Documented By: CHI Calcium Carbonate (Calcium Carbonate 750 Mg Tab.Chew) 750 mg PO Q6H PRN PRN Reason: Pain, Severe (Pain Scale 7-10) Last Admin: 02/25/23 02:25 Dose: 750 mg Documented By: JOHN Docusate Sodium (Docusate Sodium 100 Mg Capsule) 100 mg PO DAILY [facility] Last Admin: 03/12/23 08:44 Dose: 100 mg Documented By: KRISSY Enoxaparin Sodium (Enoxaparin Sodium 40 Mg/0.4 Ml Syringe) 40 mg SUBCUT Q24H [facility] Last Admin: 03/12/23 12:06 Dose: 40 mg Documented By: KRISSY Folic Acid (Folic Acid 1 Mg Tablet) 1 mg PO DAILY [facility] Last Admin: 03/12/23 08:45 Dose: 1 mg Documented By: KRISSY Memantine (Memantine Hcl 5 Mg Tablet) 5 mg PO BID [facility] Last Admin: 03/12/23 08:49 Dose: 5 mg Documented By: KRISSY Multivitamins/Vitamin C (Multivitamin Tablet) 1 tab PO DAILY [facility] Last Admin: 03/12/23 08:44 Dose: 1 tab Documented By: KRISSY Nystatin (Nystatin Powder 15 Gm Bottle) 1 appl TOPICAL BID [facility]; Protocol Last Admin: 03/12/23 08:45 Dose: 1 appl Documented By: KRISSY Ondansetron HCl (Ondansetron Hcl 4 Mg/2 Ml Vial) 4 mg IVPUSH Q8H PRN PRN Reason: Nausea and Vomiting Oxycodone HCl (Oxycodone Hcl Immed Release 5 Mg Tablet) 5 mg PO BID PRN PRN Reason: Pain, Severe (Pain Scale 7-10) Last Admin: 03/12/23 00:53 Dose: 5 mg Documented By: LESLIE Polyethylene Glycol (Polyethylene Glycol 3350 17 Gm Powd.Pack) 17 gm PO DAILY [facility] Last Admin: 03/12/23 08:45 Dose: 17 gm Documented By: KRISSY Risperidone (Risperidone 0.5 Mg Tablet) 0.5 mg PO BID [facility] Last Admin: 03/12/23 08:45 Dose: 0.5 mg Documented By: KRISSY Sertraline HCl (Sertraline Hcl 25 Mg Tablet) 25 mg PO DAILY [facility] Last Admin: 03/12/23 08:44 Dose: 25 mg Documented By: KRISSY Sodium Chloride (0.9 % Sodium Chloride Flush 3 Ml Syringe) 3 ml IVFLUSH QSHIFT [facility] Last Admin: 03/12/23 09:38 Dose: Not Given Documented By: KRISSY Non-Admin Reason: No Access Thiamine HCl (Thiamine Hcl 100 Mg Tablet) 100 mg PO DAILY [facility] Last Admin: 03/12/23 08:44 Dose: 100 mg Documented By: KRISSY Labs 02/28/23 09:03 02/28/23 09:03 Assessment and Plan (1) Dementia: Status: Acute Plan 77yo F with chronic back pain, presenting with confusion, likely Alzheimer's dementia 1.Dementia, unspecified - initially thought to have encephalopathy, but now appears to be likely dementia; memory seems to have been declining over the past several months - MOCA per OT: scored 14 - seen by Neurology: probable moderate to severe degenerative dementia, likely Alzheimer's; started sertraline + memantine - seen by Psychiatry: does not have capacity to make medical decisions, waiting for guardianship/placement 2.Malignant ascites/uterine mass - unintentional 30-lb weight loss - s/p paracentesis 02/22/23: 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 with immunostains are not consistent with a gynecological origin and are more suggestive of an upper GI primary including pancreatico biliary - CA-125 elevated to 299 - seen by Tumbler Machine Operator Helper; declined pelvic exam + endometrial biopsy; - inform patient about immunostains result, she is not showing much understanding and keeps repeating that she does not want any intervention that will prolong her suffering, since it seems to be a metastatic cancer with patient's current clinical condition with lack of support likely she will not be a candidate for aggressive treatment, re-assess after guardianship. l VTE ppx - enoxaparin dispo - pending guardianship Time Spent With Patient Time: Total time managing care of this patient today ____ minutes. Quality Stroke Does the patient have a stroke diagnosis?: No VTE Prior VTE?: No VTE Risk Level:: Medical - moderate - high VTE Device Contraindication: Treatment Not Indicated VTE Drug Contraindication: N/A - Med Ordered
[2023-03-12] MEDS: Acetaminophen 325 MG TABLET 650 MG PO (15:58)
[2023-03-12 16:00] VITALS: BP 105/55; PULSE 80; RESP 16; TEMP 36.3; O2SAT 93
[2023-03-12 20:00] VITALS: BP 119/57; PULSE 96; RESP 16; TEMP 36.6; O2SAT 94
[2023-03-13 04:00] VITALS: BP 117/69; PULSE 73; RESP 19; TEMP 36.4; O2SAT 93
[2023-03-13] MEDS: oxyCODONE HCl Immed Release 5 MG TABLET PO ×2 (04:47→19:23)
[2023-03-13 07:45] VITALS: PULSE 75; RESP 18; TEMP 36.2; O2SAT 93
[2023-03-13] MEDS: polyethylene glycoL 3350 17 GM POWD.PACK PO (08:33)
[2023-03-13] MEDS: Multivitamin TABLET 1 TAB PO (08:33)
[2023-03-13] MEDS: Thiamine HCL 100 MG TABLET PO (08:33)
[2023-03-13] MEDS: Folic Acid 1 MG TABLET PO (08:33)
[2023-03-13] MEDS: risperiDONE 0.5 MG TABLET PO ×2 (08:33→19:24)
[2023-03-13] MEDS: Docusate Sodium 100 MG CAPSULE PO (08:33)
[2023-03-13] MEDS: Memantine HCl 5 MG TABLET PO ×2 (08:33→19:24)
[2023-03-13] MEDS: Sertraline HCL 25 MG TABLET PO (08:33)
[2023-03-13] MEDS: Nystatin Powder 15 GM BOTTLE 1 APPL TOPICAL ×2 (08:37→19:24)
--- NOTE | 2023-03-13 13:03 | P.PNIM_ITS ---
Subjective Subjective Date of Service: 03/13/23 Interval History: Remains pleasantly confused. No acute medical issues Review of Systems Denies chest pain Denies shortness of breath Denies nausea vomiting diarrhea Denies fever chills Physical Exam Vital Signs: Vital Signs: Last Vital Signs Temp 97.2 F 03/13/23 07:45 Pulse 75 03/13/23 07:45 Resp 18 03/13/23 07:45 BP 117/69 03/13/23 04:00 Pulse Ox 93 03/13/23 07:45 O2 Del Method Room Air 03/13/23 07:45 BMI result Body Mass Index 30.1 Const: Other: No acute distress Resp: Other: Clear to auscultation bilaterally rales rhonchi or wheezes Cardio: Other: No S4; positive S1-S2; no S3 murmurs rubs or gallops Extrem: Other: Soft nontender nondistended normoactive bowel sounds Objective Data Active Medications Acetaminophen (Acetaminophen 325 Mg Tablet) 650 mg PO Q6H PRN PRN Reason: Pain, Mild (Pain Scale 1-3) Last Admin: 03/12/23 15:58 Dose: 650 mg Documented By: BIBI Calcium Carbonate (Calcium Carbonate 750 Mg Tab.Chew) 750 mg PO Q6H PRN PRN Reason: Pain, Severe (Pain Scale 7-10) Last Admin: 02/25/23 02:25 Dose: 750 mg Documented By: JOHN Docusate Sodium (Docusate Sodium 100 Mg Capsule) 100 mg PO DAILY [facility] Last Admin: 03/13/23 08:33 Dose: 100 mg Documented By: HANNAH Enoxaparin Sodium (Enoxaparin Sodium 40 Mg/0.4 Ml Syringe) 40 mg SUBCUT Q24H [facility] Last Admin: 03/12/23 12:06 Dose: 40 mg Documented By: KRISSY Folic Acid (Folic Acid 1 Mg Tablet) 1 mg PO DAILY [facility] Last Admin: 03/13/23 08:33 Dose: 1 mg Documented By: HANNAH Memantine (Memantine Hcl 5 Mg Tablet) 5 mg PO BID [facility] Last Admin: 03/13/23 08:33 Dose: 5 mg Documented By: HANNAH Multivitamins/Vitamin C (Multivitamin Tablet) 1 tab PO DAILY [facility] Last Admin: 03/13/23 08:33 Dose: 1 tab Documented By: HANNAH Nystatin (Nystatin Powder 15 Gm Bottle) 1 appl TOPICAL BID [facility]; Protocol Last Admin: 03/13/23 08:37 Dose: 1 appl Documented By: HANNAH Ondansetron HCl (Ondansetron Hcl 4 Mg/2 Ml Vial) 4 mg IVPUSH Q8H PRN PRN Reason: Nausea and Vomiting Oxycodone HCl (Oxycodone Hcl Immed Release 5 Mg Tablet) 5 mg PO BID PRN PRN Reason: Pain, Severe (Pain Scale 7-10) Last Admin: 03/13/23 04:47 Dose: 5 mg Documented By: TINO Polyethylene Glycol (Polyethylene Glycol 3350 17 Gm Powd.Pack) 17 gm PO DAILY [facility] Last Admin: 03/13/23 08:33 Dose: 17 gm Documented By: HANNAH Risperidone (Risperidone 0.5 Mg Tablet) 0.5 mg PO BID [facility] Last Admin: 03/13/23 08:33 Dose: 0.5 mg Documented By: HANNAH Sertraline HCl (Sertraline Hcl 25 Mg Tablet) 25 mg PO DAILY [facility] Last Admin: 03/13/23 08:33 Dose: 25 mg Documented By: HANNAH Sodium Chloride (0.9 % Sodium Chloride Flush 3 Ml Syringe) 3 ml IVFLUSH QSHIFT [facility] Last Admin: 03/13/23 08:16 Dose: Not Given Documented By: HANNAH Non-Admin Reason: No Access Thiamine HCl (Thiamine Hcl 100 Mg Tablet) 100 mg PO DAILY [facility] Last Admin: 03/13/23 08:33 Dose: 100 mg Documented By: HANNAH Labs 02/28/23 09:03 02/28/23 09:03 Assessment and Plan (1) Dementia: Status: Acute Plan 77yo F with chronic back pain, presenting with confusion, likely Alzheimer's dementia 1.Dementia, unspecified - initially thought to have encephalopathy, but now appears to be likely vladimir ia; memory seems to have been declining over the past several months - MOCA per OT: scored 14 - seen by Neurology: probable moderate to severe degenerative dementia, likely Alzheimer's; started sertraline + memantine - seen by Psychiatry: does not have capacity to make medical decisions, waiting for guardianship/placement 2.Malignant ascites/uterine mass - unintentional 30-lb weight loss - s/p paracentesis 02/22/23: 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 with immunostains are not consistent with a gynecological origin and are more suggestive of an upper GI primary including pancreatico biliary - CA-125 elevated to 299 - seen by Ward Secretary; declined pelvic exam + endometrial biopsy; - inform patient about immunostains result, she is not showing much understanding and keeps repeating that she does not want any intervention that will prolong her suffering, since it seems to be a metastatic cancer with patient's current clinical condition with lack of support likely she will not be a candidate for aggressive treatment, re-assess after guardianship. l VTE ppx - enoxaparin dispo - pending guardianship Time Spent With Patient Time: Total time managing care of this patient today ____ minutes. Quality Stroke Does the patient have a stroke diagnosis?: No VTE Prior VTE?: No VTE Risk Level:: Medical - moderate - high VTE Device Contraindication: Treatment Not Indicated VTE Drug Contraindication: N/A - Med Ordered
--- NOTE | 2023-03-13 14:21 | MHC.CM.PN ---
[facility] SCHEDULED FOR 03/16 @9am
[2023-03-13] MEDS: Enoxaparin Sodium 40 MG/0.4 ML SYRINGE SUBCUT (14:24)
--- NOTE | 2023-03-13 14:40 | MHC.CM.PN ---
Court papers delivered to patient.
[2023-03-13 16:00] VITALS: BP 113/62; PULSE 95; RESP 18; TEMP 36.3; O2SAT 94
[2023-03-13 20:00] VITALS: BP 106/69; PULSE 97; RESP 17; TEMP 36.7; O2SAT 94
[2023-03-14 03:26] VITALS: BP 120/60; PULSE 93; RESP 16; TEMP 36.1; O2SAT 93
[2023-03-14] MEDS: Acetaminophen 325 MG TABLET 650 MG PO ×2 (03:59→09:41)
[2023-03-14 06:00] VITALS: BMI 30.6
[2023-03-14 07:51] VITALS: BP 121/63; PULSE 88; RESP 16; TEMP 36.2; O2SAT 92
--- NOTE | 2023-03-14 09:22 | P.PNIM_ITS ---
Subjective Subjective Date of Service: 03/14/23 Interval History: Remains pleasantly confused. No acute medical issues Physical Exam Vital Signs: Vital Signs: Last Vital Signs Temp 97.2 F 03/14/23 07:51 Pulse 88 03/14/23 07:51 Resp 16 03/14/23 07:51 BP 121/63 03/14/23 07:51 Pulse Ox 92 03/14/23 07:51 O2 Del Method Room Air 03/14/23 07:51 BMI result Body Mass Index 30.6 Objective Data Active Medications Acetaminophen (Acetaminophen 325 Mg Tablet) 650 mg PO Q6H PRN PRN Reason: Pain, Mild (Pain Scale 1-3) Last Admin: 03/14/23 03:59 Dose: 650 mg Documented By: SARAH Calcium Carbonate (Calcium Carbonate 750 Mg Tab.Chew) 750 mg PO Q6H PRN PRN Reason: Pain, Severe (Pain Scale 7-10) Last Admin: 02/25/23 02:25 Dose: 750 mg Documented By: JOHN Docusate Sodium (Docusate Sodium 100 Mg Capsule) 100 mg PO DAILY [facility] Last Admin: 03/13/23 08:33 Dose: 100 mg Documented By: HANNAH Enoxaparin Sodium (Enoxaparin Sodium 40 Mg/0.4 Ml Syringe) 40 mg SUBCUT Q24H [facility] Last Admin: 03/13/23 14:24 Dose: 40 mg Documented By: KRISSY Folic Acid (Folic Acid 1 Mg Tablet) 1 mg PO DAILY [facility] Last Admin: 03/13/23 08:33 Dose: 1 mg Documented By: HANNAH Memantine (Memantine Hcl 5 Mg Tablet) 5 mg PO BID [facility] Last Admin: 03/13/23 19:24 Dose: 5 mg Documented By: DARON Multivitamins/Vitamin C (Multivitamin Tablet) 1 tab PO DAILY [facility] Last Admin: 03/13/23 08:33 Dose: 1 tab Documented By: HANNAH Nystatin (Nystatin Powder 15 Gm Bottle) 1 appl TOPICAL BID [facility]; Protocol Last Admin: 03/13/23 19:24 Dose: 1 appl Documented By: DARON Ondansetron HCl (Ondansetron Hcl 4 Mg/2 Ml Vial) 4 mg IVPUSH Q8H PRN PRN Reason: Nausea and Vomiting Oxycodone HCl (Oxycodone Hcl Immed Release 5 Mg Tablet) 5 mg PO BID PRN PRN Reason: Pain, Severe (Pain Scale 7-10) Last Admin: 03/13/23 19:23 Dose: 5 mg Documented By: DARON Polyethylene Glycol (Polyethylene Glycol 3350 17 Gm Powd.Pack) 17 gm PO DAILY [facility] 234 [facility] Last Admin: 03/13/23 08:33 Dose: 17 gm Documented By: HANNAH Risperidone (Risperidone 0.5 Mg Tablet) 0.5 mg PO BID [facility] 234 [facility] Last Admin: 03/13/23 19:24 Dose: 0.5 mg Documented By: DARON Sertraline HCl (Sertraline Hcl 25 Mg Tablet) 25 mg PO DAILY [facility] 234 [facility] Last Admin: 03/13/23 08:33 Dose: 25 mg Documented By: HANNAH Sodium Chloride (0.9 % Sodium Chloride Flush 3 Ml Syringe) 3 ml IVFLUSH QSHIFT [facility] 234 [facility]S [facility] Last Admin: 03/14/23 07:33 Dose: Not Given Documented By: HANNAH Non-Admin Reason: No Access Thiamine HCl (Thiamine Hcl 100 Mg Tablet) 100 mg PO DAILY [facility] Last Admin: 03/13/23 08:33 Dose: 100 mg Documented By: HANNAH Labs 02/28/23 09:03 02/28/23 09:03 Assessment and Plan (1) Dementia: Status: Acute Plan 77yo F with chronic back pain, presenting with confusion, likely Alzheimer's dementia 1.Dementia, unspecified - initially thought to have encephalopathy, but now appears to be likely dementia; memory seems to have been declining over the past several months - Bertin Cognitive Assesment (MOcA) : scored 14 - seen by Neurology: probable moderate to severe degenerative dementia, likely Alzheimer's; started sertraline + memantine - seen by Psychiatry: does not have capacity to make medical decisions, waiting for guardianship/placement 2.Malignant ascites/uterine mass - unintentional 30-lb weight loss - s/p paracentesis 02/22/23: 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 with immunostains are not consistent with a gynecological origin and are more suggestive of an upper GI primary including pancreatico biliary - CA-125 elevated to 299 - seen by Perinatal Director; declined pelvic exam + endometrial biopsy; - inform patient about immunostains result, she is not showing much understanding and keeps repeating that she does not want any intervention that will prolong her suffering, since it seems to be a metastatic cancer with patient's current clinical condition with lack of support likely she will not be a candidate for aggressive treatment, re-assess after guardianship. l VTE ppx - enoxaparin dispo - pending guardianship Time Spent With Patient Time: Total time managing care of this patient today ____ minutes. Quality Stroke Does the patient have a stroke diagnosis?: No VTE Prior VTE?: No VTE Risk Level:: Medical - moderate - high VTE Device Contraindication: Treatment Not Indicated VTE Drug Contraindication: N/A - Med Ordered
[2023-03-14] MEDS: Docusate Sodium 100 MG CAPSULE PO (09:40)
[2023-03-14] MEDS: Memantine HCl 5 MG TABLET PO ×2 (09:40→22:09)
[2023-03-14] MEDS: risperiDONE 0.5 MG TABLET PO ×2 (09:40→22:10)
[2023-03-14] MEDS: polyethylene glycoL 3350 17 GM POWD.PACK PO (09:40)
[2023-03-14] MEDS: Sertraline HCL 25 MG TABLET PO (09:40)
[2023-03-14] MEDS: Multivitamin TABLET 1 TAB PO (09:40)
[2023-03-14] MEDS: Folic Acid 1 MG TABLET PO (09:40)
[2023-03-14] MEDS: Thiamine HCL 100 MG TABLET PO (09:41)
[2023-03-14] MEDS: Nystatin Powder 15 GM BOTTLE 1 APPL TOPICAL ×2 (09:41→22:10)
[2023-03-14] MEDS: oxyCODONE HCl Immed Release 5 MG TABLET PO ×2 (09:41→22:10)
[2023-03-14] MEDS: Enoxaparin Sodium 40 MG/0.4 ML SYRINGE SUBCUT (12:18)
[2023-03-14 20:00] VITALS: BP 143/66; PULSE 93; RESP 16; TEMP 36.2; O2SAT 93
[2023-03-15 04:00] VITALS: BP 113/63; PULSE 87; RESP 16; TEMP 36.3; O2SAT 96
[2023-03-15 06:00] VITALS: BMI 30.6
[2023-03-15 07:35] VITALS: BP 127/60; PULSE 92; RESP 16; TEMP 36.4; O2SAT 92
[2023-03-15] MEDS: Memantine HCl 5 MG TABLET PO ×2 (09:54→21:28)
[2023-03-15] MEDS: Folic Acid 1 MG TABLET PO (09:54)
[2023-03-15] MEDS: risperiDONE 0.5 MG TABLET PO ×2 (09:54→21:28)
[2023-03-15] MEDS: Multivitamin TABLET 1 TAB PO (09:54)
[2023-03-15] MEDS: Thiamine HCL 100 MG TABLET PO (09:54)
[2023-03-15] MEDS: Docusate Sodium 100 MG CAPSULE PO (09:54)
[2023-03-15] MEDS: polyethylene glycoL 3350 17 GM POWD.PACK PO (09:54)
[2023-03-15] MEDS: Sertraline HCL 25 MG TABLET PO (09:54)
[2023-03-15] MEDS: Acetaminophen 325 MG TABLET 650 MG PO (09:54)
--- NOTE | 2023-03-15 10:09 | P.PNIM_ITS ---
Subjective Subjective Date of Service: 03/15/23 Interval History: no new issues Physical Exam Vital Signs: Vital Signs: Last Vital Signs Temp 97.5 F 03/15/23 07:35 Pulse 92 03/15/23 07:35 Resp 16 03/15/23 07:35 BP 127/60 03/15/23 07:35 Pulse Ox 92 03/15/23 07:35 O2 Del Method Room Air 03/15/23 07:35 BMI result Body Mass Index 30.6 Const: Other: General:oriented to self Resp: CTA bilateral CVS: S1,S2,RRR GI: +BS, NT, no distention Skin: No rash Neuro: motor grossly intact Psych: appropriate affect Objective Data Active Medications Acetaminophen (Acetaminophen 325 Mg Tablet) 650 mg PO Q6H PRN PRN Reason: Pain, Mild (Pain Scale 1-3) Last Admin: 03/15/23 09:54 Dose: 650 mg Documented By: CHARLIE Calcium Carbonate (Calcium Carbonate 750 Mg Tab.Chew) 750 mg PO Q6H PRN PRN Reason: Pain, Severe (Pain Scale 7-10) Last Admin: 02/25/23 02:25 Dose: 750 mg Documented By: JOHN Docusate Sodium (Docusate Sodium 100 Mg Capsule) 100 mg PO DAILY [facility] Last Admin: 03/15/23 09:54 Dose: 100 mg Documented By: CHARLIE Enoxaparin Sodium (Enoxaparin Sodium 40 Mg/0.4 Ml Syringe) 40 mg SUBCUT Q24H [facility] Last Admin: 03/14/23 12:18 Dose: 40 mg Documented By: HANNAH Folic Acid (Folic Acid 1 Mg Tablet) 1 mg PO DAILY [facility] Last Admin: 03/15/23 09:54 Dose: 1 mg Documented By: CHARLIE Memantine (Memantine Hcl 5 Mg Tablet) 5 mg PO BID [facility] Last Admin: 03/15/23 09:54 Dose: 5 mg Documented By: CHARLIE Multivitamins/Vitamin C (Multivitamin Tablet) 1 tab PO DAILY [facility] Last Admin: 03/15/23 09:54 Dose: 1 tab Documented By: CHARLIE Nystatin (Nystatin Powder 15 Gm Bottle) 1 appl TOPICAL BID [facility]; Protocol Last Admin: 03/14/23 22:10 Dose: 1 appl Documented By: XIMENA Ondansetron HCl (Ondansetron Hcl 4 Mg/2 Ml Vial) 4 mg IVPUSH Q8H PRN PRN Reason: Nausea and Vomiting Oxycodone HCl (Oxycodone Hcl Immed Release 5 Mg Tablet) 5 mg PO BID PRN PRN Reason: Pain, Severe (Pain Scale 7-10) Last Admin: 03/14/23 22:10 Dose: 5 mg Documented By: XIMENA Polyethylene Glycol (Polyethylene Glycol 3350 17 Gm Powd.Pack) 17 gm PO DAILY [facility] Last Admin: 03/15/23 09:54 Dose: 17 gm Documented By: CHARLIE Risperidone (Risperidone 0.5 Mg Tablet) 0.5 mg PO BID [facility] Last Admin: 03/15/23 09:54 Dose: 0.5 mg Documented By: CHARLIE Sertraline HCl (Sertraline Hcl 25 Mg Tablet) 25 mg PO DAILY [facility] Last Admin: 03/15/23 09:54 Dose: 25 mg Documented By: CHARLIE Sodium Chloride (0.9 % Sodium Chloride Flush 3 Ml Syringe) 3 ml IVFLUSH QSHIFT [facility] Last Admin: 03/15/23 09:56 Dose: Not Given Documented By: CHARLIE Non-Admin Reason: No Access Thiamine HCl (Thiamine Hcl 100 Mg Tablet) 100 mg PO DAILY [facility] Last Admin: 03/15/23 09:54 Dose: 100 mg Documented By: CHARLIE Labs 02/28/23 09:03 02/28/23 09:03 Assessment and Plan (1) Dementia: Status: Acute Plan 77yo F with chronic back pain, presenting with confusion, likely Alzheimer's dementia 1.Dementia, unspecified - initially thought to have encephalopathy, but now appears to be likely dementia; memory seems to have been declining over the past several months - Bertin Cognitive Assesment (MOcA) : scored 14 - seen by Neurology: probable moderate to severe degenerative dementia, likely Alzheimer's; started sertraline + memantine - seen by Psychiatry: does not have capacity to make medical decisions, waiting for guardianship/placement 2.Malignant ascites/uterine mass - unintentional 30-lb weight loss - s/p paracentesis 02/22/23: 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 with immunostains are not consistent with a gynecological origin and are more suggestive of an upper GI primary including pancreatico biliary - CA-125 elevated to 299 - seen by [employer]; declined pelvic exam + endometrial biopsy; - inform patient about immunostains result, she is not showing much understanding and keeps repeating that she does not want any intervention that will prolong her suffering, since it seems to be a metastatic cancer with patient's current clinical condition with lack of support likely she will not be a candidate for aggressive treatment, re-assess after guardianship. l VTE ppx - enoxaparin dispo - pending guardianship --court 03/16 Time Spent With Patient Time: Total time managing care of this patient today ____ minutes. Quality Stroke Does the patient have a stroke diagnosis?: No VTE Prior VTE?: No VTE Risk Level:: Medical - moderate - high VTE Device Contraindication: Treatment Not Indicated VTE Drug Contraindication: N/A - Med Ordered
[2023-03-15] MEDS: Nystatin Powder 15 GM BOTTLE 1 APPL TOPICAL ×2 (11:39→21:28)
[2023-03-15] MEDS: Enoxaparin Sodium 40 MG/0.4 ML SYRINGE SUBCUT (11:50)
--- NOTE | 2023-03-15 12:23 | MHC.CLN ---
F/U DIET=2 GRAM SODIUM. ENSURE BID PROVIDES 700 KCALS, 40 G PROTEIN. STAGE II BILATERAL COCCYX WOUNDS. DIET ORDER AND SUPPLEMENT APPROPRIATE. SUPPLEMENT TO PROMOTE SKIN INTEGRITY. INTAKE VARIABLE, 25-100%. REVIEW OF WEIGHT HX SHOWS WEIGHT ESSENTIALLY STABLE SINCE 02/23. FOLLOW FOR INTAKE AND SKIN INTEGRITY. RD TO FOLLOW WEEKLY.
[2023-03-15 16:00] VITALS: BP 130/62; PULSE 65; RESP 17; TEMP 36.4; O2SAT 95
[2023-03-15 19:52] VITALS: BP 117/56; PULSE 95; RESP 16; TEMP 36.2; O2SAT 93
[2023-03-15] MEDS: oxyCODONE HCl Immed Release 5 MG TABLET PO (21:28)
[2023-03-16 04:00] VITALS: BP 116/58; PULSE 77; RESP 17; TEMP 36.1; O2SAT 91
[2023-03-16 07:59] VITALS: BP 117/58; PULSE 76; RESP 17; TEMP 36.1; O2SAT 93
[2023-03-16] MEDS: Docusate Sodium 100 MG CAPSULE PO (08:49)
[2023-03-16] MEDS: risperiDONE 0.5 MG TABLET PO ×2 (08:49→22:11)
[2023-03-16] MEDS: polyethylene glycoL 3350 17 GM POWD.PACK PO (08:49)
[2023-03-16] MEDS: Folic Acid 1 MG TABLET PO (08:49)
[2023-03-16] MEDS: Memantine HCl 5 MG TABLET PO ×2 (08:49→22:11)
[2023-03-16] MEDS: Nystatin Powder 15 GM BOTTLE 1 APPL TOPICAL ×2 (08:49→22:11)
[2023-03-16] MEDS: Multivitamin TABLET 1 TAB PO (08:49)
[2023-03-16] MEDS: Thiamine HCL 100 MG TABLET PO (08:49)
[2023-03-16] MEDS: Sertraline HCL 25 MG TABLET PO (08:49)
--- NOTE | 2023-03-16 09:26 | P.PNIM_ITS ---
Subjective Subjective Date of Service: 03/16/23 Interval History: no new issues, awaiting placement, Physical Exam Vital Signs: Vital Signs: Last Vital Signs Temp 96.9 F 03/16/23 07:59 Pulse 76 03/16/23 07:59 Resp 17 03/16/23 07:59 BP 117/58 L 03/16/23 07:59 Pulse Ox 93 03/16/23 07:59 O2 Del Method Room Air 03/16/23 07:59 BMI result Body Mass Index 30.6 Const: Other: General:oriented to self Resp: CTA bilateral CVS: S1,S2,RRR GI: +BS, NT, no distention Skin: No rash Neuro: motor grossly intact Psych: appropriate affect Objective Data Active Medications Acetaminophen (Acetaminophen 325 Mg Tablet) 650 mg PO Q6H PRN PRN Reason: Pain, Mild (Pain Scale 1-3) Last Admin: 03/15/23 09:54 Dose: 650 mg Documented By: CHARLIE Calcium Carbonate (Calcium Carbonate 750 Mg Tab.Chew) 750 mg PO Q6H PRN PRN Reason: Pain, Severe (Pain Scale 7-10) Last Admin: 02/25/23 02:25 Dose: 750 mg Documented By: JOHN Docusate Sodium (Docusate Sodium 100 Mg Capsule) 100 mg PO DAILY [facility] Last Admin: 03/16/23 08:49 Dose: 100 mg Documented By: AUDREY Enoxaparin Sodium (Enoxaparin Sodium 40 Mg/0.4 Ml Syringe) 40 mg SUBCUT Q24H [facility] Last Admin: 03/15/23 11:50 Dose: 40 mg Documented By: CHARLIE Folic Acid (Folic Acid 1 Mg Tablet) 1 mg PO DAILY [facility] Last Admin: 03/16/23 08:49 Dose: 1 mg Documented By: AUDREY Memantine (Memantine Hcl 5 Mg Tablet) 5 mg PO BID [facility] Last Admin: 03/16/23 08:49 Dose: 5 mg Documented By: AUDREY Multivitamins/Vitamin C (Multivitamin Tablet) 1 tab PO DAILY [facility] Last Admin: 03/16/23 08:49 Dose: 1 tab Documented By: AUDREY Nystatin (Nystatin Powder 15 Gm Bottle) 1 appl TOPICAL BID [facility]; Protocol Last Admin: 03/16/23 08:49 Dose: 1 appl Documented By: AUDREY Ondansetron HCl (Ondansetron Hcl 4 Mg/2 Ml Vial) 4 mg IVPUSH Q8H PRN PRN Reason: Nausea and Vomiting Oxycodone HCl (Oxycodone Hcl Immed Release 5 Mg Tablet) 5 mg PO BID PRN PRN Reason: Pain, Severe (Pain Scale 7-10) Last Admin: 03/15/23 21:28 Dose: 5 mg Documented By: XIMENA Polyethylene Glycol (Polyethylene Glycol 3350 17 Gm Powd.Pack) 17 gm PO DAILY [facility] Last Admin: 03/16/23 08:49 Dose: 17 gm Documented By: AUDREY Risperidone (Risperidone 0.5 Mg Tablet) 0.5 mg PO BID [facility] Last Admin: 03/16/23 08:49 Dose: 0.5 mg Documented By: AUDREY Sertraline HCl (Sertraline Hcl 25 Mg Tablet) 25 mg PO DAILY [facility] Last Admin: 03/16/23 08:49 Dose: 25 mg Documented By: AUDREY Sodium Chloride (0.9 % Sodium Chloride Flush 3 Ml Syringe) 3 ml IVFLUSH QSHIFT [facility] Last Admin: 03/16/23 09:00 Dose: Not Given Documented By: AUDREY Non-Admin Reason: No Access Thiamine HCl (Thiamine Hcl 100 Mg Tablet) 100 mg PO DAILY [facility] Last Admin: 03/16/23 08:49 Dose: 100 mg Documented By: AUDREY Labs 02/28/23 09:03 02/28/23 09:03 Assessment and Plan (1) Dementia: Status: Acute (2) Cognitive impairment: Status: Acute Plan 77yo F with chronic back pain, presenting with confusion, likely Alzheimer's dementia essentially no change in care 1.Dementia, unspecified - initially thought to have encephalopathy, but now appears to be likely dementia; memory seems to have been declining over the past several months - Bertin Cognitive Assesment (MOcA) : scored 14 - seen by Neurology: probable moderate to severe degenerative dementia, likely Alzheimer's; started sertraline + memantine - seen by Psychiatry: does not have capacity to make medical decisions, waiting for guardianship/placement 2.Malignant ascites/uterine mass - unintentional 30-lb weight loss - s/p paracentesis 02/22/23: 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 with immunostains are not consistent with a gynecological origin and are more suggestive of an upper GI primary including pancreatico biliary - CA-125 elevated to 299 - seen by Cycle Analyst; declined pelvic exam + endometrial biopsy; - inform patient about immunostains result, she is not showing much understanding and keeps repeating that she does not want any intervention that will prolong her suffering, since it seems to be a metastatic cancer with patient's current clinical condition with lack of support likely she will not be a candidate for aggressive treatment, re-assess after guardianship. l VTE ppx - enoxaparin dispo - pending guardianship --court day 03/16 Time Spent With Patient Time: Total time managing care of this patient today ____ minutes. Quality Stroke Does the patient have a stroke diagnosis?: No VTE Prior VTE?: No VTE Risk Level:: Medical - moderate - high VTE Device Contraindication: Treatment Not Indicated VTE Drug Contraindication: N/A - Med Ordered
[2023-03-16] MEDS: Enoxaparin Sodium 40 MG/0.4 ML SYRINGE SUBCUT (12:18)
[2023-03-16 15:38] VITALS: BP 115/65; PULSE 77; RESP 15; TEMP 36.4; O2SAT 94
[2023-03-16 19:40] VITALS: BP 129/63; PULSE 78; RESP 18; TEMP 36.3; O2SAT 93
[2023-03-16] MEDS: oxyCODONE HCl Immed Release 5 MG TABLET PO (23:42)
[2023-03-17 04:00] VITALS: BP 125/66; PULSE 80; RESP 16; TEMP 36.2; O2SAT 93
[2023-03-17 06:00] VITALS: BMI 29.2
[2023-03-17 07:54] VITALS: BP 113/66; PULSE 80; RESP 16; TEMP 36.7; O2SAT 94
--- NOTE | 2023-03-17 08:18 | P.PNIM_ITS ---
Subjective Subjective Date of Service: 03/17/23 Interval History: no new issues, awaiting placement, calm and cooperative Physical Exam Vital Signs: Vital Signs: Last Vital Signs Temp 98.1 F 03/17/23 07:54 Pulse 80 03/17/23 07:54 Resp 16 03/17/23 07:54 BP 113/66 03/17/23 07:54 Pulse Ox 94 03/17/23 07:54 O2 Del Method Room Air 03/17/23 07:54 BMI result Body Mass Index 29.2 Const: Other: General:oriented to self Resp: CTA bilateral CVS: S1,S2,RRR GI: +BS, NT, no distention Skin: No rash Neuro: motor grossly intact Psych: appropriate affect Objective Data Active Medications Acetaminophen (Acetaminophen 325 Mg Tablet) 650 mg PO Q6H PRN PRN Reason: Pain, Mild (Pain Scale 1-3) Last Admin: 03/15/23 09:54 Dose: 650 mg Documented By: CHARLIE Calcium Carbonate (Calcium Carbonate 750 Mg Tab.Chew) 750 mg PO Q6H PRN PRN Reason: Pain, Severe (Pain Scale 7-10) Last Admin: 02/25/23 02:25 Dose: 750 mg Documented By: JOHN Docusate Sodium (Docusate Sodium 100 Mg Capsule) 100 mg PO DAILY [facility] Last Admin: 03/16/23 08:49 Dose: 100 mg Documented By: AUDREY Enoxaparin Sodium (Enoxaparin Sodium 40 Mg/0.4 Ml Syringe) 40 mg SUBCUT Q24H [facility] Last Admin: 03/16/23 12:18 Dose: 40 mg Documented By: LORENZA Folic Acid (Folic Acid 1 Mg Tablet) 1 mg PO DAILY [facility] Last Admin: 03/16/23 08:49 Dose: 1 mg Documented By: AUDREY Memantine (Memantine Hcl 5 Mg Tablet) 5 mg PO BID [facility] Last Admin: 03/16/23 22:11 Dose: 5 mg Documented By: ALPHONSO Multivitamins/Vitamin C (Multivitamin Tablet) 1 tab PO DAILY [facility] Last Admin: 03/16/23 08:49 Dose: 1 tab Documented By: AUDREY Nystatin (Nystatin Powder 15 Gm Bottle) 1 appl TOPICAL BID [facility]; Protocol Last Admin: 03/16/23 22:11 Dose: 1 appl Documented By: ALPHONSO Ondansetron HCl (Ondansetron Hcl 4 Mg/2 Ml Vial) 4 mg IVPUSH Q8H PRN PRN Reason: Nausea and Vomiting Oxycodone HCl (Oxycodone Hcl Immed Release 5 Mg Tablet) 5 mg PO BID PRN PRN Reason: Pain, Severe (Pain Scale 7-10) Last Admin: 03/16/23 23:42 Dose: 5 mg Documented By: ALPHONSO Polyethylene Glycol (Polyethylene Glycol 3350 17 Gm Powd.Pack) 17 gm PO DAILY [facility] Last Admin: 03/16/23 08:49 Dose: 17 gm Documented By: AUDREY Risperidone (Risperidone 0.5 Mg Tablet) 0.5 mg PO BID [facility] Last Admin: 03/16/23 22:11 Dose: 0.5 mg Documented By: ALPHONSO Sertraline HCl (Sertraline Hcl 25 Mg Tablet) 25 mg PO DAILY [facility] Last Admin: 03/16/23 08:49 Dose: 25 mg Documented By: AUDREY Sodium Chloride (0.9 % Sodium Chloride Flush 3 Ml Syringe) 3 ml IVFLUSH QSHIFT [facility] Last Admin: 03/16/23 23:39 Dose: Not Given Documented By: ALPHONSO Non-Admin Reason: No Access Thiamine HCl (Thiamine Hcl 100 Mg Tablet) 100 mg PO DAILY [facility] Last Admin: 03/16/23 08:49 Dose: 100 mg Documented By: AUDREY Labs 02/28/23 09:03 02/28/23 09:03 Assessment and Plan (1) Dementia: Status: Acute (2) Cognitive impairment: Status: Acute Plan 77yo F with chronic back pain, presenting with confusion, likely Alzheimer's dementia essentially no change in care 1.Dementia, unspecified - initially thought to have encephalopathy, but now appears to be likely dementia; memory seems to have been declining over the past several months - Bertin Cognitive Assesment (MOcA) : scored 14 - seen by Neurology: probable moderate to severe degenerative dementia, likely Alzheimer's; started sertraline + memantine - seen by Psychiatry: does not have capacity to make medical decisions, waiting for guardianship/placement 2.Malignant ascites/uterine mass - unintentional 30-lb weight loss - s/p paracentesis 02/22/23: 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 with immunostains are not consistent with a gynecological origin and are more suggestive of an upper GI primary including pancreatico biliary - CA-125 elevated to 299 - seen by [employer]; declined pelvic exam + endometrial biopsy; - inform patient about immunostains result, she is not showing much understanding and keeps repeating that she does not want any intervention that will prolong her suffering, since it seems to be a metastatic cancer with patient's current clinical condition with lack of support likely she will not be a candidate for aggressive treatment, re-assess after guardianship. l VTE ppx - enoxaparin dispo - pending guardianship hearing Time Spent With Patient Time: Total time managing care of this patient today ____ minutes. Quality Stroke Does the patient have a stroke diagnosis?: No VTE Prior VTE?: No VTE Risk Level:: Medical - moderate - high VTE Device Contraindication: Treatment Not Indicated VTE Drug Contraindication: N/A - Med Ordered
--- NOTE | 2023-03-17 08:23 | HO.PM.IMPN ---
Subjective Subjective Date of Service: 03/18/23 Interval History: no new issues, awaiting placement, calm and cooperative Review of Systems Denies chest pain Denies shortness of breath Denies nausea vomiting diarrhea Denies fever chills Constitutional Constitutional: Denies chills and Denies fever(s) ENT Ears, Nose, Mouth, and Throat: Denies dizziness Cardiovascular Cardiovascular: Denies chest pain, Denies palpitations and Denies dyspnea Respiratory Respiratory: Denies cough and Denies dyspnea Gastrointestinal Gastrointestinal: Denies abdominal pain, Denies nausea and Denies vomiting Neurologic Neurologic: Denies dizziness Endocrine Endocrine: Denies palpitations Physical Exam Vital Signs: Vital Signs: Last Vital Signs Temp 98.1 F 03/17/23 07:54 Pulse 80 03/17/23 07:54 Resp 16 03/17/23 07:54 BP 113/66 03/17/23 07:54 Pulse Ox 94 03/17/23 07:54 O2 Del Method Room Air 03/17/23 07:54 BMI result Body Mass Index 29.2 Const: Other: General:oriented to self Resp: CTA bilateral CVS: S1,S2,RRR GI: +BS, NT, no distention Skin: No rash Neuro: motor grossly intact Psych: appropriate affect Objective Data Active Medications Acetaminophen (Acetaminophen 325 Mg Tablet) 650 mg PO Q6H PRN PRN Reason: Pain, Mild (Pain Scale 1-3) Last Admin: 03/15/23 09:54 Dose: 650 mg Documented By: CHARLIE Calcium Carbonate (Calcium Carbonate 750 Mg Tab.Chew) 750 mg PO Q6H PRN PRN Reason: Pain, Severe (Pain Scale 7-10) Last Admin: 02/25/23 02:25 Dose: 750 mg Documented By: JOHN Docusate Sodium (Docusate Sodium 100 Mg Capsule) 100 mg PO DAILY [facility] Last Admin: 03/16/23 08:49 Dose: 100 mg Documented By: AUDREY Enoxaparin Sodium (Enoxaparin Sodium 40 Mg/0.4 Ml Syringe) 40 mg SUBCUT Q24H [facility] Last Admin: 03/16/23 12:18 Dose: 40 mg Documented By: LORENZA Folic Acid (Folic Acid 1 Mg Tablet) 1 mg PO DAILY [facility] Last Admin: 03/16/23 08:49 Dose: 1 mg Documented By: AUDREY Memantine (Memantine Hcl 5 Mg Tablet) 5 mg PO BID [facility] Last Admin: 03/16/23 22:11 Dose: 5 mg Documented By: ALPHONSO Multivitamins/Vitamin C (Multivitamin Tablet) 1 tab PO DAILY [facility] Last Admin: 03/16/23 08:49 Dose: 1 tab Documented By: AUDREY Nystatin (Nystatin Powder 15 Gm Bottle) 1 appl TOPICAL BID [facility]; Protocol Last Admin: 03/16/23 22:11 Dose: 1 appl Documented By: ALPHONSO Ondansetron HCl (Ondansetron Hcl 4 Mg/2 Ml Vial) 4 mg IVPUSH Q8H PRN PRN Reason: Nausea and Vomiting Oxycodone HCl (Oxycodone Hcl Immed Release 5 Mg Tablet) 5 mg PO BID PRN PRN Reason: Pain, Severe (Pain Scale 7-10) Last Admin: 03/16/23 23:42 Dose: 5 mg Documented By: ALPHONSO Polyethylene Glycol (Polyethylene Glycol 3350 17 Gm Powd.Pack) 17 gm PO DAILY [facility] Last Admin: 03/16/23 08:49 Dose: 17 gm Documented By: AUDREY Risperidone (Risperidone 0.5 Mg Tablet) 0.5 mg PO BID [facility] Last Admin: 03/16/23 22:11 Dose: 0.5 mg Documented By: ALPHONSO Sertraline HCl (Sertraline Hcl 25 Mg Tablet) 25 mg PO DAILY [facility] Last Admin: 03/16/23 08:49 Dose: 25 mg Documented By: AUDREY Sodium Chloride (0.9 % Sodium Chloride Flush 3 Ml Syringe) 3 ml IVFLUSH QSHIFT [facility] Last Admin: 03/16/23 23:39 Dose: Not Given Documented By: ALPHONSO Non-Admin Reason: No Access Thiamine HCl (Thiamine Hcl 100 Mg Tablet) 100 mg PO DAILY [facility] Last Admin: 03/16/23 08:49 Dose: 100 mg Documented By: AUDREY Labs 02/28/23 09:03 02/28/23 09:03 Assessment and Plan (1) Dementia: Status: Acute (2) Cognitive impairment: Status: Acute Plan 77yo F with chronic back pain, presenting with confusion, likely Alzheimer's dementia essentially no change in care 1.Dementia, unspecified - initially thought to have encephalopathy, but now appears to be likely dementia; memory seems to have been declining over the past several months - Bertin Cognitive Assesment (MOcA) : scored 14 - seen by Neurology: probable moderate to severe degenerative dementia, likely Alzheimer's; started sertraline + memantine - seen by Psychiatry: does not have capacity to make medical decisions, waiting for guardianship/placement 2.Malignant ascites/uterine mass - unintentional 30-lb weight loss - s/p paracentesis 02/22/23: 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 with immunostains are not consistent with a gynecological origin and are more suggestive of an upper GI primary including pancreatico biliary - CA-125 elevated to 299 - seen by Employer Relations Representative; declined pelvic exam + endometrial biopsy; - inform patient about immunostains result, she is not showing much understanding and keeps repeating that she does not want any intervention that will prolong her suffering, since it seems to be a metastatic cancer with patient's current clinical condition with lack of support likely she will not be a candidate for aggressive treatment, re-assess after guardianship. l VTE ppx - enoxaparin dispo - pending guardianship hearing next week Time Spent With Patient Time: Total time managing care of this patient today ____ minutes. Quality Stroke Does the patient have a stroke diagnosis?: No VTE Prior VTE?: No VTE Risk Level:: Medical - moderate - high VTE Device Contraindication: Treatment Not Indicated VTE Drug Contraindication: N/A - Med Ordered
[2023-03-17] MEDS: Docusate Sodium 100 MG CAPSULE PO (08:53)
[2023-03-17] MEDS: Multivitamin TABLET 1 TAB PO (08:53)
[2023-03-17] MEDS: Thiamine HCL 100 MG TABLET PO (08:53)
[2023-03-17] MEDS: Folic Acid 1 MG TABLET PO (08:53)
[2023-03-17] MEDS: Memantine HCl 5 MG TABLET PO ×2 (08:53→19:56)
[2023-03-17] MEDS: Sertraline HCL 25 MG TABLET PO (08:54)
[2023-03-17] MEDS: Nystatin Powder 15 GM BOTTLE 1 APPL TOPICAL ×2 (08:54→19:59)
[2023-03-17] MEDS: polyethylene glycoL 3350 17 GM POWD.PACK PO (08:54)
[2023-03-17] MEDS: risperiDONE 0.5 MG TABLET PO ×2 (08:54→19:56)
--- NOTE | 2023-03-17 11:07 | MHC.CM.PN ---
DP [facility] via BLS. Papers filed for Guardianship. Court date has been rescheduled to 03/23/23.
[2023-03-17] MEDS: Enoxaparin Sodium 40 MG/0.4 ML SYRINGE SUBCUT (13:00)
[2023-03-17 15:53] VITALS: BP 103/68; PULSE 83; RESP 18; TEMP 36.4; O2SAT 94
[2023-03-17 19:26] VITALS: BP 109/70; PULSE 86; RESP 18; TEMP 36.1; O2SAT 94
[2023-03-17] MEDS: oxyCODONE HCl Immed Release 5 MG TABLET PO (19:56)
[2023-03-17 23:55] VITALS: BP 119/57; PULSE 89; RESP 18; TEMP 36.4; O2SAT 93
[2023-03-18 06:00] VITALS: BMI 29.2
[2023-03-18 07:37] VITALS: BP 121/65; PULSE 88; RESP 18; TEMP 36.1; O2SAT 93
[2023-03-18] MEDS: Thiamine HCL 100 MG TABLET PO (08:51)
[2023-03-18] MEDS: Sertraline HCL 25 MG TABLET PO (08:51)
[2023-03-18] MEDS: Memantine HCl 5 MG TABLET PO ×2 (08:51→21:24)
[2023-03-18] MEDS: Folic Acid 1 MG TABLET PO (08:51)
[2023-03-18] MEDS: risperiDONE 0.5 MG TABLET PO ×2 (08:51→21:24)
[2023-03-18] MEDS: Docusate Sodium 100 MG CAPSULE PO (08:51)
[2023-03-18] MEDS: Multivitamin TABLET 1 TAB PO (08:52)
[2023-03-18] MEDS: polyethylene glycoL 3350 17 GM POWD.PACK PO (08:52)
[2023-03-18] MEDS: Nystatin Powder 15 GM BOTTLE 1 APPL TOPICAL ×2 (10:01→21:25)
[2023-03-18] MEDS: Enoxaparin Sodium 40 MG/0.4 ML SYRINGE SUBCUT (13:27)
[2023-03-18 15:28] VITALS: BP 126/58; PULSE 88; RESP 16; TEMP 36.1; O2SAT 96
[2023-03-18 19:59] VITALS: BP 122/76; PULSE 100; RESP 16; TEMP 36.1; O2SAT 95
[2023-03-18] MEDS: oxyCODONE HCl Immed Release 5 MG TABLET PO (21:24)
[2023-03-19] MEDS: Acetaminophen 325 MG TABLET 650 MG PO (00:52)
[2023-03-19 04:00] VITALS: BP 110/63; PULSE 97; RESP 16; TEMP 36.2; O2SAT 93
[2023-03-19 07:33] LABS: Hematocrit 31.1 % (37.0-47.0); Hemoglobin 9.3 g/dl (12.0-16.0); Mean Corpuscular HGB Conc 29.9 g/dl (31.0-35.0); Mean Corpuscular Hemoglobin 26.5 pg (27.0-33.0); Mean Corpuscular Volume 88.6 fL (80.0-98.0); Mean Platelet Volume 9.7 fL (9.4-12.3); Platelet Count 314 X10*3/uL (160-400); Red Blood Count 3.51 X10*6/uL (4.20-5.50); Red Cell Distribution Width 14.7 % (11.0-16.0); White Blood Count 10.9 X10*3/uL (4.8-10.8)
[2023-03-19 07:46] LABS: Anion Gap 12 (12-20); Blood Urea Nitrogen 26 mg/dL (9-16); Carbon Dioxide 25 mmol/L (22-29); Chloride 106 mmol/L (96-108); Creatinine Clr Calc Pharmacy 75.1; Estimated Glomerular Filt Rate > 60; Glucose Random 117 mg/dL (60-115); Potassium 4.2 mmol/L (3.3-5.1); Sodium 139 mmol/L (135-145)
[2023-03-19 07:52] VITALS: BP 118/68; PULSE 79; RESP 18; TEMP 36; O2SAT 91
[2023-03-19] MEDS: Folic Acid 1 MG TABLET PO (08:50)
[2023-03-19] MEDS: Docusate Sodium 100 MG CAPSULE PO (08:50)
[2023-03-19] MEDS: Thiamine HCL 100 MG TABLET PO (08:50)
[2023-03-19] MEDS: risperiDONE 0.5 MG TABLET PO ×2 (08:50→21:54)
[2023-03-19] MEDS: Multivitamin TABLET 1 TAB PO (08:50)
[2023-03-19] MEDS: Memantine HCl 5 MG TABLET PO ×2 (08:50→21:53)
[2023-03-19] MEDS: Sertraline HCL 25 MG TABLET PO (08:50)
[2023-03-19] MEDS: Nystatin Powder 15 GM BOTTLE 1 APPL TOPICAL ×2 (08:51→22:46)
--- NOTE | 2023-03-19 09:12 | HO.PM.IMPN ---
Subjective Subjective Date of Service: 03/19/23 Interval History: no new issues, awaiting placement, calm and cooperative Physical Exam Vital Signs: Vital Signs: Last Vital Signs Temp 96.8 F 03/19/23 07:52 Pulse 79 03/19/23 07:52 Resp 18 03/19/23 07:52 BP 118/68 03/19/23 07:52 Pulse Ox 91 L 03/19/23 07:52 O2 Del Method Room Air 03/19/23 07:52 BMI result Body Mass Index 29.2 Const: Other: General:oriented to self Resp: CTA bilateral CVS: S1,S2,RRR GI: +BS, NT, no distention Skin: No rash Neuro: motor grossly intact Psych: appropriate affect Objective Data Active Medications Acetaminophen (Acetaminophen 325 Mg Tablet) 650 mg PO Q6H PRN PRN Reason: Pain, Mild (Pain Scale 1-3) Last Admin: 03/19/23 00:52 Dose: 650 mg Documented By: ALPHONSO Calcium Carbonate (Calcium Carbonate 750 Mg Tab.Chew) 750 mg PO Q6H PRN PRN Reason: Pain, Severe (Pain Scale 7-10) Last Admin: 02/25/23 02:25 Dose: 750 mg Documented By: JOHN Docusate Sodium (Docusate Sodium 100 Mg Capsule) 100 mg PO DAILY [facility] Last Admin: 03/19/23 08:50 Dose: 100 mg Documented By: WILLIAM Enoxaparin Sodium (Enoxaparin Sodium 40 Mg/0.4 Ml Syringe) 40 mg SUBCUT Q24H [facility] Last Admin: 03/18/23 13:27 Dose: 40 mg Documented By: IWLLIAM Folic Acid (Folic Acid 1 Mg Tablet) 1 mg PO DAILY [facility] Last Admin: 03/19/23 08:50 Dose: 1 mg Documented By: WILLIAM Memantine (Memantine Hcl 5 Mg Tablet) 5 mg PO BID [facility] Last Admin: 03/19/23 08:50 Dose: 5 mg Documented By: WILLIAM Multivitamins/Vitamin C (Multivitamin Tablet) 1 tab PO DAILY [facility] Last Admin: 03/19/23 08:50 Dose: 1 tab Documented By: WILLIAM Nystatin (Nystatin Powder 15 Gm Bottle) 1 appl TOPICAL BID [facility]; Protocol Last Admin: 03/19/23 08:51 Dose: 1 appl Documented By: WILLIAM Ondansetron HCl (Ondansetron Hcl 4 Mg/2 Ml Vial) 4 mg IVPUSH Q8H PRN PRN Reason: Nausea and Vomiting Oxycodone HCl (Oxycodone Hcl Immed Release 5 Mg Tablet) 5 mg PO BID PRN PRN Reason: Pain, Severe (Pain Scale 7-10) Last Admin: 03/18/23 21:24 Dose: 5 mg Documented By: ALPHONSO Polyethylene Glycol (Polyethylene Glycol 3350 17 Gm Powd.Pack) 17 gm PO DAILY [facility] Last Admin: 03/18/23 08:52 Dose: 17 gm Documented By: WILLIAM Risperidone (Risperidone 0.5 Mg Tablet) 0.5 mg PO BID [facility] Last Admin: 03/19/23 08:50 Dose: 0.5 mg Documented By: WILLIAM Sertraline HCl (Sertraline Hcl 25 Mg Tablet) 25 mg PO DAILY [facility] Last Admin: 03/19/23 08:50 Dose: 25 mg Documented By: WILLIAM Sodium Chloride (0.9 % Sodium Chloride Flush 3 Ml Syringe) 3 ml IVFLUSH QSHIFT [facility] Last Admin: 03/18/23 21:35 Dose: Not Given Documented By: ALPHONSO Non-Admin Reason: No Access Thiamine HCl (Thiamine Hcl 100 Mg Tablet) 100 mg PO DAILY [facility] Last Admin: 03/19/23 08:50 Dose: 100 mg Documented By: WILLIAM Labs 03/19/23 07:26 03/19/23 07:26 Labs: Laboratory Results - last 24 hr 03/19/23 03/19/23 07:26 07:26 MCV 88.6 MCH 26.5 L MCHC 29.9 L RDW 14.7 Plt Count 314 D MPV 9.7 Absolute Nucleated RBC 0.000 Nucleated RBC % (auto) 0.0 Anion Gap 12 Estim Creat Clear Calc 75.1 Estimated GFR > 60 Random Glucose 117 H Calcium 9.0 Assessment and Plan (1) Dementia: Status: Acute (2) Cognitive impairment: Status: Acute Plan 77yo F with chronic back pain, presenting with confusion, likely Alzheimer's dementia essentially no change in care 1.Dementia, unspecified - initially thought to have encephalopathy, but now appears to be likely dementia; memory seems to have been declining over the past several months - Bertin Cognitive Assesment (MOcA) : scored 14 - seen by Neurology: probable moderate to severe degenerative dementia, likely Alzheimer's; started sertraline + memantine - seen by Psychiatry: does not have capacity to make medical decisions, waiting for guardianship/placement 2.Malignant ascites/uterine mass - unintentional 30-lb weight loss - s/p paracentesis 02/22/23: 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 with immunostains are not consistent with a gynecological origin and are more suggestive of an upper GI primary including pancreatico biliary - CA-125 elevated to 299 - seen by Electrical Products Sales Engineer; declined pelvic exam + endometrial biopsy; - inform patient about immunostains result, she is not showing much understanding and keeps repeating that she does not want any intervention that will prolong her suffering, since it seems to be a metastatic cancer with patient's current clinical condition with lack of support likely she will not be a candidate for aggressive treatment, re-assess after guardianship. Routine labs on 03/19, anemia noted but no change likely anemia of chronic disease, BMP unremarkable VTE ppx - enoxaparin dispo - pending guardianship hearing next week Time Spent With Patient Time: Total time managing care of this patient today ____ minutes. Quality Stroke Does the patient have a stroke diagnosis?: No VTE Prior VTE?: No VTE Risk Level:: Medical - moderate - high VTE Device Contraindication: Treatment Not Indicated VTE Drug Contraindication: N/A - Med Ordered
[2023-03-19] MEDS: polyethylene glycoL 3350 17 GM POWD.PACK PO (10:17)
[2023-03-19] MEDS: Enoxaparin Sodium 40 MG/0.4 ML SYRINGE SUBCUT (11:41)
[2023-03-19 15:31] VITALS: BP 108/63; PULSE 90; RESP 20; TEMP 36.1; O2SAT 93
[2023-03-19 20:00] VITALS: BP 99/71; PULSE 85; RESP 20; TEMP 36.1; O2SAT 98
[2023-03-20 04:00] VITALS: BP 116/57; PULSE 90; RESP 16; TEMP 36.1; O2SAT 93
[2023-03-20 06:00] VITALS: BMI 29.2
[2023-03-20 07:26] VITALS: BP 103/67; PULSE 66; RESP 16; TEMP 36.3; O2SAT 92
--- NOTE | 2023-03-20 09:08 | HO.PM.IMPN ---
Subjective Subjective Date of Service: 03/20/23 Interval History: no new issues, awaiting placement, calm and cooperative Physical Exam Vital Signs: Vital Signs: Last Vital Signs Temp 97.4 F 03/20/23 07:26 Pulse 66 03/20/23 07:26 Resp 16 03/20/23 07:26 BP 103/67 03/20/23 07:26 Pulse Ox 92 03/20/23 07:26 O2 Del Method Room Air 03/20/23 07:26 BMI result Body Mass Index 29.2 Const: Other: General:oriented to self Resp: CTA bilateral CVS: S1,S2,RRR GI: +BS, NT, no distention Skin: No rash Neuro: motor grossly intact Psych: appropriate affect Objective Data Active Medications Acetaminophen (Acetaminophen 325 Mg Tablet) 650 mg PO Q6H PRN PRN Reason: Pain, Mild (Pain Scale 1-3) Last Admin: 03/19/23 00:52 Dose: 650 mg Documented By: ALPHONSO Calcium Carbonate (Calcium Carbonate 750 Mg Tab.Chew) 750 mg PO Q6H PRN PRN Reason: Pain, Severe (Pain Scale 7-10) Last Admin: 02/25/23 02:25 Dose: 750 mg Documented By: JOHN Docusate Sodium (Docusate Sodium 100 Mg Capsule) 100 mg PO DAILY [facility] Last Admin: 03/19/23 08:50 Dose: 100 mg Documented By: WILLIAM Enoxaparin Sodium (Enoxaparin Sodium 40 Mg/0.4 Ml Syringe) 40 mg SUBCUT Q24H [facility] Last Admin: 03/19/23 11:41 Dose: 40 mg Documented By: WILLIAM Folic Acid (Folic Acid 1 Mg Tablet) 1 mg PO DAILY [facility] Last Admin: 03/19/23 08:50 Dose: 1 mg Documented By: WILLIAM Memantine (Memantine Hcl 5 Mg Tablet) 5 mg PO BID [facility] Last Admin: 03/19/23 21:53 Dose: 5 mg Documented By: ALPHONSO Multivitamins/Vitamin C (Multivitamin Tablet) 1 tab PO DAILY [facility] Last Admin: 03/19/23 08:50 Dose: 1 tab Documented By: WILLIAM Nystatin (Nystatin Powder 15 Gm Bottle) 1 appl TOPICAL BID [facility]; Protocol Last Admin: 03/19/23 22:46 Dose: 1 appl Documented By: ALPHONSO Ondansetron HCl (Ondansetron Hcl 4 Mg/2 Ml Vial) 4 mg IVPUSH Q8H PRN PRN Reason: Nausea and Vomiting Polyethylene Glycol (Polyethylene Glycol 3350 17 Gm Powd.Pack) 17 gm PO DAILY [facility] Last Admin: 03/19/23 10:17 Dose: 17 gm Documented By: WILLIAM Risperidone (Risperidone 0.5 Mg Tablet) 0.5 mg PO BID [facility] Last Admin: 03/19/23 21:54 Dose: 0.5 mg Documented By: ALPHONSO Sertraline HCl (Sertraline Hcl 25 Mg Tablet) 25 mg PO DAILY [facility] Last Admin: 03/19/23 08:50 Dose: 25 mg Documented By: WILLIAM Sodium Chloride (0.9 % Sodium Chloride Flush 3 Ml Syringe) 3 ml IVFLUSH QSHIFT [facility] Last Admin: 03/19/23 22:18 Dose: Not Given Documented By: ALPHONSO Non-Admin Reason: No Access Thiamine HCl (Thiamine Hcl 100 Mg Tablet) 100 mg PO DAILY [facility] Last Admin: 03/19/23 08:50 Dose: 100 mg Documented By: WILLIAM Labs 03/19/23 07:26 03/19/23 07:26 Assessment and Plan (1) Dementia: Status: Acute (2) Cognitive impairment: Status: Acute Plan 77yo F with chronic back pain, presenting with confusion, likely Alzheimer's dementia essentially no change in status 1.Dementia, unspecified - initially thought to have encephalopathy, but now appears to be likely dementia; memory seems to have been declining over the past several months - Bertin Cognitive Assesment (MOcA) : scored 14 - seen by Neurology: probable moderate to severe degenerative dementia, likely Alzheimer's; started sertraline + memantine - seen by Psychiatry: does not have capacity to make medical decisions, waiting for guardianship/placement 2.Malignant ascites/uterine mass - unintentional 30-lb weight loss - s/p paracentesis 02/22/23: 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 with immunostains are not consistent with a gynecological origin and are more suggestive of an upper GI primary including pancreatico biliary - CA-125 elevated to 299 - seen by Machine Set Up Technician; declined pelvic exam + endometrial biopsy; - inform patient about immunostains result, she is not showing much understanding and keeps repeating that she does not want any intervention that will prolong her suffering, since it seems to be a metastatic cancer with patient's current clinical condition with lack of support likely she will not be a candidate for aggressive treatment, re-assess after guardianship. Routine labs on 03/19, anemia noted but no change likely anemia of chronic disease, BMP unremarkable VTE ppx - enoxaparin dispo - pending guardianship hearing this week Time Spent With Patient Time: Total time managing care of this patient today ____ minutes. Quality Stroke Does the patient have a stroke diagnosis?: No VTE Prior VTE?: No VTE Risk Level:: Medical - moderate - high VTE Device Contraindication: Treatment Not Indicated VTE Drug Contraindication: N/A - Med Ordered
[2023-03-20] MEDS: Acetaminophen 325 MG TABLET 650 MG PO (09:55)
[2023-03-20] MEDS: Folic Acid 1 MG TABLET PO (09:55)
[2023-03-20] MEDS: polyethylene glycoL 3350 17 GM POWD.PACK PO (09:55)
[2023-03-20] MEDS: Thiamine HCL 100 MG TABLET PO (09:56)
[2023-03-20] MEDS: Sertraline HCL 25 MG TABLET PO (09:56)
[2023-03-20] MEDS: risperiDONE 0.5 MG TABLET PO ×2 (09:56→21:35)
[2023-03-20] MEDS: Multivitamin TABLET 1 TAB PO (09:56)
[2023-03-20] MEDS: Memantine HCl 5 MG TABLET PO ×2 (09:56→21:35)
[2023-03-20] MEDS: Docusate Sodium 100 MG CAPSULE PO (09:57)
[2023-03-20] MEDS: Nystatin Powder 15 GM BOTTLE 1 APPL TOPICAL ×2 (09:58→21:35)
[2023-03-20] MEDS: Enoxaparin Sodium 40 MG/0.4 ML SYRINGE SUBCUT (13:04)
[2023-03-20 15:19] VITALS: BP 111/63; PULSE 58; RESP 18; TEMP 36.3; O2SAT 91
--- NOTE | 2023-03-20 15:58 | MHC.CM.PN ---
PT AWAITING GUARDIANSHIP HEARING FOR LTC PLACEMENT
[2023-03-20 19:13] VITALS: BP 109/61; PULSE 70; RESP 18; TEMP 36.6; O2SAT 90
[2023-03-21 03:32] VITALS: BP 127/69; PULSE 90; RESP 17; TEMP 36.8; O2SAT 94
[2023-03-21] MEDS: Acetaminophen 325 MG TABLET 650 MG PO ×2 (03:59→21:23)
--- NOTE | 2023-03-21 04:25 | PC.NURSE ---
pt c/o about the foam dressing on buttock. it is uncomfortable and hurting me offered to take off the dressing but pt said no, no, whatever you have to do, do it so, applied triad cream and new foam dressing applied. pt has stage II pressure injury on buttock, many staffs suggested to reposition but pt resist to change position. stay supine position for all night. will CONT offer to change the position to preventing pressure injury.
[2023-03-21 07:03] VITALS: BP 117/64; PULSE 94; RESP 18; TEMP 36.3; O2SAT 92
[2023-03-21] MEDS: polyethylene glycoL 3350 17 GM POWD.PACK PO (09:50)
[2023-03-21] MEDS: Sertraline HCL 25 MG TABLET PO (09:50)
[2023-03-21] MEDS: Thiamine HCL 100 MG TABLET PO (09:51)
[2023-03-21] MEDS: Memantine HCl 5 MG TABLET PO ×2 (09:51→21:15)
[2023-03-21] MEDS: risperiDONE 0.5 MG TABLET PO ×2 (09:51→21:15)
[2023-03-21] MEDS: Nystatin Powder 15 GM BOTTLE 1 APPL TOPICAL ×2 (09:51→21:16)
[2023-03-21] MEDS: Multivitamin TABLET 1 TAB PO (09:51)
[2023-03-21] MEDS: Docusate Sodium 100 MG CAPSULE PO (09:51)
[2023-03-21] MEDS: Folic Acid 1 MG TABLET PO (09:51)
[2023-03-21 15:55] VITALS: BP 108/56; PULSE 68; RESP 16; TEMP 36.4; O2SAT 93
--- NOTE | 2023-03-21 16:34 | P.PNIM_ITS ---
Subjective Subjective Date of Service: 03/21/23 Interval History: resting comfortably asking for milk, denies pain tolerating diet no nausea, no vomiting, no abdominal pain, no acute events overnight. Review of Systems All other system reviewed and negative. Physical Exam Vital Signs: Vital Signs: Last Vital Signs Temp 97.5 F 03/21/23 15:55 Pulse 68 03/21/23 15:55 Resp 16 03/21/23 15:55 BP 108/56 L 03/21/23 15:55 Pulse Ox 93 03/21/23 15:55 O2 Del Method Room Air 03/21/23 15:55 BMI result Body Mass Index 29.2 Const: Other: Gen: awake alert, in no acute distress HEENT: sclera anicteric, moist mucus membranes Neck: supple Lungs: clear to auscultation bilaterally Heart: regular rate and rhythm, no murmurs Abd: soft, non-tender, non-distended Ext:? left lower extremity pitting edema Skin: warm/well-perfused Neuro: alert and oriented to self, no motor deficit Psych: impaired insight Objective Data Active Medications Acetaminophen (Acetaminophen 325 Mg Tablet) 650 mg PO Q6H PRN PRN Reason: Pain, Mild (Pain Scale 1-3) Last Admin: 03/21/23 03:59 Dose: 650 mg Documented By: ALPHONSO Calcium Carbonate (Calcium Carbonate 750 Mg Tab.Chew) 750 mg PO Q6H PRN PRN Reason: Pain, Severe (Pain Scale 7-10) Last Admin: 02/25/23 02:25 Dose: 750 mg Documented By: JOHN Docusate Sodium (Docusate Sodium 100 Mg Capsule) 100 mg PO DAILY [facility] Last Admin: 03/21/23 09:51 Dose: 100 mg Documented By: TANESHA Enoxaparin Sodium (Enoxaparin Sodium 40 Mg/0.4 Ml Syringe) 40 mg SUBCUT Q24H [facility] Last Admin: 03/21/23 14:16 Dose: Not Given Documented By: TANESHA Non-Admin Reason: pt is combative at this time Folic Acid (Folic Acid 1 Mg Tablet) 1 mg PO DAILY [facility] Last Admin: 03/21/23 09:51 Dose: 1 mg Documented By: TANESHA Memantine (Memantine Hcl 5 Mg Tablet) 5 mg PO BID [facility] Last Admin: 03/21/23 09:51 Dose: 5 mg Documented By: TANESHA Multivitamins/Vitamin C (Multivitamin Tablet) 1 tab PO DAILY [facility] Last Admin: 03/21/23 09:51 Dose: 1 tab Documented By: TANESHA Nystatin (Nystatin Powder 15 Gm Bottle) 1 appl TOPICAL BID [facility]; Protocol Last Admin: 03/21/23 09:51 Dose: 1 appl Documented By: TANESHA Ondansetron HCl (Ondansetron Hcl 4 Mg/2 Ml Vial) 4 mg IVPUSH Q8H PRN PRN Reason: Nausea and Vomiting Polyethylene Glycol (Polyethylene Glycol 3350 17 Gm Powd.Pack) 17 gm PO DAILY [facility] Last Admin: 03/21/23 09:50 Dose: 17 gm Documented By: TANESHA Risperidone (Risperidone 0.5 Mg Tablet) 0.5 mg PO BID [facility] Last Admin: 03/21/23 09:51 Dose: 0.5 mg Documented By: TANESHA Sertraline HCl (Sertraline Hcl 25 Mg Tablet) 25 mg PO DAILY [facility] Last Admin: 03/21/23 09:50 Dose: 25 mg Documented By: TANESHA Sodium Chloride (0.9 % Sodium Chloride Flush 3 Ml Syringe) 3 ml IVFLUSH QSHIFT [facility] Last Admin: 03/21/23 15:16 Dose: Not Given Documented By: TANESHA Non-Admin Reason: No Access Thiamine HCl (Thiamine Hcl 100 Mg Tablet) 100 mg PO DAILY [facility] Last Admin: 03/21/23 09:51 Dose: 100 mg Documented By: TANESHA Labs 03/19/23 07:26 03/19/23 07:26 Assessment and Plan (1) Dementia: Status: Acute (2) Cognitive impairment: Status: Acute Plan 77yo F with chronic back pain, presenting with confusion, likely Alzheimer's dementia essentially no change in status 1.Dementia, unspecified - initially thought to have encephalopathy, but now appears to be likely dementia; memory seems to have been declining over the past several months - Bertin Cognitive Assesment (MOcA) : scored 14 - seen by Neurology: probable moderate to severe degenerative dementia, likely Alzheimer's; started sertraline + memantine - seen by Psychiatry: does not have capacity to make medical decisions, waiting for guardianship/placement 2.Malignant ascites/uterine mass - unintentional 30-lb weight loss - s/p paracentesis 02/22/23: 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 with immunostains are not consistent with a gynecological origin and are more suggestive of an upper GI primary including pancreatico biliary - CA-125 elevated to 299 - seen by Diesel Technology Instructor; declined pelvic exam + endometrial biopsy; - inform patient about immunostains result, she is not showing much understanding and keeps repeating that she does not want any intervention that will prolong her suffering, since it seems to be a metastatic cancer with patient's current clinical condition with lack of support likely she will not be a candidate for aggressive treatment, re-assess after guardianship. Routine labs on 03/19, anemia noted but no change likely anemia of chronic disease, BMP unremarkable VTE ppx - enoxaparin dispo - pending guardianship hearing. Time Spent With Patient Time: Total time managing care of this patient today ____ minutes. Quality Stroke Does the patient have a stroke diagnosis?: No VTE Prior VTE?: No VTE Risk Level:: Medical - moderate - high VTE Device Contraindication: Treatment Not Indicated VTE Drug Contraindication: N/A - Med Ordered
[2023-03-21 20:00] VITALS: BP 107/70; PULSE 69; RESP 16; TEMP 36.3; O2SAT 98
[2023-03-21] MEDS: oxyCODONE HCl Immed Release 5 MG TABLET PO (22:40)
[2023-03-22 04:00] VITALS: BP 110/59; PULSE 77; RESP 16; TEMP 36.2; O2SAT 93
[2023-03-22 06:00] VITALS: BMI 29.2
[2023-03-22] MEDS: Multivitamin TABLET 1 TAB PO (08:49)
[2023-03-22] MEDS: Memantine HCl 5 MG TABLET PO (08:49)
[2023-03-22] MEDS: Folic Acid 1 MG TABLET PO (08:49)
[2023-03-22] MEDS: Docusate Sodium 100 MG CAPSULE PO (08:49)
[2023-03-22] MEDS: Thiamine HCL 100 MG TABLET PO (08:49)
[2023-03-22] MEDS: polyethylene glycoL 3350 17 GM POWD.PACK PO (08:49)
[2023-03-22] MEDS: risperiDONE 0.5 MG TABLET PO (08:50)
[2023-03-22] MEDS: Sertraline HCL 25 MG TABLET PO (08:50)
[2023-03-22] MEDS: Nystatin Powder 15 GM BOTTLE 1 APPL TOPICAL (08:52)
[2023-03-22] MEDS: Enoxaparin Sodium 40 MG/0.4 ML SYRINGE SUBCUT (11:51)
--- NOTE | 2023-03-22 13:21 | P.PNIM_ITS ---
Subjective Subjective Date of Service: 03/22/23 Interval History: Dementia, unspecified Review of Systems no new c/o no fevers Physical Exam Vital Signs: Vital Signs: Last Vital Signs Temp 97.2 F 03/22/23 04:00 Pulse 77 03/22/23 04:00 Resp 16 03/22/23 04:00 BP 110/59 L 03/22/23 04:00 Pulse Ox 93 03/22/23 04:00 O2 Del Method Room Air 03/22/23 04:00 BMI result Body Mass Index 29.2 Gen: alert , ch ill appearing Lungs: clear to auscultation bilaterally cvs : air entery fine , no rales or wheezing Abd: soft, non-tender, non-distended Ext:? left lower extremity pitting edema Skin: warm/well-perfused Neuro: alert and oriented to self, no motor deficit Psych: impaired insight Objective Data Active Medications Acetaminophen (Acetaminophen 325 Mg Tablet) 650 mg PO Q6H PRN PRN Reason: Pain, Mild (Pain Scale 1-3) Last Admin: 03/21/23 21:23 Dose: 650 mg Documented By: ALPHONSO Calcium Carbonate (Calcium Carbonate 750 Mg Tab.Chew) 750 mg PO Q6H PRN PRN Reason: Pain, Severe (Pain Scale 7-10) Last Admin: 02/25/23 02:25 Dose: 750 mg Documented By: JOHN Docusate Sodium (Docusate Sodium 100 Mg Capsule) 100 mg PO DAILY [facility] Last Admin: 03/22/23 08:49 Dose: 100 mg Documented By: WILLIAM Enoxaparin Sodium (Enoxaparin Sodium 40 Mg/0.4 Ml Syringe) 40 mg SUBCUT Q24H [facility] Last Admin: 03/22/23 11:51 Dose: 40 mg Documented By: WILLIAM Folic Acid (Folic Acid 1 Mg Tablet) 1 mg PO DAILY [facility] Last Admin: 03/22/23 08:49 Dose: 1 mg Documented By: WILLIAM Memantine (Memantine Hcl 5 Mg Tablet) 5 mg PO BID [facility] Last Admin: 03/22/23 08:49 Dose: 5 mg Documented By: WILLIAM Multivitamins/Vitamin C (Multivitamin Tablet) 1 tab PO DAILY [facility] Last Admin: 03/22/23 08:49 Dose: 1 tab Documented By: WILLIAM Nystatin (Nystatin Powder 15 Gm Bottle) 1 appl TOPICAL BID [facility]; Protocol Last Admin: 03/22/23 08:52 Dose: 1 appl Documented By: WILLIAM Ondansetron HCl (Ondansetron Hcl 4 Mg/2 Ml Vial) 4 mg IVPUSH Q8H PRN PRN Reason: Nausea and Vomiting Polyethylene Glycol (Polyethylene Glycol 3350 17 Gm Powd.Pack) 17 gm PO DAILY [facility] Last Admin: 03/22/23 08:49 Dose: 17 gm Documented By: WILLIAM Risperidone (Risperidone 0.5 Mg Tablet) 0.5 mg PO BID [facility] Last Admin: 03/22/23 08:50 Dose: 0.5 mg Documented By: WILLIAM Sertraline HCl (Sertraline Hcl 25 Mg Tablet) 25 mg PO DAILY [facility] Last Admin: 03/22/23 08:50 Dose: 25 mg Documented By: WILLIAM Sodium Chloride (0.9 % Sodium Chloride Flush 3 Ml Syringe) 3 ml IVFLUSH QSHIFT [facility] Last Admin: 03/22/23 08:46 Dose: Not Given Documented By: WILLIAM Non-Admin Reason: No Access Thiamine HCl (Thiamine Hcl 100 Mg Tablet) 100 mg PO DAILY [facility] Last Admin: 03/22/23 08:49 Dose: 100 mg Documented By: WILLIAM Labs 03/19/23 07:26 03/19/23 07:26 Assessment and Plan (1) Dementia: Status: Acute (2) Cognitive impairment: Status: Acute Plan 77yo F with chronic back pain, presenting with confusion, likely Alzheimer's dementia essentially no change in status 1.Dementia, unspecified - initially thought to have encephalopathy, but now appears to be likely dementia; memory seems to have been declining over the past several months - Bertin Cognitive Assesment (MOcA) : scored 14 - seen by Neurology: probable moderate to severe degenerative dementia, likely Alzheimer's; started sertraline + memantine - seen by Psychiatry: does not have capacity to make medical decisions, waiting for guardianship/placement 2.Malignant ascites/uterine mass - unintentional 30-lb weight loss - s/p paracentesis 02/22/23: 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 with immunostains are not consistent with a gynecological origin and are more suggestive of an upper GI primary including pancreatico biliary - CA-125 elevated to 299 - seen by Race Starter; declined pelvic exam + endometrial biopsy; - inform patient about immunostains result, she is not showing much understanding and keeps repeating that she does not want any intervention that will prolong her suffering, since it seems to be a metastatic cancer with patient's current clinical condition with lack of support likely she will not be a candidate for aggressive treatment, re-assess after guardianship. Routine labs on 03/19, anemia noted but no change likely anemia of chronic disease, BMP unremarkable VTE ppx - enoxaparin dispo - pending guardianship hearing. Time Spent With Patient Time: Total time managing care of this patient today ____ minutes. Quality Stroke Does the patient have a stroke diagnosis?: No VTE Prior VTE?: No VTE Risk Level:: Medical - moderate - high VTE Device Contraindication: Treatment Not Indicated VTE Drug Contraindication: N/A - Med Ordered
--- NOTE | 2023-03-22 13:45 | MHC.CLN ---
F/U DIET=2 GRAM SODIUM. ENSURE BID PROVIDES 700 KCALS, 40 G PROTEIN. STAGE II TO LEFT BUTTOCK. MACERATION TO COCCYX.. DIET ORDER AND SUPPLEMENT APPROPRIATE. SUPPLEMENT TO PROMOTE SKIN INTEGRITY. INTAKE VARIABLE, 25-100%, APPEARS TO BE BASELINE. FOLLOW FOR INTAKE AND SKIN INTEGRITY. RD TO FOLLOW WEEKLY.
[2023-03-22 16:00] VITALS: BP 145/65; PULSE 85; RESP 20; TEMP 37.1; O2SAT 93
--- NOTE | 2023-03-22 16:17 | MHC.CM.PN ---
DP STR via BLS. A Guardianship hearing is scheduled for tomorrow 03/23/23. CM will follow for discharge.
--- NOTE | 2023-03-22 18:07 | PC.NURSE ---
Patient refused to get out of bed today, after multiple requests by this nurse.
[2023-03-22 20:00] VITALS: BP 105/70; PULSE 93; RESP 16; TEMP 36.5; O2SAT 92
[2023-03-23] MEDS: Memantine HCl 5 MG TABLET PO ×2 (00:01→08:57)
[2023-03-23] MEDS: risperiDONE 0.5 MG TABLET PO ×2 (00:01→08:57)
[2023-03-23] MEDS: Acetaminophen 325 MG TABLET 650 MG PO (00:01)
[2023-03-23] MEDS: Nystatin Powder 15 GM BOTTLE 1 APPL TOPICAL ×2 (00:04→08:57)
[2023-03-23 04:00] VITALS: BP 110/68; PULSE 95; RESP 16; TEMP 36.6; O2SAT 93
[2023-03-23 06:58] VITALS: BP 117/67; PULSE 80; RESP 20; TEMP 36.4; O2SAT 93
[2023-03-23] MEDS: Multivitamin TABLET 1 TAB PO (08:57)
[2023-03-23] MEDS: Folic Acid 1 MG TABLET PO (08:57)
[2023-03-23] MEDS: polyethylene glycoL 3350 17 GM POWD.PACK PO (08:57)
[2023-03-23] MEDS: Thiamine HCL 100 MG TABLET PO (08:57)
[2023-03-23] MEDS: Docusate Sodium 100 MG CAPSULE PO (08:57)
[2023-03-23] MEDS: Sertraline HCL 25 MG TABLET PO (08:57)
--- NOTE | 2023-03-23 09:37 | P.PNIM_ITS ---
Subjective Subjective Date of Service: 03/24/23 Interval History: Dementia, unspecified Review of Systems no new c/o,no fevers Physical Exam Vital Signs: Vital Signs: Last Vital Signs Temp 97.5 F 03/23/23 06:58 Pulse 80 03/23/23 06:58 Resp 20 03/23/23 06:58 BP 117/67 03/23/23 06:58 Pulse Ox 93 03/23/23 06:58 O2 Del Method Room Air 03/23/23 06:58 BMI result Body Mass Index 29.2 Gen: alert , ch ill appearing Lungs: clear to auscultation bilaterally cvs : air entery fine , no rales or wheezing Abd: soft, non-tender, non-distended Ext:? left lower extremity pitting edema Skin: warm/well-perfused Neuro: alert and oriented to self, no motor deficit Psych: impaired insight Objective Data Active Medications Acetaminophen (Acetaminophen 325 Mg Tablet) 650 mg PO Q6H PRN PRN Reason: Pain, Mild (Pain Scale 1-3) Last Admin: 03/23/23 00:01 Dose: 650 mg Documented By: TINO Calcium Carbonate (Calcium Carbonate 750 Mg Tab.Chew) 750 mg PO Q6H PRN PRN Reason: Pain, Severe (Pain Scale 7-10) Last Admin: 02/25/23 02:25 Dose: 750 mg Documented By: JOHN Docusate Sodium (Docusate Sodium 100 Mg Capsule) 100 mg PO DAILY [facility] Last Admin: 03/23/23 08:57 Dose: 100 mg Documented By: WILLIAM Enoxaparin Sodium (Enoxaparin Sodium 40 Mg/0.4 Ml Syringe) 40 mg SUBCUT Q24H [facility] Last Admin: 03/22/23 11:51 Dose: 40 mg Documented By: WILLIAM Folic Acid (Folic Acid 1 Mg Tablet) 1 mg PO DAILY [facility] Last Admin: 03/23/23 08:57 Dose: 1 mg Documented By: WILLIAM Memantine (Memantine Hcl 5 Mg Tablet) 5 mg PO BID [facility] Last Admin: 03/23/23 08:57 Dose: 5 mg Documented By: WILLIAM Multivitamins/Vitamin C (Multivitamin Tablet) 1 tab PO DAILY [facility] Last Admin: 03/23/23 08:57 Dose: 1 tab Documented By: WILLIAM Nystatin (Nystatin Powder 15 Gm Bottle) 1 appl TOPICAL BID [facility]; Protocol Last Admin: 03/23/23 08:57 Dose: 1 appl Documented By: WILLIAM Ondansetron HCl (Ondansetron Hcl 4 Mg/2 Ml Vial) 4 mg IVPUSH Q8H PRN PRN Reason: Nausea and Vomiting Polyethylene Glycol (Polyethylene Glycol 3350 17 Gm Powd.Pack) 17 gm PO DAILY [facility] Last Admin: 03/23/23 08:57 Dose: 17 gm Documented By: WILLIAM Risperidone (Risperidone 0.5 Mg Tablet) 0.5 mg PO BID [facility] Last Admin: 03/23/23 08:57 Dose: 0.5 mg Documented By: WILLIAM Sertraline HCl (Sertraline Hcl 25 Mg Tablet) 25 mg PO DAILY [facility] Last Admin: 03/23/23 08:57 Dose: 25 mg Documented By: WILLIAM Sodium Chloride (0.9 % Sodium Chloride Flush 3 Ml Syringe) 3 ml IVFLUSH QSHIFT [facility] Last Admin: 03/23/23 09:07 Dose: Not Given Documented By: WILLIAM Non-Admin Reason: No Access Thiamine HCl (Thiamine Hcl 100 Mg Tablet) 100 mg PO DAILY [facility] Last Admin: 03/23/23 08:57 Dose: 100 mg Documented By: WILLIAM Labs 03/19/23 07:26 03/19/23 07:26 Assessment and Plan (1) Dementia: Status: Acute Plan 77yo F with chronic back pain, presenting with confusion, likely Alzheimer's dementia essentially no change in status 1.Dementia, unspecified - initially thought to have encephalopathy, but now appears to be likely dementia; memory seems to have been declining over the past several months - Bertin Cognitive Assesment (MOcA) : scored 14 - seen by Neurology: probable moderate to severe degenerative dementia, likely Alzheimer's; started sertraline + memantine - seen by Psychiatry: does not have capacity to make medical decisions, waiting for guardianship/placement 2.Malignant ascites/uterine mass - unintentional 30-lb weight loss - s/p paracentesis 02/22/23: 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 including pancreatico biliary - CA-125 elevated to 299 - seen by Eligibility Specialist; declined pelvic exam + endometrial biopsy; - inform patient about immunostains result, she is not showing much understanding and keeps repeating that she does not want any intervention that will prolong her suffering, since it seems to be a metastatic cancer with ? patient's current clinical condition? with lack of support likely she will not be a candidate for aggressive treatment,? re-assess after guardianship. Routine labs on 03/19, anemia noted but no change likely anemia of chronic disease, BMP unremarkable VTE ppx - enoxaparin dispo - pending guardianship? hearing. Time Spent With Patient Time: Total time managing care of this patient today ____ minutes. Quality Stroke Does the patient have a stroke diagnosis?: No VTE Prior VTE?: No VTE Risk Level:: Medical - moderate - high VTE Device Contraindication: Treatment Not Indicated VTE Drug Contraindication: N/A - Med Ordered
[2023-03-23] MEDS: Enoxaparin Sodium 40 MG/0.4 ML SYRINGE SUBCUT (11:50)
--- NOTE | 2023-03-23 12:10 | P.CDIM_ITS ---
PROVIDER RESPONSE TEXT: To clarify, the appropriate diagnosis supported by the clinical indicators: Metabolic Encephalopathy was present on admission and is now resolved QUERY TEXT: PHYSICIAN'S DOCUMENTATION REQUEST Date of Query: 03/13/2023 11:45 AM EDT Patient Name: Trice Reed Admit Date: 02/22/2023 Dear Steven Kurtz, A review of the medical record indicates additional documentation may be needed. Please review below and update the documentation accordingly. Clinical Indicators: Per Hospitalist Progress Note 03/12/23: Dementia, unspecified - initially thought to have encephalopathy, but now appears to be likely dementia; memory seems to llamas ve been declining over the past several months The diagnosis of Metabolic Encephalopathy was documented on 02/22/23 but is not consistently noted in subsequent documentation. Please clarify the following: Metabolic Encephalopathy was present on admission and is now resolved Metabolic Encephalopathy was present on admission and is still being monitored, evaluated, or treated Metabolic Encephalopathy was ruled out Metabolic Encephalopathy is still a likely, suspected, probable diagnosis Other (explain)Clinically unable to determine (explain)Thank you, Nay Pollock RN Use of terms such as suspected, likely, concern for, or probable (associated with a specific diagnosi s that is being evaluated, monitored, or treated as if it exists) are acceptable and can be coded in the inpatient se tting, when documented at the time of discharge. Please use your independent medical judgment in providing your response. THIS QUERY IS PART OF THE PERMANENT MEDICAL RECORD
[2023-03-23 15:21] VITALS: BP 107/65; PULSE 83; RESP 20; TEMP 36.7; O2SAT 91
[2023-03-23 20:00] VITALS: BP 97/66; PULSE 98; RESP 18; TEMP 36.7; O2SAT 93
[2023-03-24] MEDS: Nystatin Powder 15 GM BOTTLE 1 APPL TOPICAL ×3 (00:13→21:43)
[2023-03-24] MEDS: Memantine HCl 5 MG TABLET PO ×3 (00:13→21:11)
[2023-03-24] MEDS: risperiDONE 0.5 MG TABLET PO ×3 (00:13→21:11)
[2023-03-24] MEDS: Acetaminophen 325 MG TABLET 650 MG PO ×3 (00:13→21:12)
[2023-03-24 03:53] VITALS: BP 112/84; PULSE 100; RESP 16; TEMP 36.2; O2SAT 93
[2023-03-24 07:40] VITALS: BP 128/77; PULSE 78; RESP 20; TEMP 36.3; O2SAT 94
[2023-03-24] MEDS: Folic Acid 1 MG TABLET PO (09:39)
[2023-03-24] MEDS: Thiamine HCL 100 MG TABLET PO (09:39)
[2023-03-24] MEDS: Docusate Sodium 100 MG CAPSULE PO (09:39)
[2023-03-24] MEDS: Sertraline HCL 25 MG TABLET PO (09:39)
[2023-03-24] MEDS: Multivitamin TABLET 1 TAB PO (09:40)
[2023-03-24] MEDS: polyethylene glycoL 3350 17 GM POWD.PACK PO (09:40)
[2023-03-24] MEDS: Enoxaparin Sodium 40 MG/0.4 ML SYRINGE SUBCUT (12:51)
--- NOTE | 2023-03-24 14:44 | HO.PM.IMPN ---
Subjective Subjective Date of Service: 03/24/23 Interval History: Dementia, unspecified Review of Systems no new c/o,no fevers Physical Exam Vital Signs: Vital Signs: Last Vital Signs Temp 97.3 F 03/24/23 07:40 Pulse 78 03/24/23 07:40 Resp 20 03/24/23 07:40 BP 128/77 03/24/23 07:40 Pulse Ox 94 03/24/23 07:40 O2 Del Method Room Air 03/24/23 07:40 BMI result Body Mass Index 29.2 Gen: alert , ch ill appearing Lungs: clear to auscultation bilaterally cvs : air entery fine , no rales or wheezing Abd: soft, non-tender, non-distended Ext:? left lower extremity pitting edema Skin: warm/well-perfused Neuro: alert and oriented to self, no motor deficit Psych: impaired insight Objective Data Active Medications Acetaminophen (Acetaminophen 325 Mg Tablet) 650 mg PO Q6H PRN PRN Reason: Pain, Mild (Pain Scale 1-3) Last Admin: 03/24/23 09:39 Dose: 650 mg Documented By: CHARLIE Calcium Carbonate (Calcium Carbonate 750 Mg Tab.Chew) 750 mg PO Q6H PRN PRN Reason: Pain, Severe (Pain Scale 7-10) Last Admin: 02/25/23 02:25 Dose: 750 mg Documented By: JOHN Docusate Sodium (Docusate Sodium 100 Mg Capsule) 100 mg PO DAILY [facility] Last Admin: 03/24/23 09:39 Dose: 100 mg Documented By: CHARLIE Enoxaparin Sodium (Enoxaparin Sodium 40 Mg/0.4 Ml Syringe) 40 mg SUBCUT Q24H [facility] Last Admin: 03/24/23 12:51 Dose: 40 mg Documented By: CHARLIE Folic Acid (Folic Acid 1 Mg Tablet) 1 mg PO DAILY [facility] Last Admin: 03/24/23 09:39 Dose: 1 mg Documented By: CHARLIE Memantine (Memantine Hcl 5 Mg Tablet) 5 mg PO BID [facility] Last Admin: 03/24/23 09:38 Dose: 5 mg Documented By: CHARLIE Multivitamins/Vitamin C (Multivitamin Tablet) 1 tab PO DAILY [facility] Last Admin: 03/24/23 09:40 Dose: 1 tab Documented By: CHARLIE Nystatin (Nystatin Powder 15 Gm Bottle) 1 appl TOPICAL BID [facility]; Protocol Last Admin: 03/24/23 12:02 Dose: 1 appl Documented By: CHARLIE Ondansetron HCl (Ondansetron Hcl 4 Mg/2 Ml Vial) 4 mg IVPUSH Q8H PRN PRN Reason: Nausea and Vomiting Polyethylene Glycol (Polyethylene Glycol 3350 17 Gm Powd.Pack) 17 gm PO DAILY [facility] Last Admin: 03/24/23 09:40 Dose: 17 gm Documented By: CHARLIE Risperidone (Risperidone 0.5 Mg Tablet) 0.5 mg PO BID [facility] Last Admin: 03/24/23 09:39 Dose: 0.5 mg Documented By: CHARLIE Sertraline HCl (Sertraline Hcl 25 Mg Tablet) 25 mg PO DAILY [facility] Last Admin: 03/24/23 09:39 Dose: 25 mg Documented By: CHARLIE Sodium Chloride (0.9 % Sodium Chloride Flush 3 Ml Syringe) 3 ml IVFLUSH QSHIFT [facility] Last Admin: 03/24/23 09:39 Dose: Not Given Documented By: CHARLIE Non-Admin Reason: No Access Thiamine HCl (Thiamine Hcl 100 Mg Tablet) 100 mg PO DAILY [facility] Last Admin: 03/24/23 09:39 Dose: 100 mg Documented By: CHARLIE Labs 03/19/23 07:26 03/19/23 07:26 Assessment and Plan (1) Dementia: Status: Acute Plan 77yo F with chronic back pain, presenting with confusion, likely Alzheimer's dementia essentially no change in status 1.Dementia, unspecified - initially thought to have encephalopathy, but now appears to be likely dementia; memory seems to have been declining over the past several months - Bertin Cognitive Assesment (MOcA) : scored 14 - seen by Neurology: probable moderate to severe degenerative dementia, likely Alzheimer's; started sertraline + memantine - seen by Psychiatry: does not have capacity to make medical decisions, waiting for guardianship/placement 2.Malignant ascites/uterine mass - unintentional 30-lb weight loss - s/p paracentesis 02/22/23: 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 including pancreatico biliary - CA-125 elevated to 299 - seen by Paper Twister; declined pelvic exam + endometrial biopsy; - inform patient about immunostains result, she is not showing much understanding and keeps repeating that she does not want any intervention that will prolong her suffering, since it seems to be a metastatic cancer with ? patient's current clinical condition? with lack of support likely she will not be a candidate for aggressive treatment,? re-assess after guardianship. Routine labs on 03/19, anemia noted but no change likely anemia of chronic disease, BMP unremarkable VTE ppx - enoxaparin dispo - pending guardianship? hearing. Time Spent With Patient Time: Total time managing care of this patient today ____ minutes. Quality Stroke Does the patient have a stroke diagnosis?: No VTE Prior VTE?: No VTE Risk Level:: Medical - moderate - high VTE Device Contraindication: Treatment Not Indicated VTE Drug Contraindication: N/A - Med Ordered
[2023-03-24 15:01] VITALS: BP 102/60; PULSE 78; RESP 15; TEMP 36.1; O2SAT 93
[2023-03-24 19:19] VITALS: BP 111/63; PULSE 86; RESP 15; TEMP 36.8; O2SAT 93
[2023-03-25 04:00] VITALS: BP 111/59; PULSE 75; RESP 16; TEMP 36.4; O2SAT 93
[2023-03-25 07:31] VITALS: BP 125/88; PULSE 92; RESP 16; TEMP 36.2; O2SAT 95
[2023-03-25] MEDS: Sertraline HCL 25 MG TABLET PO (07:38)
[2023-03-25] MEDS: Memantine HCl 5 MG TABLET PO ×2 (07:38→20:56)
[2023-03-25] MEDS: Folic Acid 1 MG TABLET PO (07:39)
[2023-03-25] MEDS: Docusate Sodium 100 MG CAPSULE PO (07:39)
[2023-03-25] MEDS: Thiamine HCL 100 MG TABLET PO (07:39)
[2023-03-25] MEDS: polyethylene glycoL 3350 17 GM POWD.PACK PO (07:39)
[2023-03-25] MEDS: Multivitamin TABLET 1 TAB PO (07:39)
[2023-03-25] MEDS: risperiDONE 0.5 MG TABLET PO ×2 (07:39→20:56)
[2023-03-25] MEDS: Acetaminophen 325 MG TABLET 650 MG PO ×2 (07:42→20:56)
[2023-03-25] MEDS: Nystatin Powder 15 GM BOTTLE 1 APPL TOPICAL ×2 (09:39→20:56)
--- NOTE | 2023-03-25 10:16 | P.PNIM_ITS ---
Subjective Subjective Date of Service: 03/25/23 Interval History: Dementia, unspecified Review of Systems no new c/o,no fevers Physical Exam Vital Signs: Vital Signs: Last Vital Signs Temp 97.1 F 03/25/23 07:31 Pulse 92 03/25/23 07:31 Resp 16 03/25/23 07:31 BP 125/88 03/25/23 07:31 Pulse Ox 95 03/25/23 07:31 O2 Del Method Room Air 03/25/23 07:31 BMI result Body Mass Index 29.2 Gen: alert , ch ill appearing Lungs: clear to auscultation bilaterally cvs : air entery fine , no rales or wheezing Abd: soft, non-tender, non-distended Ext:? left lower extremity pitting edema Skin: warm/well-perfused Neuro: alert and oriented to self, no motor deficit Psych: impaired insight Objective Data Active Medications Acetaminophen (Acetaminophen 325 Mg Tablet) 650 mg PO Q6H PRN PRN Reason: Pain, Mild (Pain Scale 1-3) Last Admin: 03/25/23 07:42 Dose: 650 mg Documented By: CHARLIE Calcium Carbonate (Calcium Carbonate 750 Mg Tab.Chew) 750 mg PO Q6H PRN PRN Reason: Pain, Severe (Pain Scale 7-10) Last Admin: 02/25/23 02:25 Dose: 750 mg Documented By: JOHN Docusate Sodium (Docusate Sodium 100 Mg Capsule) 100 mg PO DAILY [facility] Last Admin: 03/25/23 07:39 Dose: 100 mg Documented By: CHARLIE Enoxaparin Sodium (Enoxaparin Sodium 40 Mg/0.4 Ml Syringe) 40 mg SUBCUT Q24H [facility] Last Admin: 03/24/23 12:51 Dose: 40 mg Documented By: CHARLIE Folic Acid (Folic Acid 1 Mg Tablet) 1 mg PO DAILY [facility] Last Admin: 03/25/23 07:39 Dose: 1 mg Documented By: CHARLIE Memantine (Memantine Hcl 5 Mg Tablet) 5 mg PO BID [facility] Last Admin: 03/25/23 07:38 Dose: 5 mg Documented By: CHARLIE Multivitamins/Vitamin C (Multivitamin Tablet) 1 tab PO DAILY [facility] Last Admin: 03/25/23 07:39 Dose: 1 tab Documented By: CHARLIE Nystatin (Nystatin Powder 15 Gm Bottle) 1 appl TOPICAL BID [facility]; Protocol Last Admin: 03/25/23 09:39 Dose: 1 appl Documented By: CHARLIE Ondansetron HCl (Ondansetron Hcl 4 Mg/2 Ml Vial) 4 mg IVPUSH Q8H PRN PRN Reason: Nausea and Vomiting Polyethylene Glycol (Polyethylene Glycol 3350 17 Gm Powd.Pack) 17 gm PO DAILY [facility] Last Admin: 03/25/23 07:39 Dose: 17 gm Documented By: CHARLIE Risperidone (Risperidone 0.5 Mg Tablet) 0.5 mg PO BID [facility] Last Admin: 03/25/23 07:39 Dose: 0.5 mg Documented By: CHARLIE Sertraline HCl (Sertraline Hcl 25 Mg Tablet) 25 mg PO DAILY [facility] Last Admin: 03/25/23 07:38 Dose: 25 mg Documented By: CHARLIE Sodium Chloride (0.9 % Sodium Chloride Flush 3 Ml Syringe) 3 ml IVFLUSH QSHIFT [facility] Last Admin: 03/25/23 09:36 Dose: Not Given Documented By: CHARLIE Non-Admin Reason: No Access Thiamine HCl (Thiamine Hcl 100 Mg Tablet) 100 mg PO DAILY [facility] Last Admin: 03/25/23 07:39 Dose: 100 mg Documented By: CHARLIE Labs 03/19/23 07:26 03/19/23 07:26 Assessment and Plan (1) Dementia: Status: Acute Plan 77yo F with chronic back pain, presenting with confusion, likely Alzheimer's dementia essentially no change in status 1.Dementia, unspecified - initially thought to have encephalopathy, but now appears to be likely dementia; memory seems to have been declining over the past several months - Bertin Cognitive Assesment (MOcA) : scored 14 - seen by Neurology: probable moderate to severe degenerative dementia, likely Alzheimer's; started sertraline + memantine - seen by Psychiatry: does not have capacity to make medical decisions, waiting for guardianship/placement 2.Malignant ascites/uterine mass - unintentional 30-lb weight loss - s/p paracentesis 02/22/23: 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 including pancreatico biliary - CA-125 elevated to 299 - seen by Turf Farm Worker; declined pelvic exam + endometrial biopsy; - inform patient about immunostains result, she is not showing much understanding and keeps repeating that she does not want any intervention that will prolong her suffering, since it seems to be a metastatic cancer with ? patient's current clinical condition? with lack of support likely she will not be a candidate for aggressive treatment,? re-assess after guardianship. Routine labs on 03/19, anemia noted but no change likely anemia of chronic disease, BMP unremarkable VTE ppx - enoxaparin dispo - pending guardianship? hearing. Time Spent With Patient Time: Total time managing care of this patient today ____ minutes. Quality Stroke Does the patient have a stroke diagnosis?: No VTE Prior VTE?: No VTE Risk Level:: Medical - moderate - high VTE Device Contraindication: Treatment Not Indicated VTE Drug Contraindication: N/A - Med Ordered
[2023-03-25] MEDS: Enoxaparin Sodium 40 MG/0.4 ML SYRINGE SUBCUT (12:13)
[2023-03-25 15:28] VITALS: BP 128/78; PULSE 84; RESP 16; TEMP 36.4; O2SAT 96
[2023-03-26 03:03] VITALS: BP 110/69; PULSE 88; RESP 14; TEMP 36.9; O2SAT 94
[2023-03-26 07:17] VITALS: BP 112/70; PULSE 73; RESP 16; TEMP 36.6; O2SAT 92
[2023-03-26] MEDS: Thiamine HCL 100 MG TABLET PO (09:02)
[2023-03-26] MEDS: Sertraline HCL 25 MG TABLET PO (09:02)
[2023-03-26] MEDS: Docusate Sodium 100 MG CAPSULE PO (09:02)
[2023-03-26] MEDS: polyethylene glycoL 3350 17 GM POWD.PACK PO (09:02)
[2023-03-26] MEDS: Folic Acid 1 MG TABLET PO (09:02)
[2023-03-26] MEDS: Memantine HCl 5 MG TABLET PO ×2 (09:02→21:04)
[2023-03-26] MEDS: risperiDONE 0.5 MG TABLET PO ×2 (09:02→21:04)
[2023-03-26] MEDS: Multivitamin TABLET 1 TAB PO (09:02)
--- NOTE | 2023-03-26 10:29 | P.PNIM_ITS ---
Subjective Subjective Date of Service: 03/26/23 Interval History: Dementia, unspecified Review of Systems no new c/o,no fevers Physical Exam Vital Signs: Vital Signs: Last Vital Signs Temp 97.8 F 03/26/23 07:17 Pulse 73 03/26/23 07:17 Resp 16 03/26/23 07:17 BP 112/70 03/26/23 07:17 Pulse Ox 92 03/26/23 07:17 O2 Del Method Room Air 03/26/23 07:17 BMI result Body Mass Index 29.2 Gen: alert , ch ill appearing Lungs: clear to auscultation bilaterally cvs : air entery fine , no rales or wheezing Abd: soft, non-tender, non-distended Ext:? left lower extremity pitting edema Skin: warm/well-perfused Neuro: alert and oriented to self, no motor deficit Psych: impaired insigh Objective Data Active Medications Acetaminophen (Acetaminophen 325 Mg Tablet) 650 mg PO Q6H PRN PRN Reason: Pain, Mild (Pain Scale 1-3) Last Admin: 03/25/23 20:56 Dose: 650 mg Documented By: DEB Calcium Carbonate (Calcium Carbonate 750 Mg Tab.Chew) 750 mg PO Q6H PRN PRN Reason: Pain, Severe (Pain Scale 7-10) Last Admin: 02/25/23 02:25 Dose: 750 mg Documented By: JOHN Docusate Sodium (Docusate Sodium 100 Mg Capsule) 100 mg PO DAILY [facility] Last Admin: 03/26/23 09:02 Dose: 100 mg Documented By: KRISSY Enoxaparin Sodium (Enoxaparin Sodium 40 Mg/0.4 Ml Syringe) 40 mg SUBCUT Q24H [facility] Last Admin: 03/25/23 12:13 Dose: 40 mg Documented By: CHARLIE Folic Acid (Folic Acid 1 Mg Tablet) 1 mg PO DAILY [facility] Last Admin: 03/26/23 09:02 Dose: 1 mg Documented By: KRISSY Memantine (Memantine Hcl 5 Mg Tablet) 5 mg PO BID [facility] Last Admin: 03/26/23 09:02 Dose: 5 mg Documented By: KRISSY Multivitamins/Vitamin C (Multivitamin Tablet) 1 tab PO DAILY [facility] Last Admin: 03/26/23 09:02 Dose: 1 tab Documented By: KRISSY Nystatin (Nystatin Powder 15 Gm Bottle) 1 appl TOPICAL BID [facility]; Protocol Last Admin: 03/25/23 20:56 Dose: 1 appl Documented By: DEB Ondansetron HCl (Ondansetron Hcl 4 Mg/2 Ml Vial) 4 mg IVPUSH Q8H PRN PRN Reason: Nausea and Vomiting Polyethylene Glycol (Polyethylene Glycol 3350 17 Gm Powd.Pack) 17 gm PO DAILY [facility] Last Admin: 03/25/23 07:39 Dose: 17 gm Documented By: CHARLIE Risperidone (Risperidone 0.5 Mg Tablet) 0.5 mg PO BID [facility] Last Admin: 03/26/23 09:02 Dose: 0.5 mg Documented By: KRISSY Sertraline HCl (Sertraline Hcl 25 Mg Tablet) 25 mg PO DAILY [facility] Last Admin: 03/26/23 09:02 Dose: 25 mg Documented By: KRISSY Sodium Chloride (0.9 % Sodium Chloride Flush 3 Ml Syringe) 3 ml IVFLUSH QSHIFT [facility] Last Admin: 03/26/23 10:02 Dose: Not Given Documented By: KRISSY Non-Admin Reason: No Access Thiamine HCl (Thiamine Hcl 100 Mg Tablet) 100 mg PO DAILY [facility] Last Admin: 03/26/23 09:02 Dose: 100 mg Documented By: KRISSY Labs 03/19/23 07:26 03/19/23 07:26 Assessment and Plan (1) Dementia: Status: Acute Plan 77yo F with chronic back pain, presenting with confusion, likely Alzheimer's dementia essentially no change in status 1.Dementia, unspecified - initially thought to have encephalopathy, but now appears to be likely dementia; memory seems to have been declining over the past several months - Bertin Cognitive Assesment (MOcA) : scored 14 - seen by Neurology: probable moderate to severe degenerative dementia, likely Alzheimer's; started sertraline + memantine - seen by Psychiatry: does not have capacity to make medical decisions, waiting for guardianship/placement 2.Malignant ascites/uterine mass - unintentional 30-lb weight loss - s/p paracentesis 02/22/23: 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 including pancreatico biliary - CA-125 elevated to 299 - seen by Lining Inserter; declined pelvic exam + endometrial biopsy; - inform patient about immunostains result, she is not showing much understanding and keeps repeating that she does not want any intervention that will prolong her suffering, since it seems to be a metastatic cancer with ? patient's current clinical condition? with lack of support likely she will not be a candidate for aggressive treatment,? re-assess after guardianship. Routine labs on 03/19, anemia noted but no change likely anemia of chronic disease, BMP unremarkable VTE ppx - enoxaparin dispo - pending guardianship? hearing. Time Spent With Patient Time: Total time managing care of this patient today ____ minutes. Quality Stroke Does the patient have a stroke diagnosis?: No VTE Prior VTE?: No VTE Risk Level:: Medical - moderate - high VTE Device Contraindication: Treatment Not Indicated VTE Drug Contraindication: N/A - Med Ordered
[2023-03-26] MEDS: Nystatin Powder 15 GM BOTTLE 1 APPL TOPICAL ×2 (11:04→21:04)
[2023-03-26] MEDS: Enoxaparin Sodium 40 MG/0.4 ML SYRINGE SUBCUT (12:12)
--- NOTE | 2023-03-26 12:52 | PC.NURSE ---
Pt repositioned and given lidia care multiple times. refuses to have pillows place for pressure relief to buttocks.
[2023-03-26 15:49] VITALS: BP 119/72; PULSE 88; RESP 20; TEMP 36.1; O2SAT 92
[2023-03-26 19:35] VITALS: BP 114/65; PULSE 78; RESP 18; TEMP 36.2; O2SAT 93
--- NOTE | 2023-03-26 21:21 | PC.NURSE ---
Pt refused to be repositioned off her buttocks after multiple attempts and education about skin breakdown and to relieve pressure and pain.
[2023-03-27 06:00] VITALS: BMI 30.6
[2023-03-27] MEDS: Acetaminophen 325 MG TABLET 650 MG PO (06:06)
[2023-03-27 07:29] VITALS: BP 100/56; PULSE 80; RESP 16; TEMP 36.4; O2SAT 92
[2023-03-27] MEDS: Thiamine HCL 100 MG TABLET PO (10:25)
[2023-03-27] MEDS: Memantine HCl 5 MG TABLET PO ×2 (10:26→20:56)
[2023-03-27] MEDS: risperiDONE 0.5 MG TABLET PO ×2 (10:26→20:56)
[2023-03-27] MEDS: Multivitamin TABLET 1 TAB PO (10:26)
[2023-03-27] MEDS: Sertraline HCL 25 MG TABLET PO (10:26)
[2023-03-27] MEDS: Enoxaparin Sodium 40 MG/0.4 ML SYRINGE SUBCUT (10:26)
[2023-03-27] MEDS: Folic Acid 1 MG TABLET PO (10:26)
[2023-03-27] MEDS: Nystatin Powder 15 GM BOTTLE 1 APPL TOPICAL (10:32)
--- NOTE | 2023-03-27 11:21 | HO.PM.IMPN ---
Subjective Subjective Date of Service: 03/27/23 Interval History: Dementia, unspecified Review of Systems no new c/o,no fevers Physical Exam Vital Signs: Vital Signs: Last Vital Signs Temp 97.6 F 03/27/23 07:29 Pulse 80 03/27/23 07:29 Resp 16 03/27/23 07:29 BP 100/56 L 03/27/23 07:29 Pulse Ox 92 03/27/23 07:29 O2 Del Method Room Air 03/27/23 07:29 BMI result Body Mass Index 29.2 Gen: alert , ch ill appearing Lungs: clear to auscultation bilaterally cvs : air entery fine , no rales or wheezing Abd: soft, non-tender, non-distended Ext:? left lower extremity pitting edema Skin: warm/well-perfused Neuro: alert and oriented to self, no motor deficit Psych: impaired insigh Objective Data Active Medications Acetaminophen (Acetaminophen 325 Mg Tablet) 650 mg PO Q6H PRN PRN Reason: Pain, Mild (Pain Scale 1-3) Last Admin: 03/27/23 06:06 Dose: 650 mg Documented By: RITA Calcium Carbonate (Calcium Carbonate 750 Mg Tab.Chew) 750 mg PO Q6H PRN PRN Reason: Pain, Severe (Pain Scale 7-10) Last Admin: 02/25/23 02:25 Dose: 750 mg Documented By: JOHN Docusate Sodium (Docusate Sodium 100 Mg Capsule) 100 mg PO DAILY [facility] Last Admin: 03/27/23 10:25 Dose: Not Given Documented By: KASSIDY Non-Admin Reason: loose stool Enoxaparin Sodium (Enoxaparin Sodium 40 Mg/0.4 Ml Syringe) 40 mg SUBCUT Q24H [facility] Last Admin: 03/27/23 10:26 Dose: 40 mg Documented By: KASSIDY Folic Acid (Folic Acid 1 Mg Tablet) 1 mg PO DAILY [facility] Last Admin: 03/27/23 10:26 Dose: 1 mg Documented By: KASSIDY Memantine (Memantine Hcl 5 Mg Tablet) 5 mg PO BID [facility] Last Admin: 03/27/23 10:26 Dose: 5 mg Documented By: KASSIDY Multivitamins/Vitamin C (Multivitamin Tablet) 1 tab PO DAILY [facility] Last Admin: 03/27/23 10:26 Dose: 1 tab Documented By: KASSIDY Nystatin (Nystatin Powder 15 Gm Bottle) 1 appl TOPICAL BID [facility]; Protocol Last Admin: 03/27/23 10:32 Dose: 1 appl Documented By: KASSIDY Ondansetron HCl (Ondansetron Hcl 4 Mg/2 Ml Vial) 4 mg IVPUSH Q8H PRN PRN Reason: Nausea and Vomiting Polyethylene Glycol (Polyethylene Glycol 3350 17 Gm Powd.Pack) 17 gm PO DAILY [facility] Last Admin: 03/27/23 10:25 Dose: Not Given Documented By: KASSIDY Non-Admin Reason: loose stool Risperidone (Risperidone 0.5 Mg Tablet) 0.5 mg PO BID [facility] Last Admin: 03/27/23 10:26 Dose: 0.5 mg Documented By: KASSIDY Sertraline HCl (Sertraline Hcl 25 Mg Tablet) 25 mg PO DAILY [facility] Last Admin: 03/27/23 10:26 Dose: 25 mg Documented By: KASSIDY Sodium Chloride (0.9 % Sodium Chloride Flush 3 Ml Syringe) 3 ml IVFLUSH QSHIFT [facility] Last Admin: 03/27/23 07:24 Dose: Not Given Documented By: KASSIDY Non-Admin Reason: No Access Thiamine HCl (Thiamine Hcl 100 Mg Tablet) 100 mg PO DAILY [facility] Last Admin: 03/27/23 10:25 Dose: 100 mg Documented By: KASSIDY Labs 03/19/23 07:26 03/19/23 07:26 Assessment and Plan (1) Dementia: Status: Acute Plan 77yo F with chronic back pain, presenting with confusion, likely Alzheimer's dementia essentially no change in status 1.Dementia, unspecified - initially thought to have encephalopathy, but now appears to be likely dementia; memory seems to have been declining over the past several months - Bertin Cognitive Assesment (MOcA) : scored 14 - seen by Neurology: probable moderate to severe degenerative dementia, likely Alzheimer's; started sertraline + memantine - seen by Psychiatry: does not have capacity to make medical decisions, waiting for guardianship/placement 2.Malignant ascites/uterine mass - unintentional 30-lb weight loss - s/p paracentesis 02/22/23: 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 including pancreatico biliary - CA-125 elevated to 299 - seen by Supervisor [employer] Former; declined pelvic exam + endometrial biopsy; - inform patient about immunostains result, she is not showing much understanding and keeps repeating that she does not want any intervention that will prolong her suffering, since it seems to be a metastatic cancer with ? patient's current clinical condition? with lack of support likely she will not be a candidate for aggressive treatment,? re-assess after guardianship. Routine labs on 03/19, anemia noted but no change likely anemia of chronic disease, BMP unremarkable VTE ppx - enoxaparin dispo - pending guardianship? hearing. Time Spent With Patient Time: Total time managing care of this patient today ____ minutes. Quality Stroke Does the patient have a stroke diagnosis?: No VTE Prior VTE?: No VTE Risk Level:: Medical - moderate - high VTE Device Contraindication: Treatment Not Indicated VTE Drug Contraindication: N/A - Med Ordered
[2023-03-27 15:58] VITALS: BP 110/76; PULSE 85; RESP 16; TEMP 36.2; O2SAT 96
[2023-03-27 19:56] VITALS: BP 121/62; PULSE 97; RESP 16; TEMP 36.4; O2SAT 93
[2023-03-27] MEDS: traMADoL HCL 50 MG TABLET PO (21:05)
--- NOTE | 2023-03-28 00:33 | PC.NURSE ---
Pt refuse to be repositioned after multiple attempts.
[2023-03-28 00:43] VITALS: BP 117/72; PULSE 71; RESP 18; TEMP 36.1; O2SAT 92
--- NOTE | 2023-03-28 05:46 | PC.NURSE ---
Pt refuse care this morning, stated she's comfortable and doesn't want to be disturbed. Pt has purewick on.
[2023-03-28 06:00] VITALS: BMI 31.0
--- NOTE | 2023-03-28 07:31 | P.PNIM_ITS ---
Subjective Subjective Date of Service: 03/28/23 Interval History: no new issues, still awaiting placement Physical Exam Vital Signs: Vital Signs: Last Vital Signs Temp 97 F 03/28/23 00:43 Pulse 71 03/28/23 00:43 Resp 18 03/28/23 00:43 BP 117/72 03/28/23 00:43 Pulse Ox 92 03/28/23 00:43 O2 Del Method Room Air 03/28/23 00:43 BMI result Body Mass Index 30.6 Const: Other: General:oriented to self Resp: CTA bilateral CVS: S1,S2,RRR GI: +BS, NT, no distention Skin: No rash Neuro: motor grossly intact Psych: appropriate affect Objective Data Active Medications Acetaminophen (Acetaminophen 325 Mg Tablet) 650 mg PO Q6H PRN PRN Reason: Pain, Mild (Pain Scale 1-3) Last Admin: 03/27/23 06:06 Dose: 650 mg Documented By: RITA Calcium Carbonate (Calcium Carbonate 750 Mg Tab.Chew) 750 mg PO Q6H PRN PRN Reason: Pain, Severe (Pain Scale 7-10) Last Admin: 02/25/23 02:25 Dose: 750 mg Documented By: JOHN Docusate Sodium (Docusate Sodium 100 Mg Capsule) 100 mg PO DAILY [facility] Last Admin: 03/27/23 10:25 Dose: Not Given Documented By: KASSIDY Non-Admin Reason: loose stool Enoxaparin Sodium (Enoxaparin Sodium 40 Mg/0.4 Ml Syringe) 40 mg SUBCUT Q24H [facility] Last Admin: 03/27/23 10:26 Dose: 40 mg Documented By: KASSIDY Folic Acid (Folic Acid 1 Mg Tablet) 1 mg PO DAILY [facility] Last Admin: 03/27/23 10:26 Dose: 1 mg Documented By: KASSIDY Guaifenesin (Guaifenesin 100 Mg/5 Ml Liquid) 5 ml PO Q4H PRN PRN Reason: Cough Memantine (Memantine Hcl 5 Mg Tablet) 5 mg PO BID [facility] Last Admin: 03/27/23 20:56 Dose: 5 mg Documented By: RITA Multivitamins/Vitamin C (Multivitamin Tablet) 1 tab PO DAILY [facility] Last Admin: 03/27/23 10:26 Dose: 1 tab Documented By: KASSIDY Nystatin (Nystatin Powder 15 Gm Bottle) 1 appl TOPICAL BID [facility]; Protocol Last Admin: 03/27/23 21:00 Dose: Not Given Documented By: RITA Non-Admin Reason: Patient Refused Ondansetron HCl (Ondansetron Hcl 4 Mg/2 Ml Vial) 4 mg IVPUSH Q8H PRN PRN Reason: Nausea and Vomiting Polyethylene Glycol (Polyethylene Glycol 3350 17 Gm Powd.Pack) 17 gm PO DAILY [facility] Last Admin: 03/27/23 10:25 Dose: Not Given Documented By: KASSIDY Non-Admin Reason: loose stool Risperidone (Risperidone 0.5 Mg Tablet) 0.5 mg PO BID [facility] Last Admin: 03/27/23 20:56 Dose: 0.5 mg Documented By: RITA Sertraline HCl (Sertraline Hcl 25 Mg Tablet) 25 mg PO DAILY [facility] Last Admin: 03/27/23 10:26 Dose: 25 mg Documented By: KASSIDY Sodium Chloride (0.9 % Sodium Chloride Flush 3 Ml Syringe) 3 ml IVFLUSH QSHIFT [facility] Last Admin: 03/28/23 06:55 Dose: Not Given Documented By: KASSIDY Non-Admin Reason: No Access Thiamine HCl (Thiamine Hcl 100 Mg Tablet) 100 mg PO DAILY [facility] Last Admin: 03/27/23 10:25 Dose: 100 mg Documented By: KASSIDY Labs 03/19/23 07:26 03/19/23 07:26 Assessment and Plan (1) Dementia: Status: Acute Plan 77yo F with chronic back pain, presenting with confusion, likely Alzheimer's dementia essentially no change in status 1.Dementia, unspecified - initially thought to have encephalopathy, but now appears to be likely dementia; memory seems to have been declining over the past several months - Bertin Cognitive Assesment (MOcA) : scored 14 - seen by Neurology: probable moderate to severe degenerative dementia, likely Alzheimer's; started sertraline + memantine - seen by Psychiatry: does not have capacity to make medical decisions, waiting for guardianship/placement 2.Malignant ascites/uterine mass - unintentional 30-lb weight loss - s/p paracentesis 02/22/23: 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 including pancreatico biliary - CA-125 elevated to 299 - seen by Director [employer]; declined pelvic exam + endometrial biopsy; - inform patient about immunostains result, she is not showing much understanding and keeps repeating that she does not want any intervention that will prolong her suffering, since it seems to be a metastatic cancer with ? patient's current clinical condition? with lack of support likely she will not be a candidate for aggressive treatment,? re-assess after guardianship. Routine labs on 03/19, anemia noted but no change likely anemia of chronic disease, BMP unremarkable VTE ppx - enoxaparin dispo - pending guardianship? hearing later this week Time Spent With Patient Time: Total time managing care of this patient today ____ minutes. Quality Stroke Does the patient have a stroke diagnosis?: No VTE Prior VTE?: No VTE Risk Level:: Medical - moderate - high VTE Device Contraindication: Treatment Not Indicated VTE Drug Contraindication: N/A - Med Ordered
[2023-03-28 07:34] VITALS: BP 124/68; PULSE 72; RESP 16; TEMP 36.6; O2SAT 95
[2023-03-28] MEDS: Sertraline HCL 25 MG TABLET PO (09:25)
[2023-03-28] MEDS: Folic Acid 1 MG TABLET PO (09:25)
[2023-03-28] MEDS: Multivitamin TABLET 1 TAB PO (09:25)
[2023-03-28] MEDS: Thiamine HCL 100 MG TABLET PO (09:25)
[2023-03-28] MEDS: Memantine HCl 5 MG TABLET PO ×2 (09:25→21:09)
[2023-03-28] MEDS: risperiDONE 0.5 MG TABLET PO ×2 (09:25→21:09)
[2023-03-28] MEDS: Nystatin Powder 15 GM BOTTLE 1 APPL TOPICAL ×2 (09:26→21:10)
[2023-03-28] MEDS: Enoxaparin Sodium 40 MG/0.4 ML SYRINGE SUBCUT (12:13)
[2023-03-28 16:00] VITALS: BP 97/65; PULSE 81; RESP 16; TEMP 36.3; O2SAT 94
[2023-03-28 20:00] VITALS: BP 117/65; PULSE 85; RESP 16; TEMP 36.1; O2SAT 92
[2023-03-28] MEDS: traMADoL HCL 50 MG TABLET 25 MG PO (21:32)
[2023-03-29 03:09] VITALS: BP 132/68; PULSE 100; RESP 17; TEMP 36.8; O2SAT 95
[2023-03-29 07:16] VITALS: BP 112/61; PULSE 83; RESP 16; TEMP 36.6; O2SAT 94
--- NOTE | 2023-03-29 07:40 | HO.PM.IMPN ---
Subjective Subjective Date of Service: 03/29/23 Interval History: no new issues, still awaiting placement, resting comfortable, vitals reviewd and within normal Physical Exam Vital Signs: Vital Signs: Last Vital Signs Temp 97.8 F 03/29/23 07:16 Pulse 83 03/29/23 07:16 Resp 16 03/29/23 07:16 BP 112/61 03/29/23 07:16 Pulse Ox 94 03/29/23 07:16 O2 Del Method Room Air 03/29/23 07:16 BMI result Body Mass Index 31.0 Const: Other: General:oriented to self Resp: CTA bilateral CVS: S1,S2,RRR GI: +BS, NT, no distention Skin: No rash Neuro: motor grossly intact Psych: appropriate affect Objective Data Active Medications Acetaminophen (Acetaminophen 325 Mg Tablet) 650 mg PO Q6H PRN PRN Reason: Pain, Mild (Pain Scale 1-3) Last Admin: 03/27/23 06:06 Dose: 650 mg Documented By: RITA Calcium Carbonate (Calcium Carbonate 750 Mg Tab.Chew) 750 mg PO Q6H PRN PRN Reason: Pain, Severe (Pain Scale 7-10) Last Admin: 02/25/23 02:25 Dose: 750 mg Documented By: JOHN Docusate Sodium (Docusate Sodium 100 Mg Capsule) 100 mg PO DAILY [facility] Last Admin: 03/28/23 09:26 Dose: Not Given Documented By: KASSIDY Non-Admin Reason: Patient Refused Enoxaparin Sodium (Enoxaparin Sodium 40 Mg/0.4 Ml Syringe) 40 mg SUBCUT Q24H [facility] Last Admin: 03/28/23 12:13 Dose: 40 mg Documented By: TARA Folic Acid (Folic Acid 1 Mg Tablet) 1 mg PO DAILY [facility] Last Admin: 03/28/23 09:25 Dose: 1 mg Documented By: KASSIDY Guaifenesin (Guaifenesin 100 Mg/5 Ml Liquid) 5 ml PO Q4H PRN PRN Reason: Cough Memantine (Memantine Hcl 5 Mg Tablet) 5 mg PO BID [facility] Last Admin: 03/28/23 21:09 Dose: 5 mg Documented By: CHI Multivitamins/Vitamin C (Multivitamin Tablet) 1 tab PO DAILY [facility] Last Admin: 03/28/23 09:25 Dose: 1 tab Documented By: KASSIDY Nystatin (Nystatin Powder 15 Gm Bottle) 1 appl TOPICAL BID [facility]; Protocol Last Admin: 03/28/23 21:10 Dose: 1 appl Documented By: CHI Ondansetron HCl (Ondansetron Hcl 4 Mg/2 Ml Vial) 4 mg IVPUSH Q8H PRN PRN Reason: Nausea and Vomiting Polyethylene Glycol (Polyethylene Glycol 3350 17 Gm Powd.Pack) 17 gm PO DAILY [facility] Last Admin: 03/28/23 09:26 Dose: Not Given Documented By: KASSIDY Non-Admin Reason: Patient Refused Risperidone (Risperidone 0.5 Mg Tablet) 0.5 mg PO BID [facility] Last Admin: 03/28/23 21:09 Dose: 0.5 mg Documented By: CHI Sertraline HCl (Sertraline Hcl 25 Mg Tablet) 25 mg PO DAILY [facility] Last Admin: 03/28/23 09:25 Dose: 25 mg Documented By: KASSIDY Sodium Chloride (0.9 % Sodium Chloride Flush 3 Ml Syringe) 3 ml IVFLUSH QSHIFT [facility] Last Admin: 03/28/23 21:07 Dose: Not Given Documented By: CHI Non-Admin Reason: No Access Thiamine HCl (Thiamine Hcl 100 Mg Tablet) 100 mg PO DAILY [facility] Last Admin: 03/28/23 09:25 Dose: 100 mg Documented By: KASSIDY Labs 03/19/23 07:26 03/19/23 07:26 Assessment and Plan (1) Dementia: Status: Acute Plan 77yo F with chronic back pain, presenting with confusion, likely Alzheimer's dementia essentially no change in status 1.Dementia, unspecified - initially thought to have encephalopathy, but now appears to be likely dementia; memory seems to have been declining over the past several months - Bertin Cognitive Assesment (MOcA) : scored 14 - seen by Neurology: probable moderate to severe degenerative dementia, likely Alzheimer's; started sertraline + memantine - seen by Psychiatry: does not have capacity to make medical decisions, waiting for guardianship/placement 2.Malignant ascites/uterine mass - unintentional 30-lb weight loss - s/p paracentesis 02/22/23: 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 including pancreatico biliary - CA-125 elevated to 299 - seen by Manager [employer]; declined pelvic exam + endometrial biopsy; - inform patient about immunostains result, she is not showing much understanding and keeps repeating that she does not want any intervention that will prolong her suffering, since it seems to be a metastatic cancer with ? patient's current clinical condition? with lack of support likely she will not be a candidate for aggressive treatment,? re-assess after guardianship. Routine labs on 03/19, anemia noted but no change likely anemia of chronic disease, BMP unremarkable VTE ppx - enoxaparin dispo - pending guardianship? hearing later this week Time Spent With Patient Time: Total time managing care of this patient today ____ minutes. Quality Stroke Does the patient have a stroke diagnosis?: No VTE Prior VTE?: No VTE Risk Level:: Medical - moderate - high VTE Device Contraindication: Treatment Not Indicated VTE Drug Contraindication: N/A - Med Ordered
[2023-03-29] MEDS: Multivitamin TABLET 1 TAB PO (08:45)
[2023-03-29] MEDS: Sertraline HCL 25 MG TABLET PO (08:46)
[2023-03-29] MEDS: Docusate Sodium 100 MG CAPSULE PO (08:46)
[2023-03-29] MEDS: Folic Acid 1 MG TABLET PO (08:46)
[2023-03-29] MEDS: risperiDONE 0.5 MG TABLET PO ×2 (08:46→19:42)
[2023-03-29] MEDS: Thiamine HCL 100 MG TABLET PO (08:46)
[2023-03-29] MEDS: Memantine HCl 5 MG TABLET PO ×2 (08:46→19:42)
[2023-03-29] MEDS: Nystatin Powder 15 GM BOTTLE 1 APPL TOPICAL ×2 (08:47→20:33)
[2023-03-29] MEDS: Enoxaparin Sodium 40 MG/0.4 ML SYRINGE SUBCUT (11:31)
--- NOTE | 2023-03-29 14:02 | MHC.CLN ---
F/U DIET=2 GRAM SODIUM. ENSURE BID PROVIDES 700 KCALS, 40 G PROTEIN. SKIN WITH STAGE II TO RIGHT UPPER BUTTOCK AND RIGHT LOWER BUTTOCK, MACERATION TO COCCYX. DIET ORDER AND SUPPLEMENT APPROPRIATE. SUPPLEMENT TO PROMOTE SKIN INTEGRITY. INTAKE VARIABLE, WITH MOST RECENT MEALS APPROX 25%. ASKED ABOUT APPETITE AND INTAKE. REPLIED, I CAN'T RECALL. I DON'T REMEMBER . DOES NOT CONSISTENTLY TAKE SUPPLEMENT BUT CONTINUE TO PROVIDE. FOLLOW FOR INTAKE AND SKIN INTEGRITY. RD TO FOLLOW WEEKLY.
[2023-03-29 16:00] VITALS: BP 109/74; PULSE 77; RESP 18; TEMP 36.9; O2SAT 93
--- NOTE | 2023-03-29 16:35 | MHC.CM.PN ---
DP to a facility for LTC via BLS. Patient needs guardian for placement. 03/23/23 guardianship did not move forward. Patient traveling representative advocated for the Patient, who stated that she didnt agree with guardianship. Patient is forgetful, and confused.
--- NOTE | 2023-03-29 16:36 | PC.NURSE ---
Patient has refused multiple requests by nurse and ceramic products sales engineer to get out of bed to a chair. Also refusing basic care, such as repositioning.
[2023-03-29 19:09] VITALS: BP 110/87; PULSE 88; RESP 14; TEMP 36.3; O2SAT 94
[2023-03-30 03:04] VITALS: BP 124/62; PULSE 88; RESP 16; TEMP 37.4; O2SAT 94
[2023-03-30] MEDS: Acetaminophen 325 MG TABLET 650 MG PO ×2 (04:52→21:06)
[2023-03-30 06:00] VITALS: BMI 30.9
[2023-03-30 07:10] VITALS: BP 106/63; PULSE 86; RESP 16; TEMP 36.4; O2SAT 92
[2023-03-30] MEDS: Folic Acid 1 MG TABLET PO (07:51)
[2023-03-30] MEDS: Thiamine HCL 100 MG TABLET PO (07:51)
[2023-03-30] MEDS: risperiDONE 0.5 MG TABLET PO ×2 (07:51→20:54)
[2023-03-30] MEDS: Docusate Sodium 100 MG CAPSULE PO (07:51)
[2023-03-30] MEDS: Memantine HCl 5 MG TABLET PO ×2 (07:51→20:54)
[2023-03-30] MEDS: Sertraline HCL 25 MG TABLET PO (07:51)
[2023-03-30] MEDS: Multivitamin TABLET 1 TAB PO (07:52)
[2023-03-30] MEDS: Nystatin Powder 15 GM BOTTLE 1 APPL TOPICAL ×2 (07:54→20:54)
--- NOTE | 2023-03-30 09:14 | P.PNIM_ITS ---
Subjective Subjective Date of Service: 03/30/23 Interval History: doing ok, no new issues, denies any need Physical Exam Vital Signs: Vital Signs: Last Vital Signs Temp 97.6 F 03/30/23 07:10 Pulse 86 03/30/23 07:10 Resp 16 03/30/23 07:10 BP 106/63 03/30/23 07:10 Pulse Ox 92 03/30/23 07:10 O2 Del Method Room Air 03/30/23 07:10 BMI result Body Mass Index 30.9 Const: Other: General:oriented to self Resp: CTA bilateral CVS: S1,S2,RRR GI: +BS, NT, no distention Skin: No rash Neuro: motor grossly intact Psych: appropriate affect Objective Data Active Medications Acetaminophen (Acetaminophen 325 Mg Tablet) 650 mg PO Q6H PRN PRN Reason: Pain, Mild (Pain Scale 1-3) Last Admin: 03/30/23 04:52 Dose: 650 mg Documented By: NATHANIEL Calcium Carbonate (Calcium Carbonate 750 Mg Tab.Chew) 750 mg PO Q6H PRN PRN Reason: Pain, Severe (Pain Scale 7-10) Last Admin: 02/25/23 02:25 Dose: 750 mg Documented By: JOHN Docusate Sodium (Docusate Sodium 100 Mg Capsule) 100 mg PO DAILY [facility] Last Admin: 03/30/23 07:51 Dose: 100 mg Documented By: TAYLOR Enoxaparin Sodium (Enoxaparin Sodium 40 Mg/0.4 Ml Syringe) 40 mg SUBCUT Q24H [facility] Last Admin: 03/29/23 11:31 Dose: 40 mg Documented By: WILLIAM Folic Acid (Folic Acid 1 Mg Tablet) 1 mg PO DAILY [facility] Last Admin: 03/30/23 07:51 Dose: 1 mg Documented By: TAYLOR Guaifenesin (Guaifenesin 100 Mg/5 Ml Liquid) 5 ml PO Q4H PRN PRN Reason: Cough Memantine (Memantine Hcl 5 Mg Tablet) 5 mg PO BID [facility] Last Admin: 03/30/23 07:51 Dose: 5 mg Documented By: TAYLOR Multivitamins/Vitamin C (Multivitamin Tablet) 1 tab PO DAILY [facility] Last Admin: 03/30/23 07:52 Dose: 1 tab Documented By: TAYLOR Nystatin (Nystatin Powder 15 Gm Bottle) 1 appl TOPICAL BID [facility]; Protocol Last Admin: 03/30/23 07:54 Dose: 1 appl Documented By: TAYLOR Ondansetron HCl (Ondansetron Hcl 4 Mg/2 Ml Vial) 4 mg IVPUSH Q8H PRN PRN Reason: Nausea and Vomiting Polyethylene Glycol (Polyethylene Glycol 3350 17 Gm Powd.Pack) 17 gm PO DAILY [facility] Last Admin: 03/30/23 07:53 Dose: Not Given Documented By: TAYLOR Non-Admin Reason: Patient Refused Risperidone (Risperidone 0.5 Mg Tablet) 0.5 mg PO BID [facility] Last Admin: 03/30/23 07:51 Dose: 0.5 mg Documented By: TAYLOR Sertraline HCl (Sertraline Hcl 25 Mg Tablet) 25 mg PO DAILY [facility] Last Admin: 03/30/23 07:51 Dose: 25 mg Documented By: ATYLOR Sodium Chloride (0.9 % Sodium Chloride Flush 3 Ml Syringe) 3 ml IVFLUSH QSHIFT [facility] Last Admin: 03/30/23 07:13 Dose: Not Given Documented By: TAYLOR Non-Admin Reason: No Access Thiamine HCl (Thiamine Hcl 100 Mg Tablet) 100 mg PO DAILY [facility] Last Admin: 03/30/23 07:51 Dose: 100 mg Documented By: TAYLOR Labs 03/19/23 07:26 03/19/23 07:26 Assessment and Plan (1) Dementia: Status: Acute Plan 77yo F with chronic back pain, presenting with confusion, likely Alzheimer's dementia essentially no change in status 1.Dementia, unspecified - initially thought to have encephalopathy, but now appears to be likely dementia; memory seems to have been declining over the past several months - Bertin Cognitive Assesment (MOcA) : scored 14 - seen by Neurology: probable moderate to severe degenerative dementia, likely Alzheimer's; started sertraline + memantine - seen by Psychiatry: does not have capacity to make medical decisions, waiting for guardianship/placement 2.Malignant ascites/uterine mass - unintentional 30-lb weight loss - s/p paracentesis 02/22/23: 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 including pancreatico biliary - CA-125 elevated to 299 - seen by V[employer]; declined pelvic exam + endometrial biopsy; - inform patient about immunostains result, she is not showing much understanding and keeps repeating that she does not want any intervention that will prolong her suffering, since it seems to be a metastatic cancer with ? patient's current clinical condition? with lack of support likely she will not be a candidate for aggressive treatment,? re-assess after guardianship. Routine labs on 03/19, anemia noted but no change likely anemia of chronic disease, BMP unremarkable VTE ppx - enoxaparin dispo - pending guardianship? hearing later this week Time Spent With Patient Time: Total time managing care of this patient today ____ minutes. Quality Stroke Does the patient have a stroke diagnosis?: No VTE Prior VTE?: No VTE Risk Level:: Medical - moderate - high VTE Device Contraindication: Treatment Not Indicated VTE Drug Contraindication: N/A - Med Ordered
[2023-03-30 15:02] VITALS: BP 105/59; PULSE 77; RESP 16; TEMP 36.8; O2SAT 92
[2023-03-30 19:10] VITALS: BP 110/68; PULSE 97; RESP 17; TEMP 36.6; O2SAT 92
[2023-03-31 04:00] VITALS: BP 126/77; PULSE 86; RESP 16; TEMP 36; O2SAT 92
[2023-03-31 06:00] VITALS: BMI 30.9
[2023-03-31 07:29] VITALS: BP 108/69; PULSE 111; RESP 18; TEMP 36.3; O2SAT 92
[2023-03-31] MEDS: Docusate Sodium 100 MG CAPSULE PO (08:24)
[2023-03-31] MEDS: Memantine HCl 5 MG TABLET PO ×2 (08:24→21:40)
[2023-03-31] MEDS: Thiamine HCL 100 MG TABLET PO (08:24)
[2023-03-31] MEDS: Multivitamin TABLET 1 TAB PO (08:24)
[2023-03-31] MEDS: Sertraline HCL 25 MG TABLET PO (08:24)
[2023-03-31] MEDS: risperiDONE 0.5 MG TABLET PO ×2 (08:24→21:40)
[2023-03-31] MEDS: Folic Acid 1 MG TABLET PO (08:24)
--- NOTE | 2023-03-31 09:34 | HO.PM.IMPN ---
Subjective Subjective Date of Service: 03/31/23 Interval History: doing ok, no new issues, Physical Exam Vital Signs: Vital Signs: Last Vital Signs Temp 97.4 F 03/31/23 07:29 Pulse 111 H 03/31/23 07:29 Resp 18 03/31/23 07:29 BP 108/69 03/31/23 07:29 Pulse Ox 92 03/31/23 07:29 O2 Del Method Room Air 03/31/23 07:29 BMI result Body Mass Index 30.9 Objective Data Active Medications Acetaminophen (Acetaminophen 325 Mg Tablet) 650 mg PO Q6H PRN PRN Reason: Pain, Mild (Pain Scale 1-3) Last Admin: 03/30/23 21:06 Dose: 650 mg Documented By: OZORALB Calcium Carbonate (Calcium Carbonate 750 Mg Tab.Chew) 750 mg PO Q6H PRN PRN Reason: Pain, Severe (Pain Scale 7-10) Last Admin: 02/25/23 02:25 Dose: 750 mg Documented By: JOHN Docusate Sodium (Docusate Sodium 100 Mg Capsule) 100 mg PO DAILY [facility] Last Admin: 03/31/23 08:24 Dose: 100 mg Documented By: TAYLOR Enoxaparin Sodium (Enoxaparin Sodium 40 Mg/0.4 Ml Syringe) 40 mg SUBCUT Q24H [facility] Last Admin: 03/30/23 11:32 Dose: Not Given Documented By: TAYLOR Non-Admin Reason: Patient Refused Folic Acid (Folic Acid 1 Mg Tablet) 1 mg PO DAILY [facility] Last Admin: 03/31/23 08:24 Dose: 1 mg Documented By: TAYLOR Guaifenesin (Guaifenesin 100 Mg/5 Ml Liquid) 5 ml PO Q4H PRN PRN Reason: Cough Memantine (Memantine Hcl 5 Mg Tablet) 5 mg PO BID [facility] Last Admin: 03/31/23 08:24 Dose: 5 mg Documented By: TAYLOR Multivitamins/Vitamin C (Multivitamin Tablet) 1 tab PO DAILY [facility] Last Admin: 03/31/23 08:24 Dose: 1 tab Documented By: TAYLOR Nystatin (Nystatin Powder 15 Gm Bottle) 1 appl TOPICAL BID [facility]; Protocol Last Admin: 03/31/23 08:32 Dose: Not Given Documented By: TAYLOR Non-Admin Reason: Previously Administered Ondansetron HCl (Ondansetron Hcl 4 Mg/2 Ml Vial) 4 mg IVPUSH Q8H PRN PRN Reason: Nausea and Vomiting Polyethylene Glycol (Polyethylene Glycol 3350 17 Gm Powd.Pack) 17 gm PO DAILY [facility] Last Admin: 03/31/23 08:23 Dose: Not Given Documented By: TAYLOR Non-Admin Reason: Patient Refused Risperidone (Risperidone 0.5 Mg Tablet) 0.5 mg PO BID [facility] Last Admin: 03/31/23 08:24 Dose: 0.5 mg Documented By: TAYLOR Sertraline HCl (Sertraline Hcl 25 Mg Tablet) 25 mg PO DAILY [facility] Last Admin: 03/31/23 08:24 Dose: 25 mg Documented By: TAYLOR Sodium Chloride (0.9 % Sodium Chloride Flush 3 Ml Syringe) 3 ml IVFLUSH QSHIFT [facility] Last Admin: 03/31/23 07:02 Dose: Not Given Documented By: TAYLOR Non-Admin Reason: No Access Thiamine HCl (Thiamine Hcl 100 Mg Tablet) 100 mg PO DAILY [facility] Last Admin: 03/31/23 08:24 Dose: 100 mg Documented By: TAYLOR Labs 03/19/23 07:26 03/19/23 07:26 Assessment and Plan (1) Dementia: Status: Acute Plan 77yo F with chronic back pain, presenting with confusion, likely Alzheimer's dementia essentially no change in status as of today 1.Dementia, unspecified - initially thought to have encephalopathy, but now appears to be likely dementia; memory seems to have been declining over the past several months - Bertin Cognitive Assesment (MOcA) : scored 14 - seen by Neurology: probable moderate to severe degenerative dementia, likely Alzheimer's; started sertraline + memantine - seen by Psychiatry: does not have capacity to make medical decisions, waiting for guardianship/placement 2.Malignant ascites/uterine mass - unintentional 30-lb weight loss - s/p paracentesis 02/22/23: 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 including pancreatico biliary - CA-125 elevated to 299 - seen by Appliance Counselor; declined pelvic exam + endometrial biopsy; - inform patient about immunostains result, she is not showing much understanding and keeps repeating that she does not want any intervention that will prolong her suffering, since it seems to be a metastatic cancer with ? patient's current clinical condition? with lack of support likely she will not be a candidate for aggressive treatment,? re-assess after guardianship. Routine labs on 03/19, anemia noted but no change likely anemia of chronic disease, BMP unremarkable VTE ppx - enoxaparin dispo - pending guardianship? hearing later this week Time Spent With Patient Time: Total time managing care of this patient today ____ minutes. Quality Stroke Does the patient have a stroke diagnosis?: No VTE Prior VTE?: No VTE Risk Level:: Medical - moderate - high VTE Device Contraindication: Treatment Not Indicated VTE Drug Contraindication: N/A - Med Ordered
[2023-03-31] MEDS: polyethylene glycoL 3350 17 GM POWD.PACK PO (12:41)
[2023-03-31 13:41] LABS: Anion Gap 17 (12-20); Blood Urea Nitrogen 29 mg/dL (9-16); Calcium 9.3 mg/dL (8.4-10.2); Carbon Dioxide 23 mmol/L (22-29); Chloride 101 mmol/L (96-108); Creatinine Clr Calc Pharmacy 77.1; Estimated Glomerular Filt Rate > 60; Glucose Random 126 mg/dL (60-115); Potassium 4.6 mmol/L (3.3-5.1); Sodium 136 mmol/L (135-145)
[2023-03-31 15:59] VITALS: BP 121/65; PULSE 81; RESP 18; TEMP 36.1; O2SAT 93
[2023-03-31 19:51] VITALS: BP 106/68; PULSE 84; RESP 18; TEMP 36.3; O2SAT 93
[2023-03-31 19:54] VITALS: BP 106/68; PULSE 87; RESP 18; TEMP 36.9; O2SAT 92
[2023-03-31] MEDS: Acetaminophen 325 MG TABLET 650 MG PO (21:41)
[2023-03-31] MEDS: Nystatin Powder 15 GM BOTTLE 1 APPL TOPICAL (21:43)
[2023-04-01 04:00] VITALS: BP 123/69; PULSE 86; RESP 18; TEMP 36; O2SAT 94
[2023-04-01 07:38] VITALS: BP 114/59; PULSE 85; RESP 20; TEMP 36.2; O2SAT 93
--- NOTE | 2023-04-01 09:05 | HO.PM.IMPN ---
Subjective Subjective Date of Service: 04/01/23 Interval History: doing ok, no new issues, Physical Exam Vital Signs: Vital Signs: Last Vital Signs Temp 97.2 F 04/01/23 07:38 Pulse 85 04/01/23 07:38 Resp 20 04/01/23 07:38 BP 114/59 L 04/01/23 07:38 Pulse Ox 93 04/01/23 07:38 O2 Del Method Room Air 04/01/23 07:38 BMI result Body Mass Index 30.9 Const: Other: General:oriented to self Resp: CTA bilateral CVS: S1,S2,RRR GI: +BS, NT, no distention Skin: No rash Neuro: motor grossly intact Psych: appropriate affect Objective Data Active Medications Acetaminophen (Acetaminophen 325 Mg Tablet) 650 mg PO Q6H PRN PRN Reason: Pain, Mild (Pain Scale 1-3) Last Admin: 03/31/23 21:41 Dose: 650 mg Documented By: TINO Calcium Carbonate (Calcium Carbonate 750 Mg Tab.Chew) 750 mg PO Q6H PRN PRN Reason: Pain, Severe (Pain Scale 7-10) Last Admin: 02/25/23 02:25 Dose: 750 mg Documented By: JOHN Docusate Sodium (Docusate Sodium 100 Mg Capsule) 100 mg PO DAILY [facility] Last Admin: 03/31/23 08:24 Dose: 100 mg Documented By: TAYLOR Enoxaparin Sodium (Enoxaparin Sodium 40 Mg/0.4 Ml Syringe) 40 mg SUBCUT Q24H [facility] Last Admin: 03/31/23 11:58 Dose: Not Given Documented By: TAYLOR Non-Admin Reason: Patient Refused Folic Acid (Folic Acid 1 Mg Tablet) 1 mg PO DAILY [facility] Last Admin: 03/31/23 08:24 Dose: 1 mg Documented By: TAYLOR Guaifenesin (Guaifenesin 100 Mg/5 Ml Liquid) 5 ml PO Q4H PRN PRN Reason: Cough Memantine (Memantine Hcl 5 Mg Tablet) 5 mg PO BID [facility] Last Admin: 03/31/23 21:40 Dose: 5 mg Documented By: TINO Multivitamins/Vitamin C (Multivitamin Tablet) 1 tab PO DAILY [facility] Last Admin: 03/31/23 08:24 Dose: 1 tab Documented By: TAYLOR Nystatin (Nystatin Powder 15 Gm Bottle) 1 appl TOPICAL BID [facility]; Protocol Last Admin: 03/31/23 21:43 Dose: 1 appl Documented By: TINO Ondansetron HCl (Ondansetron Hcl 4 Mg/2 Ml Vial) 4 mg IVPUSH Q8H PRN PRN Reason: Nausea and Vomiting Polyethylene Glycol (Polyethylene Glycol 3350 17 Gm Powd.Pack) 17 gm PO DAILY [facility] Last Admin: 03/31/23 12:41 Dose: 17 gm Documented By: TAYLOR Risperidone (Risperidone 0.5 Mg Tablet) 0.5 mg PO BID [facility] Last Admin: 03/31/23 21:40 Dose: 0.5 mg Documented By: TINO Sertraline HCl (Sertraline Hcl 25 Mg Tablet) 25 mg PO DAILY [facility] Last Admin: 03/31/23 08:24 Dose: 25 mg Documented By: TAYLOR Sodium Chloride (0.9 % Sodium Chloride Flush 3 Ml Syringe) 3 ml IVFLUSH QSHIFT [facility] Last Admin: 04/01/23 00:01 Dose: Not Given Documented By: TINO Non-Admin Reason: No Access Thiamine HCl (Thiamine Hcl 100 Mg Tablet) 100 mg PO DAILY [facility] Last Admin: 03/31/23 08:24 Dose: 100 mg Documented By: TAYLOR Labs 03/19/23 07:26 03/31/23 13:05 Labs: Laboratory Results - last 24 hr 03/31/23 13:05 Anion Gap 17 Estim Creat Clear Calc 77.1 Estimated GFR > 60 Random Glucose 126 H Calcium 9.3 Assessment and Plan (1) Dementia: Status: Acute Plan 77yo F with chronic back pain, presenting with confusion, likely Alzheimer's dementia essentially no change in status as of today 1.Dementia, unspecified - initially thought to have encephalopathy, but now appears to be likely dementia; memory seems to have been declining over the past several months - Bertin Cognitive Assesment (MOcA) : scored 14 - seen by Neurology: probable moderate to severe degenerative dementia, likely Alzheimer's; started sertraline + memantine - seen by Psychiatry: does not have capacity to make medical decisions, waiting for guardianship/placement 2.Malignant ascites/uterine mass - unintentional 30-lb weight loss - s/p paracentesis 02/22/23: 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 including pancreatico biliary - CA-125 elevated to 299 - seen by Hardwood Floor Refinisher; declined pelvic exam + endometrial biopsy; - inform patient about immunostains result, she is not showing much understanding and keeps repeating that she does not want any intervention that will prolong her suffering, since it seems to be a metastatic cancer with ? patient's current clinical condition? with lack of support likely she will not be a candidate for aggressive treatment,? re-assess after guardianship. -increasing abdominal girth--will do US and consider paracentesis early next week Routine labs on 03/31, BMP unremarkable VTE ppx - enoxaparin dispo - pending guardianship? hearing later this week Time Spent With Patient Time: Total time managing care of this patient today ____ minutes. Quality Stroke Does the patient have a stroke diagnosis?: No VTE Prior VTE?: No VTE Risk Level:: Medical - moderate - high VTE Device Contraindication: Treatment Not Indicated VTE Drug Contraindication: N/A - Med Ordered
--- NOTE | 2023-04-01 09:07 | MHC.CM.PN ---
LOGAN MET WITH PT ON 03/31/23, AT PTS REQUEST. PT REPORTS SHE DOES NOT KNOW WHERE SHE IS OR WHY SHE IS HERE. SHE WAS INFORMED OF HER LOCATION AND REASON FOR ADMISSION SHE SAYS, NOW I CANNOT GO HOME? LOGAN INFORMED HER SHE WOULD BE UNABLE TO CARE FOR HERSELF AT THIS TIME, SO WILL NEED A SNF SHE SAYS SHE SHOULD BE ABLE TO GO HOME AFTER REHAB SHE HAS A CHAIR LIFT IN HER HOME, WHICH SHE SAYS IS VERY SMALL PT REPORTS SHE HAS BEEN THINKING ABOUT GROWING OLD IN THIS HOME FOR YEARS, SO HAS SET IT UP FOR THAT TO HAPPEN SHE SAYS SHE HAS A TUB BENCH, AND GRAB BARS AND IT IS ONLY A FEW STEPS FROM ROOM TO ROOM PT REPORTS UNDERSTANDING WHY SHE COULD NOT RETURN HOME AT THIS TIME HOWEVER REPEATS MULTIPLE TIMES SHE SHOULD GO HOME AT SOME POINT, STATING LONG I HAVE ALL OF MY MENTAL FACULTIES, I SHOULD BE ABLE TO RETURN HOME PT IS CURRENTLY AWAITING PLACEMENT AND PERMANENT GUARDIANSHIP TEMP GUARDIANSHIP IN PLACE AND SNF REFERRALS ARE OUT
[2023-04-01] MEDS: risperiDONE 0.5 MG TABLET PO ×2 (10:27→20:58)
[2023-04-01] MEDS: Multivitamin TABLET 1 TAB PO (10:27)
[2023-04-01] MEDS: polyethylene glycoL 3350 17 GM POWD.PACK PO (10:27)
[2023-04-01] MEDS: Sertraline HCL 25 MG TABLET PO (10:27)
[2023-04-01] MEDS: Docusate Sodium 100 MG CAPSULE PO (10:27)
[2023-04-01] MEDS: Memantine HCl 5 MG TABLET PO ×2 (10:27→20:58)
[2023-04-01] MEDS: Folic Acid 1 MG TABLET PO (10:27)
[2023-04-01] MEDS: Nystatin Powder 15 GM BOTTLE 1 APPL TOPICAL ×2 (10:28→20:58)
[2023-04-01] MEDS: Thiamine HCL 100 MG TABLET PO (10:28)
[2023-04-01 20:00] VITALS: BP 121/76; PULSE 104; RESP 18; TEMP 36.8; O2SAT 91
[2023-04-02] MEDS: Acetaminophen 325 MG TABLET 650 MG PO ×2 (01:37→22:24)
[2023-04-02 03:56] VITALS: BP 113/66; PULSE 102; RESP 18; TEMP 36; O2SAT 92
[2023-04-02 07:37] VITALS: BP 119/59; PULSE 76; RESP 20; TEMP 36.2; O2SAT 93
--- NOTE | 2023-04-02 08:04 | HO.PM.IMPN ---
Subjective Subjective Date of Service: 04/02/23 Interval History: doing ok, no new issues, Physical Exam Vital Signs: Vital Signs: Last Vital Signs Temp 97.1 F 04/02/23 07:37 Pulse 76 04/02/23 07:37 Resp 20 04/02/23 07:37 BP 119/59 L 04/02/23 07:37 Pulse Ox 93 04/02/23 07:37 O2 Del Method Room Air 04/02/23 07:37 BMI result Body Mass Index 30.9 Const: Other: General:oriented to self Resp: CTA bilateral CVS: S1,S2,RRR GI: +BS, NT, no distention Skin: No rash Neuro: motor grossly intact Psych: appropriate affect Objective Data Active Medications Acetaminophen (Acetaminophen 325 Mg Tablet) 650 mg PO Q6H PRN PRN Reason: Pain, Mild (Pain Scale 1-3) Last Admin: 04/02/23 01:37 Dose: 650 mg Documented By: TINO Calcium Carbonate (Calcium Carbonate 750 Mg Tab.Chew) 750 mg PO Q6H PRN PRN Reason: Pain, Severe (Pain Scale 7-10) Last Admin: 02/25/23 02:25 Dose: 750 mg Documented By: JOHN Docusate Sodium (Docusate Sodium 100 Mg Capsule) 100 mg PO DAILY [facility] Last Admin: 04/01/23 10:27 Dose: 100 mg Documented By: TANESHA Enoxaparin Sodium (Enoxaparin Sodium 40 Mg/0.4 Ml Syringe) 40 mg SUBCUT Q24H [facility] Last Admin: 04/01/23 12:20 Dose: Not Given Documented By: TANESHA Non-Admin Reason: Patient Refused Folic Acid (Folic Acid 1 Mg Tablet) 1 mg PO DAILY [facility] Last Admin: 04/01/23 10:27 Dose: 1 mg Documented By: TANESHA Guaifenesin (Guaifenesin 100 Mg/5 Ml Liquid) 5 ml PO Q4H PRN PRN Reason: Cough Memantine (Memantine Hcl 5 Mg Tablet) 5 mg PO BID [facility] Last Admin: 04/01/23 20:58 Dose: 5 mg Documented By: TINO Multivitamins/Vitamin C (Multivitamin Tablet) 1 tab PO DAILY [facility] Last Admin: 04/01/23 10:27 Dose: 1 tab Documented By: TANESHA Nystatin (Nystatin Powder 15 Gm Bottle) 1 appl TOPICAL BID [facility]; Protocol Last Admin: 04/01/23 20:58 Dose: 1 appl Documented By: TINO Ondansetron HCl (Ondansetron Hcl 4 Mg/2 Ml Vial) 4 mg IVPUSH Q8H PRN PRN Reason: Nausea and Vomiting Polyethylene Glycol (Polyethylene Glycol 3350 17 Gm Powd.Pack) 17 gm PO DAILY [facility] Last Admin: 04/01/23 10:27 Dose: 17 gm Documented By: TANESHA Risperidone (Risperidone 0.5 Mg Tablet) 0.5 mg PO BID [facility] Last Admin: 04/01/23 20:58 Dose: 0.5 mg Documented By: TINO Sertraline HCl (Sertraline Hcl 25 Mg Tablet) 25 mg PO DAILY [facility] Last Admin: 04/01/23 10:27 Dose: 25 mg Documented By: TANESHA Sodium Chloride (0.9 % Sodium Chloride Flush 3 Ml Syringe) 3 ml IVFLUSH QSHIFT [facility] Last Admin: 04/02/23 01:06 Dose: Not Given Documented By: TINO Non-Admin Reason: No Access Thiamine HCl (Thiamine Hcl 100 Mg Tablet) 100 mg PO DAILY [facility] Last Admin: 04/01/23 10:28 Dose: 100 mg Documented By: TANESHA Labs 03/19/23 07:26 03/31/23 13:05 Assessment and Plan (1) Dementia: Status: Acute Plan 77yo F with chronic back pain, presenting with confusion, likely Alzheimer's dementia essentially no change in status as of today 1.Dementia, unspecified - initially thought to have encephalopathy, but now appears to be likely dementia; memory seems to have been declining over the past several months - Bertin Cognitive Assesment (MOcA) : scored 14 - seen by Neurology: probable moderate to severe degenerative dementia, likely Alzheimer's; started sertraline + memantine - seen by Psychiatry: does not have capacity to make medical decisions, waiting for guardianship/placement 2.Malignant ascites/uterine mass - unintentional 30-lb weight loss - s/p paracentesis 02/22/23: 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 including pancreatico biliary - CA-125 elevated to 299 - seen by Electronic Technologist; declined pelvic exam + endometrial biopsy; - inform patient about immunostains result, she is not showing much understanding and keeps repeating that she does not want any intervention that will prolong her suffering, since it seems to be a metastatic cancer with ? patient's current clinical condition? with lack of support likely she will not be a candidate for aggressive treatment,? re-assess after guardianship. -increasing abdominal girth--will do US tomorrow and consider paracentesis early next week Routine labs on 03/31, BMP unremarkable VTE ppx - enoxaparin dispo - pending guardianship? hearing later this week Time Spent With Patient Time: Total time managing care of this patient today ____ minutes. Quality Stroke Does the patient have a stroke diagnosis?: No VTE Prior VTE?: No VTE Risk Level:: Medical - moderate - high VTE Device Contraindication: Treatment Not Indicated VTE Drug Contraindication: N/A - Med Ordered
[2023-04-02] MEDS: Docusate Sodium 100 MG CAPSULE PO (09:05)
[2023-04-02] MEDS: Thiamine HCL 100 MG TABLET PO (09:05)
[2023-04-02] MEDS: polyethylene glycoL 3350 17 GM POWD.PACK PO (09:05)
[2023-04-02] MEDS: Multivitamin TABLET 1 TAB PO (09:05)
[2023-04-02] MEDS: Nystatin Powder 15 GM BOTTLE 1 APPL TOPICAL ×2 (09:05→21:51)
[2023-04-02] MEDS: Sertraline HCL 25 MG TABLET PO (09:05)
[2023-04-02] MEDS: Memantine HCl 5 MG TABLET PO ×2 (09:05→21:51)
[2023-04-02] MEDS: Folic Acid 1 MG TABLET PO (09:05)
[2023-04-02] MEDS: risperiDONE 0.5 MG TABLET PO ×2 (09:05→21:51)
[2023-04-02 15:45] VITALS: BP 111/63; PULSE 77; RESP 20; TEMP 36.1; O2SAT 94
[2023-04-02 20:00] VITALS: BP 106/58; PULSE 75; RESP 18; TEMP 35.6; O2SAT 92
[2023-04-03 03:05] VITALS: BP 103/65; PULSE 95; RESP 16; TEMP 36.1; O2SAT 93
[2023-04-03 07:59] VITALS: BP 113/70; PULSE 87; RESP 16; TEMP 36.1; O2SAT 92
[2023-04-03] MEDS: risperiDONE 0.5 MG TABLET PO ×2 (09:42→23:48)
[2023-04-03] MEDS: Memantine HCl 5 MG TABLET PO ×2 (09:42→23:48)
[2023-04-03] MEDS: Sertraline HCL 25 MG TABLET PO (09:42)
[2023-04-03] MEDS: Multivitamin TABLET 1 TAB PO (09:42)
[2023-04-03] MEDS: Docusate Sodium 100 MG CAPSULE PO (09:42)
[2023-04-03] MEDS: Thiamine HCL 100 MG TABLET PO (09:42)
[2023-04-03] MEDS: Folic Acid 1 MG TABLET PO (09:43)
[2023-04-03] MEDS: polyethylene glycoL 3350 17 GM POWD.PACK PO (09:43)
[2023-04-03] MEDS: Nystatin Powder 15 GM BOTTLE 1 APPL TOPICAL ×2 (09:47→23:49)
--- NOTE | 2023-04-03 10:13 | HO.PM.IMPN ---
Subjective Subjective Date of Service: 04/03/23 Interval History: No new issues Physical Exam Vital Signs: Vital Signs: Last Vital Signs Temp 96.9 F 04/03/23 07:59 Pulse 87 04/03/23 07:59 Resp 16 04/03/23 07:59 BP 113/70 04/03/23 07:59 Pulse Ox 92 04/03/23 07:59 O2 Del Method Room Air 04/03/23 07:59 BMI result Body Mass Index 30.9 Const: Other: General:oriented to self Resp: CTA bilateral CVS: S1,S2,RRR GI: +BS, NT, no distention Skin: No rash Neuro: motor grossly intact Psych: appropriate affect Objective Data Active Medications Acetaminophen (Acetaminophen 325 Mg Tablet) 650 mg PO Q6H PRN PRN Reason: Pain, Mild (Pain Scale 1-3) Last Admin: 04/02/23 22:24 Dose: 650 mg Documented By: CASTILHoang Calcium Carbonate (Calcium Carbonate 750 Mg Tab.Chew) 750 mg PO Q6H PRN PRN Reason: Pain, Severe (Pain Scale 7-10) Last Admin: 02/25/23 02:25 Dose: 750 mg Documented By: JOHN Docusate Sodium (Docusate Sodium 100 Mg Capsule) 100 mg PO DAILY [facility] Last Admin: 04/03/23 09:42 Dose: 100 mg Documented By: CHARLIE Enoxaparin Sodium (Enoxaparin Sodium 40 Mg/0.4 Ml Syringe) 40 mg SUBCUT Q24H [facility] Last Admin: 04/02/23 14:49 Dose: Not Given Documented By: TANESHA Non-Admin Reason: Patient Refused Folic Acid (Folic Acid 1 Mg Tablet) 1 mg PO DAILY [facility] Last Admin: 04/03/23 09:43 Dose: 1 mg Documented By: CHARLIE Guaifenesin (Guaifenesin 100 Mg/5 Ml Liquid) 5 ml PO Q4H PRN PRN Reason: Cough Memantine (Memantine Hcl 5 Mg Tablet) 5 mg PO BID [facility] Last Admin: 04/03/23 09:42 Dose: 5 mg Documented By: CHARLIE Multivitamins/Vitamin C (Multivitamin Tablet) 1 tab PO DAILY [facility] Last Admin: 04/03/23 09:42 Dose: 1 tab Documented By: CHARLIE Nystatin (Nystatin Powder 15 Gm Bottle) 1 appl TOPICAL BID [facility]; Protocol Last Admin: 04/03/23 09:47 Dose: 1 appl Documented By: CHARLIE Ondansetron HCl (Ondansetron Hcl 4 Mg/2 Ml Vial) 4 mg IVPUSH Q8H PRN PRN Reason: Nausea and Vomiting Polyethylene Glycol (Polyethylene Glycol 3350 17 Gm Powd.Pack) 17 gm PO DAILY [facility] Last Admin: 04/03/23 09:43 Dose: 17 gm Documented By: CHARLIE Risperidone (Risperidone 0.5 Mg Tablet) 0.5 mg PO BID [facility] Last Admin: 04/03/23 09:42 Dose: 0.5 mg Documented By: CHARLIE Sertraline HCl (Sertraline Hcl 25 Mg Tablet) 25 mg PO DAILY [facility] Last Admin: 04/03/23 09:42 Dose: 25 mg Documented By: CHARLIE Sodium Chloride (0.9 % Sodium Chloride Flush 3 Ml Syringe) 3 ml IVFLUSH QSHIFT [facility] Last Admin: 04/03/23 09:41 Dose: Not Given Documented By: CHARLIE Non-Admin Reason: No Access Thiamine HCl (Thiamine Hcl 100 Mg Tablet) 100 mg PO DAILY [facility] Last Admin: 04/03/23 09:42 Dose: 100 mg Documented By: CHARLIE Labs 03/19/23 07:26 03/31/23 13:05 Assessment and Plan (1) Dementia: Status: Acute Plan 77yo F with chronic back pain, presenting with confusion, likely Alzheimer's dementia essentially no change in status as of today 1.Dementia, unspecified - initially thought to have encephalopathy, but now appears to be likely dementia; memory seems to have been declining over the past several months - Bertin Cognitive Assesment (MOcA) : scored 14 - seen by Neurology: probable moderate to severe degenerative dementia, likely Alzheimer's; started sertraline + memantine - seen by Psychiatry: does not have capacity to make medical decisions, waiting for guardianship/placement 2.Malignant ascites/uterine mass - unintentional 30-lb weight loss - s/p paracentesis 02/22/23: 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 including pancreatico biliary - CA-125 elevated to 299 - seen by Rhic Systems Safety Engineer; declined pelvic exam + endometrial biopsy; - inform patient about immunostains result, she is not showing much understanding and keeps repeating that she does not want any intervention that will prolong her suffering, since it seems to be a metastatic cancer with ? patient's current clinical condition? with lack of support likely she will not be a candidate for aggressive treatment,? re-assess after guardianship. -increasing abdominal girth--will do US tomorrow and consider paracentesis early next week Routine labs on 03/31, BMP unremarkable VTE ppx - enoxaparin dispo - pending guardianship? hearing later this week Time Spent With Patient Time: Total time managing care of this patient today ____ minutes. Quality Stroke Does the patient have a stroke diagnosis?: No VTE Prior VTE?: No VTE Risk Level:: Medical - moderate - high VTE Device Contraindication: Treatment Not Indicated VTE Drug Contraindication: N/A - Med Ordered
[2023-04-03] MEDS: Enoxaparin Sodium 40 MG/0.4 ML SYRINGE SUBCUT (12:12)
[2023-04-03 15:23] VITALS: BP 112/67; PULSE 90; RESP 16; TEMP 36.4; O2SAT 94
[2023-04-03 19:06] VITALS: BP 114/65; PULSE 84; RESP 18; TEMP 36.3; O2SAT 94
[2023-04-03 19:52] VITALS: BP 104/62; PULSE 88; RESP 18; TEMP 37.1; O2SAT 93
[2023-04-03] MEDS: Acetaminophen 325 MG TABLET 650 MG PO (23:48)
[2023-04-04 03:04] VITALS: RESP 16
[2023-04-04 07:32] VITALS: BP 138/61; PULSE 90; RESP 18; TEMP 36.1; O2SAT 93
[2023-04-04] MEDS: Folic Acid 1 MG TABLET PO (09:39)
[2023-04-04] MEDS: Memantine HCl 5 MG TABLET PO ×2 (09:39→21:53)
[2023-04-04] MEDS: Thiamine HCL 100 MG TABLET PO (09:39)
[2023-04-04] MEDS: Multivitamin TABLET 1 TAB PO (09:39)
[2023-04-04] MEDS: Sertraline HCL 25 MG TABLET PO (09:39)
[2023-04-04] MEDS: risperiDONE 0.5 MG TABLET PO ×2 (09:39→21:53)
[2023-04-04] MEDS: polyethylene glycoL 3350 17 GM POWD.PACK PO (09:39)
[2023-04-04] MEDS: Docusate Sodium 100 MG CAPSULE PO (09:39)
[2023-04-04] MEDS: Nystatin Powder 15 GM BOTTLE 1 APPL TOPICAL ×2 (09:40→21:53)
--- NOTE | 2023-04-04 12:41 | HO.PM.IMPN ---
Subjective Subjective Date of Service: 04/04/23 Interval History: No new issues overnight, patient offers no acute complaints, tolerating diet no nausea no vomiting no abdominal pain. Physical Exam Vital Signs: Vital Signs: Last Vital Signs Temp 96.9 F 04/04/23 07:32 Pulse 90 04/04/23 07:32 Resp 18 04/04/23 07:32 BP 138/61 04/04/23 07:32 Pulse Ox 93 04/04/23 07:32 O2 Del Method Room Air 04/04/23 07:32 BMI result Body Mass Index 30.9 Const: Other: General:oriented to self Neck no JVD Resp:? CTA bilateral CVS: S1,S2,RRR GI: Abdomen soft, nontender, bowel sounds audible Skin: No rash Extremities no edema Neuro:? motor grossly intact Psych: appropriate affect Objective Data Active Medications Acetaminophen (Acetaminophen 325 Mg Tablet) 650 mg PO Q6H PRN PRN Reason: Pain, Mild (Pain Scale 1-3) Last Admin: 04/03/23 23:48 Dose: 650 mg Documented By: TINO Calcium Carbonate (Calcium Carbonate 750 Mg Tab.Chew) 750 mg PO Q6H PRN PRN Reason: Pain, Severe (Pain Scale 7-10) Last Admin: 02/25/23 02:25 Dose: 750 mg Documented By: JOHN Docusate Sodium (Docusate Sodium 100 Mg Capsule) 100 mg PO DAILY [facility] Last Admin: 04/04/23 09:39 Dose: 100 mg Documented By: MARY Enoxaparin Sodium (Enoxaparin Sodium 40 Mg/0.4 Ml Syringe) 40 mg SUBCUT Q24H [facility] Last Admin: 04/03/23 12:12 Dose: 40 mg Documented By: CHARLIE Folic Acid (Folic Acid 1 Mg Tablet) 1 mg PO DAILY [facility] Last Admin: 04/04/23 09:39 Dose: 1 mg Documented By: MARY Guaifenesin (Guaifenesin 100 Mg/5 Ml Liquid) 5 ml PO Q4H PRN PRN Reason: Cough Memantine (Memantine Hcl 5 Mg Tablet) 5 mg PO BID [facility] Last Admin: 04/04/23 09:39 Dose: 5 mg Documented By: MARY Multivitamins/Vitamin C (Multivitamin Tablet) 1 tab PO DAILY [facility] Last Admin: 04/04/23 09:39 Dose: 1 tab Documented By: MARY Nystatin (Nystatin Powder 15 Gm Bottle) 1 appl TOPICAL BID [facility]; Protocol Last Admin: 04/04/23 09:40 Dose: 1 appl Documented By: MARY Ondansetron HCl (Ondansetron Hcl 4 Mg/2 Ml Vial) 4 mg IVPUSH Q8H PRN PRN Reason: Nausea and Vomiting Polyethylene Glycol (Polyethylene Glycol 3350 17 Gm Powd.Pack) 17 gm PO DAILY [facility] Last Admin: 04/04/23 09:39 Dose: 17 gm Documented By: MARY Risperidone (Risperidone 0.5 Mg Tablet) 0.5 mg PO BID [facility] Last Admin: 04/04/23 09:39 Dose: 0.5 mg Documented By: MARY Sertraline HCl (Sertraline Hcl 25 Mg Tablet) 25 mg PO DAILY [facility] Last Admin: 04/04/23 09:39 Dose: 25 mg Documented By: MARY Sodium Chloride (0.9 % Sodium Chloride Flush 3 Ml Syringe) 3 ml IVFLUSH QSHIFT [facility] Last Admin: 04/04/23 09:40 Dose: Not Given Documented By: MARY Non-Admin Reason: No Access Thiamine HCl (Thiamine Hcl 100 Mg Tablet) 100 mg PO DAILY [facility] Last Admin: 04/04/23 09:39 Dose: 100 mg Documented By: MARY Labs 03/19/23 07:26 03/31/23 13:05 Assessment and Plan (1) Dementia: Status: Acute Plan 77yo F with chronic back pain, presenting with confusion, likely Alzheimer's dementia 1.Dementia, unspecified - initially thought to have encephalopathy, but now appears to be likely dementia; memory seems to have been declining over the past several months - Bertin Cognitive Assesment (MOcA) : scored 14 - seen by Neurology: probable moderate to severe degenerative dementia, likely Alzheimer's; started sertraline + memantine - seen by Psychiatry: does not have capacity to make medical decisions, waiting for guardianship/placement 2.Malignant ascites/uterine mass - unintentional 30-lb weight loss - s/p paracentesis 02/22/23: 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 including pancreatico biliary - CA-125 elevated to 299 - seen by Medical Office Clerk; declined pelvic exam + endometrial biopsy; - inform patient about immunostains result, she is not showing much understanding and keeps repeating that she does not want any intervention that will prolong her suffering, since it seems to be a metastatic cancer with ? patient's current clinical condition? with lack of support likely she will not be a candidate for aggressive treatment,? re-assess after guardianship. -increasing abdominal girth--will do US tomorrow and consider paracentesis early next week Routine labs on 03/31, BMP unremarkable VTE ppx - enoxaparin dispo - pending guardianship? hearing later this week Time Spent With Patient Time: Total time managing care of this patient today ____ minutes. Quality Stroke Does the patient have a stroke diagnosis?: No VTE Prior VTE?: No VTE Risk Level:: Medical - moderate - high VTE Device Contraindication: Treatment Not Indicated VTE Drug Contraindication: N/A - Med Ordered
[2023-04-04] MEDS: Enoxaparin Sodium 40 MG/0.4 ML SYRINGE SUBCUT (12:49)
[2023-04-04 15:16] VITALS: BP 106/57; PULSE 92; RESP 18; TEMP 36; O2SAT 91
[2023-04-04 20:00] VITALS: RESP 18
[2023-04-05 01:28] VITALS: BP 92/58; PULSE 90; RESP 18; TEMP 36; O2SAT 97
[2023-04-05 06:00] VITALS: BMI 30.5
[2023-04-05 07:25] VITALS: BP 107/58; PULSE 84; RESP 16; TEMP 36.4; O2SAT 92
--- NOTE | 2023-04-05 11:28 | HO.PM.IMPN ---
Subjective Subjective Date of Service: 04/05/23 Interval History: Offers no acute complaints tolerating diet no nausea no vomiting no abdominal pain or diarrhea, no acute issues Review of Systems All other system reviewed and negative Physical Exam Vital Signs: Vital Signs: Last Vital Signs Temp 97.5 F 04/05/23 07:25 Pulse 84 04/05/23 07:25 Resp 16 04/05/23 07:25 BP 107/58 L 04/05/23 07:25 Pulse Ox 92 04/05/23 07:25 O2 Del Method Room Air 04/05/23 07:25 BMI result Body Mass Index 30.5 Const: Other: Gen: awake alert, in no acute distress Neck: supple Lungs: clear to auscultation bilaterally Heart: regular rate and rhythm, no murmurs Abd: soft, non-tender, non-distended Skin: warm/well-perfused Neuro: alert and oriented to self, no motor deficit Psych: impaired insight Objective Data Active Medications Acetaminophen (Acetaminophen 325 Mg Tablet) 650 mg PO Q6H PRN PRN Reason: Pain, Mild (Pain Scale 1-3) Last Admin: 04/03/23 23:48 Dose: 650 mg Documented By: TINO Calcium Carbonate (Calcium Carbonate 750 Mg Tab.Chew) 750 mg PO Q6H PRN PRN Reason: Pain, Severe (Pain Scale 7-10) Last Admin: 02/25/23 02:25 Dose: 750 mg Documented By: JOHN Docusate Sodium (Docusate Sodium 100 Mg Capsule) 100 mg PO DAILY [facility] Last Admin: 04/04/23 09:39 Dose: 100 mg Documented By: MARY Enoxaparin Sodium (Enoxaparin Sodium 40 Mg/0.4 Ml Syringe) 40 mg SUBCUT Q24H [facility] Last Admin: 04/04/23 12:49 Dose: 40 mg Documented By: MARY Folic Acid (Folic Acid 1 Mg Tablet) 1 mg PO DAILY [facility] Last Admin: 04/04/23 09:39 Dose: 1 mg Documented By: MARY Guaifenesin (Guaifenesin 100 Mg/5 Ml Liquid) 5 ml PO Q4H PRN PRN Reason: Cough Memantine (Memantine Hcl 5 Mg Tablet) 5 mg PO BID [facility] Last Admin: 04/04/23 21:53 Dose: 5 mg Documented By: JOHN Multivitamins/Vitamin C (Multivitamin Tablet) 1 tab PO DAILY [facility] Last Admin: 04/04/23 09:39 Dose: 1 tab Documented By: MARY Nystatin (Nystatin Powder 15 Gm Bottle) 1 appl TOPICAL BID [facility]; Protocol Last Admin: 04/04/23 21:53 Dose: 1 appl Documented By: JOHN Ondansetron HCl (Ondansetron Hcl 4 Mg/2 Ml Vial) 4 mg IVPUSH Q8H PRN PRN Reason: Nausea and Vomiting Polyethylene Glycol (Polyethylene Glycol 3350 17 Gm Powd.Pack) 17 gm PO DAILY [facility] Last Admin: 04/04/23 09:39 Dose: 17 gm Documented By: MARY Risperidone (Risperidone 0.5 Mg Tablet) 0.5 mg PO BID [facility] Last Admin: 04/04/23 21:53 Dose: 0.5 mg Documented By: JOHN Sertraline HCl (Sertraline Hcl 25 Mg Tablet) 25 mg PO DAILY [facility] Last Admin: 04/04/23 09:39 Dose: 25 mg Documented By: MARY Sodium Chloride (0.9 % Sodium Chloride Flush 3 Ml Syringe) 3 ml IVFLUSH QSHIFT [facility] Last Admin: 04/05/23 00:46 Dose: Not Given Documented By: JOHN Non-Admin Reason: No IV access Thiamine HCl (Thiamine Hcl 100 Mg Tablet) 100 mg PO DAILY [facility] Last Admin: 04/04/23 09:39 Dose: 100 mg Documented By: MARY Labs 03/19/23 07:26 03/31/23 13:05 Assessment and Plan (1) Dementia: Status: Acute Plan 77yo F with chronic back pain, presenting with confusion, likely Alzheimer's dementia 1.Dementia, unspecified - initially thought to have encephalopathy, but now appears to be likely dementia; memory seems to have been declining over the past several months - Marty Cognitive Assesment (MOCA) : scored 14 - seen by Neurology: probable moderate to severe degenerative dementia, likely Alzheimer's; on sertraline + memantine - seen by Psychiatry: does not have capacity to make medical decisions, waiting for guardianship/placement 2.Malignant ascites/uterine mass - unintentional 30-lb weight loss - s/p paracentesis 02/22/23: 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 including pancreatico biliary - CA-125 elevated to 299 - seen by Electric Range Preparer; declined pelvic exam + endometrial biopsy; - inform patient about immunostains result, she is not showing much understanding and keeps repeating that she does not want any intervention that will prolong her suffering, since it seems to be a metastatic cancer with ? patient's current clinical condition? with lack of support likely she will not be a candidate for aggressive treatment,? re-assess after guardianship. -increasing abdominal girth--will do US tomorrow and consider paracentesis early next week Routine labs on 03/31, BMP unremarkable VTE ppx - enoxaparin dispo - pending guardianship. Time Spent With Patient Time: Total time managing care of this patient today ____ minutes. Quality Stroke Does the patient have a stroke diagnosis?: No VTE Prior VTE?: No VTE Risk Level:: Medical - moderate - high VTE Device Contraindication: Treatment Not Indicated VTE Drug Contraindication: N/A - Med Ordered
--- NOTE | 2023-04-05 11:56 | MHC.CLN ---
Addendum entered by Yamilka Bain RD 04/05/23 12:09: DIET LIBERALIZED TO REGULAR TO PROMOTE PO INTAKE. CONTINUE ENSURE BID. Original Note: F/U DIET=2 GRAM SODIUM. ENSURE BID PROVIDES 700 KCALS, 40 G PROTEIN. SKIN WITH STAGE II TO COCCYX. SUPPLEMENT TO PROMOTE SKIN INTEGRITY. INTAKE VARIABLE, WITH MOST RECENT MEALS APPROX 25%. DOES NOT CONSISTENTLY TAKE SUPPLEMENT BUT CONTINUE TO PROVIDE. FOLLOW FOR INTAKE AND SKIN INTEGRITY. RD TO FOLLOW WEEKLY.
[2023-04-05] MEDS: Enoxaparin Sodium 40 MG/0.4 ML SYRINGE SUBCUT (14:02)
[2023-04-05] MEDS: risperiDONE 0.5 MG TABLET PO ×2 (14:03→20:41)
[2023-04-05] MEDS: Docusate Sodium 100 MG CAPSULE PO (14:03)
[2023-04-05] MEDS: Thiamine HCL 100 MG TABLET PO (14:03)
[2023-04-05] MEDS: polyethylene glycoL 3350 17 GM POWD.PACK PO (14:03)
[2023-04-05] MEDS: Memantine HCl 5 MG TABLET PO ×2 (14:03→20:41)
[2023-04-05] MEDS: Folic Acid 1 MG TABLET PO (14:03)
[2023-04-05] MEDS: Nystatin Powder 15 GM BOTTLE 1 APPL TOPICAL ×2 (14:03→20:42)
[2023-04-05] MEDS: Sertraline HCL 25 MG TABLET PO (14:03)
[2023-04-05] MEDS: Multivitamin TABLET 1 TAB PO (14:03)
[2023-04-05 15:13] VITALS: BP 91/58; PULSE 90; RESP 18; TEMP 36.2; O2SAT 94
--- NOTE | 2023-04-05 15:24 | MHC.CM.PN ---
EMR REVIEWED, PT AWAITING LTC PLACEMENT/PERMANENT GUARDIANSHIP/CONSERVATORSHIP/[place] AND , CM CONTACTEED PT'S TEMP GUARDIAN NICKOLAS MAGUIRE AT [phone] (FAX [phone]) TO CHECK ON STATUS, NICKOLAS DID REQUEST FACE SHEET AND H&P/PSYCH EVAL WHICH WERE FAXED, NICKOLAS REPORTS SHE WILL START MH APPLICATION/PROCESS AND DETERMINE WHAT PTS ASSETS ARE, SNF REFERRAL UPDATED AND SENT, NO BED OFFERS AT THIS TIME. NEXT COURT DATE FOR PERMANENT GUARDIANSHIP IS 06/16, CM WILL CONT TO FOLLOW.
[2023-04-05 19:38] VITALS: BP 116/58; PULSE 92; RESP 18; TEMP 36.3; O2SAT 93
[2023-04-06 03:26] VITALS: BP 106/66; PULSE 97; RESP 17; TEMP 36.6; O2SAT 92
[2023-04-06 06:00] VITALS: BMI 30.3
[2023-04-06 07:50] VITALS: BP 124/66; PULSE 62; RESP 16; TEMP 36.4; O2SAT 97
[2023-04-06] MEDS: Acetaminophen 325 MG TABLET 650 MG PO (14:17)
[2023-04-06] MEDS: Enoxaparin Sodium 40 MG/0.4 ML SYRINGE SUBCUT (14:17)
[2023-04-06] MEDS: polyethylene glycoL 3350 17 GM POWD.PACK PO (14:17)
[2023-04-06] MEDS: Memantine HCl 5 MG TABLET PO ×2 (14:18→19:23)
[2023-04-06] MEDS: Multivitamin TABLET 1 TAB PO (14:18)
[2023-04-06] MEDS: Nystatin Powder 15 GM BOTTLE 1 APPL TOPICAL ×2 (14:18→19:23)
[2023-04-06] MEDS: Docusate Sodium 100 MG CAPSULE PO (14:18)
[2023-04-06] MEDS: Thiamine HCL 100 MG TABLET PO (14:18)
[2023-04-06] MEDS: Folic Acid 1 MG TABLET PO (14:18)
[2023-04-06] MEDS: risperiDONE 0.5 MG TABLET PO ×2 (14:18→19:23)
[2023-04-06] MEDS: Sertraline HCL 25 MG TABLET PO (14:18)
--- NOTE | 2023-04-06 14:24 | HO.PM.IMPN ---
Subjective Subjective Date of Service: 04/06/23 Interval History: Offers no acute medical complaints, no issues overnight, tolerating diet, no nausea, no vomiting, no abdominal pain. Review of Systems All other system reviewed and negative Physical Exam Vital Signs: Vital Signs: Last Vital Signs Temp 97.6 F 04/06/23 07:50 Pulse 62 04/06/23 07:50 Resp 16 04/06/23 07:50 BP 124/66 04/06/23 07:50 Pulse Ox 97 04/06/23 07:50 O2 Del Method Room Air 04/06/23 07:50 BMI result Body Mass Index 30.3 Const: Other: Gen: awake alert, in no acute distress Neck: supple Lungs: clear to auscultation bilaterally Heart: regular rate and rhythm, no murmurs Abd: soft, non-tender, non-distended Skin: warm/well-perfused Neuro: alert and oriented to self, no motor deficit Psych: impaired insight Objective Data Active Medications Acetaminophen (Acetaminophen 325 Mg Tablet) 650 mg PO Q6H PRN PRN Reason: Pain, Mild (Pain Scale 1-3) Last Admin: 04/06/23 14:17 Dose: 650 mg Documented By: JENIFFER Calcium Carbonate (Calcium Carbonate 750 Mg Tab.Chew) 750 mg PO Q6H PRN PRN Reason: Pain, Severe (Pain Scale 7-10) Last Admin: 02/25/23 02:25 Dose: 750 mg Documented By: JOHN Docusate Sodium (Docusate Sodium 100 Mg Capsule) 100 mg PO DAILY [facility] Last Admin: 04/06/23 14:18 Dose: 100 mg Documented By: JENIFFER Enoxaparin Sodium (Enoxaparin Sodium 40 Mg/0.4 Ml Syringe) 40 mg SUBCUT Q24H [facility] Last Admin: 04/06/23 14:17 Dose: 40 mg Documented By: JENIFFER Folic Acid (Folic Acid 1 Mg Tablet) 1 mg PO DAILY [facility] Last Admin: 04/06/23 14:18 Dose: 1 mg Documented By: JENIFFER Guaifenesin (Guaifenesin 100 Mg/5 Ml Liquid) 5 ml PO Q4H PRN PRN Reason: Cough Memantine (Memantine Hcl 5 Mg Tablet) 5 mg PO BID [facility] Last Admin: 04/06/23 14:18 Dose: 5 mg Documented By: JENIFFER Multivitamins/Vitamin C (Multivitamin Tablet) 1 tab PO DAILY [facility] Last Admin: 04/06/23 14:18 Dose: 1 tab Documented By: JENIFFER Nystatin (Nystatin Powder 15 Gm Bottle) 1 appl TOPICAL BID [facility]; Protocol Last Admin: 04/06/23 14:18 Dose: 1 appl Documented By: JENIFFER Ondansetron HCl (Ondansetron Hcl 4 Mg/2 Ml Vial) 4 mg IVPUSH Q8H PRN PRN Reason: Nausea and Vomiting Polyethylene Glycol (Polyethylene Glycol 3350 17 Gm Powd.Pack) 17 gm PO DAILY [facility] Last Admin: 04/06/23 14:17 Dose: 17 gm Documented By: JENIFFER Risperidone (Risperidone 0.5 Mg Tablet) 0.5 mg PO BID [facility] Last Admin: 04/06/23 14:18 Dose: 0.5 mg Documented By: JENIFFER Sertraline HCl (Sertraline Hcl 25 Mg Tablet) 25 mg PO DAILY [facility] Last Admin: 04/06/23 14:18 Dose: 25 mg Documented By: JENIFFER Sodium Chloride (0.9 % Sodium Chloride Flush 3 Ml Syringe) 3 ml IVFLUSH QSHIFT [facility] Last Admin: 04/06/23 10:02 Dose: Not Given Documented By: JENIFFER Non-Admin Reason: Patient Refused Thiamine HCl (Thiamine Hcl 100 Mg Tablet) 100 mg PO DAILY [facility] Last Admin: 04/06/23 14:18 Dose: 100 mg Documented By: JENIFFER Labs 03/19/23 07:26 03/31/23 13:05 Assessment and Plan (1) Dementia: Status: Acute Plan 77yo F with chronic back pain, presenting with confusion, likely Alzheimer's dementia 1.Dementia, unspecified - likely progressive dementia; memory seems to have been declining over the past several months - Marty Cognitive Assesment (MOCA) : scored 14 - seen by Neurology: probable moderate to severe degenerative dementia, likely Alzheimer's; on sertraline + memantine - seen by Psychiatry: does not have capacity to make medical decisions, waiting for guardianship/placement 2.Malignant ascites/uterine mass - unintentional 30-lb weight loss - s/p paracentesis 02/22/23: 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 including pancreatico biliary - CA-125 elevated to 299 - seen by Healthcare Customer Service; declined pelvic exam + endometrial biopsy; - inform patient about immunostains result, she is not showing much understanding and keeps repeating that she does not want any intervention that will prolong her suffering, since it seems to be a metastatic cancer with ? patient's current clinical condition? with lack of support likely she will not be a candidate for aggressive treatment,? re-assess after guardianship. -increasing abdominal girth--will do US tomorrow and consider paracentesis early next week Routine labs on 03/31, BMP unremarkable VTE ppx - enoxaparin dispo - pending guardianship. Time Spent With Patient Time: Total time managing care of this patient today ____ minutes. Quality Stroke Does the patient have a stroke diagnosis?: No VTE Prior VTE?: No VTE Risk Level:: Medical - moderate - high VTE Device Contraindication: Treatment Not Indicated VTE Drug Contraindication: N/A - Med Ordered
[2023-04-06 15:12] VITALS: BP 133/79; PULSE 87; RESP 18; TEMP 36.9; O2SAT 93
[2023-04-06] MEDS: Calcium Carbonate 750 MG TAB.CHEW PO (16:30)
[2023-04-06 19:18] VITALS: BP 133/62; PULSE 85; RESP 16; TEMP 36.4; O2SAT 92
[2023-04-07] VITALS: BP 111/70; PULSE 88; RESP 18; TEMP 36.8; O2SAT 89
--- NOTE | 2023-04-07 02:36 | PC.NURSE ---
PATIENT VITALS AT 0000 STATED FEELING POST NASAL DRIP AND CLEARING THROAT; 98.3-88-18-111/70, WITH OXYGEN SAT ROOM AIR ONLY 88-89%..LUNG MARTINEZ DIM, COLOR GOOD SKIN WARM AND DRY, PT OFFERS NO COMPLAINTS. REPOSITIONED, HOB UP, DENIED ANY CP/PRESSURE, JUST STATED FEELS A POST NASAL DRIP THAT SHE IS ABLE TO CLEAR AND FURTHER STATED HAS OFTEN. ENCOURAGED COUGH, DEEP BREATHING.....BUT SAT 89%. OXYGEN APPLIED AT 1 LITER TO 90%, 1.5 LITER FOR 91-92%, THEN 2 LITERS FOR 94%. HOSPITALIST ON DUTY ALERTED TO OBTAIN PRN OXYGEN ORDER AND MD ALSO ORDERED CXR. WILL CONTINUE TO MONITOR AND WEAN O2 TO 1 LITER ORDERED TO MAINTAIN 92%. PT NOTED TO REST QUIETLY WITH NO DISTRESS.
[2023-04-07 04:00] VITALS: BP 93/61; PULSE 76; RESP 18; TEMP 37.1; O2SAT 96
[2023-04-07 06:00] VITALS: BMI 29.9
[2023-04-07 07:43] VITALS: BP 95/61; PULSE 90; RESP 18; TEMP 36.1; O2SAT 94
[2023-04-07] MEDS: Thiamine HCL 100 MG TABLET PO (09:30)
[2023-04-07] MEDS: Multivitamin TABLET 1 TAB PO (09:30)
[2023-04-07] MEDS: Sertraline HCL 25 MG TABLET PO (09:30)
[2023-04-07] MEDS: polyethylene glycoL 3350 17 GM POWD.PACK PO (09:30)
[2023-04-07] MEDS: risperiDONE 0.5 MG TABLET PO ×2 (09:30→19:59)
[2023-04-07] MEDS: Memantine HCl 5 MG TABLET PO ×2 (09:30→19:59)
[2023-04-07] MEDS: Folic Acid 1 MG TABLET PO (09:30)
[2023-04-07] MEDS: Docusate Sodium 100 MG CAPSULE PO (09:31)
[2023-04-07] MEDS: Nystatin Powder 15 GM BOTTLE 1 APPL TOPICAL ×2 (11:59→22:08)
[2023-04-07] MEDS: Enoxaparin Sodium 40 MG/0.4 ML SYRINGE SUBCUT (11:59)
--- NOTE | 2023-04-07 13:51 | MHC.CM.PN ---
EMR REVIEWED, PT W/DEMENTIA AND LIKELY METASTATIC CA, TEMP GUARDIANSHIP GRANTED 03/23, PT CURRENTLY DOES NOT HAVE PAYOR FOR LTC, GUARDIAN NICKOLAS MAGUIRE WORKING ON LTC GOLDEN, PT KELLI NO BED OFFERS AT THIS TIME, CM WILL CONT TO FOLLOW D/C NEEDS.
--- NOTE | 2023-04-07 14:26 | HO.PM.IMPN ---
Subjective Subjective Date of Service: 04/07/23 Interval History: Resting in bed refusing out of bed to chair refusing position change in bed, tolerating diet, no nausea, no vomiting ,no abdominal pain. Review of Systems All other system reviewed and negative Physical Exam Vital Signs: Vital Signs: Last Vital Signs Temp 97.0 F 04/07/23 07:43 Pulse 90 04/07/23 07:43 Resp 18 04/07/23 07:43 BP 95/61 04/07/23 07:43 Pulse Ox 94 04/07/23 07:43 O2 Del Method Nasal Cannula 04/07/23 07:43 O2 Flow Rate 2 04/07/23 07:43 FiO2 94 04/07/23 00:15 BMI result Body Mass Index 29.9 Const: Other: Gen: awake alert, resting comfortably, in no acute distress Neck: supple Lungs: clear to auscultation bilaterally Heart: regular rate and rhythm, no murmurs Abd: soft, non-tender, bowel sounds audible Skin: No rash Neuro: alert and oriented to self, no motor deficit Psych: impaired insight Objective Data Active Medications Acetaminophen (Acetaminophen 325 Mg Tablet) 650 mg PO Q6H PRN PRN Reason: Pain, Mild (Pain Scale 1-3) Last Admin: 04/06/23 14:17 Dose: 650 mg Documented By: JENIFFER Calcium Carbonate (Calcium Carbonate 750 Mg Tab.Chew) 750 mg PO Q6H PRN PRN Reason: Pain, Severe (Pain Scale 7-10) Last Admin: 04/06/23 16:30 Dose: 750 mg Documented By: GURDEEP Docusate Sodium (Docusate Sodium 100 Mg Capsule) 100 mg PO DAILY [facility] Last Admin: 04/07/23 09:31 Dose: 100 mg Documented By: WILLIAM Enoxaparin Sodium (Enoxaparin Sodium 40 Mg/0.4 Ml Syringe) 40 mg SUBCUT Q24H [facility] Last Admin: 04/07/23 11:59 Dose: 40 mg Documented By: WILLIAM Folic Acid (Folic Acid 1 Mg Tablet) 1 mg PO DAILY [facility] Last Admin: 04/07/23 09:30 Dose: 1 mg Documented By: WILLIAM Guaifenesin (Guaifenesin 100 Mg/5 Ml Liquid) 5 ml PO Q4H PRN PRN Reason: Cough Memantine (Memantine Hcl 5 Mg Tablet) 5 mg PO BID [facility] Last Admin: 04/07/23 09:30 Dose: 5 mg Documented By: WILLIAM Multivitamins/Vitamin C (Multivitamin Tablet) 1 tab PO DAILY [facility] Last Admin: 04/07/23 09:30 Dose: 1 tab Documented By: WILLIAM Nystatin (Nystatin Powder 15 Gm Bottle) 1 appl TOPICAL BID [facility]; Protocol Last Admin: 04/07/23 11:59 Dose: 1 appl Documented By: WILLIAM Ondansetron HCl (Ondansetron Hcl 4 Mg/2 Ml Vial) 4 mg IVPUSH Q8H PRN PRN Reason: Nausea and Vomiting Polyethylene Glycol (Polyethylene Glycol 3350 17 Gm Powd.Pack) 17 gm PO DAILY [facility] Last Admin: 04/07/23 09:30 Dose: 17 gm Documented By: WILLIAM Risperidone (Risperidone 0.5 Mg Tablet) 0.5 mg PO BID [facility] Last Admin: 04/07/23 09:30 Dose: 0.5 mg Documented By: WILLIAM Sertraline HCl (Sertraline Hcl 25 Mg Tablet) 25 mg PO DAILY [facility] Last Admin: 04/07/23 09:30 Dose: 25 mg Documented By: WILLIAM Sodium Chloride (0.9 % Sodium Chloride Flush 3 Ml Syringe) 3 ml IVFLUSH QSHIFT [facility] Last Admin: 04/07/23 12:16 Dose: Not Given Documented By: WILLIAM Non-Admin Reason: No Access Thiamine HCl (Thiamine Hcl 100 Mg Tablet) 100 mg PO DAILY [facility] Last Admin: 04/07/23 09:30 Dose: 100 mg Documented By: WILLIAM Labs 03/19/23 07:26 03/31/23 13:05 Assessment and Plan (1) Dementia: Status: Acute Plan 77yo F with chronic back pain, presenting with confusion, likely Alzheimer's dementia 1.Dementia, unspecified - likely progressive dementia; memory seems to have been declining over the past several months - [place]orne Cognitive Assesment (MOCA) : scored 14 - seen by Neurology: probable moderate to severe degenerative dementia, likely Alzheimer's; on sertraline + memantine - seen by Psychiatry: does not have capacity to make medical decisions, waiting for guardianship/placement 2.Malignant ascites/uterine mass - unintentional 30-lb weight loss - s/p paracentesis 02/22/23: 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 patient's current clinical condition? with lack of support likely she will not be a candidate for aggressive treatment,? re-assess after guardianship. -increasing abdominal girth--will do US tomorrow and consider paracentesis early next week Routine labs on 03/31, BMP unremarkable VTE ppx - enoxaparin dispo - pending guardianship. Time Spent With Patient Time: Total time managing care of this patient today ____ minutes. Quality Stroke Does the patient have a stroke diagnosis?: No VTE Prior VTE?: No VTE Risk Level:: Medical - moderate - high VTE Device Contraindication: Treatment Not Indicated VTE Drug Contraindication: N/A - Med Ordered
[2023-04-07 15:05] VITALS: BP 122/65; PULSE 84; RESP 15; TEMP 36.8; O2SAT 94
[2023-04-07 18:57] VITALS: BP 139/79; PULSE 95; RESP 17; TEMP 36.2; O2SAT 94
[2023-04-08 03:25] VITALS: BP 103/64; PULSE 83; RESP 16; TEMP 36; O2SAT 95
[2023-04-08 06:00] VITALS: BMI 30.2
[2023-04-08 07:29] VITALS: BP 106/68; PULSE 83; RESP 18; TEMP 36.3; O2SAT 95
[2023-04-08] MEDS: Docusate Sodium 100 MG CAPSULE PO (08:39)
[2023-04-08] MEDS: Folic Acid 1 MG TABLET PO (08:39)
[2023-04-08] MEDS: Sertraline HCL 25 MG TABLET PO (08:40)
[2023-04-08] MEDS: Multivitamin TABLET 1 TAB PO (08:40)
[2023-04-08] MEDS: Memantine HCl 5 MG TABLET PO ×2 (08:40→20:42)
[2023-04-08] MEDS: risperiDONE 0.5 MG TABLET PO ×2 (08:40→20:42)
[2023-04-08] MEDS: Thiamine HCL 100 MG TABLET PO (08:40)
--- NOTE | 2023-04-08 08:42 | HO.PM.IMPN ---
Subjective Subjective Date of Service: 04/08/23 Interval History: Resting comfortably in bed, not motivated to do any activity, refuses out of bed to chair, refusing position change, keep repeating that she is fine, comfortable in bed, tolerating diet no nausea no vomiting no abdominal pain, no diarrhea. Review of Systems All other system reviewed and negative. Physical Exam Vital Signs: Vital Signs: Last Vital Signs Temp 97.3 F 04/08/23 07:29 Pulse 83 04/08/23 07:29 Resp 18 04/08/23 07:29 BP 106/68 04/08/23 07:29 Pulse Ox 95 04/08/23 07:29 O2 Del Method Nasal Cannula 04/08/23 07:29 O2 Flow Rate 2 04/08/23 07:29 FiO2 94 04/07/23 00:15 BMI result Body Mass Index 30.2 Const: Other: Gen: awake alert, resting comfortably, in no acute distress Neck: supple Lungs: clear to auscultation bilaterally Heart: regular rate and rhythm, no murmurs Abd: soft, non-tender, bowel sounds audible Skin: No rash Neuro: alert and oriented to self, no motor deficit Psych: impaired insight Objective Data Active Medications Acetaminophen (Acetaminophen 325 Mg Tablet) 650 mg PO Q6H PRN PRN Reason: Pain, Mild (Pain Scale 1-3) Last Admin: 04/06/23 14:17 Dose: 650 mg Documented By: JENIFFER Calcium Carbonate (Calcium Carbonate 750 Mg Tab.Chew) 750 mg PO Q6H PRN PRN Reason: Pain, Severe (Pain Scale 7-10) Last Admin: 04/06/23 16:30 Dose: 750 mg Documented By: GURDEEP Docusate Sodium (Docusate Sodium 100 Mg Capsule) 100 mg PO DAILY [facility] Last Admin: 04/08/23 08:39 Dose: 100 mg Documented By: MARY Enoxaparin Sodium (Enoxaparin Sodium 40 Mg/0.4 Ml Syringe) 40 mg SUBCUT Q24H [facility] Last Admin: 04/07/23 11:59 Dose: 40 mg Documented By: WILLIAM Folic Acid (Folic Acid 1 Mg Tablet) 1 mg PO DAILY [facility] Last Admin: 04/08/23 08:39 Dose: 1 mg Documented By: MARY Guaifenesin (Guaifenesin 100 Mg/5 Ml Liquid) 5 ml PO Q4H PRN PRN Reason: Cough Memantine (Memantine Hcl 5 Mg Tablet) 5 mg PO BID [facility] Last Admin: 04/08/23 08:40 Dose: 5 mg Documented By: MARY Multivitamins/Vitamin C (Multivitamin Tablet) 1 tab PO DAILY [facility] Last Admin: 04/08/23 08:40 Dose: 1 tab Documented By: MARY Nystatin (Nystatin Powder 15 Gm Bottle) 1 appl TOPICAL BID [facility]; Protocol Last Admin: 04/07/23 22:08 Dose: 1 appl Documented By: NATHANIEL Ondansetron HCl (Ondansetron Hcl 4 Mg/2 Ml Vial) 4 mg IVPUSH Q8H PRN PRN Reason: Nausea and Vomiting Polyethylene Glycol (Polyethylene Glycol 3350 17 Gm Powd.Pack) 17 gm PO DAILY [facility] Last Admin: 04/08/23 08:41 Dose: Not Given Documented By: MARY Non-Admin Reason: Patient Refused Risperidone (Risperidone 0.5 Mg Tablet) 0.5 mg PO BID [facility] Last Admin: 04/08/23 08:40 Dose: 0.5 mg Documented By: MARY Sertraline HCl (Sertraline Hcl 25 Mg Tablet) 25 mg PO DAILY [facility] Last Admin: 04/08/23 08:40 Dose: 25 mg Documented By: MARY Sodium Chloride (0.9 % Sodium Chloride Flush 3 Ml Syringe) 3 ml IVFLUSH QSHIFT [facility] Last Admin: 04/08/23 00:01 Dose: Not Given Documented By: NATHANIEL Non-Admin Reason: No Access Thiamine HCl (Thiamine Hcl 100 Mg Tablet) 100 mg PO DAILY [facility] Last Admin: 04/08/23 08:40 Dose: 100 mg Documented By: MARY Labs 03/19/23 07:26 03/31/23 13:05 Assessment and Plan (1) Dementia: Status: Acute Plan 77yo F with chronic back pain, presenting with confusion, likely Alzheimer's dementia 1.Dementia, unspecified - likely progressive dementia; memory seems to have been declining over the past several months - [place] Cognitive Assesment (MOCA) : scored 14 - seen by Neurology: probable moderate to severe degenerative dementia, likely Alzheimer's; on sertraline + memantine - seen by Psychiatry: does not have capacity to make medical decisions, waiting for guardianship/placement 2.Malignant ascites/uterine mass - unintentional 30-lb weight loss - s/p paracentesis 02/22/23: 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 patient's current clinical condition? with lack of support likely she will not be a candidate for aggressive treatment,? re-assess after guardianship. -increasing abdominal girth--will do US tomorrow and consider paracentesis early next week Routine labs on 03/31, BMP unremarkable VTE ppx - enoxaparin dispo - pending guardianship. Time Spent With Patient Time: Total time managing care of this patient today ____ minutes. Quality Stroke Does the patient have a stroke diagnosis?: No VTE Prior VTE?: No VTE Risk Level:: Medical - moderate - high VTE Device Contraindication: Treatment Not Indicated VTE Drug Contraindication: N/A - Med Ordered
[2023-04-08] MEDS: Nystatin Powder 15 GM BOTTLE 1 APPL TOPICAL ×2 (08:55→20:43)
[2023-04-08] MEDS: Enoxaparin Sodium 40 MG/0.4 ML SYRINGE SUBCUT (12:38)
[2023-04-08 15:06] VITALS: BP 113/60; PULSE 94; RESP 18; TEMP 36.1; O2SAT 95
[2023-04-08] MEDS: Acetaminophen 325 MG TABLET 650 MG PO (20:45)
[2023-04-09 04:00] VITALS: BP 98/63; PULSE 86; RESP 16; TEMP 36.1; O2SAT 94
[2023-04-09 07:30] VITALS: BP 98/62; PULSE 90; RESP 16; TEMP 36; O2SAT 94
[2023-04-09] MEDS: Sertraline HCL 25 MG TABLET PO (09:36)
[2023-04-09] MEDS: Thiamine HCL 100 MG TABLET PO (09:36)
[2023-04-09] MEDS: risperiDONE 0.5 MG TABLET PO ×2 (09:36→20:09)
[2023-04-09] MEDS: Memantine HCl 5 MG TABLET PO ×2 (09:36→20:09)
[2023-04-09] MEDS: Docusate Sodium 100 MG CAPSULE PO (09:36)
[2023-04-09] MEDS: Multivitamin TABLET 1 TAB PO (09:36)
[2023-04-09] MEDS: polyethylene glycoL 3350 17 GM POWD.PACK PO (09:36)
[2023-04-09] MEDS: Folic Acid 1 MG TABLET PO (09:36)
[2023-04-09] MEDS: Nystatin Powder 15 GM BOTTLE 1 APPL TOPICAL ×2 (09:36→20:09)
[2023-04-09] MEDS: Enoxaparin Sodium 40 MG/0.4 ML SYRINGE SUBCUT (11:43)
--- NOTE | 2023-04-09 13:59 | P.PNIM_ITS ---
Subjective Subjective Date of Service: 04/09/23 Interval History: No acute issues overnight, had a bowel movement but still feel constipated, tolerating diet, no nausea, no vomiting, refusing out of bed to chair. Physical Exam 2 Vital Signs: Vital Signs: Last Vital Signs Temp 96.8 F 04/09/23 07:30 Pulse 90 04/09/23 07:30 Resp 16 04/09/23 07:30 BP 98/62 04/09/23 07:30 Pulse Ox 94 04/09/23 07:30 O2 Del Method Nasal Cannula 04/09/23 07:30 O2 Flow Rate 1 04/09/23 07:30 FiO2 94 04/07/23 00:15 BMI result Body Mass Index 30.2 Const: Other: Gen: awake alert, resting comfortably, in no acute distress Neck: supple Lungs: clear to auscultation bilaterally Heart: regular rate and rhythm, no murmurs Abd: soft, non-tender, bowel sounds audible Skin: No rash Neuro: alert and oriented to self, no motor deficit Psych: impaired insight Objective Data Active Medications Acetaminophen (Acetaminophen 325 Mg Tablet) 650 mg PO Q6H PRN PRN Reason: Pain, Mild (Pain Scale 1-3) Last Admin: 04/08/23 20:45 Dose: 650 mg Documented By: NATHANIEL Calcium Carbonate (Calcium Carbonate 750 Mg Tab.Chew) 750 mg PO Q6H PRN PRN Reason: Pain, Severe (Pain Scale 7-10) Last Admin: 04/06/23 16:30 Dose: 750 mg Documented By: GURDEEP Docusate Sodium (Docusate Sodium 100 Mg Capsule) 100 mg PO DAILY [facility] Last Admin: 04/09/23 09:36 Dose: 100 mg Documented By: WM Enoxaparin Sodium (Enoxaparin Sodium 40 Mg/0.4 Ml Syringe) 40 mg SUBCUT Q24H [facility] Last Admin: 04/09/23 11:43 Dose: 40 mg Documented By: WM Folic Acid (Folic Acid 1 Mg Tablet) 1 mg PO DAILY [facility] Last Admin: 04/09/23 09:36 Dose: 1 mg Documented By: WM Guaifenesin (Guaifenesin 100 Mg/5 Ml Liquid) 5 ml PO Q4H PRN PRN Reason: Cough Memantine (Memantine Hcl 5 Mg Tablet) 5 mg PO BID [facility] Last Admin: 04/09/23 09:36 Dose: 5 mg Documented By: MW Multivitamins/Vitamin C (Multivitamin Tablet) 1 tab PO DAILY [facility] Last Admin: 04/09/23 09:36 Dose: 1 tab Documented By: WM Nystatin (Nystatin Powder 15 Gm Bottle) 1 appl TOPICAL BID [facility]; Protocol Last Admin: 04/09/23 09:36 Dose: 1 appl Documented By: WM Ondansetron HCl (Ondansetron Hcl 4 Mg/2 Ml Vial) 4 mg IVPUSH Q8H PRN PRN Reason: Nausea and Vomiting Polyethylene Glycol (Polyethylene Glycol 3350 17 Gm Powd.Pack) 17 gm PO DAILY [facility] Last Admin: 04/09/23 09:36 Dose: 17 gm Documented By: WM Risperidone (Risperidone 0.5 Mg Tablet) 0.5 mg PO BID [facility] Last Admin: 04/09/23 09:36 Dose: 0.5 mg Documented By: WM Sertraline HCl (Sertraline Hcl 25 Mg Tablet) 25 mg PO DAILY [facility] Last Admin: 04/09/23 09:36 Dose: 25 mg Documented By: WM Sodium Chloride (0.9 % Sodium Chloride Flush 3 Ml Syringe) 3 ml IVFLUSH QSHIFT [facility] Last Admin: 04/09/23 13:33 Dose: Not Given Documented By: WM Non-Admin Reason: See Note Thiamine HCl (Thiamine Hcl 100 Mg Tablet) 100 mg PO DAILY [facility] Last Admin: 04/09/23 09:36 Dose: 100 mg Documented By: WM Labs 03/19/23 07:26 03/31/23 13:05 Assessment and Plan (1) Dementia: Status: Acute Plan 77yo F with chronic back pain, presenting with confusion, likely Alzheimer's dementia 1.Dementia, unspecified - likely progressive dementia; memory seems to have been declining over the past several months - [place] Cognitive Assesment (MOCA) : scored 14 - seen by Neurology: probable moderate to severe degenerative dementia, likely Alzheimer's; on sertraline + memantine - seen by Psychiatry: does not have capacity to make medical decisions, waiting for guardianship/placement 2.Malignant ascites/uterine mass - unintentional 30-lb weight loss - s/p paracentesis 02/22/23: 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 including pancreatico biliary - CA-125 elevated to 299 - seen by [employer]; declined pelvic exam + endometrial biopsy; - inform patient about immunostains result, she is not showing much understanding and keeps repeating that she does not want any intervention that will prolong her suffering, since it seems to be a metastatic cancer with ? patient's current clinical condition? with lack of support likely she will not be a candidate for aggressive treatment,? re-assess after guardianship. -increasing abdominal girth--will do US tomorrow and consider paracentesis early next week Routine labs on 03/31, BMP unremarkable VTE ppx - enoxaparin dispo - pending guardianship. Time Spent With Patient Time: Total time managing care of this patient today ____ minutes. Quality Stroke Does the patient have a stroke diagnosis?: No VTE Prior VTE?: No VTE Risk Level:: Medical - moderate - high VTE Device Contraindication: Treatment Not Indicated VTE Drug Contraindication: N/A - Med Ordered
[2023-04-09 15:26] VITALS: BP 98/64; PULSE 83; RESP 16; TEMP 36; O2SAT 91
[2023-04-09] MEDS: oxyCODONE HCl Immed Release 5 MG TABLET PO (15:33)
[2023-04-09 20:00] VITALS: BP 100/58; PULSE 100; RESP 17; TEMP 36.3; O2SAT 94
[2023-04-09] MEDS: Acetaminophen 325 MG TABLET 650 MG PO (20:09)
[2023-04-10 07:24] VITALS: BP 95/63; PULSE 90; RESP 18; TEMP 36; O2SAT 90
[2023-04-10] MEDS: Multivitamin TABLET 1 TAB PO (09:07)
[2023-04-10] MEDS: Docusate Sodium 100 MG CAPSULE 200 MG PO (09:07)
[2023-04-10] MEDS: Memantine HCl 5 MG TABLET PO ×2 (09:07→20:08)
[2023-04-10] MEDS: Folic Acid 1 MG TABLET PO (09:07)
[2023-04-10] MEDS: risperiDONE 0.5 MG TABLET PO ×2 (09:07→20:08)
[2023-04-10] MEDS: Sertraline HCL 25 MG TABLET PO (09:07)
[2023-04-10] MEDS: Thiamine HCL 100 MG TABLET PO (09:07)
[2023-04-10] MEDS: Nystatin Powder 15 GM BOTTLE 1 APPL TOPICAL ×2 (09:08→20:11)
--- NOTE | 2023-04-10 12:10 | HO.PM.IMPN ---
Subjective Subjective Date of Service: 04/10/23 Interval History: denies abd pain or distension Review of Systems Review of Systems: Yes all other systems are reviewed and are negative Physical Exam Vital Signs: Vital Signs: Last Vital Signs Temp 96.8 F 04/10/23 07:24 Pulse 90 04/10/23 07:24 Resp 18 04/10/23 07:24 BP 95/63 04/10/23 07:24 Pulse Ox 90 L 04/10/23 07:24 O2 Del Method Room Air 04/10/23 07:24 O2 Flow Rate 1 04/09/23 15:26 FiO2 94 04/07/23 00:15 BMI result Body Mass Index 30.2 Gen: awake alert, resting comfortably, in no acute distress Neck: supple Lungs: clear to auscultation bilaterally Heart: regular rate and rhythm, no murmurs Abd: distended Skin: no rash Neuro: alert and oriented to self, no motor deficit Psych: impaired insight Objective Data Active Medications Acetaminophen (Acetaminophen 325 Mg Tablet) 650 mg PO Q6H PRN PRN Reason: Pain, Mild (Pain Scale 1-3) Last Admin: 04/09/23 20:09 Dose: 650 mg Documented By: TINO Calcium Carbonate (Calcium Carbonate 750 Mg Tab.Chew) 750 mg PO Q6H PRN PRN Reason: Pain, Severe (Pain Scale 7-10) Last Admin: 04/06/23 16:30 Dose: 750 mg Documented By: GURDEEP Docusate Sodium (Docusate Sodium 100 Mg Capsule) 200 mg PO DAILY [facility] Last Admin: 04/10/23 09:07 Dose: 200 mg Documented By: KASSIDY Enoxaparin Sodium (Enoxaparin Sodium 40 Mg/0.4 Ml Syringe) 40 mg SUBCUT Q24H [facility] Last Admin: 04/09/23 11:43 Dose: 40 mg Documented By: MEGHANAFAManda Folic Acid (Folic Acid 1 Mg Tablet) 1 mg PO DAILY [facility] Last Admin: 04/10/23 09:07 Dose: 1 mg Documented By: KASSIDY Guaifenesin (Guaifenesin 100 Mg/5 Ml Liquid) 5 ml PO Q4H PRN PRN Reason: Cough Magnesium Hydroxide (Milk Of Magnesia 30 Ml Oral.Susp) 30 ml PO DAILY PRN PRN Reason: constipation Memantine (Memantine Hcl 5 Mg Tablet) 5 mg PO BID [facility] Last Admin: 04/10/23 09:07 Dose: 5 mg Documented By: KASSIDY Multivitamins/Vitamin C (Multivitamin Tablet) 1 tab PO DAILY [facility] Last Admin: 04/10/23 09:07 Dose: 1 tab Documented By: KASSIDY Nystatin (Nystatin Powder 15 Gm Bottle) 1 appl TOPICAL BID [facility]; Protocol Last Admin: 04/10/23 09:08 Dose: 1 appl Documented By: KASSIDY Ondansetron HCl (Ondansetron Hcl 4 Mg/2 Ml Vial) 4 mg IVPUSH Q8H PRN PRN Reason: Nausea and Vomiting Oxycodone HCl (Oxycodone Hcl Immed Release 5 Mg Tablet) 5 mg PO Q6H PRN PRN Reason: Pain, Severe (Pain Scale 7-10) Last Admin: 04/09/23 15:33 Dose: 5 mg Documented By: WM Polyethylene Glycol (Polyethylene Glycol 3350 17 Gm Powd.Pack) 17 gm PO DAILY [facility] Last Admin: 04/09/23 09:36 Dose: 17 gm Documented By: WM Risperidone (Risperidone 0.5 Mg Tablet) 0.5 mg PO BID [facility] Last Admin: 04/10/23 09:07 Dose: 0.5 mg Documented By: KASSIDY Sertraline HCl (Sertraline Hcl 25 Mg Tablet) 25 mg PO DAILY [facility] Last Admin: 04/10/23 09:07 Dose: 25 mg Documented By: KASSIDY Sodium Chloride (0.9 % Sodium Chloride Flush 3 Ml Syringe) [facility] Last Admin: 04/10/23 07:28 Dose: Not Given Documented By: KASSIDY Non-Admin Reason: No Access Thiamine HCl (Thiamine Hcl 100 Mg Tablet) 100 mg PO DAILY [facility] Last Admin: 04/10/23 09:07 Dose: 100 mg Documented By: KASSIDY Labs 03/19/23 07:26 03/31/23 13:05 Assessment and Plan (1) Dementia: Status: Acute Plan [id number] 77yo F with chronic back pain, presenting with confusion, likely Alzheimer's dementia dementia, unspecified - likely progressive dementia; memory seems to have been declining over the past several months - [place] Cognitive Assesment (MOCA) : scored 14 - seen by Neurology: probable moderate to severe degenerative dementia, likely Alzheimer's; on sertraline + memantine - seen by Psychiatry: does not have capacity to make medical decisions, waiting for guardianship/placement thiamine deficiency folate deficiency - repleting malignant ascites/uterine mass - unintentional 30-lb weight loss - s/p paracentesis 02/22/23: 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 patient's current clinical condition?with lack of support, likely she will not be a candidate for aggressive treatment; re-assess after guardianship. -increasing abdominal girth: will repeat US and consider paracentesis VTE ppx - enoxaparin dispo - pending guardianship Time Spent With Patient Time: Total time managing care of this patient today __35__ minutes. Quality Stroke Does the patient have a stroke diagnosis?: No VTE Prior VTE?: No VTE Risk Level:: Medical - moderate - high VTE Device Contraindication: Treatment Not Indicated VTE Drug Contraindication: N/A - Med Ordered
[2023-04-10] MEDS: Enoxaparin Sodium 40 MG/0.4 ML SYRINGE SUBCUT (12:51)
[2023-04-10 14:55] VITALS: BP 107/58; PULSE 85; RESP 16; TEMP 36.2; O2SAT 92
[2023-04-10 19:17] VITALS: BP 114/59; PULSE 83; RESP 18; TEMP 36.3; O2SAT 94
[2023-04-10] MEDS: oxyCODONE HCl Immed Release 5 MG TABLET PO (20:08)
[2023-04-11 04:00] VITALS: BP 100/59; PULSE 80; RESP 18; TEMP 36.2; O2SAT 92
[2023-04-11 06:00] VITALS: BMI 30.9
--- NOTE | 2023-04-11 07:07 | PC.NURSE ---
Approximately around 06:00, while changing pt, pt's O2 desatted to the low 80s and c/o of SOB, lungs rhonchi throughout. Pt was placed on 3L NC with little effect. This RN notified respiratory, nursing machine setter supervisor, and hospitalist MD Burk of the situation. Respiratory and nursing machine setter supervisor came to pt's bedside. Pt was placed on 3L oxymask increasing O2 to 90%. Pt was deep section by respiratory. Pt was encourage to take deep breaths and cough. MD Burk placed stat chest xray order. no other orders were given. Pt now on 1L oxymask with O2 at 93%. Waiting for chest xray results and will continue to monitor pt's O2.
[2023-04-11] MEDS: Acetaminophen 325 MG TABLET 650 MG PO (07:16)
[2023-04-11 08:00] VITALS: BP 90/59; PULSE 79; RESP 16; TEMP 36.1; O2SAT 92
[2023-04-11] MEDS: Multivitamin TABLET 1 TAB PO (08:34)
[2023-04-11] MEDS: oxyCODONE HCl Immed Release 5 MG TABLET PO ×2 (08:34→15:39)
[2023-04-11] MEDS: Docusate Sodium 100 MG CAPSULE 200 MG PO (08:34)
[2023-04-11] MEDS: Sertraline HCL 25 MG TABLET PO (08:35)
[2023-04-11] MEDS: polyethylene glycoL 3350 17 GM POWD.PACK PO (08:35)
[2023-04-11] MEDS: risperiDONE 0.5 MG TABLET PO ×2 (08:35→19:51)
[2023-04-11] MEDS: Memantine HCl 5 MG TABLET PO ×2 (08:35→19:51)
[2023-04-11] MEDS: Thiamine HCL 100 MG TABLET PO (08:35)
[2023-04-11] MEDS: Folic Acid 1 MG TABLET PO (08:35)
[2023-04-11] MEDS: Nystatin Powder 15 GM BOTTLE 1 APPL TOPICAL ×2 (08:36→19:51)
[2023-04-11 09:36] LABS: Hematocrit 35.4 % (37.0-47.0); Hemoglobin 10.4 g/dl (12.0-16.0); Mean Corpuscular HGB Conc 29.4 g/dl (31.0-35.0); Mean Corpuscular Hemoglobin 26.8 pg (27.0-33.0); Mean Corpuscular Volume 91.2 fL (80.0-98.0); Mean Platelet Volume 10.4 fL (9.4-12.3); Platelet Count 309 X10*3/uL (160-400); Red Blood Count 3.88 X10*6/uL (4.20-5.50); Red Cell Distribution Width 15.9 % (11.0-16.0)
[2023-04-11 09:42] LABS: INTERNATIONAL NORM RATIO 1.1 (0.9-1.1); Prothrombin Time 13.3 SEC (11.1-13.3)
[2023-04-11 09:51] LABS: Alanine Aminotransferase 5 U/L (0-31); Albumin Level 2.3 g/dL (3.5-5.0); Alkaline Phosphatase 128 U/L (39-117); Anion Gap 13 (12-20); Aspartate Amino Transferase 18 U/L (5-31); Bilirubin Total 0.4 mg/dL (0.0-1.0); Blood Urea Nitrogen 55 mg/dL (9-16); Calcium 9.5 mg/dL (8.4-10.2); Carbon Dioxide 26 mmol/L (22-29); Chloride 105 mmol/L (96-108); Creatinine Clr Calc Pharmacy 38.1; Estimated Glomerular Filt Rate 30; Glucose Random 147 mg/dL (60-115); Sodium 139 mmol/L (135-145); Total Protein 5.7 g/dL (6.5-8.0)
--- NOTE | 2023-04-11 10:31 | HO.PM.IMPN ---
Subjective Subjective Date of Service: 04/11/23 Interval History: became hypoxic overnight requiring 2L O2 via NC appears short of breath though denies dyspnea abd distended Review of Systems Review of Systems: Yes all other systems are reviewed and are negative Physical Exam Vital Signs: Vital Signs: Last Vital Signs Temp 97.0 F 04/11/23 08:00 Pulse 79 04/11/23 08:00 Resp 16 04/11/23 08:00 BP 90/59 L 04/11/23 08:00 Pulse Ox 92 04/11/23 08:00 O2 Del Method Nasal Cannula 04/11/23 08:00 O2 Flow Rate 2.0 04/11/23 08:00 FiO2 94 04/07/23 00:15 BMI result Body Mass Index 30.9 Gen: awake, alert, chronically ill-appearing, mild dyspnea Neck: supple Lungs: diminished at bases Heart: regular rate and rhythm, no murmurs Abd: distended Skin: no rash Neuro: alert and oriented to self, no motor deficit Psych: impaired insight Objective Data Active Medications Acetaminophen (Acetaminophen 325 Mg Tablet) 650 mg PO Q6H PRN PRN Reason: Pain, Mild (Pain Scale 1-3) Last Admin: 04/11/23 07:16 Dose: 650 mg Documented By: KASSIDY Calcium Carbonate (Calcium Carbonate 750 Mg Tab.Chew) 750 mg PO Q6H PRN PRN Reason: Pain, Severe (Pain Scale 7-10) Last Admin: 04/06/23 16:30 Dose: 750 mg Documented By: GURDEEP Docusate Sodium (Docusate Sodium 100 Mg Capsule) 200 mg PO DAILY [facility] Last Admin: 04/11/23 08:34 Dose: 200 mg Documented By: KASSIDY Enoxaparin Sodium (Enoxaparin Sodium 40 Mg/0.4 Ml Syringe) 40 mg SUBCUT Q24H [facility] Last Admin: 04/10/23 12:51 Dose: 40 mg Documented By: KASSIDY Folic Acid (Folic Acid 1 Mg Tablet) 1 mg PO DAILY [facility] Last Admin: 04/11/23 08:35 Dose: 1 mg Documented By: KASSIDY Guaifenesin (Guaifenesin 100 Mg/5 Ml Liquid) 5 ml PO Q4H PRN PRN Reason: Cough Albumin Human (Kedbumin 25 %) 100 mls @ 100 mls/hr IV Q6H [facility] Stop: 04/12/23 10:59 Magnesium Hydroxide (Milk Of Magnesia 30 Ml Oral.Susp) 30 ml PO DAILY PRN PRN Reason: constipation Memantine (Memantine Hcl 5 Mg Tablet) 5 mg PO BID [facility] Last Admin: 04/11/23 08:35 Dose: 5 mg Documented By: KASSIDY Multivitamins/Vitamin C (Multivitamin Tablet) 1 tab PO DAILY [facility] Last Admin: 04/11/23 08:34 Dose: 1 tab Documented By: KASSIDY Nystatin (Nystatin Powder 15 Gm Bottle) 1 appl TOPICAL BID [facility]; Protocol Last Admin: 04/11/23 08:36 Dose: 1 appl Documented By: KASSIDY Ondansetron HCl (Ondansetron Hcl 4 Mg/2 Ml Vial) 4 mg IVPUSH Q8H PRN PRN Reason: Nausea and Vomiting Oxycodone HCl (Oxycodone Hcl Immed Release 5 Mg Tablet) 5 mg PO Q6H PRN PRN Reason: Pain, Severe (Pain Scale 7-10) Last Admin: 04/11/23 08:34 Dose: 5 mg Documented By: KASSIDY Polyethylene Glycol (Polyethylene Glycol 3350 17 Gm Powd.Pack) 17 gm PO DAILY [facility] Last Admin: 04/11/23 08:35 Dose: 17 gm Documented By: KASSIDY Risperidone (Risperidone 0.5 Mg Tablet) 0.5 mg PO BID [facility] Last Admin: 04/11/23 08:35 Dose: 0.5 mg Documented By: KASSIDY Sertraline HCl (Sertraline Hcl 25 Mg Tablet) 25 mg PO DAILY [facility] Last Admin: 04/11/23 08:35 Dose: 25 mg Documented By: KASSIDY Sodium Chloride (0.9 % Sodium Chloride Flush 3 Ml Syringe) 3 ml IVFLUSH QSHIFT [facility] Last Admin: 04/11/23 08:53 Dose: Not Given Documented By: KASSIDY Non-Admin Reason: No Access Thiamine HCl (Thiamine Hcl 100 Mg Tablet) 100 mg PO DAILY [facility] Last Admin: 04/11/23 08:35 Dose: 100 mg Documented By: KASSIDY Labs 04/11/23 09:19 04/11/23 09:19 Labs: Laboratory Results - last 24 hr 04/11/23 09:19 MCV 91.2 MCH 26.8 L MCHC 29.4 L RDW 15.9 Plt Count 309 MPV 10.4 Absolute Nucleated RBC 0.000 Nucleated RBC % (auto) 0.0 PT 13.3 INR 1.1 Anion Gap 13 Estim Creat Clear Calc 38.1 Estimated GFR 30 Random Glucose 147 H Calcium 9.5 Total Bilirubin 0.4 AST 18 ALT 5 Alkaline Phosphatase 128 H Total Protein 5.7 L Albumin 2.3 L Impressions Abdomen Ultrasound 04/10/23 08:10 IMPRESSION: Large amount of ascites. Chest X-Ray 04/11/23 07:29 IMPRESSION: Interval prominence region of the ascending aorta. If there is clinical concern for aortic pathology, CT would be advised. Possible developing right base pneumonia. 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 including pancreatico-biliary - CA-125 elevated to 299 - seen by [employer]; declined pelvic exam + endometrial biopsy - inform patient about immunostains result, she is not showing much understanding and keeps repeating that she does not want any intervention that will prolong her suffering, since it seems to be a metastatic cancer and with? patient's current clinical condition?with lack of support, likely she will not be a candidate for aggressive treatment; re-assess after guardianship. - repeat US shows large amt ascites; will repeat therapeutic tap. Pt not comptent to sign consent, will perform emergency 2-physician consent. dementia, unspecified - likely progressive dementia; memory seems to have been declining over the past several months - [place] Cognitive Assesment (MOCA) : scored 14 - seen by Neurology: probable moderate to severe degenerative dementia, likely Alzheimer's; on sertraline + memantine - seen by Psychiatry: does not have capacity to make medical decisions, waiting for guardianship/placement thiamine deficiency folate deficiency - repleting VTE ppx - enoxaparin dispo - pending guardianship Time Spent With Patient Time: Total time managing care of this patient today ___45_ minutes. Quality Stroke Does the patient have a stroke diagnosis?: No VTE Prior VTE?: No VTE Risk Level:: Medical - moderate - high VTE Device Contraindication: Treatment Not Indicated VTE Drug Contraindication: N/A - Med Ordered
[2023-04-11] MEDS: Albumin Human 25 % 100 ML IV ×3 (10:37→21:53)
[2023-04-11] MEDS: Lidocaine HCl 1 % MPF 5 ML VIAL SUBCUT (12:21)
[2023-04-11] MEDS: Enoxaparin Sodium 40 MG/0.4 ML SYRINGE SUBCUT (14:08)
[2023-04-11 15:37] VITALS: BP 107/56; PULSE 76; RESP 15; TEMP 36.4; O2SAT 96
[2023-04-11 19:09] VITALS: BP 121/80; PULSE 72; RESP 15; TEMP 36.4; O2SAT 94
[2023-04-11] MEDS: 0.9 % Sodium Chloride Flush 3 ML SYRINGE IVFLUSH (19:51)
[2023-04-11 21:30] LABS: Appearance Urine Clear; Color Urine Dark Yellow; Glucose Urine UA Negative (Negative); Leukocyte Esterase Urine Trace (Negative); Nitrite Urine Negative (Negative); UMIC TRIGGER UA YES; Urine Blood Negative (Negative); Urine Ketones Negative (Negative); Urine Protein Trace mg/dL (Neg-Trace)
[2023-04-11 22:02] VITALS: BP 97/52; PULSE 76
[2023-04-11 22:25] LABS: Bacteria Urine None Seen (None Seen); RBC Urine 0-2 /HPF (0-2); Squamous Epithelial Cell Urine 0-2 /HPF (0-2); WBC Urine 0-5 /HPF (0-5)
[2023-04-12] LABS: Creatinine Urine 193.48 mg/dL; Sodium Urine Random < 20.0 mmol/L
[2023-04-12] MEDS: Albumin Human 25 % 100 ML IV ×2 (03:22→13:11)
[2023-04-12 03:23] VITALS: BP 106/55; PULSE 74; RESP 14; TEMP 36.4; O2SAT 95
[2023-04-12 06:00] VITALS: BMI 29.3
[2023-04-12 06:20] LABS: Anion Gap 15 (12-20); Blood Urea Nitrogen 56 mg/dL (9-16); Carbon Dioxide 25 mmol/L (22-29); Chloride 105 mmol/L (96-108); Creatinine Clr Calc Pharmacy 34.7; Estimated Glomerular Filt Rate 27; Glucose Random 86 mg/dL (60-115); Potassium 4.6 mmol/L (3.3-5.1); Sodium 140 mmol/L (135-145)
[2023-04-12 07:53] VITALS: BP 102/53; PULSE 75; RESP 15; TEMP 36.3; O2SAT 96
[2023-04-12 08:17] LABS: Hematocrit 27.1 % (37.0-47.0); Mean Corpuscular HGB Conc 29.5 g/dl (31.0-35.0); Mean Corpuscular Hemoglobin 26.7 pg (27.0-33.0); Mean Corpuscular Volume 90.3 fL (80.0-98.0); Mean Platelet Volume 10.4 fL (9.4-12.3); Platelet Count 256 X10*3/uL (160-400); Red Cell Distribution Width 15.8 % (11.0-16.0); White Blood Count 20.8 X10*3/uL (4.8-10.8)
[2023-04-12] MEDS: 0.9 % Sodium Chloride 1,000 ML 125 ML IVCONT ×2 (09:15→17:02)
[2023-04-12] MEDS: 0.9 % Sodium Chloride Flush 3 ML SYRINGE IVFLUSH (09:15)
[2023-04-12] MEDS: Doxycycline Hyclate 100 MG in 0.9 % Sodium Chloride 250 ML 166.67 MG IV (09:16)
[2023-04-12] MEDS: cefTRIAXone sodium 1 GM in 0.9 % Sodium Chloride 50 ML IV (09:16)
[2023-04-12] MEDS: Nystatin Powder 15 GM BOTTLE 1 APPL TOPICAL ×2 (09:17→20:30)
--- NOTE | 2023-04-12 10:31 | MHC.CLN ---
F/U DIET=REGULAR. ENSURE BID PROVIDES 700 KCALS, 40 G PROTEIN. SKIN WITH STAGE II TO COCCYX AND REDNESS TO BILATERAL HEELS. SUPPLEMENT TO PROMOTE SKIN INTEGRITY. HAD PARACENTESIS 04/11/23. MOST RECENT INTAKE POOR, 0-25%. DISCUSSED WITH NSG. REFUSED BREAKFAST THIS MORNING. WAS OFFERED VARIETY OF FOOD/BEVERAGES. INTAKE DOES NOT APPEAR TO MEET ESTIMATED NUTRITIONAL NEEDS X GREATER THAN 7 DAYS. PATIENT IS FULL CODE. MAY BENEFIT FROM NUTRITION VIA TUBE FEEDING. FOLLOW FOR INTAKE AND SKIN INTEGRITY.
--- NOTE | 2023-04-12 10:47 | MHC.CM.PN ---
Per rounds, patient having changes in clinical condition. Dr. Edwards requesting to initiate process to expand patient's temporary guardianship to include changes with code status. This appeals writer placed call to Dance Professor [employer] and process has been initiated.
[2023-04-12 11:12] LABS: MRSA Nasal PCR POSITIVE (Negative); SA Nasal PCR POSITIVE (Negative)
--- NOTE | 2023-04-12 11:38 | P.PNIM_ITS ---
Subjective Subjective Date of Service: 04/12/23 Interval History: Poor urine output yesterday. Bladder scanned for 755 mL. Ferreira placed. Pt denies cough but clearly coughing. Pt inconsistently endorses dyspnea. No fever. Difficult historian due to worsening cognitive impairment. Repetitive questioning. Review of Systems Review of Systems: Yes all other systems are reviewed and are negative Physical Exam 2 Vital Signs: Vital Signs: Last Vital Signs Temp 97.4 F 04/12/23 07:53 Pulse 75 04/12/23 07:53 Resp 15 04/12/23 07:53 BP 102/53 L 04/12/23 07:53 Pulse Ox 96 04/12/23 07:53 O2 Del Method Nasal Cannula 04/12/23 07:53 O2 Flow Rate 3.0 04/12/23 07:53 FiO2 94 04/07/23 00:15 BMI result Body Mass Index 29.3 Gen: awake, alert, chronically ill-appearing, mild dyspnea Neck: supple Lungs: diminished at L base Heart: regular rate and rhythm, no murmurs Abd: non-tense ascites, no fluid leak at paracentesis site Ext: 1+ bilateral leg edema Skin: no rash Neuro: alert and oriented to self but otherwise quite confused with repetitive questioning and profound short-term memory deficit Psych: impaired insight Objective Data Active Medications Acetaminophen (Acetaminophen 325 Mg Tablet) 650 mg PO Q6H PRN PRN Reason: Pain, Mild (Pain Scale 1-3) Last Admin: 04/11/23 07:16 Dose: 650 mg Documented By: KASSIDY Calcium Carbonate (Calcium Carbonate 750 Mg Tab.Chew) 750 mg PO Q6H PRN PRN Reason: Pain, Severe (Pain Scale 7-10) Last Admin: 04/06/23 16:30 Dose: 750 mg Documented By: GURDEEP Docusate Sodium (Docusate Sodium 100 Mg Capsule) 200 mg PO DAILY [facility] Last Admin: 04/12/23 09:16 Dose: Not Given Documented By: TANESHA Non-Admin Reason: Patient Refused Enoxaparin Sodium (Enoxaparin Sodium 40 Mg/0.4 Ml Syringe) 40 mg SUBCUT Q24H [facility] Last Admin: 04/11/23 14:08 Dose: 40 mg Documented By: KASSIDY Folic Acid (Folic Acid 1 Mg Tablet) 1 mg PO DAILY [facility] Last Admin: 04/12/23 09:16 Dose: Not Given Documented By: TANESHA Non-Admin Reason: Patient Refused Guaifenesin (Guaifenesin 100 Mg/5 Ml Liquid) 5 ml PO Q4H PRN PRN Reason: Cough Sodium Chloride (Ns) 1,000 mls @ 125 mls/hr IVCONT .Q8H [facility] Stop: 04/12/23 23:59 Last Admin: 04/12/23 09:15 Dose: 125 mls/hr Documented By: TANESHA Ceftriaxone Sodium 1 gm/ (Sodium Chloride) 50 mls @ 100 mls/hr IV Q24H [facility] Last Infusion: 04/12/23 10:45 Dose: Infused Documented By: TANESHA Doxycycline Hyclate 100 mg/ (Sodium Chloride) 250 mls @ 166.67 mls/hr IV BID [facility] Last Infusion: 04/12/23 11:30 Dose: Infused Documented By: TANESHA Magnesium Hydroxide (Milk Of Magnesia 30 Ml Oral.Susp) 30 ml PO DAILY PRN PRN Reason: constipation Memantine (Memantine Hcl 5 Mg Tablet) 5 mg PO BID [facility] Last Admin: 04/12/23 09:17 Dose: Not Given Documented By: TANESHA Non-Admin Reason: Patient Refused Multivitamins/Vitamin C (Multivitamin Tablet) 1 tab PO DAILY [facility] Last Admin: 04/12/23 09:17 Dose: Not Given Documented By: TANESHA Non-Admin Reason: Patient Refused Nystatin (Nystatin Powder 15 Gm Bottle) 1 appl TOPICAL BID [facility]; Protocol Last Admin: 04/12/23 09:17 Dose: 1 appl Documented By: TANESHA Ondansetron HCl (Ondansetron Hcl 4 Mg/2 Ml Vial) 4 mg IVPUSH Q8H PRN PRN Reason: Nausea and Vomiting Oxycodone HCl (Oxycodone Hcl Immed Release 5 Mg Tablet) 5 mg PO Q6H PRN PRN Reason: Pain, Severe (Pain Scale 7-10) Last Admin: 04/11/23 15:39 Dose: 5 mg Documented By: KASSIDY Polyethylene Glycol (Polyethylene Glycol 3350 17 Gm Powd.Pack) 17 gm PO DAILY [facility] Last Admin: 04/12/23 09:17 Dose: Not Given Documented By: TANESHA Non-Admin Reason: Patient Refused Risperidone (Risperidone 0.5 Mg Tablet) 0.5 mg PO BID [facility] Last Admin: 04/12/23 09:17 Dose: Not Given Documented By: TANESHA Non-Admin Reason: Patient Refused Sertraline HCl (Sertraline Hcl 25 Mg Tablet) 25 mg PO DAILY [facility] Last Admin: 04/12/23 09:17 Dose: Not Given Documented By: TANESHA Non-Admin Reason: Patient Refused Sodium Chloride (0.9 % Sodium Chloride Flush 3 Ml Syringe) 3 ml IVFLUSH QSHIFT [facility] Last Admin: 04/12/23 09:15 Dose: 3 ml Documented By: TANESHA Thiamine HCl (Thiamine Hcl 100 Mg Tablet) 100 mg PO DAILY [facility] Last Admin: 04/12/23 09:18 Dose: Not Given Documented By: TANESHA Non-Admin Reason: Patient Refused Labs 04/12/23 05:49 04/12/23 05:49 Labs: Laboratory Results - last 24 hr 04/11/23 04/12/23 04/12/23 21:15 05:49 09:30 MCV 90.3 MCH 26.7 L MCHC 29.5 L RDW 15.8 Plt Count 256 MPV 10.4 Absolute Nucleated RBC 0.000 Nucleated RBC % (auto) 0.0 Anion Gap 15 Estim Creat Clear Calc 34.7 Estimated GFR 27 Random Glucose 86 Calcium 9.0 Urine Color Dark Yellow Urine Appearance Clear Urine pH 5.0 Ur Specific [place] 1.020 Urine Protein Trace Urine Glucose (UA) Negative Urine Ketones Negative Urine Blood Negative Urine Nitrite Negative Ur Leukocyte Esterase Trace H Urine RBC 0-2 Urine WBC 0-5 Ur Squamous Epith Cells 0-2 Urine Bacteria None Seen Hyaline Casts 11-20 Ur Random Sodium < 20.0 Urine Creatinine 193.48 Nasal Screen MRSA (PCR) POSITIVE A Nasal S. aureus Screen POSITIVE A Nasal MRSA/S.aureus Interp SEE NOTE Impressions Paracentesis Ultrasound 04/11/23 12:12 IMPRESSION: Paracentesis with 5 L of fluid drained Chest CT 04/12/23 10:14 IMPRESSION: 1. Left lower lobe consolidation with small left pleural effusion. 2. There is tiny right pleural effusion. 3. There is a hypodense lesion versus a dilated intrahepatic IVC. Also visualized is a second lesion in the right hepatic lobe. Recommend CT correlation without and with contrast. Fleischner guidelines were followed. Assessment and Plan (1) Dementia: Status: Acute Plan d51 77yo F with chronic back pain, presenting with confusion, likely Alzheimer's dementia TETO - appears prerenal with Jacky <20; also check renal US - got albumin yesterday and will give LR today - recheck BMP in AM and consult Nephrology if not improving acute hypoxic resp failure - likely due to PNA +/- restriction from ascites; treat as below and wean O2 as tolerated PNA - PCT high, MRSA swab positive, will treat as HCAP with vanc + pip-freddie after BCx sent malignant ascites/uterine mass - unintentional 30-lb weight loss - s/p paracentesis 02/22/23: 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 including pancreatico-biliary - CA-125 elevated to 299 - seen by French Professor; declined pelvic exam + endometrial biopsy - inform patient about immunostains result, she is not showing much understanding and keeps repeating that she does not want any intervention that will prolong her suffering, since it seems to be a metastatic cancer and with? patient's current clinical condition?with lack of support, likely she will not be a candidate for aggressive treatment; re-assess after guardianship. - repeat US showed large amount ascites so underwent therapeutic tap of 5L on 04/11 dementia, unspecified - likely progressive dementia; memory seems to have been declining over the past several months - [place] Cognitive Assesment (MOCA) : scored 14 - seen by Neurology: probable moderate to severe degenerative dementia, likely Alzheimer's; on sertraline + memantine - seen by Psychiatry: does not have capacity to make medical decisions, now has temporary guardian thiamine deficiency folate deficiency - repleting stage 2 coccygeal ulcer - wound care consult VTE ppx - enoxaparin goals of care - poor prognosis in light of underlying malignancy. Will need to address code status and tube feeding wishes. Will contact pt's guardian as pt does not have competency dispo - LTC pending permanent guardianship Time Spent With Patient Time: Total time managing care of this patient today __50__ minutes. Quality Stroke Does the patient have a stroke diagnosis?: No VTE Prior VTE?: No VTE Risk Level:: Medical - moderate - high VTE Device Contraindication: Treatment Not Indicated VTE Drug Contraindication: N/A - Med Ordered
[2023-04-12] MEDS: Enoxaparin Sodium 40 MG/0.4 ML SYRINGE SUBCUT (13:11)
[2023-04-12] MEDS: Piperacillin Sodium/Tazobactam 3.375 GM in 0.9 % Sodium Chloride 50 ML IV ×2 (13:11→17:38)
[2023-04-12] MEDS: vancomycin/NS 2,000 MG/500 ML PLAST..BAG 250 MG IV (13:12)
[2023-04-12 15:48] VITALS: BP 120/60; PULSE 77; RESP 17; TEMP 36.1; O2SAT 97
[2023-04-12 20:00] VITALS: BP 126/68; PULSE 68; RESP 18; TEMP 36.3; O2SAT 96
[2023-04-12] MEDS: risperiDONE 0.5 MG TABLET PO (20:30)
[2023-04-12] MEDS: Memantine HCl 5 MG TABLET PO (20:30)
--- NOTE | 2023-04-12 23:50 | HO.WOUNDCONS ---
History of Present Illness Data of Consult Service Date: 04/12/23 Requesting physician: Angie Edwards Primary Care Provider: Unknown Physician HPI Reason for consult: sacral wound Pt with multiple med issues - came in over a month ago and had wound care consult on 02/27 for sacral wounds Wounds are still present - seeking direction pt with most likely underlying malignancy andnot doing much to help herself and has not been entirely cooperative with moving as is in pain. Rotated today and there is an area with skin breakdown . Review of Systems Review of Systems: Yes Unobtainable due to mental condition [facility] Medical History Chronic back pain Surgical History History of bilateral knee replacement Social History Household Members: None Housing: House Do you presently have visiting nurse or other home services: No Alcohol intake: never Patient Tobacco Use Status: Never used Tobacco Second Hand Smoke Exposure: No Meds Allergies Allergy/AdvReac Type Severity Reaction Status Date / Time No Known Allergies Allergy Verified 02/21/23 15:25 Active Medications: Current Medications Acetaminophen (Acetaminophen 325 Mg Tablet) 650 mg PO Q6H PRN PRN Reason: Pain, Mild (Pain Scale 1-3) Last Admin: 04/11/23 07:16 Dose: 650 mg Calcium Carbonate (Calcium Carbonate 750 Mg Tab.Chew) 750 mg PO Q6H PRN PRN Reason: Pain, Severe (Pain Scale 7-10) Last Admin: 04/06/23 16:30 Dose: 750 mg Docusate Sodium (Docusate Sodium 100 Mg Capsule) 200 mg PO DAILY [facility] Last Admin: 04/12/23 09:16 Dose: Not Given Enoxaparin Sodium (Enoxaparin Sodium 40 Mg/0.4 Ml Syringe) 40 mg SUBCUT Q24H [facility] Last Admin: 04/12/23 13:11 Dose: 40 mg Folic Acid (Folic Acid 1 Mg Tablet) 1 mg PO DAILY [facility] Last Admin: 04/12/23 09:16 Dose: Not Given Guaifenesin (Guaifenesin 100 Mg/5 Ml Liquid) 5 ml PO Q4H PRN PRN Reason: Cough Sodium Chloride (Ns) 1,000 mls @ 125 mls/hr IVCONT .Q8H [facility] Stop: 04/12/23 23:59 Last Admin: 04/12/23 17:02 Dose: 125 mls/hr Piperacillin Sod/Tazobactam (Sod 3.375 gm/ Sodium Chloride) 50 mls @ 100 mls/hr IV Q6H [facility] Last Infusion: 04/12/23 18:14 Dose: Infused Vancomycin HCl 500 mg/ Sodium (Chloride) 110 mls @ 110 mls/hr IV Q12H [facility] Magnesium Hydroxide (Milk Of Magnesia 30 Ml Oral.Susp) 30 ml PO DAILY PRN PRN Reason: constipation Memantine (Memantine Hcl 5 Mg Tablet) 5 mg PO BID [facility] Last Admin: 04/12/23 20:30 Dose: 5 mg Multivitamins/Vitamin C (Multivitamin Tablet) 1 tab PO DAILY [facility] Last Admin: 04/12/23 09:17 Dose: Not Given Nystatin (Nystatin Powder 15 Gm Bottle) 1 appl TOPICAL BID [facility]; Protocol Last Admin: 04/12/23 20:30 Dose: 1 appl Ondansetron HCl (Ondansetron Hcl 4 Mg/2 Ml Vial) 4 mg IVPUSH Q8H PRN PRN Reason: Nausea and Vomiting Oxycodone HCl (Oxycodone Hcl Immed Release 5 Mg Tablet) 5 mg PO Q6H PRN PRN Reason: Pain, Severe (Pain Scale 7-10) Last Admin: 04/11/23 15:39 Dose: 5 mg Pharmacy Consult (Consult Rx Vancomycin Dosing) 1 each MISCELLANE DAILY [facility] Polyethylene Glycol (Polyethylene Glycol 3350 17 Gm Powd.Pack) 17 gm PO DAILY [facility] Last Admin: 04/12/23 09:17 Dose: Not Given Risperidone (Risperidone 0.5 Mg Tablet) 0.5 mg PO BID [facility] Last Admin: 04/12/23 20:30 Dose: 0.5 mg Sertraline HCl (Sertraline Hcl 25 Mg Tablet) 25 mg PO DAILY [facility] Last Admin: 04/12/23 09:17 Dose: Not Given Sodium Chloride (0.9 % Sodium Chloride Flush 3 Ml Syringe) 3 ml IVFLUSH QSHIFT [facility] Last Admin: 04/12/23 17:01 Dose: Not Given Thiamine HCl (Thiamine Hcl 100 Mg Tablet) 100 mg PO DAILY [facility] Last Admin: 04/12/23 09:18 Dose: Not Given Zinc Oxide (Zinc Oxide 20% Ointment 28.35 Gm Tube) 1 appl TOPICAL DAILY [facility]; Protocol Home Medications Medication Instructions Recorded Confirmed Last Taken Type oxycodone 5 mg tablet 10 mg PO BID PRN pain 02/21/23 02/21/23 Unknown History Physical Exam Vital Signs and Narrative: Vital Signs: Last Vital Signs Temp 97.3 F 04/12/23 20:00 Pulse 68 04/12/23 20:00 Resp 18 04/12/23 20:00 BP 126/68 04/12/23 20:00 Pulse Ox 96 04/12/23 20:00 O2 Del Method Nasal Cannula 04/12/23 20:00 O2 Flow Rate 2 04/12/23 20:00 FiO2 94 04/07/23 00:15 BMI result Body Mass Index 29.3 Skin: Other: sacral area with a large area of erythema dn centrally 3.2 cm area with skin breakdown with slough over fat area0 Results Labs 04/12/23 05:49 04/12/23 05:49 Labs: Laboratory Results - last 24 hr 04/11/23 04/12/23 04/12/23 21:15 05:49 09:30 MCV 90.3 MCH 26.7 L MCHC 29.5 L RDW 15.8 Plt Count 256 MPV 10.4 Absolute Nucleated RBC 0.000 Nucleated RBC % (auto) 0.0 Anion Gap 15 Estim Creat Clear Calc 34.7 Estimated GFR 27 Random Glucose 86 Calcium 9.0 Ur Random Sodium < 20.0 Urine Creatinine 193.48 Nasal Screen MRSA (PCR) POSITIVE A Nasal S. aureus Screen POSITIVE A Nasal MRSA/S.aureus Interp SEE NOTE Imaging Radiologist's Impressions: Impressions Chest CT 04/12/23 10:14 IMPRESSION: 1. Left lower lobe consolidation with small left pleural effusion. 2. There is tiny right pleural effusion. 3. There is a hypodense lesion versus a dilated intrahepatic IVC. Also visualized is a second lesion in the right hepatic lobe. Recommend CT correlation without and with contrast. Fleischner guidelines were followed. Renal Ultrasound 04/12/23 10:21 IMPRESSION: Normal-appearing right kidney. No hydronephrosis. Left kidney not seen. Left kidney appears atrophic on January [address] Assessment and Plan (1) Pressure injury of sacral region, stage 3: Status: Acute Plan Pt with multiple med issues and underlying progressive cancer - unknown definitive etiology - pt giving up and not wanting to move adn cooperate with care at times. bed ridden and her sacral wound is now stage 3 with slough into fat tissue in the central aspect with surrounding deep tissue injury - poor prognosis seeing as to her underlying med issues - suggest dressings with alginate and zinc oxide, repostion q3 hrs and or air mattress. improved pt nutrition with protein support Time Spent With Patient Time: Total time managing care of this patient today ____ minutes.
[2023-04-13] MEDS: Piperacillin Sodium/Tazobactam 3.375 GM in 0.9 % Sodium Chloride 50 ML IV ×5 (01:01→23:26)
[2023-04-13] MEDS: 0.9 % Sodium Chloride Flush 3 ML SYRINGE IVFLUSH ×3 (01:02→19:44)
[2023-04-13] MEDS: vancomycin HCL 500 MG in 0.9 % Sodium Chloride 100 ML 110 MG IV (03:20)
[2023-04-13 03:28] VITALS: BP 98/54; PULSE 69; RESP 16; TEMP 36.6; O2SAT 97
[2023-04-13 06:00] VITALS: BMI 29.9
[2023-04-13 06:41] LABS: Hemoglobin 8.4 g/dl (12.0-16.0); Mean Corpuscular Hemoglobin 26.6 pg (27.0-33.0); Mean Corpuscular Volume 91.8 fL (80.0-98.0); Mean Platelet Volume 10.4 fL (9.4-12.3); Platelet Count 234 X10*3/uL (160-400); Red Blood Count 3.16 X10*6/uL (4.20-5.50); Red Cell Distribution Width 15.9 % (11.0-16.0); White Blood Count 21.4 X10*3/uL (4.8-10.8)
[2023-04-13 07:09] LABS: Anion Gap 13 (12-20); Blood Urea Nitrogen 56 mg/dL (9-16); Calcium 8.5 mg/dL (8.4-10.2); Carbon Dioxide 24 mmol/L (22-29); Chloride 107 mmol/L (96-108); Creatinine Clr Calc Pharmacy 31.8; Estimated Glomerular Filt Rate 25; Glucose Random 93 mg/dL (60-115); Potassium 4.2 mmol/L (3.3-5.1); Sodium 140 mmol/L (135-145)
[2023-04-13 07:28] LABS: Procalcitonin 11.19 ng/mL
[2023-04-13 08:00] VITALS: BP 104/56; PULSE 70; RESP 17; TEMP 36; O2SAT 100
[2023-04-13] MEDS: Lactated Ringers 1,000 ML 150 ML IVCONT (08:02)
[2023-04-13 09:35] LABS: Influenza A PCR NEGATIVE (Negative); Influenza B PCR NEGATIVE (Negative); Resp Syncy Virus RNA Qual PCR NEGATIVE (Negative); SARS COV2 PCR INHOUSE NEGATIVE (Negative)
[2023-04-13] MEDS: Zinc Oxide 20% Ointment 28.35 GM TUBE 1 APPL TOPICAL (10:45)
[2023-04-13] MEDS: Nystatin Powder 15 GM BOTTLE 1 APPL TOPICAL ×2 (10:46→19:54)
--- NOTE | 2023-04-13 11:02 | P.PNIM_ITS ---
Subjective Subjective Date of Service: 04/13/23 Interval History: c/o Ferreira discomfort otherwise unable to obtain ROS- pt confused though awake/alert Review of Systems Review of Systems: Yes Unobtainable due to mental status Physical Exam 2 Vital Signs: Vital Signs: Last Vital Signs Temp 96.8 F 04/13/23 08:00 Pulse 70 04/13/23 08:00 Resp 17 04/13/23 08:00 BP 104/56 L 04/13/23 08:00 Pulse Ox 100 04/13/23 08:00 O2 Del Method Nasal Cannula 04/13/23 08:00 O2 Flow Rate 3.0 04/13/23 08:00 FiO2 94 04/07/23 00:15 BMI result Body Mass Index 29.9 Gen: awake, alert, chronically ill-appearing, no resp distress Neck: supple Lungs: diminished at L base Heart: regular rate and rhythm, no murmurs Abd: non-tense ascites, no fluid leak at paracentesis site Ext: 1+ bilateral leg edema Skin: no rash Neuro: alert and oriented to self but otherwise quite confused with repetitive questioning and profound short-term memory deficit Psych: impaired insight Objective Data Active Medications Acetaminophen (Acetaminophen 325 Mg Tablet) 650 mg PO Q6H PRN PRN Reason: Pain, Mild (Pain Scale 1-3) Last Admin: 04/11/23 07:16 Dose: 650 mg Documented By: KASSIDY Calcium Carbonate (Calcium Carbonate 750 Mg Tab.Chew) 750 mg PO Q6H PRN PRN Reason: Pain, Severe (Pain Scale 7-10) Last Admin: 04/06/23 16:30 Dose: 750 mg Documented By: GURDEEP Docusate Sodium (Docusate Sodium 100 Mg Capsule) 200 mg PO DAILY [facility] Last Admin: 04/13/23 10:44 Dose: Not Given Documented By: JENIFFER Non-Admin Reason: Patient Refused Enoxaparin Sodium (Enoxaparin Sodium 40 Mg/0.4 Ml Syringe) 40 mg SUBCUT Q24H [facility] Last Admin: 04/12/23 13:11 Dose: 40 mg Documented By: TANESHA Folic Acid (Folic Acid 1 Mg Tablet) 1 mg PO DAILY [facility] Last Admin: 04/13/23 10:44 Dose: Not Given Documented By: JENIFFER Non-Admin Reason: Patient Refused Guaifenesin (Guaifenesin 100 Mg/5 Ml Liquid) 5 ml PO Q4H PRN PRN Reason: Cough Piperacillin Sod/Tazobactam (Sod 3.375 gm/ Sodium Chloride) 50 mls @ 100 mls/hr IV Q6H [facility] Last Infusion: 04/13/23 05:47 Dose: Infused Documented By: KIRSTIN Vancomycin HCl 500 mg/ Sodium (Chloride) 110 mls @ 110 mls/hr IV Q12H [facility] Last Infusion: 04/13/23 04:57 Dose: Infused Documented By: KIRSTIN Lactated Ringer's (Lr) 1,000 mls @ 150 mls/hr IVCONT .Q6H40M [facility] Last Admin: 04/13/23 08:02 Dose: 150 mls/hr Documented By: JENIFFER Magnesium Hydroxide (Milk Of Magnesia 30 Ml Oral.Susp) 30 ml PO DAILY PRN PRN Reason: constipation Memantine (Memantine Hcl 5 Mg Tablet) 5 mg PO BID [facility] Last Admin: 04/13/23 10:44 Dose: Not Given Documented By: JENIFFER Non-Admin Reason: Patient Refused Multivitamins/Vitamin C (Multivitamin Tablet) 1 tab PO DAILY [facility] Last Admin: 04/13/23 10:44 Dose: Not Given Documented By: JENIFFER Non-Madeline Reason: Patient Refused Nystatin (Nystatin Powder 15 Gm Bottle) 1 appl TOPICAL BID [facility]; Protocol Last Admin: 04/13/23 10:46 Dose: 1 appl Documented By: JENIFFER Ondansetron HCl (Ondansetron Hcl 4 Mg/2 Ml Vial) 4 mg IVPUSH Q8H PRN PRN Reason: Nausea and Vomiting Oxycodone HCl (Oxycodone Hcl Immed Release 5 Mg Tablet) 5 mg PO Q6H PRN PRN Reason: Pain, Severe (Pain Scale 7-10) Last Admin: 04/11/23 15:39 Dose: 5 mg Documented By: KASSIDY Pharmacy Consult (Consult Rx Vancomycin Dosing) 1 each MISCELLANE DAILY [facility] Polyethylene Glycol (Polyethylene Glycol 3350 17 Gm Powd.Pack) 17 gm PO DAILY [facility] Last Admin: 04/13/23 10:44 Dose: Not Given Documented By: JENIFFER Non-Admin Reason: Patient Refused Risperidone (Risperidone 0.5 Mg Tablet) 0.5 mg PO BID [facility] Last Admin: 04/13/23 10:45 Dose: Not Given Documented By: JENIFFER Non-Admin Reason: Patient Refused Sertraline HCl (Sertraline Hcl 25 Mg Tablet) 25 mg PO DAILY [facility] Last Admin: 04/13/23 10:45 Dose: Not Given Documented By: JENIFFER Non-Admin Reason: Patient Refused Sodium Chloride (0.9 % Sodium Chloride Flush 3 Ml Syringe) 3 ml IVFLUSH QSHIFT [facility] Last Admin: 04/13/23 08:02 Dose: Not Given Documented By: JENIFFER Non-Admin Reason: IV Running Thiamine HCl (Thiamine Hcl 100 Mg Tablet) 100 mg PO DAILY [facility] Last Admin: 04/13/23 10:45 Dose: Not Given Documented By: JENIFFER Non-Admin Reason: Patient Refused Zinc Oxide (Zinc Oxide 20% Ointment 28.35 Gm Tube) 1 appl TOPICAL DAILY [facility]; Protocol Last Admin: 04/13/23 10:45 Dose: 1 appl Documented By: JENIFFER Labs 04/13/23 05:46 04/13/23 05:46 Labs: Laboratory Results - last 24 hr 04/12/23 04/13/23 04/13/23 09:30 05:46 08:31 MCV 91.8 MCH 26.6 L MCHC 29.0 L RDW 15.9 Plt Count 234 MPV 10.4 Absolute Nucleated RBC 0.000 Nucleated RBC % (auto) 0.0 Anion Gap 13 Estim Creat Clear Calc 31.8 Estimated GFR 25 Random Glucose 93 Calcium 8.5 Procalcitonin 11.19 Nasal Screen MRSA (PCR) POSITIVE A Nasal S. aureus Screen POSITIVE A Nasal MRSA/S.aureus Interp SEE NOTE Influenza Type A (PCR) NEGATIVE Influenza Type B (PCR) NEGATIVE RSV RNA Qual (PCR) NEGATIVE SARS-CoV-2 RNA (RT-PCR) NEGATIVE Microbiology Microbiology Results: Microbiology 04/12/23 08:01 Blood Culture - Preliminary Blood - Venous No growth after 24 hours. 04/12/23 08:01 Blood Culture - Preliminary Blood - Venous No growth after 24 hours. 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 including pancreatico-biliary - CA-125 elevated to 299 - seen by [employer]; declined pelvic exam + endometrial biopsy - inform patient about immunostains result, she is not showing much understanding and keeps repeating that she does not want any intervention that will prolong her suffering, since it seems to be a metastatic cancer and with? patient's current clinical condition?with lack of support, likely she will not be a candidate for aggressive treatment; re-assess after guardianship. - repeat US showed large amount ascites so underwent therapeutic tap of 5L on 04/11 dementia, unspecified - likely progressive dementia; memory seems to have been declining over the past several months - [place] Cognitive Assesment (MOCA) : scored 14 - seen by Neurology: probable moderate to severe degenerative dementia, likely Alzheimer's; on sertraline + memantine - seen by Psychiatry: does not have capacity to make medical decisions, now has temporary guardian thiamine deficiency folate deficiency - repleting stage 3 coccygeal ulcer - wound care consulted: VTE ppx - enoxaparin goals of care - poor prognosis in light of underlying malignancy. Will need to address code status and tube feeding wishes. WLeft message with pt's guardian Karla Love yesterday dispo - LTC pending permanent guardianship Time Spent With Patient Time: Total time managing care of this patient today ___50_ minutes. Quality Stroke Does the patient have a stroke diagnosis?: No VTE Prior VTE?: No VTE Risk Level:: Medical - moderate - high VTE Device Contraindication: Treatment Not Indicated VTE Drug Contraindication: N/A - Med Ordered
--- NOTE | 2023-04-13 11:54 | P.CONNP_ITS ---
History of Present Illness Reason for Consult Consult date: 04/13/23 Chief Complaint Chief complaint: SWELLING History of Present Illness Narrative: 77 year old patient with normal baseline kidney function admitted with confusion in the setting of dementia currently with worsening kidney function. Patient also found to have malignant ascites and a uterine mass. She was noted to have intentional 30-lb weight loss. AT the time of the consultation she complains of shortness of breath. Review of her vital signs shows hypotensive episodes. CT scan showed bilateral pleural effusion. Renal US showed an atrophic left kidney but no hydronephrosis. Review of Systems Review of Systems 10 points ROS negative except for [place] [facility] [place] Medical History Medical History Chronic back pain Surgical History Surgical History History of bilateral knee replacement Social History Social History Household Members: None Housing: House Do you presently have visiting nurse or other home services: No Alcohol intake: never Patient Tobacco Use Status: Never used Tobacco Second Hand Smoke Exposure: No Meds Allergies Allergy/AdvReac Type Severity Reaction Status Date / Time No Known Allergies Allergy Verified 02/21/23 15:25 Active Medications: Current Medications Acetaminophen (Acetaminophen 325 Mg Tablet) 650 mg PO Q6H PRN PRN Reason: Pain, Mild (Pain Scale 1-3) Last Admin: 04/11/23 07:16 Dose: 650 mg Calcium Carbonate (Calcium Carbonate 750 Mg Tab.Chew) 750 mg PO Q6H PRN PRN Reason: Pain, Severe (Pain Scale 7-10) Last Admin: 04/06/23 16:30 Dose: 750 mg Docusate Sodium (Docusate Sodium 100 Mg Capsule) 200 mg PO DAILY COUNT INCLUDES [facility] Last Admin: 04/13/23 10:44 Dose: Not Given Enoxaparin Sodium (Enoxaparin Sodium 40 Mg/0.4 Ml Syringe) 40 mg SUBCUT Q24H COUNT INCLUDES THE [facility] Last Admin: 04/12/23 13:11 Dose: 40 mg Folic Acid (Folic Acid 1 Mg Tablet) 1 mg PO DAILY COUNT INCLUDES THE [facility] Last Admin: 04/13/23 10:44 Dose: Not Given Guaifenesin (Guaifenesin 100 Mg/5 Ml Liquid) 5 ml PO Q4H PRN PRN Reason: Cough Piperacillin Sod/Tazobactam (Sod 3.375 gm/ Sodium Chloride) 50 mls @ 100 mls/hr IV Q6H COUNT INCLUDES THE [facility] Last Infusion: 04/13/23 05:47 Dose: Infused Vancomycin HCl 500 mg/ Sodium (Chloride) 110 mls @ 110 mls/hr IV Q12H COUNT INCLUDES THE [facility] Last Infusion: 04/13/23 04:57 Dose: Infused Lactated Ringer's (Lr) 1,000 mls @ 150 mls/hr IVCONT .Q6H40M COUNT INCLUDES THE [facility] Last Admin: 04/13/23 08:02 Dose: 150 mls/hr Magnesium Hydroxide (Milk Of Magnesia 30 Ml Oral.Susp) 30 ml PO DAILY PRN PRN Reason: constipation Memantine (Memantine Hcl 5 Mg Tablet) 5 mg PO BID COUNT INCLUDES THE [facility] Last Admin: 04/13/23 10:44 Dose: Not Given Multivitamins/Vitamin C (Multivitamin Tablet) 1 tab PO DAILY COUNT INCLUDES [facility] Last Admin: 04/13/23 10:44 Dose: Not Given Nystatin (Nystatin Powder 15 Gm Bottle) 1 appl TOPICAL BID COUNT INCLUDES THE [facility]; Protocol Last Admin: 04/13/23 10:46 Dose: 1 appl Ondansetron HCl (Ondansetron Hcl 4 Mg/2 Ml Vial) 4 mg IVPUSH Q8H PRN PRN Reason: Nausea and Vomiting Oxycodone HCl (Oxycodone Hcl Immed Release 5 Mg Tablet) 5 mg PO Q6H PRN PRN Reason: Pain, Severe (Pain Scale 7-10) Last Admin: 04/11/23 15:39 Dose: 5 mg Pharmacy Consult (Consult Rx Vancomycin Dosing) 1 each MISCELLANE DAILY COUNT INCLUDES THE [facility] Polyethylene Glycol (Polyethylene Glycol 3350 17 Gm Powd.Pack) 17 gm PO DAILY COUNT INCLUDES THE [facility] Last Admin: 04/13/23 10:44 Dose: Not Given Risperidone (Risperidone 0.5 Mg Tablet) 0.5 mg PO BID COUNT INCLUDES THE [facility] Last Admin: 04/13/23 10:45 Dose: Not Given Sertraline HCl (Sertraline Hcl 25 Mg Tablet) 25 mg PO DAILY COUNT INCLUDES THE [facility] Last Admin: 04/13/23 10:45 Dose: Not Given Sodium Chloride (0.9 % Sodium Chloride Flush 3 Ml Syringe) 3 ml IVFLUSH QSHIFT COUNT INCLUDES THE [facility] Last Admin: 04/13/23 08:02 Dose: Not Given Thiamine HCl (Thiamine Hcl 100 Mg Tablet) 100 mg PO DAILY [facility] Last Admin: 04/13/23 10:45 Dose: Not Given Zinc Oxide (Zinc Oxide 20% Ointment 28.35 Gm Tube) 1 appl TOPICAL DAILY [facility]; Protocol Last Admin: 04/13/23 10:45 Dose: 1 appl Home Medications Medication Instructions Recorded Confirmed Last Taken Type oxycodone 5 mg tablet 10 mg PO BID PRN pain 02/21/23 02/21/23 Unknown History Physical Exam Vital Signs: Last Vital Signs Temp 96.8 F 04/13/23 08:00 Pulse 70 04/13/23 08:00 Resp 17 04/13/23 08:00 BP 104/56 L 04/13/23 08:00 Pulse Ox 100 04/13/23 08:00 O2 Del Method Nasal Cannula 04/13/23 08:00 O2 Flow Rate 3.0 04/13/23 08:00 FiO2 94 04/07/23 00:15 BMI result Body Mass Index 29.9 Const General: alert and awake HEENT Head: Yes normocephalic and Yes atraumatic Neck Neck: Yes supple Resp Auscultation: diminished lung sounds Cardio Heart sounds: S1 normal heart sound present and S2 normal heart sound present GI Palpation (GI): Soft to palpation and nontender Extrem Right lower extremity: edema Left lower extremity: edema Results Lab Results 04/13/23 05:46 04/13/23 05:46 Lab results: Chemistry 04/11/23 04/12/23 04/13/23 09:19 05:49 05:46 Sodium 139 140 140 Potassium 5.0 4.6 4.2 Carbon Dioxide 26 25 24 BUN 55 H 56 H 56 H Creatinine 1.64 H 1.80 H 1.93 H Calcium 9.5 9.0 8.5 Hematology 04/11/23 04/12/23 04/13/23 09:19 05:49 05:46 WBC 25.0 H 20.8 H 21.4 H Hgb 10.4 L 8.0 L D 8.4 L Plt Count 309 256 234 Urinalysis 04/11/23 21:15 Urine Color Dark Yellow Urine Appearance Clear Urine pH 5.0 Ur Specific [place] 1.020 Urine Protein Trace Urine Glucose (UA) Negative Urine Ketones Negative Urine Blood Negative Urine Nitrite Negative Ur Leukocyte Esterase Trace H Urine RBC 0-2 Urine WBC 0-5 Ur Squamous Epith Cells 0-2 Hyaline Casts 11-20 Urine Studies 04/11/23 21:15 Urine Creatinine 193.48 Assessment and Plan (1) TETO (acute kidney injury): Status: Acute TETO due to compromised kidney perfusion and tubular stress Berta < 20 benign urine sediment renal US negative for hydronephrosis atrophic left kidney normal baseline kidney function REC reduce IVF rate to 75 cc/hr monitor urine output follow kidney function and electrolytes Time Spent With Patient Time: Total time managing care of this patient today ____ minutes. Procedures Date of Service Date of Service: 04/13/23
[2023-04-13] MEDS: Enoxaparin Sodium 40 MG/0.4 ML SYRINGE SUBCUT (12:23)
[2023-04-13 13:56] LABS: Vancomycin Random 15.9 mcg/mL (15-20)
--- NOTE | 2023-04-13 14:06 | HE.PHANOTE ---
RE: VANCO DOSING PT TROUGH 15.9 AFTER ONLY A LOAD AND 1 DOSE OF 500 MG. CHANGE DOSE TO 750 Q24 AND RECHECK LEVEL 04/14 @1300 TO ENSURE SAFETY AND EFFICACY.
[2023-04-13] MEDS: vancomycin HCL 750 MG in 0.9 % Sodium Chloride 250 ML 265 MG IV (14:22)
[2023-04-13 16:10] VITALS: BP 89/50; PULSE 74; RESP 16; TEMP 36.1; O2SAT 98
[2023-04-13] MEDS: Albumin Human 25 % 100 ML IV ×2 (17:44→19:42)
[2023-04-13] MEDS: Lactated Ringers 1,000 ML 75 ML IVCONT (17:45)
[2023-04-13] MEDS: oxyCODONE HCl Immed Release 5 MG TABLET PO (18:04)
[2023-04-13 19:31] VITALS: BP 93/52; PULSE 73; RESP 14; TEMP 36.1; O2SAT 99
[2023-04-13] MEDS: risperiDONE 0.5 MG TABLET PO (19:44)
[2023-04-13] MEDS: Memantine HCl 5 MG TABLET PO (19:44)
[2023-04-14] VITALS (7 sets, daily range): BP systolic 80–114; BP diastolic 49–69; PULSE 66–86; RESP 16–20; TEMP 35.5–36.7; O2SAT 92–100; BMI 30.3
--- NOTE | 2023-04-14 | ECG_ITS ---
Test Reason : tachycardia Blood Pressure : / mmHG Vent. Rate : 078 BPM Atrial Rate : 078 BPM P-R Int : 202 ms QRS Dur : 084 ms QT Int : 376 ms P-R-T Axes : 069 -08 -07 degrees QTc Int : 428 ms Sinus rhythm with Premature supraventricular complexes and with occasional Premature ventricular complexes Low voltage QRS Septal infarct , age undetermined Abnormal ECG When compared with ECG of 21-FEB-2023 16:40, Premature ventricular complexes are now Present Septal infarct is now Present T wave inversion more evident in Inferior leads Nonspecific T wave abnormality now evident in Anterior leads Referred By: Angie Edwards Electronically Signed By:SAMIRA JOHNSTON
[2023-04-14] MEDS: Lactated Ringers 1,000 ML 75 ML IVCONT (05:00)
[2023-04-14] MEDS: Piperacillin Sodium/Tazobactam 3.375 GM in 0.9 % Sodium Chloride 50 ML IV ×3 (05:00→17:17)
[2023-04-14 06:35] LABS: Hematocrit 31.7 % (37.0-47.0); Mean Corpuscular HGB Conc 28.4 g/dl (31.0-35.0); Mean Corpuscular Hemoglobin 26.2 pg (27.0-33.0); Mean Corpuscular Volume 92.4 fL (80.0-98.0); Mean Platelet Volume 9.7 fL (9.4-12.3); Platelet Count 214 X10*3/uL (160-400); Red Blood Count 3.43 X10*6/uL (4.20-5.50); White Blood Count 25.6 X10*3/uL (4.8-10.8)
[2023-04-14 06:58] LABS: Alanine Aminotransferase < 5 U/L (0-31); Albumin Level 2.9 g/dL (3.5-5.0); Alkaline Phosphatase 83 U/L (39-117); Anion Gap 15 (12-20); Aspartate Amino Transferase 18 U/L (5-31); Bilirubin Total 0.3 mg/dL (0.0-1.0); Blood Urea Nitrogen 55 mg/dL (9-16); Calcium 8.7 mg/dL (8.4-10.2); Carbon Dioxide 25 mmol/L (22-29); Chloride 107 mmol/L (96-108); Creatinine Clr Calc Pharmacy 28.5; Estimated Glomerular Filt Rate 22; Glucose Random 91 mg/dL (60-115); Potassium 4.3 mmol/L (3.3-5.1); Sodium 143 mmol/L (135-145); Total Protein 5.2 g/dL (6.5-8.0)
--- NOTE | 2023-04-14 09:16 | MHC.CM.PN ---
PT STILL AWAITING LTC PLACEMENT HOWEVER, A COURT HEARING HAS BEEN REQUESTED FOR CHANGE IN CODE STATUS
--- NOTE | 2023-04-14 09:27 | MHC.CLN ---
F/U DIET=REGULAR. ENSURE MAX PROTEIN BID (300 KCALS, 60 G PROTEIN). SKIN WITH STAGE II TO COCCYX AND REDNESS TO BILATERAL HEELS. SUPPLEMENT TO PROMOTE SKIN INTEGRITY. INTAKE CONTINUES VERY POOR, 0-25%, AND NOT MEETING ESTIMATED NUTRITIONAL NEEDS. RECEIVING LACTATED RINGERS. PATIENT HAS GUARDIAN. CONTINUES TO BE FULL CODE. FOLLOW FOR INTAKE, SKIN INTEGRITY, CODE STATUS.
[2023-04-14] MEDS: Albumin Human 25 % 100 ML IV ×5 (09:46→22:29)
[2023-04-14] MEDS: Midodrine HCl 5 MG TABLET PO ×2 (09:52→20:26)
[2023-04-14] MEDS: 0.9 % Sodium Chloride Flush 3 ML SYRINGE IVFLUSH ×3 (09:52→20:26)
[2023-04-14] MEDS: Nystatin Powder 15 GM BOTTLE 1 APPL TOPICAL ×2 (11:02→22:29)
[2023-04-14] MEDS: Zinc Oxide 20% Ointment 28.35 GM TUBE 1 APPL TOPICAL (11:03)
--- NOTE | 2023-04-14 12:05 | HO.PM.IMPN ---
Subjective Subjective Date of Service: 04/14/23 Interval History: ill-appearing unable to ROS due to dementia/delirium Review of Systems Review of Systems: Yes Unobtainable due to mental status Physical Exam Vital Signs: Vital Signs: Last Vital Signs Temp 95.9 F L 04/14/23 08:00 Pulse 66 04/14/23 08:00 Resp 20 04/14/23 08:00 BP 80/50 L 04/14/23 08:00 Pulse Ox 96 04/14/23 08:00 O2 Del Method Nasal Cannula 04/14/23 08:00 O2 Flow Rate 3 04/14/23 08:00 FiO2 94 04/07/23 00:15 BMI result Body Mass Index 30.3 Gen: awake but tired, chronically ill-appearing, no resp distress Neck: supple Lungs: diminished at L base Heart: regular rate and rhythm, no murmurs Abd: non-tense ascites, no fluid leak at paracentesis site Ext: 1+ bilateral leg edema Skin: no rash Neuro: alert and oriented to self only, profound memory deficit Psych: impaired insight Objective Data Active Medications Acetaminophen (Acetaminophen 325 Mg Tablet) 650 mg PO Q6H PRN PRN Reason: Pain, Mild (Pain Scale 1-3) Last Admin: 04/11/23 07:16 Dose: 650 mg Documented By: KASSIDY Calcium Carbonate (Calcium Carbonate 750 Mg Tab.Chew) 750 mg PO Q6H PRN PRN Reason: Pain, Severe (Pain Scale 7-10) Last Admin: 04/06/23 16:30 Dose: 750 mg Documented By: GURDEEP Docusate Sodium (Docusate Sodium 100 Mg Capsule) 200 mg PO DAILY [facility] Last Admin: 04/14/23 09:56 Dose: Not Given Documented By: JENIFFER Non-Admin Reason: Patient Refused Enoxaparin Sodium (Enoxaparin Sodium 30 Mg/0.3 Ml Syringe) 30 mg SUBCUT Q24H [facility] Folic Acid (Folic Acid 1 Mg Tablet) 1 mg PO DAILY [facility] Last Admin: 04/14/23 09:56 Dose: Not Given Documented By: JENIFFER Non-Admin Reason: Patient Asleep Guaifenesin (Guaifenesin 100 Mg/5 Ml Liquid) 5 ml PO Q4H PRN PRN Reason: Cough Piperacillin Sod/Tazobactam (Sod 3.375 gm/ Sodium Chloride) 50 mls @ 100 mls/hr IV Q6H [facility] Last Infusion: 04/14/23 06:20 Dose: Infused Documented By: NATHANIEL Vancomycin HCl 750 mg/ Sodium (Chloride) 265 mls @ 265 mls/hr IV Q24H [facility] Last Infusion: 04/13/23 15:33 Dose: Infused Documented By: TONY Albumin Human (Kedbumin 25 %) 100 mls @ 100 mls/hr IV Q6H [facility] Stop: 04/16/23 05:29 Magnesium Hydroxide (Milk Of Magnesia 30 Ml Oral.Susp) 30 ml PO DAILY PRN PRN Reason: constipation Memantine (Memantine Hcl 5 Mg Tablet) 5 mg PO BID [facility] Last Admin: 04/14/23 09:56 Dose: Not Given Documented By: JENIFFER Non-Admin Reason: Patient Refused Midodrine (Midodrine Hcl 5 Mg Tablet) 5 mg PO TID [facility] Last Admin: 04/14/23 09:52 Dose: 5 mg Documented By: JENIFFER Multivitamins/Vitamin C (Multivitamin Tablet) 1 tab PO DAILY [facility] Last Admin: 04/14/23 09:56 Dose: Not Given Documented By: JENIFFER Non-Admin Reason: Patient Refused Nystatin (Nystatin Powder 15 Gm Bottle) 1 appl TOPICAL BID [facility]; Protocol Last Admin: 04/14/23 11:02 Dose: 1 appl Documented By: JENIFFER Ondansetron HCl (Ondansetron Hcl 4 Mg/2 Ml Vial) 4 mg IVPUSH Q8H PRN PRN Reason: Nausea and Vomiting Oxycodone HCl (Oxycodone Hcl Immed Release 5 Mg Tablet) 5 mg PO Q6H PRN PRN Reason: Pain, Severe (Pain Scale 7-10) Last Admin: 04/13/23 18:04 Dose: 5 mg Documented By: TONY Pharmacy Consult (Consult Rx Vancomycin Dosing) 1 each MISCELLANE DAILY [facility] Polyethylene Glycol (Polyethylene Glycol 3350 17 Gm Powd.Pack) 17 gm PO DAILY [facility] Last Admin: 04/14/23 09:57 Dose: Not Given Documented By: JENIFFER Non-Admin Reason: Patient Refused Risperidone (Risperidone 0.5 Mg Tablet) 0.5 mg PO BID [facility] Last Admin: 04/14/23 09:57 Dose: Not Given Documented By: JENIFFER Non-Admin Reason: Patient Refused Sertraline HCl (Sertraline Hcl 25 Mg Tablet) 25 mg PO DAILY [facility] Last Admin: 04/14/23 09:57 Dose: Not Given Documented By: JENIFFER Non-Admin Reason: Patient Refused Sodium Chloride (0.9 % Sodium Chloride Flush 3 Ml Syringe) 3 ml IVFLUSH QSHIFT [facility] Last Admin: 04/14/23 09:52 Dose: 3 ml Documented By: JENIFFER Thiamine HCl (Thiamine Hcl 100 Mg Tablet) 100 mg PO DAILY [facility] Last Admin: 04/14/23 09:57 Dose: Not Given Documented By: JENIFFER Non-Admin Reason: Patient Refused Zinc Oxide (Zinc Oxide 20% Ointment 28.35 Gm Tube) 1 appl TOPICAL DAILY [facility]; Protocol Last Admin: 04/14/23 11:03 Dose: 1 appl Documented By: JENIFFER Labs 04/14/23 06:24 04/14/23 06:24 Labs: Laboratory Results - last 24 hr 04/13/23 04/14/23 04/14/23 13:25 06:24 10:12 MCV 92.4 MCH 26.2 L MCHC 28.4 L RDW 16.0 Plt Count 214 MPV 9.7 Absolute Nucleated RBC 0.000 Nucleated RBC % (auto) 0.0 Anion Gap 15 Estim Creat Clear Calc 28.5 Estimated GFR 22 Random Glucose 91 Lactic Acid 1.0 Calcium 8.7 Total Bilirubin 0.3 AST 18 ALT < 5 Alkaline Phosphatase 83 Total Protein 5.2 L Albumin 2.9 L Random Vancomycin 15.9 Microbiology Microbiology Results: Microbiology 04/12/23 08:01 Blood Culture - Preliminary Blood - Venous No growth after 48 hours. 04/12/23 08:01 Blood Culture - Preliminary Blood - Venous No growth after 48 hours. Assessment and Plan (1) Dementia: Status: Acute Plan d53 77yo F with chronic back pain, presenting with confusion, likely Alzheimer's dementia TETO - appears prerenal with Jacky <20; no obstruction; has Ferreira - Nephrology consulted, will give colloid resuscitation acute hypoxic resp failure - likely due to PNA +/- restriction from ascites; treat as below and wean O2 as tolerated PNA - PCT high, MRSA swab positive, send urine antigens for Legionella + pneumococcus, treating as HCAP with vanc + pip-freddie d3, BCx negative thus far malignant ascites/uterine mass - unintentional 30-lb weight loss - s/p paracentesis 02/22/23: 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 including pancreatico-biliary - CA-125 elevated to 299 - seen by Petrophysicist; declined pelvic exam + endometrial biopsy - inform patient about immunostains result, she is not showing much understanding and keeps repeating that she does not want any intervention that will prolong her suffering, since it seems to be a metastatic cancer and with? patient's current clinical condition?with lack of support, likely she will not be a candidate for aggressive treatment; re-assess after guardianship. - repeat US showed large amount ascites so underwent therapeutic tap of 5L on 04/11 dementia, unspecified - likely progressive dementia; memory seems to have been declining over the past several months - [place] Cognitive Assesment (MOCA) : scored 14 - seen by Neurology: probable moderate to severe degenerative dementia, likely Alzheimer's; on sertraline + memantine - seen by Psychiatry: does not have capacity to make medical decisions, now has temporary guardian thiamine deficiency folate deficiency - repleting stage 3 coccygeal ulcer - wound care consulted: ressings with alginate and zinc oxide, repostion q3 hrs and or air mattress VTE ppx - enoxaparin goals of care - poor prognosis in light of underlying malignancy. Will need to address code status and tube feeding wishes. Left message with pt's guardian Karla Love 04/12/[address] to revise code status. In meanwhile will consult ICU for 2nd physician opinion regarding resuscitative measures dispo - LTC pending permanent guardianship Time Spent With Patient Time: Total time managing care of this patient today __50__ minutes. Quality Stroke Does the patient have a stroke diagnosis?: No VTE Prior VTE?: No VTE Risk Level:: Medical - moderate - high VTE Device Contraindication: Treatment Not Indicated VTE Drug Contraindication: N/A - Med Ordered
[2023-04-14 13:14] LABS: Vancomycin Random 18.3 mcg/mL (15-20)
--- NOTE | 2023-04-14 13:30 | HE.PHANOTE ---
RE: VANCO DOSING SCR SLOWLY TRENDING UP. TROUGH THERAPEUTIC AT 18.3 BUT HIGHER THAN INSIGHT THINKS IT SHOULD BE. WILL KEEP CURRENT DOSING REGIMEN BUT RECHECK TROUGH 04/15 @1300 AND MONITOR SCR DAILY.
[2023-04-14] MEDS: Enoxaparin Sodium 30 MG/0.3 ML SYRINGE SUBCUT (13:46)
--- NOTE | 2023-04-14 14:18 | P.CONCC_ITS ---
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 placement has a court-appointed proxy but unable however to determine code status and asked to see her because she is persistently and relatively hypotensive and hypothermic and lethargic and has been refusing treatment but currently on vancomycin and Zosyn and having wound care look at a a sacral [place] [id number] but we have no differential with that and over the days we have gradually increasing BUN and creatinine but thus far non oliguric and and a urine sodium of less than 20 and I did a bedside echo which showed demonstrated at least a mild degree of concentric left ventricular hypertrophy but hyperdynamic globally normal systolic wall motion no segmental wall motion abnormality no significant primary valve or pericardial disease and she probably hypo nutritional has could significant hypoalbuminemia as well as hypoproteinemia and I reviewed her scans on the chest we have bilateral but left greater than right pleural effusions which I also noted on my echo possible pleural mass that I sore on my echo but she has got infiltrate versus atelectasis there with consolidative findings left lower lobe possible debris in in that the left bronchus I can not rule out aspiration as a problem and also very large volume ascites recently over 3 L having been removed I have reviewed the pathology from the previous peritoneal fluid sampling indicating an adenocarcinoma most likely of GI origin and not necessarily ovarian or uterine But the current imaging indicates what looks like bilateral metastatic disease to the lung of course with the bilateral pleural effusions and the significant ascites in all likelihood representing metastatic implants to the peritoneum A good deal of what we may be seeing might just simply be a manifestation of advanced stage IV metastatic disease with a GI primary Review of Systems 2 Review of Systems: Yes Unobtainable due to mental status PMFSH Past Medical History Medical History Chronic back pain Surgical History Surgical History History of bilateral knee replacement Social History Social History Household Members: None Housing: House Do you presently have visiting nurse or other home services: No Alcohol intake: never Patient Tobacco Use Status: Never used Tobacco Second Hand Smoke Exposure: No Meds Allergies Allergy/AdvReac Type Severity Reaction Status Date / Time No Known Allergies Allergy Verified 02/21/23 15:25 Active Medications: Current Medications Acetaminophen (Acetaminophen 325 Mg Tablet) 650 mg PO Q6H PRN PRN Reason: Pain, Mild (Pain Scale 1-3) Last Admin: 04/11/23 07:16 Dose: 650 mg Calcium Carbonate (Calcium Carbonate 750 Mg Tab.Chew) 750 mg PO Q6H PRN PRN Reason: Pain, Severe (Pain Scale 7-10) Last Admin: 04/06/23 16:30 Dose: 750 mg Docusate Sodium (Docusate Sodium 100 Mg Capsule) 200 mg PO DAILY [facility] Last Admin: 04/14/23 09:56 Dose: Not Given Enoxaparin Sodium (Enoxaparin Sodium 30 Mg/0.3 Ml Syringe) 30 mg SUBCUT Q24H [facility] Last Admin: 04/14/23 13:46 Dose: 30 mg Folic Acid (Folic Acid 1 Mg Tablet) 1 mg PO DAILY [facility] Last Admin: 04/14/23 09:56 Dose: Not Given Guaifenesin (Guaifenesin 100 Mg/5 Ml Liquid) 5 ml PO Q4H PRN PRN Reason: Cough Piperacillin Sod/Tazobactam (Sod 3.375 gm/ Sodium Chloride) 50 mls @ 100 mls/hr IV Q6H [facility] Last Admin: 04/14/23 13:46 Dose: 100 mls/hr Vancomycin HCl 750 mg/ Sodium (Chloride) 265 mls @ 265 mls/hr IV Q24H [facility] Last Infusion: 04/13/23 15:33 Dose: Infused Albumin Human (Kedbumin 25 %) 100 mls @ 100 mls/hr IV Q6H [facility] Stop: 04/16/23 05:29 Last Infusion: 04/14/23 13:29 Dose: Infused Magnesium Hydroxide (Milk Of Magnesia 30 Ml Oral.Susp) 30 ml PO DAILY PRN PRN Reason: constipation Memantine (Memantine Hcl 5 Mg Tablet) 5 mg PO BID [facility] Last Admin: 04/14/23 09:56 Dose: Not Given Midodrine (Midodrine Hcl 5 Mg Tablet) 5 mg PO TID [facility] Last Admin: 04/14/23 09:52 Dose: 5 mg Multivitamins/Vitamin C (Multivitamin Tablet) 1 tab PO DAILY [facility] Last Admin: 04/14/23 09:56 Dose: Not Given Nystatin (Nystatin Powder 15 Gm Bottle) 1 appl TOPICAL BID [facility]; Protocol Last Admin: 04/14/23 11:02 Dose: 1 appl Ondansetron HCl (Ondansetron Hcl 4 Mg/2 Ml Vial) 4 mg IVPUSH Q8H PRN PRN Reason: Nausea and Vomiting Oxycodone HCl (Oxycodone Hcl Immed Release 5 Mg Tablet) 5 mg PO Q6H PRN PRN Reason: Pain, Severe (Pain Scale 7-10) Last Admin: 04/13/23 18:04 Dose: 5 mg Pharmacy Consult (Consult Rx Vancomycin Dosing) 1 each MISCELLANE DAILY [facility] Polyethylene Glycol (Polyethylene Glycol 3350 17 Gm Powd.Pack) 17 gm PO DAILY [facility] Last Admin: 04/14/23 09:57 Dose: Not Given Risperidone (Risperidone 0.5 Mg Tablet) 0.5 mg PO BID [facility] Last Admin: 04/14/23 09:57 Dose: Not Given Sertraline HCl (Sertraline Hcl 25 Mg Tablet) 25 mg PO DAILY [facility] Last Admin: 04/14/23 09:57 Dose: Not Given Sodium Chloride (0.9 % Sodium Chloride Flush 3 Ml Syringe) 3 ml IVFLUSH QSHIFT [facility] Last Admin: 04/14/23 09:52 Dose: 3 ml Thiamine HCl (Thiamine Hcl 100 Mg Tablet) 100 mg PO DAILY [facility] Last Admin: 04/14/23 09:57 Dose: Not Given Zinc Oxide (Zinc Oxide 20% Ointment 28.35 Gm Tube) 1 appl TOPICAL DAILY [facility]; Protocol Last Admin: 04/14/23 11:03 Dose: 1 appl Home Medications Medication Instructions Recorded Confirmed Last Taken Type oxycodone 5 mg tablet 10 mg PO BID PRN pain 02/21/23 02/21/23 Unknown History Physical Exam 2 Vital Signs: Vital Signs: Last Vital Signs Temp 98.1 F 04/14/23 13:28 Pulse 78 04/14/23 13:28 Resp 18 04/14/23 13:28 BP 100/57 L 04/14/23 13:28 Pulse Ox 95 04/14/23 13:28 O2 Del Method Nasal Cannula 04/14/23 13:28 O2 Flow Rate 2 04/14/23 13:28 FiO2 94 04/07/23 00:15 BMI result Body Mass Index 30.3 Very lethargic somewhat agitated just simply asking to be left alone Blood pressure hovering close to 100 systolic in normal sinus rhythm with normal LV function by bedside echo no pericardial effusion Abdomen is distended and uncomfortable with any exam clearly a significant persistent fluid wave Lungs with diminished breath sounds at the left base in particular no other adventitious sounds no use of accessory muscles no diaphragmatic effort Considerable skin breakdown presacral E Results Labs 04/14/23 06:24 04/14/23 06:24 Labs: Short CBC 04/14/23 Range/Units 06:24 WBC 25.6 H (4.8-10.8) X10*3/uL Hgb 9.0 L (12.0-16.0) g/dl Hct 31.7 L (37.0-47.0) % Plt Count 214 (160-400) X10*3/uL BMP 04/14/23 06:24 Sodium 143 Potassium 4.3 Chloride 107 Carbon Dioxide 25 BUN 55 H Creatinine 2.17 H Calcium 8.7 Liver Function 04/14/23 Range/Units 06:24 Total Bilirubin 0.3 (0.0-1.0) mg/dL AST 18 (5-31) U/L ALT < 5 (0-31) U/L Alkaline Phosphatase 83 (39-117) U/L Albumin 2.9 L (3.5-5.0) g/dL Microbiology Microbiology Results: Microbiology 04/12/23 08:01 Blood - Venous Blood Culture - Preliminary No growth after 48 hours. 04/12/23 08:01 Blood - Venous Blood Culture - Preliminary No growth after 48 hours. 02/22/23 15:03 Ascites Fluid Direct Acid Fast Bacilli Smear - Final 02/22/23 15:03 Ascites Fluid Gram Stain - Final 02/22/23 15:03 Ascites Fluid Routine Culture - Final No growth after 2 days 02/22/23 15:03 Ascites Fluid Anaerobic Culture - Final NO GROWTH AFTER 5 DAYS 02/21/23 18:39 Blood - Venous Blood Culture - Final No growth after 5 days. 02/21/23 18:39 Blood - Venous Blood Culture - Final No growth after 5 days. 02/21/23 16:34 Urine clean catch - Urine cheung top Urine Culture - Final Assessment and Plan (1) Pressure injury of sacral region, stage 3: Status: Acute (2) Dementia: Status: Acute (3) Cognitive impairment: Status: Acute (4) Encephalopathy: Status: Acute (5) Delirium due to another medical condition: Status: Acute (6) Weight loss: Status: Acute (7) Lower extremity edema: Status: Acute (8) Hypoalbuminemia: Status: Acute (9) Ascites: Status: Acute (10) Urinary tract infection: Status: Acute (11) TETO (acute kidney injury): Status: Acute (12) Uterine mass: Status: Acute (13) Hypothermia: Status: Acute (14) 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: Status: Acute (15) Pleural effusion due to another disorder: Status: Acute (16) SIRS (systemic inflammatory response syndrome): Status: Acute Plan Unfortunate 77-year-old a clearly with a stage IV widely metastatic adenocarcinoma of unknown origin at this point possibly a GI primary markedly hypo protein the enzo and hypoalbuminemic with anasarca Currently a clinical SIRS which could just as easily be from very advanced metastatic adenocarcinoma but of course cannot rule out possible aspiration with nosocomial left lower lobe pneumonia or him another considerable open source is the and necrotic presacral area and the antibiotic coverage itself is adequate but the renal insufficiency continues to worsen the urine sodium of course is still implying that effective arterial volume is relatively an adequate but most of the fluid are going to give her is going to 3rd space and certainly worsen the the anasarca and I think it at some point with such advanced disease somebody should institute comfort measures for this lady this is not something that is going to be at all improved in an ICU with pressors II think that is at the very least an ineffective and therefore wrong approach Time Spent With Patient Time: Total time managing care of this patient today _45___ minutes.
[2023-04-14] MEDS: vancomycin HCL 750 MG in 0.9 % Sodium Chloride 250 ML 265 MG IV (14:43)
--- NOTE | 2023-04-14 16:09 | PC.NURSE ---
Patient hypotensive 80/50, hypothermic 95.9. Patient drowsy but arouses easily. Dr. Edwards notified. Albumin ordered and given. Lactic ordered 1.0. Telemonitor ordered. Sinus rhythm-sinus tach with frequent PVC's and PAC's. EKG obtained. Jay hugger applied for hypothermia. BP improved with each dose of albumin. 100/57. Temp 98.1 after 2 hours on jay hugger. Patient more alert this afternoon. Requesting sips of water. Ferreira cath in place. Urine output 100cc for 7a-3p. Dry Jerry aware.
--- NOTE | 2023-04-14 18:11 | P.PNNP_ITS ---
Subjective Subjective Date of Service: 04/14/23 Interval history: ill-appearing; All recent data reviewed; D/W hospitalist ad RN unable to ROS due to dementia/delirium Physical Exam 2 Vital Signs: Vital Signs: Last Vital Signs Temp 98.1 F 04/14/23 13:28 Pulse 77 04/14/23 15:29 Resp 16 04/14/23 15:29 BP 92/54 L 04/14/23 15:29 Pulse Ox 92 04/14/23 15:29 O2 Del Method Nasal Cannula 04/14/23 15:29 O2 Flow Rate 3 04/14/23 15:29 FiO2 94 04/07/23 00:15 BMI result Body Mass Index 30.3 Const: Other: Ill appearing Eyes: EOM: EOMs intact bilaterally Neck: Neck: Yes supple Resp: Auscultation: diminished lung sounds Cardio: Rate: regular rate GI: Palpation (GI): Soft to palpation Neuro: Other: Alert Objective Data Labs 04/14/23 06:24 04/14/23 06:24 Labs: Laboratory Results - last 24 hr 04/14/23 04/14/23 06:24 10:12 WBC 25.6 H RBC 3.43 L Hgb 9.0 L Hct 31.7 L MCV 92.4 MCH 26.2 L MCHC 28.4 L RDW 16.0 Plt Count 214 MPV 9.7 Absolute Nucleated RBC 0.000 Nucleated RBC % (auto) 0.0 Sodium 143 Potassium 4.3 Chloride 107 Carbon Dioxide 25 Anion Gap 15 BUN 55 H Creatinine 2.17 H Estim Creat Clear Calc 28.5 Estimated GFR 22 Random Glucose 91 Lactic Acid 1.0 Calcium 8.7 Total Bilirubin 0.3 AST 18 ALT < 5 Alkaline Phosphatase 83 Total Protein 5.2 L Albumin 2.9 L Random Vancomycin 18.3 Microbiology Microbiology Results: Microbiology 04/12/23 08:01 Blood - Venous Blood Culture - Preliminary No growth after 48 hours. 04/12/23 08:01 Blood - Venous Blood Culture - Preliminary No growth after 48 hours. 02/22/23 15:03 Ascites Fluid Direct Acid Fast Bacilli Smear - Final 02/22/23 15:03 Ascites Fluid Gram Stain - Final 02/22/23 15:03 Ascites Fluid Routine Culture - Final No growth after 2 days 02/22/23 15:03 Ascites Fluid Anaerobic Culture - Final NO GROWTH AFTER 5 DAYS 02/21/23 18:39 Blood - Venous Blood Culture - Final No growth after 5 days. 02/21/23 18:39 Blood - Venous Blood Culture - Final No growth after 5 days. 02/21/23 16:34 Urine clean catch - Urine cheung top Urine Culture - Final Procedures Date of Service Date of Service: 04/14/23 Assessment & Plan Assessment and plan (1) TETO (acute kidney injury): Status: Acute Assessment and Plan: TETO due to compromised kidney perfusion and tubular stress Has benign urine sediment renal US negative for hydronephrosis atrophic left kidney normal baseline kidney function Serum creatinine not plateaued IV colloid; Not a candidate for renal replacement Labs AM Progress Note: Quality Stroke Does the patient have a stroke diagnosis?: No
[2023-04-14] MEDS: risperiDONE 0.5 MG TABLET PO (20:26)
[2023-04-14] MEDS: Memantine HCl 5 MG TABLET PO (20:26)
--- NOTE | 2023-04-15 | ECG_ITS ---
Test Reason : with rhythm strip please Blood Pressure : / mmHG Vent. Rate : 075 BPM Atrial Rate : 075 BPM P-R Int : 222 ms QRS Dur : 080 ms QT Int : 382 ms P-R-T Axes : 088 -14 -16 degrees QTc Int : 426 ms Poor data quality, interpretation may be adversely affected Sinus rhythm with 1st degree A-V block Low voltage QRS Septal infarct (cited on or before 14-APR-2023) Possible Lateral infarct , age undetermined Possible Inferior infarct , age undetermined Abnormal ECG When compared with ECG of 14-APR-2023 11:30, Premature supraventricular complexes are no longer Present Premature ventricular complexes are no longer Present Borderline criteria for Lateral infarct are now Present Referred By: Angie Edwards Electronically Signed By:SAMIRA JOHNSTON
[2023-04-15] MEDS: Piperacillin Sodium/Tazobactam 3.375 GM in 0.9 % Sodium Chloride 50 ML IV ×4 (00:01→17:50)
[2023-04-15 03:22] VITALS: BP 98/56; PULSE 73; RESP 20; TEMP 36.4; O2SAT 96
[2023-04-15] MEDS: Acetaminophen 325 MG TABLET 650 MG PO (03:50)
[2023-04-15] MEDS: Albumin Human 25 % 100 ML IV ×4 (04:31→22:37)
[2023-04-15 06:37] LABS: Hematocrit 25.6 % (37.0-47.0); Hemoglobin 7.3 g/dl (12.0-16.0); Mean Corpuscular HGB Conc 28.5 g/dl (31.0-35.0); Mean Corpuscular Hemoglobin 26.3 pg (27.0-33.0); Mean Corpuscular Volume 92.1 fL (80.0-98.0); Mean Platelet Volume 10.4 fL (9.4-12.3); Platelet Count 206 X10*3/uL (160-400); Red Blood Count 2.78 X10*6/uL (4.20-5.50)
[2023-04-15 06:58] LABS: Anion Gap 17 (12-20); Blood Urea Nitrogen 56 mg/dL (9-16); Calcium 8.7 mg/dL (8.4-10.2); Carbon Dioxide 21 mmol/L (22-29); Chloride 108 mmol/L (96-108); Creatinine Clr Calc Pharmacy 26.9; Estimated Glomerular Filt Rate 21; Glucose Random 70 mg/dL (60-115); Sodium 142 mmol/L (135-145)
[2023-04-15 07:14] LABS: Procalcitonin 11.25 ng/mL
[2023-04-15 07:46] VITALS: BP 90/60; PULSE 89; RESP 12; TEMP 36.7; O2SAT 89
[2023-04-15] MEDS: Zinc Oxide 20% Ointment 28.35 GM TUBE 1 APPL TOPICAL (10:10)
[2023-04-15] MEDS: 0.9 % Sodium Chloride Flush 3 ML SYRINGE IVFLUSH ×3 (10:11→21:01)
[2023-04-15] MEDS: Nystatin Powder 15 GM BOTTLE 1 APPL TOPICAL ×2 (10:14→21:04)
--- NOTE | 2023-04-15 11:14 | P.PNIM_ITS ---
Subjective Subjective Date of Service: 04/15/23 Interval History: BP improved, more alert today though still very confused denies dyspnea or abd pain Review of Systems Review of Systems: Yes all other systems are reviewed and are negative Physical Exam 2 Vital Signs: Vital Signs: Last Vital Signs Temp 98.1 F 04/15/23 07:46 Pulse 89 04/15/23 07:46 Resp 12 04/15/23 07:46 BP 90/60 04/15/23 07:46 Pulse Ox 89 L 04/15/23 07:46 O2 Del Method Nasal Cannula 04/15/23 07:46 O2 Flow Rate 3 04/15/23 07:46 FiO2 94 04/07/23 00:15 BMI result Body Mass Index 30.3 Gen: awake but tired, chronically ill-appearing, no resp distress Neck: supple Lungs: diminished at L base Heart: regular rate and rhythm, no murmurs Abd: non-tense ascites, no fluid leak at paracentesis site Ext: 2+ bilateral leg edema Skin: no rash Neuro: alert and oriented to self only, profound memory deficit Psych: impaired insight Objective Data Active Medications Acetaminophen (Acetaminophen 325 Mg Tablet) 650 mg PO Q6H PRN PRN Reason: Pain, Mild (Pain Scale 1-3) Last Admin: 04/15/23 03:50 Dose: 650 mg Documented By: DAVE Calcium Carbonate (Calcium Carbonate 750 Mg Tab.Chew) 750 mg PO Q6H PRN PRN Reason: Pain, Severe (Pain Scale 7-10) Last Admin: 04/06/23 16:30 Dose: 750 mg Documented By: GURDEEP Docusate Sodium (Docusate Sodium 100 Mg Capsule) 200 mg PO DAILY [facility] Last Admin: 04/15/23 10:15 Dose: Not Given Documented By: KELLY Non-Admin Reason: Patient Refused Enoxaparin Sodium (Enoxaparin Sodium 30 Mg/0.3 Ml Syringe) 30 mg SUBCUT Q24H [facility] Last Admin: 04/14/23 13:46 Dose: 30 mg Documented By: JENIFFER Folic Acid (Folic Acid 1 Mg Tablet) 1 mg PO DAILY [facility] Last Admin: 04/15/23 10:15 Dose: Not Given Documented By: KELLY Non-Admin Reason: Patient Refused Guaifenesin (Guaifenesin 100 Mg/5 Ml Liquid) 5 ml PO Q4H PRN PRN Reason: Cough Piperacillin Sod/Tazobactam (Sod 3.375 gm/ Sodium Chloride) 50 mls @ 100 mls/hr IV Q6H [facility] Last Infusion: 04/15/23 06:06 Dose: Infused Documented By: DAVE Vancomycin HCl 750 mg/ Sodium (Chloride) 265 mls @ 265 mls/hr IV Q24H [facility] Last Infusion: 04/14/23 16:06 Dose: Infused Documented By: MECHELLE Albumin Human (Kedbumin 25 %) 100 mls @ 100 mls/hr IV Q6H [facility] Stop: 04/16/23 05:29 Last Admin: 04/15/23 10:07 Dose: 100 mls/hr Documented By: KELLY Magnesium Hydroxide (Milk Of Magnesia 30 Ml Oral.Susp) 30 ml PO DAILY PRN PRN Reason: constipation Memantine (Memantine Hcl 5 Mg Tablet) 5 mg PO BID [facility] Last Admin: 04/15/23 10:15 Dose: Not Given Documented By: KELLY Non-Admin Reason: Patient Refused Midodrine (Midodrine Hcl 5 Mg Tablet) 5 mg PO TID [facility] Last Admin: 04/15/23 10:15 Dose: Not Given Documented By: KELLY Non-Admin Reason: Patient Refused Multivitamins/Vitamin C (Multivitamin Tablet) 1 tab PO DAILY [facility] Last Admin: 04/15/23 10:14 Dose: Not Given Documented By: KELLY Non-Admin Reason: Patient Refused Nystatin (Nystatin Powder 15 Gm Bottle) 1 appl TOPICAL BID [facility]; Protocol Last Admin: 04/15/23 10:14 Dose: 1 appl Documented By: KELLY Ondansetron HCl (Ondansetron Hcl 4 Mg/2 Ml Vial) 4 mg IVPUSH Q8H PRN PRN Reason: Nausea and Vomiting Pharmacy Consult (Consult Rx Vancomycin Dosing) 1 each MISCELLANE DAILY [facility] Polyethylene Glycol (Polyethylene Glycol 3350 17 Gm Powd.Pack) 17 gm PO DAILY [facility] Last Admin: 04/15/23 10:16 Dose: Not Given Documented By: KELLY Non-Admin Reason: Patient Refused Risperidone (Risperidone 0.5 Mg Tablet) 0.5 mg PO BID [facility] Last Admin: 04/15/23 10:16 Dose: Not Given Documented By: KELLY Non-Admin Reason: Patient Refused Sertraline HCl (Sertraline Hcl 25 Mg Tablet) 25 mg PO DAILY [facility] Last Admin: 04/15/23 10:16 Dose: Not Given Documented By: KELLY Non-Admin Reason: Patient Refused Sodium Chloride (0.9 % Sodium Chloride Flush 3 Ml Syringe) 3 ml IVFLUSH QSHIFT [facility] Last Admin: 04/15/23 10:11 Dose: 3 ml Documented By: KELLY Thiamine HCl (Thiamine Hcl 100 Mg Tablet) 100 mg PO DAILY [facility] Last Admin: 04/15/23 10:16 Dose: Not Given Documented By: KELLY Non-Admin Reason: Patient Refused Zinc Oxide (Zinc Oxide 20% Ointment 28.35 Gm Tube) 1 appl TOPICAL DAILY [facility]; Protocol Last Admin: 04/15/23 10:10 Dose: 1 appl Documented By: KELLY Labs 04/15/23 05:47 04/15/23 05:47 Labs: Laboratory Results - last 24 hr 04/14/23 04/15/23 10:12 05:47 MCV 92.1 MCH 26.3 L MCHC 28.5 L RDW 16.0 Plt Count 206 MPV 10.4 Absolute Nucleated RBC 0.000 Nucleated RBC % (auto) 0.0 Anion Gap 17 Estim Creat Clear Calc 26.9 Estimated GFR 21 Random Glucose 70 Calcium 8.7 Magnesium 2.0 Procalcitonin 11.25 Random Vancomycin 18.3 Microbiology Microbiology Results: Microbiology 04/12/23 08:01 Blood Culture - Preliminary Blood - Venous No growth after 48 hours. 04/12/23 08:01 Blood Culture - Preliminary Blood - Venous No growth after 48 hours. Assessment and Plan (1) Dementia: Status: Acute Plan d54 77yo F with chronic back pain, presenting with confusion, likely Alzheimer's dementia TETO - appears prerenal with Jacky <20; no obstruction; has Ferreira - Nephrology consulted, will continue colloid resuscitation acute hypoxic resp failure - likely due to PNA +/- restriction from ascites; treat as below and wean O2 as tolerated PNA - PCT high, MRSA swab positive, sent urine antigens for Legionella + pneumococcus, treating as HCAP with vanc + pip-freddie d4, BCx negative thus far malignant ascites/uterine mass - unintentional 30-lb weight loss - s/p paracentesis 02/22/23: 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 including pancreatico-biliary - CA-125 elevated to 299 - seen by Journeyman Operator Assistant; declined pelvic exam + endometrial biopsy - inform patient about immunostains result, she is not showing much understanding and keeps repeating that she does not want any intervention that will prolong her suffering, since it seems to be a metastatic cancer and with? patient's current clinical condition?with lack of support, likely she will not be a candidate for aggressive treatment; re-assess after guardianship. - repeat US showed large amount ascites so underwent therapeutic tap of 5L on 04/11 dementia, unspecified - likely progressive dementia; memory seems to have been declining over the past several months - [place] Cognitive Assesment (MOCA) : scored 14 - seen by Neurology: probable moderate to severe degenerative dementia, likely Alzheimer's; on sertraline + memantine - seen by Psychiatry: does not have capacity to make medical decisions, now has temporary guardian thiamine deficiency folate deficiency - repleting stage 3 coccygeal ulcer - wound care consulted: ressings with alginate and zinc oxide, repostion q3 hrs and or air mattress VTE ppx - enoxaparin goals of care - poor prognosis in light of underlying malignancy. Will need to address code status and tube feeding wishes. Left message with pt's guardian Karla Love 04/12/[address] to revise code status. In meanwhile consulted fire control assistant who agrees that coding the pt would be medically futile dispo - LTC pending permanent guardianship Time Spent With Patient Time: Total time managing care of this patient today __45__ minutes. Quality Stroke Does the patient have a stroke diagnosis?: No VTE Prior VTE?: No VTE Risk Level:: Medical - moderate - high VTE Device Contraindication: Treatment Not Indicated VTE Drug Contraindication: N/A - Med Ordered
[2023-04-15 13:36] LABS: Vancomycin Random 21.9 mcg/mL (15-20)
--- NOTE | 2023-04-15 13:45 | P.PNNP_ITS ---
Subjective Subjective Date of Service: 04/15/23 Interval history: More alert today though still very confused Physical Exam 2 Vital Signs: Vital Signs: Last Vital Signs Temp 98.1 F 04/15/23 07:46 Pulse 89 04/15/23 07:46 Resp 12 04/15/23 07:46 BP 90/60 04/15/23 07:46 Pulse Ox 89 L 04/15/23 07:46 O2 Del Method Nasal Cannula 04/15/23 07:46 O2 Flow Rate 3 04/15/23 07:46 FiO2 94 04/07/23 00:15 BMI result Body Mass Index 30.3 Const: General: no acute distress Orientation/consciousness: oriented to person Eyes: EOM: EOMs intact bilaterally Neck: Neck: Yes supple Resp: Auscultation: diminished lung sounds Cardio: Rate: regular rate GI: Palpation (GI): Soft to palpation Neuro: General: oriented to person Objective Data Labs 04/15/23 05:47 04/15/23 05:47 Labs: Laboratory Results - last 24 hr 04/15/23 04/15/23 05:47 13:06 WBC 23.0 H RBC 2.78 L Hgb 7.3 L Hct 25.6 L MCV 92.1 MCH 26.3 L MCHC 28.5 L RDW 16.0 Plt Count 206 MPV 10.4 Absolute Nucleated RBC 0.000 Nucleated RBC % (auto) 0.0 Sodium 142 Potassium 4.0 Chloride 108 Carbon Dioxide 21 L Anion Gap 17 BUN 56 H Creatinine 2.29 H Estim Creat Clear Calc 26.9 Estimated GFR 21 Random Glucose 70 Calcium 8.7 Magnesium 2.0 Procalcitonin 11.25 Random Vancomycin 21.9 H Microbiology Microbiology Results: Microbiology 04/12/23 08:01 Blood - Venous Blood Culture - Preliminary No growth after 48 hours. 04/12/23 08:01 Blood - Venous Blood Culture - Preliminary No growth after 48 hours. 02/22/23 15:03 Ascites Fluid Direct Acid Fast Bacilli Smear - Final 02/22/23 15:03 Ascites Fluid Gram Stain - Final 02/22/23 15:03 Ascites Fluid Routine Culture - Final No growth after 2 days 02/22/23 15:03 Ascites Fluid Anaerobic Culture - Final NO GROWTH AFTER 5 DAYS 02/21/23 18:39 Blood - Venous Blood Culture - Final No growth after 5 days. 02/21/23 18:39 Blood - Venous Blood Culture - Final No growth after 5 days. 02/21/23 16:34 Urine clean catch - Urine cheung top Urine Culture - Final Procedures Date of Service Date of Service: 04/15/23 Assessment & Plan Assessment and plan (1) TETO (acute kidney injury): Status: Acute Assessment and Plan: TETO due to compromised kidney perfusion and tubular stress Has benign urine sediment; renal US negative for hydronephrosis atrophic left kidney; normal baseline kidney function Serum creatinine plateauing; On IV colloid Not a candidate for renal replacement; Prognosis guarded Labs AM Progress Note: Quality Stroke Does the patient have a stroke diagnosis?: No
--- NOTE | 2023-04-15 14:11 | HE.PHANOTE ---
VANCO DOSE ADJUSTMENT BASED ON SCR INCREASE AND TROUGH OF 21.9 DOSE HELD UNTIL 04/16 @0900. NEXT TROUGH 04/16 @ 0700
[2023-04-15 15:59] VITALS: BP 96/52; PULSE 73; RESP 18; TEMP 36; O2SAT 99
[2023-04-15 19:55] VITALS: BP 100/55; PULSE 71; RESP 20; TEMP 36.2; O2SAT 97
[2023-04-15] MEDS: Memantine HCl 5 MG TABLET PO (21:00)
[2023-04-15] MEDS: risperiDONE 0.5 MG TABLET PO (21:00)
[2023-04-15] MEDS: Midodrine HCl 5 MG TABLET PO (21:00)
[2023-04-16] MEDS: Piperacillin Sodium/Tazobactam 3.375 GM in 0.9 % Sodium Chloride 50 ML IV ×4 (00:21→18:13)
[2023-04-16 03:26] VITALS: BP 104/70; PULSE 71; RESP 19; TEMP 36.2; O2SAT 96
--- NOTE | 2023-04-16 03:36 | PC.NURSE ---
Pt had 10 beat V-Tach notified.
[2023-04-16] MEDS: Albumin Human 25 % 100 ML IV ×4 (04:25→22:57)
[2023-04-16 07:42] LABS: Hematocrit 27.2 % (37.0-47.0); Mean Corpuscular HGB Conc 29.4 g/dl (31.0-35.0); Mean Corpuscular Hemoglobin 26.8 pg (27.0-33.0); Mean Corpuscular Volume 91.3 fL (80.0-98.0); Mean Platelet Volume 10.2 fL (9.4-12.3); Platelet Count 196 X10*3/uL (160-400); Red Blood Count 2.98 X10*6/uL (4.20-5.50); Red Cell Distribution Width 16.4 % (11.0-16.0); White Blood Count 24.5 X10*3/uL (4.8-10.8)
[2023-04-16 07:44] VITALS: BP 98/56; PULSE 72; RESP 12; TEMP 36; O2SAT 96
[2023-04-16 07:56] LABS: Alanine Aminotransferase < 5 U/L (0-31); Albumin Level 3.7 g/dL (3.5-5.0); Alkaline Phosphatase 59 U/L (39-117); Anion Gap 17 (12-20); Aspartate Amino Transferase 14 U/L (5-31); Bilirubin Total 0.5 mg/dL (0.0-1.0); Blood Urea Nitrogen 58 mg/dL (9-16); Calcium 8.8 mg/dL (8.4-10.2); Carbon Dioxide 22 mmol/L (22-29); Chloride 108 mmol/L (96-108); Creatinine Clr Calc Pharmacy 24.6; Estimated Glomerular Filt Rate 19; Glucose Random 71 mg/dL (60-115); Potassium 4.1 mmol/L (3.3-5.1); Sodium 143 mmol/L (135-145); Total Protein 5.6 g/dL (6.5-8.0)
--- NOTE | 2023-04-16 08:05 | HE.PHANOTE ---
RE: vanco Patient's creatinine is continually worsening, level on 04/16 came back at 21.0 mg/L. Ordered another level @1900; expecting dosing to be 500mg Q24H if patient can clear vanco. Predicted AUC of 501 mg/L, trough of 18.5. Will continue to monitor and adjust accordingly
[2023-04-16] MEDS: Thiamine HCL 100 MG TABLET PO (09:27)
[2023-04-16] MEDS: Memantine HCl 5 MG TABLET PO (09:27)
[2023-04-16] MEDS: Midodrine HCl 5 MG TABLET PO (09:27)
[2023-04-16] MEDS: Sertraline HCL 25 MG TABLET PO (09:27)
[2023-04-16] MEDS: risperiDONE 0.5 MG TABLET PO (09:27)
[2023-04-16] MEDS: Folic Acid 1 MG TABLET PO (09:27)
[2023-04-16] MEDS: Multivitamin TABLET 1 TAB PO (09:27)
[2023-04-16] MEDS: Zinc Oxide 20% Ointment 28.35 GM TUBE 1 APPL TOPICAL (09:36)
[2023-04-16] MEDS: 0.9 % Sodium Chloride Flush 3 ML SYRINGE IVFLUSH ×3 (09:38→22:58)
--- NOTE | 2023-04-16 11:06 | HO.PM.IMPN ---
Subjective Subjective Date of Service: 04/16/23 Interval History: had some vaginal bleeding this AM Ferreira clear confused, unable to obtain ROS 10 beats of VT yesterday Review of Systems Review of Systems: Yes Unobtainable due to mental status Physical Exam Vital Signs: Vital Signs: Last Vital Signs Temp 96.8 F 04/16/23 07:44 Pulse 72 04/16/23 07:44 Resp 12 04/16/23 07:44 BP 98/56 L 04/16/23 07:44 Pulse Ox 96 04/16/23 07:44 O2 Del Method Nasal Cannula 04/16/23 07:44 O2 Flow Rate 3 04/16/23 07:44 FiO2 94 04/07/23 00:15 BMI result Body Mass Index 30.3 Gen: awake but tired, chronically ill-appearing, no resp distress Neck: supple Lungs: diminished at L base Heart: regular rate and rhythm, no murmurs Abd: non-tense ascites, no fluid leak at paracentesis site Ext: 1+ bilateral leg edema : Ferreira in place, some recent blood from vagina without any clots Skin: no rash Neuro: alert and oriented to self only, profound memory deficit Psych: impaired insight Objective Data Active Medications Acetaminophen (Acetaminophen 325 Mg Tablet) 650 mg PO Q6H PRN PRN Reason: Pain, Mild (Pain Scale 1-3) Last Admin: 04/15/23 03:50 Dose: 650 mg Documented By: DAVE Calcium Carbonate (Calcium Carbonate 750 Mg Tab.Chew) 750 mg PO Q6H PRN PRN Reason: Pain, Severe (Pain Scale 7-10) Last Admin: 04/06/23 16:30 Dose: 750 mg Documented By: GURDEEP Docusate Sodium (Docusate Sodium 100 Mg Capsule) 200 mg PO DAILY [facility] Last Admin: 04/16/23 09:38 Dose: Not Given Documented By: KELLY Non-Admin Reason: loose stool Enoxaparin Sodium (Enoxaparin Sodium 30 Mg/0.3 Ml Syringe) 30 mg SUBCUT Q24H [facility] Last Admin: 04/14/23 13:46 Dose: 30 mg Documented By: JENIFFER Folic Acid (Folic Acid 1 Mg Tablet) 1 mg PO DAILY [facility] Last Admin: 04/16/23 09:27 Dose: 1 mg Documented By: KELLY Guaifenesin (Guaifenesin 100 Mg/5 Ml Liquid) 5 ml PO Q4H PRN PRN Reason: Cough Piperacillin Sod/Tazobactam (Sod 3.375 gm/ Sodium Chloride) 50 mls @ 100 mls/hr IV Q6H [facility] Last Infusion: 04/16/23 06:11 Dose: Infused Documented By: HONEY Vancomycin HCl 500 mg/ Sodium (Chloride) 110 mls @ 110 mls/hr IV Q24H [facility] Albumin Human (Kedbumin 25 %) 100 mls @ 100 mls/hr IV Q6H [facility] Stop: 04/19/23 05:29 Magnesium Hydroxide (Milk Of Magnesia 30 Ml Oral.Susp) 30 ml PO DAILY PRN PRN Reason: constipation Memantine (Memantine Hcl 5 Mg Tablet) 5 mg PO BID [facility] Last Admin: 04/16/23 09:27 Dose: 5 mg Documented By: KELLY Midodrine (Midodrine Hcl 5 Mg Tablet) 5 mg PO TID [facility] Last Admin: 04/16/23 09:27 Dose: 5 mg Documented By: KELLY Multivitamins/Vitamin C (Multivitamin Tablet) 1 tab PO DAILY [facility] Last Admin: 04/16/23 09:27 Dose: 1 tab Documented By: KELLY Nystatin (Nystatin Powder 15 Gm Bottle) 1 appl TOPICAL BID [facility]; Protocol Last Admin: 04/16/23 09:38 Dose: Not Given Documented By: KELLY Non-Admin Reason: Med Not Available Ondansetron HCl (Ondansetron Hcl 4 Mg/2 Ml Vial) 4 mg IVPUSH Q8H PRN PRN Reason: Nausea and Vomiting Pharmacy Consult (Consult Rx Vancomycin Dosing) 1 each MISCELLANE DAILY [facility] Polyethylene Glycol (Polyethylene Glycol 3350 17 Gm Powd.Pack) 17 gm PO DAILY [facility] Last Admin: 04/16/23 09:36 Dose: Not Given Documented By: KELLY Non-Admin Reason: loose stool Risperidone (Risperidone 0.5 Mg Tablet) 0.5 mg PO BID [facility] Last Admin: 04/16/23 09:27 Dose: 0.5 mg Documented By: KELLY Sertraline HCl (Sertraline Hcl 25 Mg Tablet) 25 mg PO DAILY [facility] Last Admin: 04/16/23 09:27 Dose: 25 mg Documented By: KELLY Sodium Chloride (0.9 % Sodium Chloride Flush 3 Ml Syringe) 3 ml IVFLUSH QSHIFT [facility] Last Admin: 04/16/23 09:38 Dose: 3 ml Documented By: KELLY Thiamine HCl (Thiamine Hcl 100 Mg Tablet) 100 mg PO DAILY [facility] Last Admin: 04/16/23 09:27 Dose: 100 mg Documented By: KELLY Zinc Oxide (Zinc Oxide 20% Ointment 28.35 Gm Tube) 1 appl TOPICAL DAILY [facility]; Protocol Last Admin: 04/16/23 09:36 Dose: 1 appl Documented By: EKLLY Labs 04/16/23 07:21 04/16/23 07:21 Labs: Laboratory Results - last 24 hr 04/15/23 04/16/23 13:06 07:21 MCV 91.3 MCH 26.8 L MCHC 29.4 L RDW 16.4 H Plt Count 196 MPV 10.2 Absolute Nucleated RBC 0.000 Nucleated RBC % (auto) 0.0 Anion Gap 17 Estim Creat Clear Calc 24.6 Estimated GFR 19 Random Glucose 71 Calcium 8.8 Magnesium 2.0 Total Bilirubin 0.5 AST 14 ALT < 5 Alkaline Phosphatase 59 Total Protein 5.6 L Albumin 3.7 Random Vancomycin 21.9 H 21.0 H Blood Type O Positive Antibody Screen NEGATIVE Assessment and Plan (1) Dementia: Status: Acute Plan d55 77yo F with chronic back pain, presenting with confusion, likely Alzheimer's dementia vaginal bleeding - hold enoxaparin. suspect from pelvic malignancy? monitor H+H TETO - appears prerenal with Jacky <20; no obstruction; has Ferreira - SCr has not yet plateaued - Nephrology consulted, will continue colloid resuscitation with 25g albumin IV q6h acute hypoxic resp failure - likely due to PNA +/- restriction from ascites; treat as below and wean O2 as tolerated PNA - PCT high, MRSA swab positive, urine antigens for Legionella + pneumococcus pending, treating as HCAP with vanc + pip-freddie d5, BCx negative thus far malignant ascites/uterine mass - unintentional 30-lb weight loss - s/p paracentesis 02/22/23: 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 including pancreatico-biliary - CA-125 elevated to 299 - seen by Paper Rewinder Operator; declined pelvic exam + endometrial biopsy - inform patient about immunostains result, she is not showing much understanding and keeps repeating that she does not want any intervention that will prolong her suffering, since it seems to be a metastatic cancer and with? patient's current clinical condition?with lack of support, likely she will not be a candidate for aggressive treatment; re-assess after guardianship. - repeat US showed large amount ascites so underwent therapeutic tap of 5L on 04/11 dementia, unspecified - likely progressive dementia; memory seems to have been declining over the past several months - [place] Cognitive Assesment (MOCA) : scored 14 - seen by Neurology: probable moderate to severe degenerative dementia, likely Alzheimer's; on sertraline + memantine - seen by Psychiatry: does not have capacity to make medical decisions, now has temporary guardian thiamine deficiency folate deficiency - repleting stage 3 coccygeal ulcer - wound care consulted: ressings with alginate and zinc oxide, repostion q3 hrs and or air mattress VTE ppx - enoxaparin goals of care - poor prognosis in light of underlying malignancy. Will need to address code status and tube feeding wishes. Updated pt's guardian Karla Love 04/15/[address] to revise code status. In meanwhile consulted software engineer developer Dr Mathis 04/14 and he agrees that coding the pt would be medically futile dispo - LTC pending permanent guardianship Time Spent With Patient Time: Total time managing care of this patient today __50__ minutes. Quality Stroke Does the patient have a stroke diagnosis?: No VTE Prior VTE?: No VTE Risk Level:: Medical - moderate - high VTE Device Contraindication: Treatment Not Indicated VTE Drug Contraindication: N/A - Med Ordered
--- NOTE | 2023-04-16 12:42 | PC.NURSE ---
While cleaning patient this morning, moderate amount of blood noted to be coming from lidia area. Dr Edwards made aware and came to bedside to assess. Orders for labs put in for 04/17 morning by MD. When cleaning pt again at 1240 pt still noted to be bleeding from the lidia area. Dr Edwards made aware. Pt reports feeling short of breath. O2 saturation [address] Edwards aware.
--- NOTE | 2023-04-16 12:51 | P.PNNP_ITS ---
Subjective Subjective Date of Service: 04/16/23 Interval history: Confused. Serum creatinine worse. Unable to get ROS Physical Exam 2 Vital Signs: Vital Signs: Last Vital Signs Temp 96.8 F 04/16/23 07:44 Pulse 72 04/16/23 07:44 Resp 12 04/16/23 07:44 BP 98/56 L 04/16/23 07:44 Pulse Ox 96 04/16/23 07:44 O2 Del Method Nasal Cannula 04/16/23 07:44 O2 Flow Rate 3 04/16/23 07:44 FiO2 94 04/07/23 00:15 BMI result Body Mass Index 30.3 Const: General: no acute distress Eyes: EOM: EOMs intact bilaterally Neck: Neck: Yes supple Resp: Auscultation: diminished lung sounds Cardio: Rate: regular rate GI: Palpation (GI): Soft to palpation Neuro: General: moves all extremities Objective Data Labs 04/16/23 07:21 04/16/23 07:21 Labs: Laboratory Results - last 24 hr 04/15/23 04/16/23 13:06 07:21 WBC 24.5 H RBC 2.98 L Hgb 8.0 L Hct 27.2 L MCV 91.3 MCH 26.8 L MCHC 29.4 L RDW 16.4 H Plt Count 196 MPV 10.2 Absolute Nucleated RBC 0.000 Nucleated RBC % (auto) 0.0 Sodium 143 Potassium 4.1 Chloride 108 Carbon Dioxide 22 Anion Gap 17 BUN 58 H Creatinine 2.51 H Estim Creat Clear Calc 24.6 Estimated GFR 19 Random Glucose 71 Calcium 8.8 Magnesium 2.0 Total Bilirubin 0.5 AST 14 ALT < 5 Alkaline Phosphatase 59 Total Protein 5.6 L Albumin 3.7 Random Vancomycin 21.9 H 21.0 H Blood Type O Positive Antibody Screen NEGATIVE Microbiology Microbiology Results: Microbiology 04/12/23 08:01 Blood - Venous Blood Culture - Preliminary No growth after 48 hours. 04/12/23 08:01 Blood - Venous Blood Culture - Preliminary No growth after 48 hours. 02/22/23 15:03 Ascites Fluid Direct Acid Fast Bacilli Smear - Final 02/22/23 15:03 Ascites Fluid Gram Stain - Final 02/22/23 15:03 Ascites Fluid Routine Culture - Final No growth after 2 days 02/22/23 15:03 Ascites Fluid Anaerobic Culture - Final NO GROWTH AFTER 5 DAYS 02/21/23 18:39 Blood - Venous Blood Culture - Final No growth after 5 days. 02/21/23 18:39 Blood - Venous Blood Culture - Final No growth after 5 days. 02/21/23 16:34 Urine clean catch - Urine cheung top Urine Culture - Final Procedures Date of Service Date of Service: 04/16/23 Assessment & Plan Assessment and plan (1) TETO (acute kidney injury): Status: Acute Assessment and Plan: TETO due to compromised kidney perfusion and tubular stress Has benign urine sediment; renal US negative for hydronephrosis atrophic left kidney; normal baseline kidney function Serum creatinine not plateaued; On IV colloid Not a candidate for renal replacement; Prognosis guarded Progress Note: Quality Stroke Does the patient have a stroke diagnosis?: No
[2023-04-16 14:50] LABS: Hematocrit 28.7 % (37.0-47.0); Hemoglobin 8.5 g/dl (12.0-16.0)
[2023-04-16 14:56] LABS: INTERNATIONAL NORM RATIO 1.3 (0.9-1.1)
[2023-04-16 15:35] VITALS: BP 104/55; PULSE 67; RESP 18; TEMP 35.9; O2SAT 97
[2023-04-16 19:35] LABS: Vancomycin Random 20.2 mcg/mL (15-20)
[2023-04-16 20:00] VITALS: BP 93/57; PULSE 76; RESP 20; TEMP 35.7; O2SAT 93
--- NOTE | 2023-04-16 20:38 | HE.PHANOTE ---
RE: vANCOMYCIN LEVEL STILL 20.2, CONTINUE TO HOLD AND RECHECK LEVEL 0700 04/17, PT MAY NEED Q48H DOSING
[2023-04-17] MEDS: Piperacillin Sodium/Tazobactam 3.375 GM in 0.9 % Sodium Chloride 50 ML IV ×3 (00:41→13:17)
[2023-04-17 04:00] VITALS: BP 106/54; PULSE 68; RESP 18; TEMP 36; O2SAT 97
[2023-04-17] MEDS: Albumin Human 25 % 100 ML IV ×4 (04:35→22:24)
[2023-04-17 07:11] VITALS: BP 102/64; PULSE 86; RESP 18; TEMP 36.6; O2SAT 96
[2023-04-17 07:24] LABS: Hematocrit 27.2 % (37.0-47.0); Hemoglobin 8.1 g/dl (12.0-16.0); Mean Corpuscular HGB Conc 29.8 g/dl (31.0-35.0); Mean Corpuscular Hemoglobin 26.6 pg (27.0-33.0); Mean Corpuscular Volume 89.5 fL (80.0-98.0); Mean Platelet Volume 10.4 fL (9.4-12.3); Platelet Count 182 X10*3/uL (160-400); Red Blood Count 3.04 X10*6/uL (4.20-5.50); Red Cell Distribution Width 16.6 % (11.0-16.0); White Blood Count 23.9 X10*3/uL (4.8-10.8)
[2023-04-17 07:29] LABS: INTERNATIONAL NORM RATIO 1.3 (0.9-1.1); Prothrombin Time 15.6 SEC (11.1-13.3)
[2023-04-17 07:49] LABS: Anion Gap 19 (12-20); Blood Urea Nitrogen 61 mg/dL (9-16); Calcium 9.2 mg/dL (8.4-10.2); Carbon Dioxide 21 mmol/L (22-29); Chloride 108 mmol/L (96-108); Creatinine Clr Calc Pharmacy 21.5; Estimated Glomerular Filt Rate 16; Glucose Random 66 mg/dL (60-115); Potassium 3.8 mmol/L (3.3-5.1); Sodium 144 mmol/L (135-145)
[2023-04-17 09:17] LABS: Vancomycin Random 18.2 mcg/mL (15-20)
--- NOTE | 2023-04-17 09:55 | HE.PHANOTE ---
re vanco scr still increasing. Based on linear kinetics pt level tomorrow should be around 15 [place]
[2023-04-17 10:17] LABS: Procalcitonin 7.62 ng/mL
--- NOTE | 2023-04-17 10:21 | P.PNNP_ITS ---
Subjective Subjective Date of Service: 04/18/23 Interval history: Events noted. Confused. Unable to give ROS. Ferreira in place. Physical Exam 2 Vital Signs: Vital Signs: Last Vital Signs Temp 98 F 04/17/23 07:11 Pulse 86 04/17/23 07:11 Resp 18 04/17/23 07:11 BP 102/64 04/17/23 07:11 Pulse Ox 96 04/17/23 07:11 O2 Del Method Nasal Cannula 04/17/23 07:11 O2 Flow Rate 3 04/17/23 07:11 FiO2 94 04/07/23 00:15 BMI result Body Mass Index 30.3 Neck: Neck: Yes supple Resp: Auscultation: diminished lung sounds Cardio: Rate: regular rate GI: Palpation (GI): nontender Objective Data Labs 04/18/23 07:03 04/18/23 07:03 Labs: Laboratory Results - last 24 hr 04/16/23 04/16/23 04/17/23 14:42 19:03 05:39 WBC 23.9 H RBC 3.04 L Hgb 8.5 L 8.1 L Hct 28.7 L 27.2 L MCV 89.5 MCH 26.6 L MCHC 29.8 L RDW 16.6 H Plt Count 182 MPV 10.4 Absolute Nucleated RBC 0.000 Nucleated RBC % (auto) 0.0 PT 16.0 H D 15.6 H INR 1.3 H 1.3 H Sodium 144 Potassium 3.8 Chloride 108 Carbon Dioxide 21 L Anion Gap 19 BUN 61 H Creatinine 2.87 H Estim Creat Clear Calc 21.5 Estimated GFR 16 Random Glucose 66 Calcium 9.2 Procalcitonin 7.62 Random Vancomycin 20.2 H 04/17/23 08:24 WBC RBC Hgb Hct MCV MCH MCHC RDW Plt Count MPV Absolute Nucleated RBC Nucleated RBC % (auto) PT INR Sodium Potassium Chloride Carbon Dioxide Anion Gap BUN Creatinine Estim Creat Clear Calc Estimated GFR Random Glucose Calcium Procalcitonin Random Vancomycin 18.2 Microbiology Microbiology Results: Microbiology 04/12/23 08:01 Blood - Venous Blood Culture - Final No growth after 5 days. 04/12/23 08:01 Blood - Venous Blood Culture - Final No growth after 5 days. 02/22/23 15:03 Ascites Fluid Direct Acid Fast Bacilli Smear - Final 02/22/23 15:03 Ascites Fluid Gram Stain - Final 02/22/23 15:03 Ascites Fluid Routine Culture - Final No growth after 2 days 02/22/23 15:03 Ascites Fluid Anaerobic Culture - Final NO GROWTH AFTER 5 DAYS 02/21/23 18:39 Blood - Venous Blood Culture - Final No growth after 5 days. 02/21/23 18:39 Blood - Venous Blood Culture - Final No growth after 5 days. 02/21/23 16:34 Urine clean catch - Urine cheung top Urine Culture - Final Procedures Date of Service Date of Service: 04/18/23 Assessment & Plan Assessment and plan (1) TETO (acute kidney injury): Status: Acute Assessment and Plan: 77yo F with chronic back pain, presenting with confusion, likely Alzheimer's dementia vaginal bleeding acute hypoxic resp failure PNA malignant ascites/uterine mass dementia, TETO Differential diagnosis includes hypoperfusion. She could progress to acute tubular necrosis. No evidence of obstruction based on imaging. Urine sediments or bland therefore glomerular or interstitial disease seems unlikely. Serum creatinine is trending up. No overt signs or symptoms of uremia. No absolute indication for dialysis. Keep intake more than output Continue to avoid nephrotoxic agents. She will follow along with the team. Time Spent With Patient Time: Total time managing care of this patient today ____ minutes. Progress Note: Quality Stroke Does the patient have a stroke diagnosis?: No
--- NOTE | 2023-04-17 11:20 | P.CONOB_ITS ---
PAYROLL PROCESSOR - CN: HPI Data of Consult Consult date: 04/17/23 Requesting Physician: Howard Gutierrez MD Primary Care Provider: Unknown Physician Consult Narrative Narrative: I was consulted on Trice Reed who is a 77 year old female has been admitted since 02/21/2023 . A consult was requested initially and the patient declined exam/evaluation around 7 weeks ago. Yesterday the patient developed vaginal bleeding, light in nature and has resolved by today. CT scan done yesterday showed the following in the pelvic viscera compared to previous CT scan done on 02/21/2023: Large volume ascites is present which has increased when compared to the prior study. Again seen is a large lobular uterine pelvic mass with largest component measuring 17.6 x 16.7 cm in maximal transverse dimension (2:74) with equivalent measurements at the time of the prior study of 15.3 x 16.2 cm The patient currently has TETO, dementia and has a court-appointed guardian recently, Karla Love. Cytology of the pelvic ascites showed adenocarcinoma cc:: CC: Howard Gutierrez MD [facility] - Review of Systems Review of Systems ROS Unobtainable: All systems reviewed & are unremarkable except as noted in HPI and below OB PMFSH Past Medical History Medical History Chronic back pain Surgical History Surgical History History of bilateral knee replacement Social History Social History Household Members: None Housing: House Do you presently have visiting nurse or other home services: No Alcohol intake: never Patient Tobacco Use Status: Never used Tobacco Second Hand Smoke Exposure: No Meds Allergies Allergy/AdvReac Type Severity Reaction Status Date / Time No Known Allergies Allergy Verified 02/21/23 15:25 Active Medications: Current Medications Acetaminophen (Acetaminophen 325 Mg Tablet) 650 mg PO Q6H PRN PRN Reason: Pain, Mild (Pain Scale 1-3) Last Admin: 04/15/23 03:50 Dose: 650 mg Calcium Carbonate (Calcium Carbonate 750 Mg Tab.Chew) 750 mg PO Q6H PRN PRN Reason: Pain, Severe (Pain Scale 7-10) Last Admin: 04/06/23 16:30 Dose: 750 mg Docusate Sodium (Docusate Sodium 100 Mg Capsule) 200 mg PO DAILY [facility] Last Admin: 04/17/23 09:10 Dose: Not Given Enoxaparin Sodium (Enoxaparin Sodium 30 Mg/0.3 Ml Syringe) 30 mg SUBCUT Q24H [facility] Last Admin: 04/14/23 13:46 Dose: 30 mg Folic Acid (Folic Acid 1 Mg Tablet) 1 mg PO DAILY [facility] Last Admin: 04/17/23 09:11 Dose: Not Given Guaifenesin (Guaifenesin 100 Mg/5 Ml Liquid) 5 ml PO Q4H PRN PRN Reason: Cough Piperacillin Sod/Tazobactam (Sod 3.375 gm/ Sodium Chloride) 50 mls @ 100 mls/hr IV Q6H [facility] Last Infusion: 04/17/23 06:49 Dose: Infused Albumin Human (Kedbumin 25 %) 100 mls @ 100 mls/hr IV Q6H [facility] Stop: 04/19/23 05:29 Last Infusion: 04/17/23 05:50 Dose: Infused Vancomycin HCl 500 mg/ Sodium (Chloride) 110 mls @ 110 mls/hr IV Q24H [facility] Magnesium Hydroxide (Milk Of Magnesia 30 Ml Oral.Susp) 30 ml PO DAILY PRN PRN Reason: constipation Memantine (Memantine Hcl 5 Mg Tablet) 5 mg PO BID [facility] Last Admin: 04/17/23 09:11 Dose: Not Given Midodrine (Midodrine Hcl 5 Mg Tablet) 5 mg PO TID [facility] Last Admin: 04/17/23 09:11 Dose: Not Given Multivitamins/Vitamin C (Multivitamin Tablet) 1 tab PO DAILY [facility] Last Admin: 04/17/23 09:11 Dose: Not Given Nystatin (Nystatin Powder 15 Gm Bottle) 1 appl TOPICAL BID [facility]; Protocol Last Admin: 04/17/23 09:11 Dose: Not Given Ondansetron HCl (Ondansetron Hcl 4 Mg/2 Ml Vial) 4 mg IVPUSH Q8H PRN PRN Reason: Nausea and Vomiting Pharmacy Consult (Consult Rx Vancomycin Dosing) 1 each MISCELLANE DAILY [facility] Polyethylene Glycol (Polyethylene Glycol 3350 17 Gm Powd.Pack) 17 gm PO DAILY [facility] Last Admin: 04/17/23 09:11 Dose: Not Given Risperidone (Risperidone 0.5 Mg Tablet) 0.5 mg PO BID [facility] Last Admin: 04/17/23 09:11 Dose: Not Given Sertraline HCl (Sertraline Hcl 25 Mg Tablet) 25 mg PO DAILY [facility] Last Admin: 04/17/23 09:11 Dose: Not Given Sodium Chloride (0.9 % Sodium Chloride Flush 3 Ml Syringe) 3 ml IVFLUSH QSHIFT [facility] Last Admin: 04/16/23 22:58 Dose: 3 ml Thiamine HCl (Thiamine Hcl 100 Mg Tablet) 100 mg PO DAILY [facility] Last Admin: 04/17/23 09:11 Dose: Not Given Zinc Oxide (Zinc Oxide 20% Ointment 28.35 Gm Tube) 1 appl TOPICAL DAILY [facility]; Protocol Last Admin: 04/17/23 09:12 Dose: Not Given Home Medications Medication Instructions Recorded Confirmed Last Taken Type oxycodone 5 mg tablet 10 mg PO BID PRN pain 02/21/23 02/21/23 Unknown History PAYROLL PROCESSOR Physical Exam Vitals Vital signs: Temp Pulse Resp BP Pulse Ox O2 Del Method O2 Flow Rate 98 F 86 18 102/64 96 Nasal Cannula 3 04/17/23 07:11 04/17/23 07:11 04/17/23 07:11 04/17/23 07:11 04/17/23 07:11 04/17/23 07:11 04/17/23 07:11 FiO2 94 04/07/23 00:15 BMI result Body Mass Index 30.3 Female Genitalia (Pelvic) Exam: Declined by Patient PAYROLL PROCESSOR - Results Labs 04/17/23 05:39 04/17/23 05:39 Labs: Short CBC 04/16/23 04/17/23 Range/Units 14:42 05:39 WBC 23.9 H (4.8-10.8) X10*3/uL Hgb 8.5 L 8.1 L (12.0-16.0) g/dl Hct 28.7 L 27.2 L (37.0-47.0) % Plt Count 182 (160-400) X10*3/uL BMP 04/17/23 05:39 Sodium 144 Potassium 3.8 Chloride 108 Carbon Dioxide 21 L BUN 61 H Creatinine 2.87 H Calcium 9.2 Urine 02/21/23 04/11/23 Range/Units 16:34 21:15 Urine Color Dark Yellow Dark Yellow Urine Appearance Cloudy Clear Urine pH 5.5 5.0 (5.0-9.0) Ur Specific [place] 1.025 1.020 (1.005-1.025) Urine Protein 30 (1+) H Trace (Neg-Trace) mg/dL Urine Glucose (UA) Negative Negative (Negative) mg/dL Antibody Screen Antibody Screen NEGATIVE 04/16/23 07:21 Assessment and Plan (1) 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 A phone conversation with the patient appointed court guarding , Karla Love with Dr. Gutierrez present was conducted, during which we explained the patient clinical condition showing a large uterine mass enlarging in size over the last few weeks with vaginal bleeding , evidence of pelvic retroperitoneal lymph node enlarging in size, a large amount of pelvic ascites, evidence of 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 of the pelvic fluid and ? Hepatic nodule with bilateral pleural effusion, pointing toward a clinical picture of metastatic carcinoma of unknown origin, highly suspicious but not limited to endometrial cancer , other release specialist cancer (vaginal/cervical), upper GI or biliary tract cancer or others. Discussed with the patient 's guardian the indication for an evaluation with at least a pelvic exam, co testing and diagnostic biopsy , either endometrial /cervical mass or vaginal mass biopsy depending on the findings on the pelvic exam to rule out endometrial/cervical /vaginal carcinoma, and help guide the diagnosis for the origin of the metastatic cancer which is unknown at the time, in addition to assist in evaluating the disease prognosis and potential treatment outcome. In addition, Dr. Gutierrez discussed with the patient's guardian the patient's medical condition including but not limited to dementia, acute kidney injury, pneumonia, and others. After a long and detailed discussion of the pros , cons, risks and benefits of diagnostic tests, evaluations, and treatment options, the patient's guardian decided to put on hold or diagnostic exams, biopsies, tests and any kind of evaluation for the time being and requested from Dr. Gutierrez to initiate through the hospital oncology social work a request to the court system to change the patient's status to do not resuscitate . All questions answered, patient's guardian verbalized understanding. Time Spent With Patient Time: Total time managing care of this patient today ____ minutes.
[2023-04-17] MEDS: 0.9 % Sodium Chloride Flush 3 ML SYRINGE IVFLUSH (13:18)
--- NOTE | 2023-04-17 13:43 | MHC.CLN ---
F/U DIET=REGULAR. ENSURE MAX PROTEIN BID (300 KCALS, 60 G PROTEIN). SKIN WITH STAGE II TO COCCYX, STAGE I TO LEFT FLANK, REDNESS TO RIGHT HEEL. SUPPLEMENT TO PROMOTE SKIN INTEGRITY. INTAKE CONTINUES VERY POOR, 0-25%, AND NOT MEETING ESTIMATED NUTRITIONAL NEEDS. PATIENT HAS GUARDIAN. CONTINUES TO BE FULL CODE. FOLLOW FOR INTAKE, SKIN INTEGRITY, CODE STATUS.
--- NOTE | 2023-04-17 13:57 | MHC.CM.PN ---
PT STILL AWAITING LTC PLACEMENT HOWEVER, A COURT HEARING HAS BEEN REQUESTED FOR CHANGE IN CODE STATUS
[2023-04-17 15:45] VITALS: BP 82/55; PULSE 55; RESP 20; TEMP 36.4; O2SAT 94
--- NOTE | 2023-04-17 17:00 | P.PNIM_ITS ---
Subjective Subjective Date of Service: 04/18/23 Interval History: Unable to obtain meaningful history due to underlying dementia, complaining of back pain, no fever ,chills, no acute events, poor by mouth intake. Review of Systems All other system reviewed and negative. Physical Exam 2 Vital Signs: Vital Signs: Last Vital Signs Temp 97.5 F 04/17/23 15:45 Pulse 55 04/17/23 15:45 Resp 20 04/17/23 15:45 BP 82/55 L 04/17/23 15:45 Pulse Ox 94 04/17/23 15:45 O2 Del Method Nasal Cannula 04/17/23 15:45 O2 Flow Rate 3 04/17/23 07:11 FiO2 94 04/07/23 00:15 BMI result Body Mass Index 30.3 Const: Other: Gen: awake , chronically ill-appearing, no resp distress Neck: supple,no jvd Lungs: diminished at L base Heart: regular rate and rhythm, no murmurs Abd: non-tense ascites, distended abdomen, nontender, bowel sounds audible, no fluid leak at paracentesis site Ext: mild bilateral leg edema : Ferreira in place Skin: no rash Neuro: alert and oriented to self only, profound memory deficit Psych: impaired insight Objective Data Active Medications Acetaminophen (Acetaminophen 325 Mg Tablet) 650 mg PO Q6H PRN PRN Reason: Pain, Mild (Pain Scale 1-3) Last Admin: 04/15/23 03:50 Dose: 650 mg Documented By: DAVE Calcium Carbonate (Calcium Carbonate 750 Mg Tab.Chew) 750 mg PO Q6H PRN PRN Reason: Pain, Severe (Pain Scale 7-10) Last Admin: 04/06/23 16:30 Dose: 750 mg Documented By: GURDEEP Docusate Sodium (Docusate Sodium 100 Mg Capsule) 200 mg PO DAILY [facility] Last Admin: 04/17/23 09:10 Dose: Not Given Documented By: PRADEEP Non-Admin Reason: Patient Refused Enoxaparin Sodium (Enoxaparin Sodium 30 Mg/0.3 Ml Syringe) 30 mg SUBCUT Q24H [facility] Last Admin: 04/14/23 13:46 Dose: 30 mg Documented By: JENIFFER Folic Acid (Folic Acid 1 Mg Tablet) 1 mg PO DAILY [facility] Last Admin: 04/17/23 09:11 Dose: Not Given Documented By: PRADEEP Non-Admin Reason: Patient Refused Guaifenesin (Guaifenesin 100 Mg/5 Ml Liquid) 5 ml PO Q4H PRN PRN Reason: Cough Piperacillin Sod/Tazobactam (Sod 3.375 gm/ Sodium Chloride) 50 mls @ 100 mls/hr IV Q6H [facility] Last Infusion: 04/17/23 13:55 Dose: Infused Documented By: PRADEEP Albumin Human (Kedbumin 25 %) 100 mls @ 100 mls/hr IV Q6H [facility] Stop: 04/19/23 05:29 Last Infusion: 04/17/23 13:18 Dose: Infused Documented By: PRADEEP Vancomycin HCl 500 mg/ Sodium (Chloride) 110 mls @ 110 mls/hr IV Q24H [facility] Magnesium Hydroxide (Milk Of Magnesia 30 Ml Oral.Susp) 30 ml PO DAILY PRN PRN Reason: constipation Memantine (Memantine Hcl 5 Mg Tablet) 5 mg PO BID [facility] Last Admin: 04/17/23 09:11 Dose: Not Given Documented By: PRADEEP Non-Admin Reason: Patient Refused Midodrine (Midodrine Hcl 5 Mg Tablet) 5 mg PO TID [facility] Last Admin: 04/17/23 16:53 Dose: Not Given Documented By: PRADEEP Non-Admin Reason: Patient Refused Multivitamins/Vitamin C (Multivitamin Tablet) 1 tab PO DAILY [facility] Last Admin: 04/17/23 09:11 Dose: Not Given Documented By: PRADEEP Non-Admin Reason: Patient Refused Nystatin (Nystatin Powder 15 Gm Bottle) 1 appl TOPICAL BID [facility]; Protocol Last Admin: 04/17/23 09:11 Dose: Not Given Documented By: PRADEEP Non-Admin Reason: Patient Refused Ondansetron HCl (Ondansetron Hcl 4 Mg/2 Ml Vial) 4 mg IVPUSH Q8H PRN PRN Reason: Nausea and Vomiting Pharmacy Consult (Consult Rx Vancomycin Dosing) 1 each MISCELLANE DAILY [facility] Polyethylene Glycol (Polyethylene Glycol 3350 17 Gm Powd.Pack) 17 gm PO DAILY [facility] Last Admin: 04/17/23 09:11 Dose: Not Given Documented By: PRADEEP Non-Admin Reason: Patient Refused Risperidone (Risperidone 0.5 Mg Tablet) 0.5 mg PO BID [facility] Last Admin: 04/17/23 09:11 Dose: Not Given Documented By: PRADEEP Non-Admin Reason: Patient Refused Sertraline HCl (Sertraline Hcl 25 Mg Tablet) 25 mg PO DAILY [facility] Last Admin: 04/17/23 09:11 Dose: Not Given Documented By: PRADEEP Non-Admin Reason: Patient Refused Sodium Chloride (0.9 % Sodium Chloride Flush 3 Ml Syringe) 3 ml IVFLUSH QSHIFT [facility] Last Admin: 04/17/23 13:18 Dose: 3 ml Documented By: PRADEEP Thiamine HCl (Thiamine Hcl 100 Mg Tablet) 100 mg PO DAILY [facility] Last Admin: 04/17/23 09:11 Dose: Not Given Documented By: PRADEEP Non-Admin Reason: Patient Refused Zinc Oxide (Zinc Oxide 20% Ointment 28.35 Gm Tube) 1 appl TOPICAL DAILY [facility]; Protocol Last Admin: 04/17/23 09:12 Dose: Not Given Documented By: PRADEEP Non-Admin Reason: Patient Refused Labs 04/18/23 07:03 04/18/23 07:03 Labs: Laboratory Results - last 24 hr 04/16/23 04/17/23 04/17/23 19:03 05:39 08:24 MCV 89.5 MCH 26.6 L MCHC 29.8 L RDW 16.6 H Plt Count 182 MPV 10.4 Absolute Nucleated RBC 0.000 Nucleated RBC % (auto) 0.0 PT 15.6 H INR 1.3 H Anion Gap 19 Estim Creat Clear Calc 21.5 Estimated GFR 16 Random Glucose 66 Calcium 9.2 Procalcitonin 7.62 Random Vancomycin 20.2 H 18.2 Microbiology Microbiology Results: Microbiology 04/12/23 08:01 Blood Culture - Final Blood - Venous No growth after 5 days. 04/12/23 08:01 Blood Culture - Final Blood - Venous No growth after 5 days. Assessment and Plan (1) Dementia: Status: Acute Plan 77yo F with chronic back pain, presenting with confusion, likely Alzheimer's dementia vaginal bleeding - no recurrent episode since yesterday,suspect from pelvic malignancy, hematocrit dropped but above transfusion threshold. TETO - noted to have worsening renal function, appears prerenal with Jacky <20; no obstruction; has Ferreira - being followed by Nephrology there is concern for progression to ATN, urine sediment not concerning for glomerular or interstitial disease, no indication for dialysis will avoid nephrotoxic medications - continue colloid resuscitation with 25g albumin IV q6h,add ivf 1 L for soft blood pressures, continue midodrine. acute hypoxic resp failure - likely due to PNA +/- restriction from ascites; treat as below and wean O2 as tolerated PNA - PCT trending down, MRSA swab positive, urine antigens for Legionella + pneumococcus pending, on vanc + pip-freddie d6, BCx negative thus far, will DC antibiotics, no fevers, chronic leukocytosis likely due to underlying Ca. 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 including pancreatico- biliary - CA-125 elevated to 299 - seen by [employer] in the past and again today she declined pelvic exam + endometrial biopsy - patient shows no understanding about immunostains result, and keeps repeating that she does not want any intervention that will prolong her suffering, since it seems to be a metastatic cancer and with? patient's current clinical condition?with lack of support, likely she will not be a candidate for aggressive treatment; discussed with guardian today will hold off on further testing. - repeat US showed large amount ascites so underwent therapeutic tap of 5L on 04/11 dementia, unspecified - likely progressive dementia; memory seems to have been declining over the past several months - Norton Cognitive Assesment (MOCA) : scored 14 - seen by Neurology: probable moderate to severe degenerative dementia, likely Alzheimer's; on sertraline , will DC Namenda. - seen by Psychiatry: does not have capacity to make medical decisions, now has temporary guardian thiamine deficiency folate deficiency Continue supplements stage 3 coccygeal ulcer Seen by wound care they recommend to continue dressings with alginate and zinc oxide, repostion q3 hrs and air mattress. VTE ppx - enoxaparin goals of care poor prognosis in light of underlying malignancy. spoke with pt's guardian Karla Love today in presence of Dr. 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 Seen by environmental services lead Dr Mathis 04/14 and he agrees that coding the pt. would be medically futile. dispo - LTC pending permanent guardianship Time Spent With Patient Time: Total time managing care of this patient today ____ minutes. Quality Stroke Does the patient have a stroke diagnosis?: No VTE Prior VTE?: No VTE Risk Level:: Medical - moderate - high VTE Device Contraindication: Treatment Not Indicated VTE Drug Contraindication: N/A - Med Ordered
[2023-04-17] MEDS: 0.9 % Sodium Chloride 1,000 ML 100 ML IVCONT (18:05)
[2023-04-17 19:14] VITALS: BP 101/59
[2023-04-17 19:55] VITALS: BP 88/50; PULSE 75; RESP 17; TEMP 36.3; O2SAT 97
[2023-04-17] MEDS: Midodrine HCl 5 MG TABLET PO (20:35)
[2023-04-17] MEDS: risperiDONE 0.5 MG TABLET PO (20:35)
[2023-04-17] MEDS: Acetaminophen 325 MG TABLET 650 MG PO (20:35)
[2023-04-17 21:57] VITALS: BP 116/64
--- NOTE | 2023-04-18 03:24 | PC.NURSE ---
Pt keeps on removing her tele monitor. very confused. Hospitalist notified.
[2023-04-18 04:00] VITALS: BP 85/52; PULSE 67; RESP 16; TEMP 36; O2SAT 97
[2023-04-18] MEDS: Albumin Human 25 % 100 ML IV ×4 (04:23→23:11)
[2023-04-18 05:29] VITALS: BP 110/64; PULSE 70
[2023-04-18 06:00] VITALS: BMI 30.3
[2023-04-18 06:44] VITALS: BP 120/68; PULSE 72; RESP 18; TEMP 36.6; O2SAT 95
[2023-04-18 07:27] LABS: Hematocrit 27.8 % (37.0-47.0); Hemoglobin 8.2 g/dl (12.0-16.0); Mean Corpuscular HGB Conc 29.5 g/dl (31.0-35.0); Mean Corpuscular Hemoglobin 26.3 pg (27.0-33.0); Mean Corpuscular Volume 89.1 fL (80.0-98.0); Mean Platelet Volume 10.1 fL (9.4-12.3); Platelet Count 166 X10*3/uL (160-400); Red Blood Count 3.12 X10*6/uL (4.20-5.50)
[2023-04-18 07:46] LABS: Anion Gap 22 (12-20); Blood Urea Nitrogen 64 mg/dL (9-16); Calcium 9.4 mg/dL (8.4-10.2); Carbon Dioxide 18 mmol/L (22-29); Chloride 109 mmol/L (96-108); Creatinine Clr Calc Pharmacy 20.1; Estimated Glomerular Filt Rate 15; Glucose Random 80 mg/dL (60-115); Potassium 3.7 mmol/L (3.3-5.1); Sodium 145 mmol/L (135-145)
[2023-04-18 07:56] LABS: Vancomycin Random 17.3 mcg/mL (15-20)
[2023-04-18] MEDS: 0.9 % Sodium Chloride Flush 3 ML SYRINGE IVFLUSH ×3 (09:15→21:13)
[2023-04-18] MEDS: Sertraline HCL 25 MG TABLET PO (09:16)
[2023-04-18] MEDS: Midodrine HCl 5 MG TABLET PO ×3 (09:16→21:13)
[2023-04-18] MEDS: risperiDONE 0.25 MG TABLET PO ×2 (09:16→21:13)
[2023-04-18] MEDS: Folic Acid 1 MG TABLET PO (09:19)
[2023-04-18] MEDS: Thiamine HCL 100 MG TABLET PO (09:19)
[2023-04-18] MEDS: Docusate Sodium 100 MG CAPSULE 200 MG PO (09:20)
[2023-04-18] MEDS: polyethylene glycoL 3350 17 GM POWD.PACK PO (09:21)
[2023-04-18] MEDS: Multivitamin TABLET 1 TAB PO (09:21)
[2023-04-18] MEDS: Zinc Oxide 20% Ointment 28.35 GM TUBE 1 APPL TOPICAL (09:22)
[2023-04-18 15:34] VITALS: BP 99/53; PULSE 79; RESP 16; TEMP 35.4; O2SAT 95
--- NOTE | 2023-04-18 16:41 | P.PNIM_ITS ---
Subjective Subjective Date of Service: 04/18/23 Interval History: Awake alert, in a pleasant mood this morning, refusing most of the foods but tolerated milkshake, offers no acute complaints, no events overnight. Review of Systems Unable to obtain due to mental status. Physical Exam 2 Vital Signs: Vital Signs: Last Vital Signs Temp 95.7 F L 04/18/23 15:34 Pulse 79 04/18/23 15:34 Resp 16 04/18/23 15:34 BP 99/53 L 04/18/23 15:34 Pulse Ox 95 04/18/23 15:34 O2 Del Method Nasal Cannula 04/18/23 15:34 O2 Flow Rate 3 04/18/23 15:34 FiO2 94 04/07/23 00:15 BMI result Body Mass Index 30.3 Const: Other: Gen: awake , chronically ill-appearing, no resp distress Neck: supple,no jvd Lungs: diminished at L base Heart: regular rate and rhythm, no murmurs Abd: non-tense ascites, distended abdomen, nontender, bowel sounds audible, no fluid leak at paracentesis site Ext: mild bilateral leg edema : Ferreira in place Skin: no rash Neuro: alert and oriented to self only, profound memory deficit Psych: impaired insight Objective Data Active Medications Acetaminophen (Acetaminophen 325 Mg Tablet) 650 mg PO Q6H PRN PRN Reason: Pain, Mild (Pain Scale 1-3) Last Admin: 04/17/23 20:35 Dose: 650 mg Documented By: JOHN Calcium Carbonate (Calcium Carbonate 750 Mg Tab.Chew) 750 mg PO Q6H PRN PRN Reason: Pain, Severe (Pain Scale 7-10) Last Admin: 04/06/23 16:30 Dose: 750 mg Documented By: GURDEEP Docusate Sodium (Docusate Sodium 100 Mg Capsule) 200 mg PO DAILY [facility] Last Admin: 04/18/23 09:20 Dose: 200 mg Documented By: LORENZA Comments: Enoxaparin Sodium (Enoxaparin Sodium 30 Mg/0.3 Ml Syringe) 30 mg SUBCUT Q24H [facility] Last Admin: 04/14/23 13:46 Dose: 30 mg Documented By: JENIFFER Folic Acid (Folic Acid 1 Mg Tablet) 1 mg PO DAILY [facility] Last Admin: 04/18/23 09:19 Dose: 1 mg Documented By: LORENZA Guaifenesin (Guaifenesin 100 Mg/5 Ml Liquid) 5 ml PO Q4H PRN PRN Reason: Cough Albumin Human (Kedbumin 25 %) 100 mls @ 100 mls/hr IV Q6H [facility] Stop: 04/19/23 05:29 Last Admin: 04/18/23 16:27 Dose: 100 mls/hr Documented By: LORENZA Magnesium Hydroxide (Milk Of Magnesia 30 Ml Oral.Susp) 30 ml PO DAILY PRN PRN Reason: constipation Midodrine (Midodrine Hcl 5 Mg Tablet) 5 mg PO TID [facility] Last Admin: 04/18/23 16:27 Dose: 5 mg Documented By: LORENZA Multivitamins/Vitamin C (Multivitamin Tablet) 1 tab PO DAILY [facility] Last Admin: 04/18/23 09:21 Dose: 1 tab Documented By: LORENZA Nystatin (Nystatin Powder 15 Gm Bottle) 1 appl TOPICAL BID [facility]; Protocol Last Admin: 04/18/23 09:22 Dose: Not Given Documented By: LORENZA Non-Admin Reason: Not In Room Ondansetron HCl (Ondansetron Hcl 4 Mg/2 Ml Vial) 4 mg IVPUSH Q8H PRN PRN Reason: Nausea and Vomiting Polyethylene Glycol (Polyethylene Glycol 3350 17 Gm Powd.Pack) 17 gm PO DAILY [facility] Last Admin: 04/18/23 09:21 Dose: 17 gm Documented By: LORENZA Risperidone (Risperidone 0.25 Mg Tablet) 0.25 mg PO BID [facility] Last Admin: 04/18/23 09:16 Dose: 0.25 mg Documented By: LORENZA Sertraline HCl (Sertraline Hcl 25 Mg Tablet) 25 mg PO DAILY [facility] Last Admin: 04/18/23 09:16 Dose: 25 mg Documented By: LORENZA Sodium Chloride (0.9 % Sodium Chloride Flush 3 Ml Syringe) 3 [facility] Last Admin: 04/18/23 16:28 Dose: 3 ml Documented By: LORENZA Thiamine HCl (Thiamine Hcl 100 Mg Tablet) 100 mg PO DAILY [facility] Last Admin: 04/18/23 09:19 Dose: 100 mg Documented By: LORENZA Zinc Oxide (Zinc Oxide 20% Ointment 28.35 Gm Tube) 1 appl TOPICAL DAILY [facility]; Protocol Last Admin: 04/18/23 09:22 Dose: 1 appl Documented By: LORENZA Labs 04/18/23 07:03 04/18/23 07:03 Labs: Laboratory Results - last 24 hr 04/18/23 07:03 MCV 89.1 MCH 26.3 L MCHC 29.5 L RDW 17.0 H Plt Count 166 MPV 10.1 Absolute Nucleated RBC 0.000 Nucleated RBC % (auto) 0.0 Anion Gap 22 H Estim Creat Clear Calc 20.1 Estimated GFR 15 Random Glucose 80 Calcium 9.4 Random Vancomycin 17.3 Assessment and Plan (1) Dementia: Status: Acute Plan 77yo F with chronic back pain, presenting with confusion, likely Alzheimer's dementia vaginal bleeding - no recurrent episode since 04/16,suspect from pelvic malignancy, hematocrit dropped but above transfusion threshold. TETO - creatinine continues to trend up, appears prerenal with Jacky <20; no obstruction; has Ferreira - being followed by Nephrology there is concern for progression to ATN, urine sediment not concerning for glomerular or interstitial disease, no indication for dialysis will avoid nephrotoxic medications - continue colloid resuscitation with 25g albumin IV q6h, continue midodrine. Encourage by mouth intake acute hypoxic resp failure - likely due to PNA +/- restriction from ascites; wean O2 as tolerated PNA - PCT trending down, MRSA swab positive, urine antigens for Legionella + pneumococcus pending, finished 6day course of vanco and Zosyn , BCx negative , no fevers, chronic leukocytosis likely due to underlying Ca. 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 including pancreatico- biliary - CA-125 elevated to 299 - seen by Claim Processing Specialist in the past and again today she declined pelvic exam + endometrial biopsy - patient shows no understanding about immunostains result, and keeps repeating that she does not want any intervention that will prolong her suffering, since it seems to be a metastatic cancer and with? patient's current clinical condition?with lack of support, likely she will not be a candidate for aggressive treatment; discussed with guardian today will hold off on further testing. - repeat US showed large amount ascites so underwent therapeutic tap of 5L on 04/11 dementia, unspecified - likely progressive dementia; memory seems to have been declining over the past several months - [place] Cognitive Assesment (MOCA) : scored 14 - seen by Neurology: probable moderate to severe degenerative dementia, likely Alzheimer's; on sertraline , will DC Namenda. - seen by Psychiatry: does not have capacity to make medical decisions, now has temporary guardian thiamine deficiency folate deficiency Continue supplements stage 3 coccygeal ulcer Seen by wound care they recommend to continue dressings with alginate and zinc oxide, repostion q3 hrs and air mattress. VTE ppx - enoxaparin goals of care poor prognosis in light of underlying malignancy. spoke with pt's guardian Karla Love on 04/[address] 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 Seen by rod hanger Dr Mathis 04/14 and he agrees that coding the pt. would be medically futile. dispo - LTC pending permanent guardianship Time Spent With Patient Time: Total time managing care of this patient today ____ minutes. Quality Stroke Does the patient have a stroke diagnosis?: No VTE Prior VTE?: No VTE Risk Level:: Medical - moderate - high VTE Device Contraindication: Treatment Not Indicated VTE Drug Contraindication: N/A - Med Ordered
[2023-04-18 19:44] VITALS: BP 110/55; PULSE 81; RESP 16; TEMP 35.1; O2SAT 90
[2023-04-18] MEDS: Nystatin Powder 15 GM BOTTLE 1 APPL TOPICAL (22:27)
[2023-04-19] MEDS: Morphine Sulfate 2 MG/ML CARTRIDGE IVPUSH (02:22)
[2023-04-19 03:08] LABS: Strep Pneumo Ag urine Not Detected (Not Detected)
[2023-04-19 04:00] VITALS: BP 98/55; PULSE 76; RESP 16; TEMP 36; O2SAT 96
[2023-04-19] MEDS: Albumin Human 25 % 100 ML IV (04:10)
[2023-04-19 04:16] VITALS: BMI 29.3
[2023-04-19 06:00] VITALS: BMI 29.3
[2023-04-19 06:50] VITALS: BP 100/58; PULSE 86; RESP 18; TEMP 36.6; O2SAT 93
[2023-04-19] MEDS: Docusate Sodium 100 MG CAPSULE 200 MG PO (10:28)
[2023-04-19] MEDS: 0.9 % Sodium Chloride Flush 3 ML SYRINGE IVFLUSH ×3 (10:28→20:01)
[2023-04-19] MEDS: Folic Acid 1 MG TABLET PO (10:29)
[2023-04-19] MEDS: Midodrine HCl 5 MG TABLET PO ×3 (10:29→20:01)
[2023-04-19] MEDS: Sertraline HCL 25 MG TABLET PO (10:29)
[2023-04-19] MEDS: Thiamine HCL 100 MG TABLET PO (10:29)
[2023-04-19] MEDS: Calcium Carbonate 750 MG TAB.CHEW PO (10:29)
[2023-04-19] MEDS: Multivitamin TABLET 1 TAB PO (10:29)
[2023-04-19] MEDS: Nystatin Powder 15 GM BOTTLE 1 APPL TOPICAL ×2 (10:30→20:02)
[2023-04-19] MEDS: Acetaminophen 325 MG TABLET 650 MG PO ×2 (10:30→20:00)
[2023-04-19] MEDS: risperiDONE 0.25 MG TABLET PO ×2 (10:30→20:01)
[2023-04-19] MEDS: Zinc Oxide 20% Ointment 28.35 GM TUBE 1 APPL TOPICAL (10:31)
--- NOTE | 2023-04-19 11:05 | MHC.CLN ---
F/U DIET=REGULAR. INCREASED ENSURE MAX PROTEIN TO TID (450 KCALS, 90 G PROTEIN). SKIN WITH STAGE II TO COCCYX, STAGE I TO LEFT FLANK, DTI TO RIGHT HEEL. SUPPLEMENT TO PROMOTE SKIN INTEGRITY AND INCREASE NUTRITIONAL INTAKE. INTAKE CONTINUES VERY POOR, 0-25%, AND NOT MEETING ESTIMATED NUTRITIONAL NEEDS. AWAITING COURT HEARING FOR STATUS CODE CHANGE. FOLLOW FOR INTAKE, SKIN INTEGRITY, CODE STATUS.
--- NOTE | 2023-04-19 14:29 | MHC.CM.PN ---
[facility] application in progress with Guardistella Love. Final guardianship is pending court date 06/16. DP LTC via BLS.
[2023-04-19 15:06] VITALS: BP 130/60; PULSE 88; RESP 18; TEMP 36.4; O2SAT 91
--- NOTE | 2023-04-19 17:03 | P.PNIM_ITS ---
Subjective Subjective Date of Service: 04/19/23 Interval History: Offers no acute complaints, minimal by mouth intake moving bowels ,no acute events overnight, Review of Systems Unable to obtain review of system due to mental status. Physical Exam 2 Vital Signs: Vital Signs: Last Vital Signs Temp 97.6 F 04/19/23 15:06 Pulse 88 04/19/23 15:06 Resp 18 04/19/23 15:06 BP 130/60 04/19/23 15:06 Pulse Ox 91 L 04/19/23 15:06 O2 Del Method Nasal Cannula 04/19/23 15:06 O2 Flow Rate 3 04/19/23 15:06 FiO2 94 04/07/23 00:15 BMI result Body Mass Index 29.3 Const: Other: Gen: awake , chronically ill-appearing, no resp distress Neck: supple,no jvd Lungs: diminished at L base Heart: regular rate and rhythm, no murmurs Abd: non-tense ascites, distended abdomen, nontender, bowel sounds audible. Ext: mild bilateral leg edema : Ferreira in place Skin: no rash Neuro: alert and oriented to self only, profound memory deficit Psych: impaired insight Objective Data Active Medications Acetaminophen (Acetaminophen 325 Mg Tablet) 650 mg PO Q6H PRN PRN Reason: Pain, Mild (Pain Scale 1-3) Last Admin: 04/19/23 10:30 Dose: 650 mg Documented By: CHARLIE Calcium Carbonate (Calcium Carbonate 750 Mg Tab.Chew) 750 mg PO Q6H PRN PRN Reason: Pain, Severe (Pain Scale 7-10) Last Admin: 04/19/23 10:29 Dose: 750 mg Documented By: CHARLIE Docusate Sodium (Docusate Sodium 100 Mg Capsule) 200 mg PO DAILY [facility] Last Admin: 04/19/23 10:28 Dose: 200 mg Documented By: CHARLIE Enoxaparin Sodium (Enoxaparin Sodium 30 Mg/0.3 Ml Syringe) 30 mg SUBCUT Q24H [facility] Last Admin: 04/14/23 13:46 Dose: 30 mg Documented By: JENIFFER Folic Acid (Folic Acid 1 Mg Tablet) 1 mg PO DAILY [facility] Last Admin: 04/19/23 10:29 Dose: 1 mg Documented By: CHARLIE Guaifenesin (Guaifenesin 100 Mg/5 Ml Liquid) 5 ml PO Q4H PRN PRN Reason: Cough Magnesium Hydroxide (Milk Of Magnesia 30 Ml Oral.Susp) 30 ml PO DAILY PRN PRN Reason: constipation Midodrine (Midodrine Hcl 5 Mg Tablet) 5 mg PO TID [facility] Last Admin: 04/19/23 16:08 Dose: 5 mg Documented By: CHARLIE Multivitamins/Vitamin C (Multivitamin Tablet) 1 tab PO DAILY [facility] Last Admin: 04/19/23 10:29 Dose: 1 tab Documented By: CAHRLIE Nystatin (Nystatin Powder 15 Gm Bottle) 1 appl TOPICAL BID [facility]; Protocol Last Admin: 04/19/23 10:30 Dose: 1 appl Documented By: CHARLIE Ondansetron HCl (Ondansetron Hcl 4 Mg/2 Ml Vial) 4 mg IVPUSH Q8H PRN PRN Reason: Nausea and Vomiting Polyethylene Glycol (Polyethylene Glycol 3350 17 Gm Powd.Pack) 17 gm PO DAILY [facility] Last Admin: 04/19/23 10:30 Dose: 17 gm Documented By: CHARLIE Risperidone (Risperidone 0.25 Mg Tablet) 0.25 mg PO BID [facility] Last Admin: 04/19/23 10:30 Dose: 0.25 mg Documented By: CHARLIE Sertraline HCl (Sertraline Hcl 25 Mg Tablet) 25 mg PO DAILY [facility] Last Admin: 04/19/23 10:29 Dose: 25 mg Documented By: CHARLIE Sodium Chloride (0.9 % Sodium Chloride Flush 3 Ml Syringe) 3 ml IVFLUSH QSHIFT [facility] Last Admin: 04/19/23 16:08 Dose: 3 ml Documented By: CHARLIE Thiamine HCl (Thiamine Hcl 100 Mg Tablet) 100 mg PO DAILY [facility] Last Admin: 04/19/23 10:29 Dose: 100 mg Documented By: CHARLIE Zinc Oxide (Zinc Oxide 20% Ointment 28.35 Gm Tube) 1 appl TOPICAL DAILY [facility]; Protocol Last Admin: 04/19/23 10:31 Dose: 1 appl Documented By: CHARLIE Labs 04/18/23 07:03 04/18/23 07:03 Labs: Laboratory Results - last 24 hr 04/14/23 08:29 Ur Strep pneumoniae Ag Not Detected Assessment and Plan (1) Dementia: Status: Acute Plan 77yo F with chronic back pain, presenting with confusion, likely Alzheimer's dementia vaginal bleeding - no recurrent episode since 04/16,suspect from pelvic malignancy, hematocrit dropped but above transfusion threshold. TETO - elevated creatinine , appears prerenal with Jacky <20; no obstruction; has Ferreira - being followed by Nephrology there is concern for progression to ATN, urine sediment not concerning for glomerular or interstitial disease, no indication for dialysis will avoid nephrotoxic medications - s/p colloid resuscitation with 25g albumin , continue midodrine. Encourage by mouth intake Case discussed with Nephrology follow BMP acute hypoxic resp failure - likely due to PNA +/- restriction from ascites; wean O2 as tolerated PNA - PCT trending down, MRSA swab positive, urine antigens for Legionella + pneumococcus pending, finished 6day course of vanco and Zosyn , BCx negative , no fevers, chronic leukocytosis likely due to underlying Ca. 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 including pancreatico- biliary - CA-125 elevated to 299 - seen by Reagent Tender Helper in the past and again today she declined pelvic exam + endometrial biopsy - patient shows no understanding about immunostains result, and keeps repeating that she does not want any intervention that will prolong her suffering, since it seems to be a metastatic cancer and with? patient's current clinical condition?with lack of support, likely she will not be a candidate for aggressive treatment; discussed with guardian today will hold off on further testing. - repeat US showed large amount ascites so underwent therapeutic tap of 5L on 04/11 Nonsustained V-tach Patient unable to provide meaningful history for chest pain or palpitations, soft blood pressures on midodrine unable to place on beta-blockers, follow electrolytes. dementia, unspecified - likely progressive dementia; memory seems to have been declining over the past several months - [place] Cognitive Assesment (MOCA) : scored 14 - seen by Neurology: probable moderate to severe degenerative dementia, likely Alzheimer's; on sertraline , will DC Namenda. - seen by Psychiatry: does not have capacity to make medical decisions, now has temporary guardian thiamine deficiency folate deficiency Continue supplements stage 3 coccygeal ulcer Seen by wound care they recommend to continue dressings with alginate and zinc oxide, repostion q3 hrs and air mattress. VTE ppx - enoxaparin goals of care poor prognosis in light of underlying malignancy. spoke with pt's guardian Karla Love on 04/[address] 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 Seen by pharmaceutical service representative Dr Mathis 04/14 and he agrees that coding the pt. would be medically futile. dispo - LTC pending permanent guardianship Time Spent With Patient Time: Total time managing care of this patient today ____ minutes. Quality Stroke Does the patient have a stroke diagnosis?: No VTE Prior VTE?: No VTE Risk Level:: Medical - moderate - high VTE Device Contraindication: Treatment Not Indicated VTE Drug Contraindication: N/A - Med Ordered
[2023-04-20 04:00] VITALS: BP 102/60; PULSE 86; RESP 18; TEMP 36; O2SAT 97
--- NOTE | 2023-04-20 05:21 | PC.NURSE ---
pt had large BM last night provided complete bed change and all foam dressing changes. pt comfortably slept most of night. pt refused reposition and drink. pt wants to sleep. less than 100 mL void in the F/C. dr. Burk notified. at this time no new order received. will CONT monitor.
[2023-04-20 06:00] VITALS: BMI 29.3
[2023-04-20 07:04] LABS: Anion Gap 21 (12-20); Blood Urea Nitrogen 69 mg/dL (9-16); Calcium 9.7 mg/dL (8.4-10.2); Carbon Dioxide 17 mmol/L (22-29); Chloride 111 mmol/L (96-108); Creatinine Clr Calc Pharmacy 16.8; Estimated Glomerular Filt Rate 12; Glucose Random 96 mg/dL (60-115); Potassium 4.2 mmol/L (3.3-5.1); Sodium 145 mmol/L (135-145)
[2023-04-20 07:29] LABS: Legionella Ag Urine Not Detected (Not Detected)
[2023-04-20 08:00] VITALS: BP 83/56; PULSE 94; RESP 15; TEMP 35.9; O2SAT 98
[2023-04-20] MEDS: Multivitamin TABLET 1 TAB PO (09:33)
[2023-04-20] MEDS: Thiamine HCL 100 MG TABLET PO (09:33)
[2023-04-20] MEDS: Docusate Sodium 100 MG CAPSULE 200 MG PO (09:33)
[2023-04-20] MEDS: Sertraline HCL 25 MG TABLET PO (09:34)
[2023-04-20] MEDS: Folic Acid 1 MG TABLET PO (09:34)
[2023-04-20] MEDS: Midodrine HCl 5 MG TABLET PO ×2 (09:34→16:02)
[2023-04-20] MEDS: 0.9 % Sodium Chloride Flush 3 ML SYRINGE IVFLUSH ×2 (09:41→16:03)
--- NOTE | 2023-04-20 09:44 | HE.PHANOTE ---
Creatinine Clearence review - Recommended change enoxaparin 30 mg q24h for dvt prophylaxis to heparin 5000 units q12 hrs . Pt CrCl = 16.8 ml/min .
[2023-04-20] MEDS: 0.9 % Sodium Chloride 1,000 ML 125 ML IVCONT (09:51)
[2023-04-20] MEDS: Albumin Human 25 % 100 ML IV ×2 (10:24→16:03)
--- NOTE | 2023-04-20 10:35 | P.PNNP_ITS ---
Subjective Subjective Date of Service: 04/20/23 Interval history: Offers no acute complaints, minimal by mouth intake moving bowels ,no acute events overnight, Physical Exam 2 Vital Signs: Vital Signs: Last Vital Signs Temp 96.7 F L 04/20/23 08:00 Pulse 94 04/20/23 08:00 Resp 15 04/20/23 08:00 BP 83/56 L 04/20/23 08:00 Pulse Ox 98 04/20/23 08:00 O2 Del Method Nasal Cannula 04/20/23 08:00 O2 Flow Rate 4 04/20/23 08:00 FiO2 94 04/07/23 00:15 BMI result Body Mass Index 29.3 Neck: Neck: Yes supple Resp: Auscultation: diminished lung sounds Cardio: Rate: regular rate GI: Palpation (GI): nontender Objective Data Labs 04/18/23 07:03 04/20/23 06:21 Labs: Laboratory Results - last 24 hr 04/14/23 04/20/23 08:29 06:21 Sodium 145 Potassium 4.2 Chloride 111 H Carbon Dioxide 17 L Anion Gap 21 H BUN 69 H Creatinine 3.61 H Estim Creat Clear Calc 16.8 Estimated GFR 12 Random Glucose 96 Calcium 9.7 Magnesium 2.0 Ur L.pneumophila Ag Not Detected Microbiology Microbiology Results: Microbiology 04/12/23 08:01 Blood - Venous Blood Culture - Final No growth after 5 days. 04/12/23 08:01 Blood - Venous Blood Culture - Final No growth after 5 days. 02/22/23 15:03 Ascites Fluid Direct Acid Fast Bacilli Smear - Final 02/22/23 15:03 Ascites Fluid Gram Stain - Final 02/22/23 15:03 Ascites Fluid Routine Culture - Final No growth after 2 days 02/22/23 15:03 Ascites Fluid Anaerobic Culture - Final NO GROWTH AFTER 5 DAYS 02/21/23 18:39 Blood - Venous Blood Culture - Final No growth after 5 days. 02/21/23 18:39 Blood - Venous Blood Culture - Final No growth after 5 days. 02/21/23 16:34 Urine clean catch - Urine cheung top Urine Culture - Final Procedures Date of Service Date of Service: 04/20/23 Assessment & Plan Assessment and plan (1) TETO (acute kidney injury): Status: Acute Assessment and Plan: 77yo F with chronic back pain, presenting with confusion, likely Alzheimer's dementia vaginal bleeding acute hypoxic resp failure PNA malignant ascites/uterine mass dementia, TETO Differential diagnosis includes hypoperfusion. ? progressed to acute tubular necrosis. No evidence of obstruction based on imaging. Urine sediments or bland therefore glomerular or interstitial disease seems unlikely. Serum creatinine is trending up. Not a candidate for dialysis given her comorbid conditions. Overall prognosis is poor. Would consider comfort measures only. Time Spent With Patient Time: Total time managing care of this patient today ____ minutes. Progress Note: Quality Stroke Does the patient have a stroke diagnosis?: No
--- NOTE | 2023-04-20 12:24 | PM.EVENT ---
Event Note Date of Service: 04/20/23 Event Note: Time Spent With Patient Time: Total time managing care of this patient today ____ minutes.
[2023-04-20 15:40] VITALS: BP 72/46; PULSE 87; RESP 15; TEMP 36.1; O2SAT 97
--- NOTE | 2023-04-20 17:42 | PM.EVENT ---
Event Note Date of Service: 04/20/23 Event Note: Patient seen and examined with Dr. Gutierrez. Chart reviewed. Based on patient's extremely poor prognosis, resuscitation would be futile and result in unnecessary trauma to patient. Given such, should the need arise she will not be resuscitated. Time Spent With Patient Time: Total time managing care of this patient today ____ minutes.
--- NOTE | 2023-04-20 18:15 | P.PNIM_ITS ---
Subjective Subjective Date of Service: 04/21/23 Interval History: Patient noted to be lethargic, hypotensive, unable to provide meaningful history due to underlying dementia, mumbling words, I have only 2 days, poor by mouth intake. Review of Systems unable to obtain due to mental status. Physical Exam 2 Vital Signs: Vital Signs: Last Vital Signs Temp 96.9 F 04/20/23 15:40 Pulse 87 04/20/23 15:40 Resp 15 04/20/23 15:40 BP 72/46 L 04/20/23 15:40 Pulse Ox 97 04/20/23 15:40 O2 Del Method Nasal Cannula 04/20/23 15:40 O2 Flow Rate 4 04/20/23 15:40 FiO2 94 04/07/23 00:15 BMI result Body Mass Index 29.3 Const: Other: Gen: Lethargic, ill-appearing, no resp distress Neck: supple,no jvd Lungs: diminished , no use of accessory muscles Heart: regular rate and rhythm, no murmurs Abd: non-tense ascites, distended abdomen, nontender, bowel sounds audible. Ext: mild bilateral leg edema : Ferreira in place minimal dark urine, Skin: no rash, pale Neuro: lethargic, open eyes to verbal commands falls back to sleep Psych: impaired insight Objective Data Active Medications Acetaminophen (Acetaminophen 325 Mg Tablet) 650 mg PO Q6H PRN PRN Reason: Pain, Mild (Pain Scale 1-3) Last Admin: 04/19/23 20:00 Dose: 650 mg Documented By: ALPHONSO Calcium Carbonate (Calcium Carbonate 750 Mg Tab.Chew) 750 mg PO Q6H PRN PRN Reason: Pain, Severe (Pain Scale 7-10) Last Admin: 04/19/23 10:29 Dose: 750 mg Documented By: CHARLIE Docusate Sodium (Docusate Sodium 100 Mg Capsule) 200 mg PO DAILY [facility] Last Admin: 04/20/23 09:33 Dose: 200 mg Documented By: VANESSA Enoxaparin Sodium (Enoxaparin Sodium 30 Mg/0.3 Ml Syringe) 30 mg SUBCUT Q24H [facility] Last Admin: 04/14/23 13:46 Dose: 30 mg Documented By: JENIFFER Folic Acid (Folic Acid 1 Mg Tablet) 1 mg PO DAILY [facility] Last Admin: 04/20/23 09:34 Dose: 1 mg Documented By: VANESSA Guaifenesin (Guaifenesin 100 Mg/5 Ml Liquid) 5 ml PO Q4H PRN PRN Reason: Cough Albumin Human (Kedbumin 25 %) 100 mls @ 100 mls/hr IV Q6H [facility] Stop: 04/21/23 04:29 Last Infusion: 04/20/23 17:07 Dose: Infused Documented By: CHARLIE Magnesium Hydroxide (Milk Of Magnesia 30 Ml Oral.Susp) 30 ml PO DAILY PRN PRN Reason: constipation Midodrine (Midodrine Hcl 5 Mg Tablet) 5 mg PO TID [facility] Last Admin: 04/20/23 16:02 Dose: 5 mg Documented By: CHARLIE Multivitamins/Vitamin C (Multivitamin Tablet) 1 tab PO DAILY [facility] Last Admin: 04/20/23 09:33 Dose: 1 tab Documented By: VANESSA Nystatin (Nystatin Powder 15 Gm Bottle) 1 appl TOPICAL BID [facility]; Protocol Last Admin: 04/20/23 11:15 Dose: Not Given Documented By: CHARLIE Non-Admin Reason: Patient Refused Ondansetron HCl (Ondansetron Hcl 4 Mg/2 Ml Vial) 4 mg IVPUSH Q8H PRN PRN Reason: Nausea and Vomiting Polyethylene Glycol (Polyethylene Glycol 3350 17 Gm Powd.Pack) 17 gm PO DAILY [facility] Last Admin: 04/20/23 10:01 Dose: Not Given Documented By: CHARLIE Non-Admin Reason: Patient Refused Risperidone (Risperidone 0.25 Mg Tablet) 0.25 mg PO BEDTIME [facility] Sodium Chloride (0.9 % Sodium Chloride Flush 3 Ml Syringe) 3 ml IVFLUSH QSHIFT [facility] Last Admin: 04/20/23 16:03 Dose: 3 ml Documented By: CHARLIE Thiamine HCl (Thiamine Hcl 100 Mg Tablet) 100 mg PO DAILY [facility] Last Admin: 04/20/23 09:33 Dose: 100 mg Documented By: VANESSA Zinc Oxide (Zinc Oxide 20% Ointment 28.35 Gm Tube) 1 appl TOPICAL DAILY [facility]; Protocol Last Admin: 04/20/23 11:15 Dose: Not Given Documented By: CHARLIE Non-Admin Reason: Patient Refused Labs 04/18/23 07:03 04/20/23 06:21 Labs: Laboratory Results - last 24 hr 04/14/23 04/20/23 08:29 06:21 Anion Gap 21 H Estim Creat Clear Calc 16.8 Estimated GFR 12 Random Glucose 96 Calcium 9.7 Magnesium 2.0 Ur L.pneumophila Ag Not Detected Assessment and Plan (1) Dementia: Status: Acute Plan 77yo F with chronic back pain, presenting with confusion, likely Alzheimer's dementia vaginal bleeding - no recurrent episode since 04/16,suspect from pelvic malignancy, hematocrit dropped but above transfusion threshold, no biopsy or diagnostic testing planned due to likely advanced metastatic disease, with multiple comorbidities and not a candidate for aggressive intervention. TETO worsening creatinine, with no response to colloidal resuscitation, poor by mouth intake ,not a candidate for hemodialysis being followed by nephrology. acute hypoxic resp failure continue O2 support. PNA - finished 60 course of vancomycin and Zosyn blood cultures negative chronic leukocytosis likely due to underlying cancer malignant ascites/uterine mass - unintentional 30-lb weight loss, s/p paracentesis 02/22/23: 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 with immunostains not consistent with a gynecological origin and are more suggestive of an upper GI primary? including pancreatico- biliary - CA-125 elevated to 299 - seen by Front Of House Manager in the past and again today she declined pelvic exam + endometrial biopsy - patient shows no understanding about immunostains result, and keeps repeating that she does not want any intervention that will prolong her suffering, since it seems to be a metastatic cancer and with? patient's current clinical condition?with lack of support, likely she will not be a candidate for aggressive treatment; discussed with guardian will hold off on further testing. - repeat US showed large amount ascites so underwent therapeutic tap of 5L on 04/11 Nonsustained V-tach Patient unable to provide meaningful history for chest pain or palpitations, soft blood pressures on midodrine unable to place on beta-blockers, follow electrolytes. dementia, unspecified - likely progressive dementia; memory seems to have been declining over the past several months, [place] Cognitive Assesment (MOCA) : scored 14 does not have capacity to make medical decisions, now has temporary guardian. thiamine deficiency/ folate deficiency stage 3 coccygeal ulcer continue dressings with alginate and zinc oxide, repostion q3 hrs and air mattress. VTE ppx hold Lovenox due to worsening renal function and vaginal bleed goals of care poor prognosis in light of underlying malignancy. 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 Given such, should the need arise she will not be resuscitated. Karla Ivan (patient guardian) admitted she is unable to change the code status but agreed patient condition is futile for further medical interventions. Time Spent With Patient Time: Total time managing care of this patient today ____ minutes. Quality Stroke Does the patient have a stroke diagnosis?: No VTE Prior VTE?: No VTE Risk Level:: Medical - moderate - high VTE Device Contraindication: Treatment Not Indicated VTE Drug Contraindication: N/A - Med Ordered
[2023-04-21] MEDS: 0.9 % Sodium Chloride Flush 3 ML SYRINGE IVFLUSH ×2 (01:31→08:38)
[2023-04-21] MEDS: Albumin Human 25 % 100 ML IV ×2 (01:32→06:21)
[2023-04-21] MEDS: Nystatin Powder 15 GM BOTTLE 1 APPL TOPICAL (01:37)
[2023-04-21] MEDS: Morphine Sulfate 2 MG/ML CARTRIDGE IVPUSH ×2 (02:56→08:05)
--- NOTE | 2023-04-21 05:47 | PC.NURSE ---
Pt noted to be more somnolent than usual, HR down to the 30s. MD Burk and nursing cargo supervisor notified of the situation. MD Burk at pt's bedside. 100% non-rebreather mask applied to pt. Will continue to monitor.
[2023-04-21 09:25] VITALS: BP 00/00; PULSE 0; RESP 0; O2SAT 0
--- NOTE | 2023-04-21 10:23 | PM.DS ---
DS: Providers Provider Date of Service: 04/21/23 Date of admission: 02/21/23 22:47 Primary care physician: Unknown Physician Consults: 02/21/23 15:29 Consult to Care Team Stat Comment: Reason for consultation: Sections 12 by [employer] [place] PD for frequent falls potential harm to mya 02/21/23 16:00 Consult to Psychiatry Stat Consulting Provider: Psych Covering Reason for consultation: Capacity evaluation Has provider been notified: No 02/22/23 19:51 Consult to Obstetrics / Gynecology Routine Consulting Provider: Jacinto Ayala Reason for consultation: uterine mass 02/23/23 13:36 Consult to Neurology Routine Consulting Provider: [facility] Reason for consultation: confusion unclear cause ?cognitive impairment Has provider been notified: No 02/26/23 04:33 Consult to Wound Care Routine Consulting Provider: Mitali Orellana Reason for consultation: multiple stage 2 bilateral buttocks Has provider been notified: Yes 04/12/23 11:51 Consult to Wound Care Routine Consulting Provider: [facility] Reason for consultation: st 2 coccygeal ulcer 04/13/23 07:26 Consult to Nephrology Routine Consulting Provider: [facility] Reason for consultation: TETO 04/16/23 13:28 Consult to Obstetrics / Gynecology Routine Consulting Provider: Jacinto Ayala Reason for consultation: Vaginal bleeding. Pelvic tumor DS: Diagnosis Discharge Diagnosis (1) Dementia: Status: Acute DS: Summary Hospital Course Hospital Course: 77yo F with chronic back pain, presented with confusion initially thought to have encephalopathy due to UTI , but later appeared to be likely dementia MOCA score 14, seen by Neurology diagnosed to have probable moderate to severe degenerative dementia likely Alzheimer's patient was noted to have no medical decision-making capacity therefore had a court-appointed guardian, patient provided history of unintentional 30 lb weight loss, underwent paracentesis on 02/22/2023 found to have adeno carcinoma on cytology with immuno stains not consistent with gynecological origin and more suggestive of an upper GI primary including pancreatic or biliary source, patient noted to have elevated CA 125, pelvic exam and endometrial biopsy was attempted by OBGYN however patient declined to undergo any further testing, subsequently patient noted to have worsening kidney injury with no response to colloidal resuscitation with poor by mouth intake,stage 3 coccygeal ulcer, thiamine deficiency/ folate deficiency, due to poor prognosis in light of underlying malignancy, spoke with pt's guardian Karla Love and updated her about patient's worsening clinical condition with hypotension, lethargy , hypothermia, poor by mouth intake, since likely she had,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 Patient peacefully at 09:30 am Had no pulse, no respirations, pupils fixed and dilated Cause of Cardiopulmonary arrest Metastatic cancer Acute kidney injury Time Spent with Patient Time attestation: Total time managing care of this patient today ____ minutes. Discharge coordination time: Greater than 30 minutes Quality: Safe Use of Opioids Does Pt have an Active Cancer Diagnosis on the Problem List?: No Quality: Stroke Does the patient have a stroke diagnosis?: No Physical Exam Vital Signs: Vital Signs: Last Vital Signs Temp 96.9 F 04/20/23 15:40 Pulse 87 04/20/23 15:40 Resp 15 04/20/23 15:40 BP 72/46 L 04/20/23 15:40 Pulse Ox 97 04/20/23 15:40 O2 Del Method Room Air 04/21/23 07:37 O2 Flow Rate 04/21/23 07:37 FiO2 94 04/07/23 00:15 BMI result Body Mass Index 29.3 DS: Data Data Completed and Pending Completed studies during hospitalization [Text1]: Pending at discharge 02/22/23 15:21 Cytology [PTH] Routine Discharge Plan Discharge Date/Time: 04/21/23 09:30 Patient Disposition: Discharge Diagnosis: cardipulmonary arrest Referrals: Physician,Unknown J [Primary Care Provider] - 1 Week Discharge Medications: No Action oxycodone 5 mg tablet 10 mg PO BID PRN (Reason: pain) Discharge Date/Time: 04/21/23 11:00
--- NOTE | 2023-04-21 13:27 | PC.NURSE ---
At 09:25 patient with no respirations. No pulse could be felt. Jacob notified and came and pronounced patient at 09:30. Guardian Karla Love was notified at 09:45 ([phone]). No home arrangements have been made at this time. Andrea was notified and patient was declined by Erik at 09:50. Reference # [id number]. Post mortem care done. [place] [facility] [place]
--- NOTE | 2023-05-02 13:58 | P.CDIM_ITS ---
PROVIDER RESPONSE TEXT: To clarify, the appropriate diagnosis supported by the clinical indicators: Deep tissue injury right heel, unstageable QUERY TEXT: PHYSICIAN'S DOCUMENTATION REQUEST Date of Query: 04/21/2023 09:07 AM EDT Patient Name: Trice Reed Admit Date: 02/22/2023 Dear Howard Gutierrez, A review of the medical record indicates additional documentation may be needed. Please review below and update the documentation accordingly. Clinical Indicators: Per Nursing Pressure Injury Assessment 04/18/23: right heel deep tissue injury, necrotic, foam dressin g to protect Based on the above, could you please provide further information regarding the ulcer/wound: stage 4 decubitus ulcer Deep tissue injury right heel, unstageable Pressure (decubitus) ulcer Please include the stage of the ulcer Other (explain)Clinically unable to determine (explain)Thank you, Nay Pollock RN Use of terms such as suspected, likely, concern for, or probable (associated with a specific diagnosi s that is being evaluated, monitored, or treated as if it exists) are acceptable and can be coded in the inpatient se tting, when documented at the time of discharge. Please use your independent medical judgment in providing your response. THIS QUERY IS PART OF THE PERMANENT MEDICAL RECORD
== END 2023-04-21 11:00 | disposition expired | DRG 374 ==
LOC: HO.ED 19:13 → HO.EDOVER 22:54 → HO.IMC 02-22 07:14 → HO.S3 02-25 18:23
PROVIDERS: Family Medicine; Internal Medicine; Nurse Practitioner Acute Care; Physician Assistant Medical; Radiology Diagnostic Radiology; Radiology Vascular & Interventional Radiology; Student in an Organized Health Care Education/Training Program; Admitting Provider Internal Medicine; Emergency Provider Emergency Medicine Emergency Medical Services; Visit Provider Hospitalist
PROC: 0W9G3ZZ Drainage of Peritoneal Cavity, Percutaneous Approach (ICD-10-PCS; principal; 2023-02-22 14:00)
DX: C78.6 Secondary malignant neoplasm of retroperitoneum and peritoneum (principal); G93.41 Metabolic encephalopathy; J18.9 Pneumonia, unspecified organism; L89.153 Pressure ulcer of sacral region, stage 3; J96.01 Acute respiratory failure with hypoxia; F05 Delirium due to known physiological condition; N17.9 Acute kidney failure, unspecified; N39.0 Urinary tract infection, site not specified; R18.0 Malignant ascites; C78.02 Secondary malignant neoplasm of left lung; C78.01 Secondary malignant neoplasm of right lung; J91.0 Malignant pleural effusion; I47.20 Ventricular tachycardia, unspecified; E53.8 Deficiency of other specified B group vitamins; G30.9 Alzheimer's disease, unspecified; L24.A2 Irritant contact dermatitis due to fecal, urinary or dual incontinence; D63.0 Anemia in neoplastic disease; B95.62 Methicillin resistant Staphylococcus aureus infection as the cause of diseases classified elsewhere; C80.1 Malignant (primary) neoplasm, unspecified; N93.9 Abnormal uterine and vaginal bleeding, unspecified; N26.1 Atrophy of kidney (terminal); R63.4 Abnormal weight loss; E66.3 Overweight; Z68.29 Body mass index [BMI] 29.0-29.9, adult; Z66 Do not resuscitate; F02.C0 Dementia in other diseases classified elsewhere, severe, without behavioral disturbance, psychotic disturbance, mood disturbance, and anxiety; L89.616 Pressure-induced deep tissue damage of right heel; M19.90 Unspecified osteoarthritis, unspecified site; E86.0 Dehydration; N18.30 Chronic kidney disease, stage 3 unspecified; Z20.822 Contact with and (suspected) exposure to COVID-19; Z75.1 Person awaiting admission to adequate facility elsewhere
CPT/HCPCS: 0241U; 36415; 49083; 70450; 71045; 71250; 72125; 74176; 76705; 76775; 76856; 80048; 80053; 80076; 80202; 80307; 81001; 82550; 82570; 82607; 82746; 82947; 83036; 83605; 83615; 83735; 83880; 84145; 84155; 84157; 84300; 84425; 84443; 84484; 85014; 85018; 85025; 85027; 85610; 86304; 86850; 86900; 86901; 87040; 87070; 87073; 87086; 87116; 87205; 87206; 87389; 87449; 87640; 87641; 87899; 88112; 88305; 88341; 88342; 89051; 93005; 93970; 97110; 97162; 97167; 97530; 97535; 99285; C1758; J0696; J1643; J1650; J1940; J2270; J2543; J3370; P9047

== ENCOUNTER → 2023-02-21 15:26 | Outpatient (BNV) | payer SELFPAY | PROVIDERS: Admitting Provider Internal Medicine; Emergency Provider Emergency Medicine Emergency Medical Services; Visit Provider Internal Medicine Cardiovascular Disease | DX: I49.1 Atrial premature depolarization (principal); R94.31 Abnormal electrocardiogram [ECG] [EKG] | CPT/HCPCS: 93010 ==

== ENCOUNTER 2023-02-21 22:47 | Outpatient (BNV) | payer SELFPAY | END 2023-02-22 15:05 | PROVIDERS: Admitting Provider Internal Medicine; Emergency Provider Emergency Medicine Emergency Medical Services; Visit Provider Radiology Diagnostic Radiology | DX: R18.8 Other ascites (principal) | CPT/HCPCS: 49083 ==

== ENCOUNTER 2023-02-21 22:47 | Outpatient (BNV) | payer SELFPAY | END 2023-04-11 11:28 | PROVIDERS: Admitting Provider Internal Medicine; Emergency Provider Emergency Medicine Emergency Medical Services; Visit Provider Radiology Vascular & Interventional Radiology | DX: R18.8 Other ascites (principal) | CPT/HCPCS: 49083 ==

== ENCOUNTER → 2023-02-21 22:47 | Outpatient (BNV) | payer SELFPAY | PROVIDERS: Admitting Provider Internal Medicine; Emergency Provider Emergency Medicine Emergency Medical Services; Visit Provider Obstetrics & Gynecology | DX: C78.6 Secondary malignant neoplasm of retroperitoneum and peritoneum (principal); C80.1 Malignant (primary) neoplasm, unspecified | CPT/HCPCS: 99223 ==

== ENCOUNTER → 2023-02-21 22:47 | Outpatient (BNV) | payer SELFPAY | PROVIDERS: Admitting Provider Internal Medicine; Emergency Provider Emergency Medicine Emergency Medical Services; Visit Provider Internal Medicine Cardiovascular Disease | DX: L89.153 Pressure ulcer of sacral region, stage 3 (principal); F03.90 Unspecified dementia, unspecified severity, without behavioral disturbance, psychotic disturbance, mood disturbance, and anxiety; R41.89 Other symptoms and signs involving cognitive functions and awareness; G93.40 Encephalopathy, unspecified; F05 Delirium due to known physiological condition; R63.4 Abnormal weight loss; R60.0 Localized edema; E88.09 Other disorders of plasma-protein metabolism, not elsewhere classified; R18.8 Other ascites; N39.0 Urinary tract infection, site not specified; N17.9 Acute kidney failure, unspecified; N85.8 Other specified noninflammatory disorders of uterus | CPT/HCPCS: 99291 ==

== ENCOUNTER → 2023-02-21 22:47 | Outpatient (BNV) | payer SELFPAY | PROVIDERS: Admitting Provider Internal Medicine; Emergency Provider Emergency Medicine Emergency Medical Services; Visit Provider Internal Medicine | DX: F03.90 Unspecified dementia, unspecified severity, without behavioral disturbance, psychotic disturbance, mood disturbance, and anxiety (principal) | CPT/HCPCS: 99223; 99231; 99232; 99233; 99239; 99499 ==

== ENCOUNTER → 2023-02-21 22:47 | Outpatient (BNV) | payer SELFPAY | PROVIDERS: Admitting Provider Internal Medicine; Emergency Provider Emergency Medicine Emergency Medical Services; Visit Provider Social Worker | DX: R41.89 Other symptoms and signs involving cognitive functions and awareness (principal) | CPT/HCPCS: 99232; 99233 ==